=== PATIENT | male | born 1945 | race Caucasian/White ===

== ENCOUNTER 2017-05-28 13:16 | Inpatient (IN) ==
[2017-05-28] MEDS ORDERED: 0.9 % Sodium Chloride 1,000 ML IVC ONE (13:18)
[2017-05-28 14:40] LABS: Basophils # 0.1 K/mcL (0.0-0.2); Basophils % 0.3 %; Eosinophils # 0.2 K/mcL (0.0-0.6); Eosinophils % 1.1 %; Hematocrit 29.6 % (37.5-50.1); Hemoglobin 9.3 g/dL (12.9-16.9); Immature Granulocytes % 1.2 % (0-4); Lymphocytes # 1.1 K/mcL (0.6-4.6); Lymphocytes % 5.7 %; Mean Corpuscular HGB Conc 31.4 g/dL (31.6-35.5); Mean Corpuscular Hemoglobin 26.3 pg (28.0-33.3); Mean Corpuscular Volume 83.6 fL (83.0-100.0); Mean Platelet Volume 9.1 fL (9.4-12.4); Monocytes % 5.3 %; Neutrophils # 16.4 K/mcL (1.6-8.9); Platelet Count 441 K/mcL (140-400); Red Blood Count 3.54 M/mcL (4.19-5.50); Red Cell Distribution Width 14.6 % (11.5-14.5); Segmented Neutrophils % 86.4 %
[2017-05-28 14:45] LABS: INR 1.5; Prothrombin Time 16.1 Seconds (9.4-12.1)
[2017-05-28 14:48] LABS: Activated Partial Thrombo Time 30.6 Seconds (26.0-36.0)
[2017-05-28 15:03] LABS: Alanine Aminotransferase 46 Units/L (7-52); Albumin 2.8 g/dL (3.5-5.7); Albumin/Globulin Ratio 0.7 (1.1-2.2); Alkaline Phosphatase 95 Units/L (34-104); Aspartate Amino Transferase 46 Units/L (13-39); BUN/Creatinine Ratio 19 (6-26); Bilirubin,Direct 0.2 mg/dL (0.0-0.2); Bilirubin,Indirect 0.4 mg/dL (0.0-1.2); Bilirubin,Total 0.6 mg/dL (0.3-1.0); Blood Urea Nitrogen 34 mg/dL (8-23); Calcium 8.7 mg/dL (8.6-10.3); Carbon Dioxide 23 mEq/L (23-29); Chloride 95 mEq/L (98-107); Globulin 4.2 g/dL (2.4-3.5); Glucose 117 mg/dL (70-105); Magnesium 2.1 mg/dL (1.6-2.6); Osmolality,Calculated 271 (280-300); Phosphorous 3.1 mg/dL (2.7-4.5); Potassium 5.3 mEq/L (3.5-5.1); Sodium 126 mEq/L (136-145); eGFR For African Americans 46 (> 60); eGFR For Non-African Americans 38 (> 60)
--- NOTE | 2017-05-28 15:14 | Emergency Department Note ---
Disposition Clinical Impression: VALERIANO (acute kidney injury) Decubital ulcer Qualifiers: Pressure ulcer location: unspecified location Pressure ulcer stage: unspecified pressure ulcer stage Qualified Code(s): L89.90 - Pressure ulcer of unspecified site, unspecified stage Sepsis Qualifiers: Sepsis type: sepsis due to unspecified organism Qualified Code(s): A41.9 - Sepsis, unspecified organism Disposition: Admitted As Inpatient Condition: Good Referrals: Shayan Oliva MD [Primary Care Provider] - Forms: ED Satisfaction Letter, Work/School Release Time of Disposition: 18:33 General Adult HPI - General Chief complaint: ED General Medical Stated complaint: septic Time Seen by Provider: 05/28/17 13:17 Source: patient, family Mode of arrival: wheelchair Limitations: no limitations Nursing Notes Reviewed: Yes Vital Signs Reviewed: Yes - History of Present Illness HPI Narrative: 72-year-old male who has a history of hypertension and paraplegia status post abdominal aortic age and repair presents for evaluation of chronic wound in his buttock. Patient was evaluated at the wound center prior to ED arrival. Dr. Blankenship instructed the patient to go to the ER for CT imaging of the patient's abdomen and pelvis. Patient's history provided by the patient's Wells family at bedside. Patient has been dealing with a chronic wound on his buttock over the past 10 months. Over the past couple weeks the patient's family notes foul- smelling odor and discharge from the wound. Patient's been on Bactrim as well as another antibiotic during this timeframe. Patient completed that course. Patient has had approximately 20 pound weight loss over the past week. Patient' s been having chills. Patient denies any abdominal pain. No nausea or vomiting. Patient is incontinent of urine and has had diarrhea this morning. Patient also self caths Pain Scale: 0 - Related Data Home Medications Medication Instructions Recorded Confirmed Aspirin [Lo-Dose Aspirin EC] 81 mg PO DAILY 04/09/17 05/28/17 Lisinopril [Zestril] 5 mg PO DAILY 04/09/17 05/28/17 Multivitamin,Therapeutic 1 each PO DAILY 04/09/17 05/28/17 [Thera-Tabs] Pravastatin Sodium [Pravachol] 80 mg PO HS 04/09/17 05/28/17 Allergies Allergy/AdvReac Type Severity Reaction Status Date / Time No Known Allergies Allergy Verified 05/17/17 16:11 All systems ED: reviewed and negative except as stated. Constitutional: Reports: chills. Denies: fever Cardiovascular: Denies: chest pain, palpitations Respiratory: Denies: cough, dyspnea Gastrointestinal: Reports: diarrhea. Denies: abdominal pain, nausea, vomiting Past Medical History - Past Medical History Source: patient, obtained from family Medical history: Reports: coronary artery disease, hyperlipidemia, hypertension , other Psychiatric history: Reports: no psych history - Social History Smoking Status: Former smoker Smokeless Tobacco Status: No Alcohol use: Reports: none Drug use: Reports: none Physical Exam - General Limitations: no limitations General appearance: alert, in no apparent distress - Head Head exam: atraumatic, normocephalic, normal inspection - Eye Eye exam: Present: normal appearance - ENT ENT exam: normal exam - Neck Neck exam: Present: normal inspection - Chest Chest inspection: Present: normal inspection, symmetric chest wall rise - Respiratory Respiratory exam: Present: normal lung sounds bilaterally. Absent: respiratory distress - Cardiovascular Cardiovascular exam: Present: regular rate, normal rhythm. Absent: systolic murmur - Abdominal Exam Abdominal exam: Present: soft, Non-Tender. Absent: guarding, rebound - Rectal Exam Produce Team Lead present during exam: Yes Rectal exam: Present: other (unstageable 5-4cm decub ulcer with purlent drainage on left buttock lateral to rectum with foul odor.) - Extremities Exam Extremities exam: Present: normal inspection - Expanded Lower Extremity Exam Neurovascular/Tendon exam: Present: normal capillary refill, motor deficit ( baseline lower ext), sensory deficit (baseline lower ext) - Back Exam Back exam: Present: normal inspection - Neurological Exam Neurological exam: Present: alert, oriented X3, CN II-XII intact - Skin Skin exam: Present: warm, dry, intact, normal color Course Vital Signs Temperature 98.4 F 05/28/17 13:38 Pulse Rate 82 05/28/17 13:38 Respiratory Rate 16 05/28/17 13:38 Blood Pressure 94/54 05/28/17 13:38 O2 Sat by Pulse Oximetry 95 05/28/17 13:38 Temperature 98.4 F 05/28/17 13:38 Pulse Rate 94 05/28/17 17:09 Respiratory Rate 16 05/28/17 17:09 Blood Pressure 152/67 05/28/17 17:09 O2 Sat by Pulse Oximetry 100 05/28/17 17:09 Oxygen Delivery Oxygen Delivery Room Air Medical Decision Making - MDM Narrative Medical decision making narrative: 72-year-old male with a history of paraplegia and decubitus ulcer chronically managed in the wound care presents for evaluation of possible sepsis. Patient was sent over by Dr. Blankenship wanted CT imaging. Patient does meet SIRS criteria. Patient was started on antibiotics for the most likely pathological organism. She had CT imaging of the abdomen and pelvis which showed a large uterus ulcer with likely gas gangrene. This information is was verbalized to Dr. Blankenship. Patient's vitals are stable. The patient's infection is likely secondary to the large uterus ulcer. Patient will be admitted to hospital service with surgery consult. - Lab Data Lab results reviewed: Yes I reviewed the patient's lab results. Result diagrams: 05/28/17 14:31 05/28/17 14:31 Lab Results 05/28/17 05/28/17 05/28/17 Range/Units 14:31 14:31 14:31 WBC 18.9 H (4.3-11.1) K/mcL RBC 3.54 L (4.19-5.50) M/mcL Hgb 9.3 L (12.9-16.9) g/dL Hct 29.6 L (37.5-50.1) % MCV 83.6 (83.0-100.0) fL MCH 26.3 L (28.0-33.3) pg MCHC 31.4 L (31.6-35.5) g/dL RDW 14.6 H (11.5-14.5) % Plt Count 441 H (140-400) K/mcL MPV 9.1 L (9.4-12.4) fL Immature Gran % 1.2 (0-4) % Seg Neutrophils % 86.4 % Lymphocytes % 5.7 % Monocytes % 5.3 % Eosinophils % 1.1 % Basophils % 0.3 % Neutrophils # 16.4 H (1.6-8.9) K/mcL Lymphocytes # 1.1 (0.6-4.6) K/mcL Monocytes # 1.0 (0.0-1.3) K/mcL Eosinophils # 0.2 (0.0-0.6) K/mcL Basophils # 0.1 (0.0-0.2) K/mcL PT 16.1 H (9.4-12.1) Seconds INR 1.5 APTT 30.6 (26.0-36.0) Seconds Sample Site ABG pH (7.32-7.45) pH Units ABG pCO2 (35-45) mmHg ABG pO2 (85-104) mmHg ABG HCO3 (21-27) mEq/L ABG Total CO2 (20-26) mEq/L ABG O2 Saturation (95-98) % ABG Base Excess (-2 to 3) mEq/L Td Test O2 Delivery Device Inspired O2 (1-15=lpm [id number]=%) Sodium 126 L (136-145) mEq/L Potassium 5.3 H (3.5-5.1) mEq/L Chloride 95 L (98-107) mEq/L Carbon Dioxide 23 (23-29) mEq/L BUN 34 H (8-23) mg/dL Creatinine 1.77 H (0.70-1.30) mg/dL Est GFR ( Amer) 46 L (> 60) Est GFR (Non-Af Amer) 38 L (> 60) BUN/Creatinine Ratio 19 (6-26) Glucose 117 H (70-105) mg/dL Calculated Osmolality 271 L (280-300) Lactic Acid (0.5-2.2) mmol/L Calcium 8.7 (8.6-10.3) mg/dL Phosphorus 3.1 (2.7-4.5) mg/dL Magnesium 2.1 (1.6-2.6) mg/dL Total Bilirubin 0.6 (0.3-1.0) mg/dL Direct Bilirubin 0.2 (0.0-0.2) mg/dL Indirect Bilirubin 0.4 (0.0-1.2) mg/dL AST 46 H (13-39) Units/L ALT 46 (7-52) Units/L Alkaline Phosphatase 95 (34-104) Units/L Troponin I < 0.03 (< 0.04) ng/mL Serum Total Protein 7.0 (6.4-8.9) g/dL Albumin 2.8 L (3.5-5.7) g/dL Globulin 4.2 H (2.4-3.5) g/dL Albumin/Globulin Ratio 0.7 L (1.1-2.2) Urine Color (Yellow) Urine Clarity (Clear) Urine pH (5.0-8.0) pH Units Ur Specific [place] (1.010-1.025) Urine Protein (Neg-Trace) mg/dL Urine Glucose (UA) (Normal) mg/dL Urine Ketones (Negative) mg/dL Urine Blood (Negative) Urine Nitrite (Negative) Urine Bilirubin (Negative) Urine Urobilinogen (Normal) mg/dL Ur Leukocyte Esterase (Negative) Urine Microscopic RBC (0-3) per hpf Urine Microscopic WBC (0-3) per hpf Ur Squamous Epith Cells (None-Few) per lpf Amorphous Sediment (Few) Urine Bacteria (None-Few) per hpf Hyaline Casts (None-Few) per lpf Ur Culture Indicated? (NO) 05/28/17 05/28/17 05/28/17 Range/Units 14:31 15:25 15:42 WBC (4.3-11.1) K/mcL RBC (4.19-5.50) M/mcL Hgb (12.9-16.9) g/dL Hct (37.5-50.1) % MCV (83.0-100.0) fL MCH (28.0-33.3) pg MCHC (31.6-35.5) g/dL RDW (11.5-14.5) % Plt Count (140-400) K/mcL MPV (9.4-12.4) fL Immature Gran % (0-4) % Seg Neutrophils % % Lymphocytes % % Monocytes % % Eosinophils % % Basophils % % Neutrophils # (1.6-8.9) K/mcL Lymphocytes # (0.6-4.6) K/mcL Monocytes # (0.0-1.3) K/mcL Eosinophils # (0.0-0.6) K/mcL Basophils # (0.0-0.2) K/mcL PT (9.4-12.1) Seconds INR APTT (26.0-36.0) Seconds Sample Site L Radial ABG pH 7.45 (7.32-7.45) pH Units ABG pCO2 33 L (35-45) mmHg ABG pO2 77 L (85-104) mmHg ABG HCO3 23 (21-27) mEq/L ABG Total CO2 24 (20-26) mEq/L ABG O2 Saturation 96 (95-98) % ABG Base Excess -1 (-2 to 3) mEq/L Td Test Positive O2 Delivery Device Room Air Inspired O2 21.0 (1-15=lpm [id number]=%) Sodium (136-145) mEq/L Potassium (3.5-5.1) mEq/L Chloride (98-107) mEq/L Carbon Dioxide (23-29) mEq/L BUN (8-23) mg/dL Creatinine (0.70-1.30) mg/dL Est GFR ( Amer) (> 60) Est GFR (Non-Af Amer) (> 60) BUN/Creatinine Ratio (6-26) Glucose (70-105) mg/dL Calculated Osmolality (280-300) Lactic Acid 0.6 (0.5-2.2) mmol/L Calcium (8.6-10.3) mg/dL Phosphorus (2.7-4.5) mg/dL Magnesium (1.6-2.6) mg/dL Total Bilirubin (0.3-1.0) mg/dL Direct Bilirubin (0.0-0.2) mg/dL Indirect Bilirubin (0.0-1.2) mg/dL AST (13-39) Units/L ALT (7-52) Units/L Alkaline Phosphatase (34-104) Units/L Troponin I (< 0.04) ng/mL Serum Total Protein (6.4-8.9) g/dL Albumin (3.5-5.7) g/dL Globulin (2.4-3.5) g/dL Albumin/Globulin Ratio (1.1-2.2) Urine Color Dark Yellow (Yellow) Urine Clarity Cloudy A (Clear) Urine pH 5.5 (5.0-8.0) pH Units Ur Specific Dawson 1.020 (1.010-1.025) Urine Protein 30 H (Neg-Trace) mg/dL Urine Glucose (UA) Normal (Normal) mg/dL Urine Ketones Trace H (Negative) mg/dL Urine Blood Negative (Negative) Urine Nitrite Negative (Negative) Urine Bilirubin Small H (Negative) Urine Urobilinogen Normal (Normal) mg/dL Ur Leukocyte Esterase Small H (Negative) Urine Microscopic RBC 0-3 (0-3) per hpf Urine Microscopic WBC 15-30 H (0-3) per hpf Ur Squamous Epith Cells Many H (None-Few) per lpf Amorphous Sediment Moderate H (Few) Urine Bacteria Moderate H (None-Few) per hpf Hyaline Casts None Seen (None-Few) per lpf Ur Culture Indicated? NO. (NO) - Radiology Data Radiology results reviewed: Yes I reviewed the patient's radiology results. Chest X-Ray 05/28/17 15:13 IMPRESSION: No acute cardiopulmonary disease. D/ / Blake Nguyen MD / Blake Nguyen MD Interpreting Provider: Blake Nguyen MD Abdomen/Pelvis CT 05/28/17 15:30 IMPRESSION: 1. 4 mm nonobstructing left renal calculus and punctate right renal calculi. There also 2 bladder calculi measuring 7 mm and 3 mm. 2. Left proximal ureteric mild dilatation and urothelial thickening suggests urinary tract infection. 3. Left gluteal ulcer with large 14 cm underlying area of gas pockets, soft tissue induration and some suspected small fluid pockets. Large amount of gas pockets suggests component of gangrene. 4. Cortical irregularity and subtle fragmentation involving the left ischial tuberosity highly suggestive of acute osteomyelitis given overlying extensive soft tissue infection. D/ / Jaspal Powers MD / Jaspal Powers MD Interpreting Provider: Jaspal Powers MD - EKG Data EKG #1 EKG attestation: Yes I reviewed and interpreted this EKG. EKG shows normal: sinus rhythm Rate: normal Rhythm: NSR [place]/QRS: normal Interpretation: no acute changes S.B.A.R. - S.B.A.RSofiya Situation: Demographics Background: Presenting Complaint Assessment: Vital Signs, Course and respsone to treatment, Patient/Family Expectation Recommendation: Barrier(s) to disposition, Recommendation based on pending studies, treatments, or consults S.B.A.RSofiya Report Given to: Dr. Madonna Funes Repor Time: 18:21
[2017-05-28 15:23] LABS: Troponin I < 0.03 ng/mL (< 0.04)
[2017-05-28 15:28] LABS: ABG Base Excess -1 mEq/L (-2 to 3); ABG HCO3 23 mEq/L (21-27); ABG Oxygen Saturation 96 % (95-98); ABG PCO2 33 mmHg (35-45); ABG PH 7.45 pH Units (7.32-7.45); ABG PO2 77 mmHg (85-104); ABG TCO2 24 mEq/L (20-26)
[2017-05-28] MEDS ORDERED: Piperacillin/Tazobactam 3.375 GM in 0.9 % Sodium Chloride Mini Bag 100 ML IVPB ONE (15:37)
[2017-05-28 16:04] LABS: Bilirubin,Urine Small (Negative); Blood,Urine Negative (Negative); Clarity,Urine Cloudy (Clear); Color,Urine Dark Yellow (Yellow); Glucose,Urine (UA) Normal (Normal); Ketones,Urine Trace mg/dL (Negative); Leukocyte Esterase,Urine Small (Negative); Nitrite,Urine Negative (Negative); PH,Urine 5.5 pH Units (5.0-8.0); Protein,Urine 30 mg/dL (Neg-Trace); Urobilinogen,Urine Normal (Normal)
[2017-05-28 16:07] LABS: RBC,Urine 0-3 per hpf (0-3); Squamous Epithelial Cell,Urine Many per lpf (None-Few); WBC,Urine 15-30 per hpf (0-3)
[2017-05-28 16:18] LABS: Amorphous Sediment,Urine Moderate (Few); Hyaline Casts,Urine None Seen per lpf (None-Few)
[2017-05-28 16:19] LABS: Bacteria,Urine Moderate per hpf (None-Few)
--- NOTE | 2017-05-28 18:21 | Emergency Department Note ---
START Narrative - START START: I examined this patient and my medical decision-making was reviewed with the Resident Physician. I agree with the documented findings, disposition and treatment plan as described except to the extent set forth below. Findings consistent with sepsis from decubitus ulcer. Broad spectrum antibiotics initiated. Pancultures obtained. Discussed case with Dr. Stallworth in general surgery. Patient will be admitted for further evaluation. I spent greater than 35 minutes of critical care time resuscitating this acutely ill patient suffering from sepsis. This was excluding billable procedures.
[2017-05-29] MEDS ORDERED: Acetaminophen 325 MG TABLET PO PRN (00:01)
[2017-05-29] MEDS ORDERED: Naloxone 0.4 MG/ML INJ IVP PRN (00:01)
[2017-05-29] MEDS ORDERED: 0.9 % Sodium Chloride 1,000 ML IVC SCH (00:15)
--- NOTE | 2017-05-29 01:10 | Internal Med History&Physical ---
Date of Encounter: 05/28/17 Time of Encounter: 23:00 Assessment and Plan (1) DVT prophylaxis Current visit: Yes Status: Acute Place patient on anti-embolic stocks, patient possibly needed debridement surgery tomorrow, will hold anticoagulation at this point and may start after surgery (2) Hyperkalemia Current visit: Yes Status: Acute Mild hyperkalemia. Assume improved after IV fluid (3) Hyponatremia Current visit: Yes Status: Acute Sodium level 126. On IV fluid with 0.9% NS, closely monitor sodium level. Goal of correction is not more than 8 mEq within the first 24 hours. (4) VALERIANO (acute kidney injury) Current visit: Yes Status: Acute No baseline creatinine available. On IV fluid. Closely follow up renal function (5) Decubital ulcer Current visit: Yes Status: Acute Patient has signs of wound infection. Place patient on broad-spectrum antibiotic. Follow-up blood culture. - Surgical consult called by ER, may need debridement, keep patient nothing by mouth from midnight. Qualifiers: Pressure ulcer location: sacral region Pressure ulcer stage: stage 3 Qualified Code(s): L89.153 - Pressure ulcer of sacral region, stage 3 Internal Medicine - H&P: HPI Chief complaint: Weakness Admitted From: Home Plans for Post Hospital Care: Home History of present illness: Mr. Klein is a 72 year old male with history of paraplegia, chronic decubitus ulcer, present to ER for weakness for 10 days. Patient has a chronic decubitus ulcer and follow-up with Wound Care clinic. He feels generalized weak for about 10 days. No fever, no nausea, no vomiting. Patient had abdominal aortic aneurysm surgery 5 years ago, which ended up with paraplegia since then. Patient went to see Wound Care physician today and was advised to come to the ER. In ER, CT abdominal and pelvis shows most likely wound infection. Patient has leukocytosis. Patient was admitted for further management. Past Med Surg Social Fam HX - Past Medical History Medical history: coronary artery disease, hyperlipidemia, hypertension, other Psychiatric history: no psych history - Social History Smoking Status: Former smoker Smokeless Tobacco Status: No Alcohol use: none Drug use: none - Family History Mother Adopted: No Living Status: Hx Family Cardiac Disorders: Yes Hx Family Respiratory Disorders: No Hx Family Cancer: No Hx Family GI Disorders: No Hx Family Endocrine Disorder: Yes Father Adopted: No Living Status: Hx Family Cardiac Disorders: Yes Hx Family Respiratory Disorders: No Hx Family Cancer: No Hx Family GI Disorders: No Hx Family Endocrine Disorder: No Internal Medicine - H&P: Meds Aspirin [Lo-Dose Aspirin EC] 81 mg PO DAILY 04/09/17 [History] Lisinopril [Zestril] 5 mg PO DAILY 04/09/17 [History] Multivitamin,Therapeutic [Thera-Tabs] 1 each PO DAILY 04/09/17 [History] Pravastatin Sodium [Pravachol] 80 mg PO HS 04/09/17 [History] 3 Allergy/AdvReac Type Severity Reaction Status Date / Time No Known Allergies Allergy Verified 05/17/17 16:11 All Systems PM: A 10-system review of systems was performed and is negative for pertinent findings except as documented above in the HPI. - Constitutional Vitals: Temp Pulse Resp BP Pulse Ox 99.4 F 91 16 97/48 94 05/28/17 23:47 05/28/17 23:47 05/28/17 23:47 05/28/17 23:47 05/28/17 23:47 General appearance: Present: A&O X 3, no acute distress, answers questions appropriately - Head Head exam: Present: atraumatic, normocephalic - Eye Eye exam: Present: PERRL, conjuntiva pink, sclera anicteric Pupils: Present: PERRL - Neck Neck exam general surgery: Present: supple, trachea midline. Absent: lymphadenopathy - Respiratory Respiratory exam: Present: CTAB. Absent: accessory muscle use, rales, rhonchi, wheezes - Cardiovascular Cardiovascular exam: Present: RRR, +S1, +S2. Absent: diastolic murmur, gallop, rubs, systolic murmur - GI/Abdominal GI/Abdominal exam: Present: normal bowel sounds, soft, no peritoneal signs. Absent: distended, tenderness - Extremities Exam Extremities exam: Present: warm, radial pulses palpable and symmetrical. Absent : calf tenderness, cyanotic, pedal edema - Neurological Exam Neurological exam: Present: CN II-XII intact, motor sensory deficit (paraplegia) , oriented X3, no focal deficits. Absent: pronater drift, facial droop, speech deficit - Skin Skin exam: Present: dry, intact Additional comments: Decubitus wound Internal Med - H&P Results - Labs CBC & Chem 7: 05/28/17 14:31 05/28/17 14:31
[2017-05-29] MEDS ORDERED: Piperacillin/Tazobactam 3.375 GM in 0.9 % Sodium Chloride Mini Bag 100 ML IVPB SCH ×2 (06:00)
[2017-05-29 06:20] LABS: Basophils % 0.2 %; Eosinophils # 0.3 K/mcL (0.0-0.6); Eosinophils % 2.7 %; Hemoglobin 8.1 g/dL (12.9-16.9); Lymphocytes # 0.7 K/mcL (0.6-4.6); Lymphocytes % 5.8 %; Mean Corpuscular HGB Conc 31.2 g/dL (31.6-35.5); Mean Corpuscular Hemoglobin 26.2 pg (28.0-33.3); Mean Corpuscular Volume 84.1 fL (83.0-100.0); Mean Platelet Volume 9.2 fL (9.4-12.4); Monocytes # 0.7 K/mcL (0.0-1.3); Monocytes % 5.5 %; Neutrophils # 10.2 K/mcL (1.6-8.9); Platelet Count 389 K/mcL (140-400); Red Blood Count 3.09 M/mcL (4.19-5.50); Red Cell Distribution Width 14.6 % (11.5-14.5); Segmented Neutrophils % 84.8 %
[2017-05-29 06:35] LABS: BUN/Creatinine Ratio 24 (6-26); Blood Urea Nitrogen 27 mg/dL (8-23); Calcium 8.3 mg/dL (8.6-10.3); Carbon Dioxide 22 mEq/L (23-29); Chloride 102 mEq/L (98-107); Glucose 84 mg/dL (70-105); Magnesium 2.1 mg/dL (1.6-2.6); Osmolality,Calculated 276 (280-300); Potassium 4.9 mEq/L (3.5-5.1); Sodium 131 mEq/L (136-145); eGFR For African Americans > 60 (> 60); eGFR For Non-African Americans > 60 (> 60)
[2017-05-29] MEDS: Multivit/Ca/Min/Fe/FA 1 TAB TABLET PO SCH (08:26)
[2017-05-29] MEDS: Aspirin Enteric Coated 81 MG Tablet PO SCH (08:26)
--- NOTE | 2017-05-29 12:18 | Electrocardiograph Report ---
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
--- NOTE | 2017-05-29 12:38 | General Surgery Consult Note ---
Date of Encounter: 05/29/17 Time of Encounter: 12:34 Assessment and Plan (1) Decubital ulcer Current Visit: Yes Status: Acute 72M with infected sacral decubitus ulcer; diet today clearance by hospitalist for surgery cont IV abx dressing change today OR tomorrow for exisional debridement NPO at midnight; cares per primary team Qualifiers: Pressure ulcer location: sacral region Pressure ulcer stage: stage 4 Qualified Code(s): L89.154 - Pressure ulcer of sacral region, stage 4 History of Present Illness Consult date: 05/29/17 Reason for consult: other (infected sacral decubitus ulcer) History of present illness: 72M whom I see weekly in wound clinic. I am very familiar with him. It is worth noting that he is a paraplegic and subsequently developed a sacral decubitus ulcer. He originally presented to my clinic for a non healing sacral ulcer that was non stageable. Over time it began to declare it self, proving to be, at best stage III, most likely stage IV. Prior to admission, he was reported as not having an appetite, feeing weak, not eating and losing weight. He was subsequently admitted. A CT scan was obtained, which was reviewed and interpreted by me in combination with radiology reads, which demonstrated a fluid colleciton and concern for necrotic/gangrenous tissue. I doubt that he has a gas forming bacteria, but believe a lot of the air is from entry through his wound. he is currently on IV antibiotics. I went to see the patient and noted purulent drainage from the wound. Past Med Surg Social Fam HX - Past Medical History Medical history: coronary artery disease, hyperlipidemia, hypertension, other Psychiatric history: no psych history - Past Surgical History Surgical History: other (AAA repair) - Social History Smoking Status: Former smoker Smokeless Tobacco Status: No Alcohol use: none Drug use: none - Family History Mother Adopted: No Living Status: Hx Family Cardiac Disorders: Yes Hx Family Respiratory Disorders: No Hx Family Cancer: No Hx Family GI Disorders: No Hx Family Endocrine Disorder: Yes Father Adopted: No Living Status: Hx Family Cardiac Disorders: Yes Hx Family Respiratory Disorders: No Hx Family Cancer: No Hx Family GI Disorders: No Hx Family Endocrine Disorder: No Medications and Allergies Aspirin [Lo-Dose Aspirin EC] 81 mg PO DAILY 04/09/17 [History] Lisinopril [Zestril] 5 mg PO DAILY 04/09/17 [History] Multivitamin,Therapeutic [Thera-Tabs] 1 each PO DAILY 04/09/17 [History] Pravastatin Sodium [Pravachol] 80 mg PO HS 04/09/17 [History] 3 Allergy/AdvReac Type Severity Reaction Status Date / Time No Known Allergies Allergy Verified 05/17/17 16:11 Review of Systems All systems PM: The remainder of the systems were reviewed and are negative General Surgery Exam Initial Vital Signs Temp Pulse Resp BP Pulse Ox 98.4 F 82 16 94/54 95 05/28/17 13:38 05/28/17 13:38 05/28/17 13:38 05/28/17 13:38 05/28/17 13:38 - General physical appearance well developed, no distress - Eyes normal ocular movement - ENT normal mucosa, normocephalic - Neck trachea midline, no lymphadectomy - Respiratory normal expansion, normal respiratory effort - Cardiovascular Cardiovascular exam: Present: RRR - Abdomen Abdomen general surgery: Present: soft, non tender - Rectum Rectum: Present: other (decubitus ulcer; actively draining purulent material; malodorous) - Integumentary Integumentary general surgery: Present: warm and dry - Neurologic Present: other (paraplegic) - Psychiatric Psychiatric general surgery: Present: A&Ox3 Exam Initial Vital Signs Temp Pulse Resp BP Pulse Ox 98.4 F 82 16 94/54 95 05/28/17 13:38 05/28/17 13:38 05/28/17 13:38 05/28/17 13:38 05/28/17 13:38 Results - Labs 05/29/17 05:37 05/29/17 05:37 Abnormal lab results WBC 12.1 K/mcL (4.3-11.1) H 05/29/17 05:37 RBC 3.09 M/mcL (4.19-5.50) L 05/29/17 05:37 Hgb 8.1 g/dL (12.9-16.9) L 05/29/17 05:37 Hct 26.0 % (37.5-50.1) L 05/29/17 05:37 MCH 26.2 pg (28.0-33.3) L 05/29/17 05:37 MCHC 31.2 g/dL (31.6-35.5) L 05/29/17 05:37 RDW 14.6 % (11.5-14.5) H 05/29/17 05:37 MPV 9.2 fL (9.4-12.4) L 05/29/17 05:37 Neutrophils # 10.2 K/mcL (1.6-8.9) H 05/29/17 05:37 PT 16.1 Seconds (9.4-12.1) H 05/28/17 14:31 ABG pCO2 33 mmHg (35-45) L 05/28/17 15:25 ABG pO2 77 mmHg (85-104) L 05/28/17 15:25 Sodium 131 mEq/L (136-145) L 05/29/17 05:37 Carbon Dioxide 22 mEq/L (23-29) L 05/29/17 05:37 BUN 27 mg/dL (8-23) H 05/29/17 05:37 Calculated Osmolality 276 (280-300) L 05/29/17 05:37 Calcium 8.3 mg/dL (8.6-10.3) L 05/29/17 05:37 AST 46 Units/L (13-39) H 05/28/17 14:31 Albumin 2.8 g/dL (3.5-5.7) L 05/28/17 14:31 Globulin 4.2 g/dL (2.4-3.5) H 05/28/17 14:31 Albumin/Globulin Ratio 0.7 (1.1-2.2) L 05/28/17 14:31 Urine Clarity Cloudy (Clear) A 05/28/17 15:42 Urine Protein 30 mg/dL (Neg-Trace) H 05/28/17 15:42 Urine Ketones Trace mg/dL (Negative) H 05/28/17 15:42 Urine Bilirubin Small (Negative) H 05/28/17 15:42 Ur Leukocyte Esterase Small (Negative) H 05/28/17 15:42 Urine Microscopic WBC 15-30 per hpf (0-3) H 05/28/17 15:42 Ur Squamous Epith Cells Many per lpf (None-Few) H 05/28/17 15:42 Amorphous Sediment Moderate (Few) H 05/28/17 15:42 Urine Bacteria Moderate per hpf (None-Few) H 05/28/17 15:42 Diabetes panel 05/29/17 Range/Units 05:37 Sodium 131 L (136-145) mEq/L Potassium 4.9 (3.5-5.1) mEq/L Chloride 102 (98-107) mEq/L Carbon Dioxide 22 L (23-29) mEq/L BUN 27 H (8-23) mg/dL Creatinine 1.11 (0.70-1.30) mg/dL Glucose 84 (70-105) mg/dL Calcium 8.3 L (8.6-10.3) mg/dL Calcium panel 05/29/17 Range/Units 05:37 Calcium 8.3 L (8.6-10.3) mg/dL Pituitary panel 05/29/17 Range/Units 05:37 Sodium 131 L (136-145) mEq/L Potassium 4.9 (3.5-5.1) mEq/L Chloride 102 (98-107) mEq/L Carbon Dioxide 22 L (23-29) mEq/L BUN 27 H (8-23) mg/dL Creatinine 1.11 (0.70-1.30) mg/dL Glucose 84 (70-105) mg/dL Calcium 8.3 L (8.6-10.3) mg/dL Adrenal panel 05/29/17 Range/Units 05:37 Sodium 131 L (136-145) mEq/L Potassium 4.9 (3.5-5.1) mEq/L Chloride 102 (98-107) mEq/L Carbon Dioxide 22 L (23-29) mEq/L BUN 27 H (8-23) mg/dL Creatinine 1.11 (0.70-1.30) mg/dL Glucose 84 (70-105) mg/dL Calcium 8.3 L (8.6-10.3) mg/dL All other labs normal. Consult Discharge Plan - Plan Referrals: Shayan Oliva MD [Primary Care Provider] -
[2017-05-29 14:22] LABS: Acinetobacter baumannii by PCR Not Detected (Not Detect); Candida albicans by PCR Not Detected (Not Detect); Candida glabrata by PCR Not Detected (Not Detect); Candida krusei by PCR Not Detected (Not Detect); Candida parapsilosis by PCR Not Detected (Not Detect); Candida tropicalis by PCR Not Detected (Not Detect); Enterococcus by PCR Not Detected (Not Detect); Escherichia coli by PCR Not Detected (Not Detect); Klebsiella oxytoca by PCR Not Detected (Not Detect); Klebsiella pneumoniae by PCR Not Detected (Not Detect); Pseudomonas aeruginosa by PCR Not Detected (Not Detect); Serratia marcescens by PCR Not Detected (Not Detect); Staphylococcus aureus by PCR ***DETECTED*** (Not Detect); Streptococcus agalactiae(B)PCR Not Detected (Not Detect); Streptococcus by PCR Not Detected (Not Detect); Streptococcus pneumoniae PCR Not Detected (Not Detect); Streptococcus pyogenes (A) PCR Not Detected (Not Detect); blaKPC Carbapenem-Resist Gene Not Detected (Not Detect); mecA Methicillin-Resist Gene ***DETECTED*** (Not Detect); vanA/B Vancomycin-Resist Genes Not Detected (Not Detect)
--- NOTE | 2017-05-29 14:56 | Infectious Disease Consult ---
Date of Encounter: 05/29/17 Time of Encounter: 14:51 Assessment and Plan (1) Sepsis Status: Acute Assessment and plan: Severe sepsis: The patient had two SIRS criteria plus hypotension and VALERIANO on admission. Likely secondary to infected decubitus ulcer and osteomyelitis. Improved. WBC trending down. Blood cultures drawn 05/28/17 are pending x 2 sets. Qualifiers: Sepsis type: methicillin resistant Staphylococcus aureus Qualified Code(s) : A41.02 - Sepsis due to Methicillin resistant Staphylococcus aureus (2) Osteomyelitis Status: Acute Assessment and plan: Location: Left ischium. Causative organism unclear. Secondary to non-healing decubitus ulcer. CT of the abdomen and pelvis shows findings consistent with osteomyelitis of the left ischium. General surgery consulted and following. Planning to take the patient to the OR tomorrow for I & D. Will request intra-op cultures. Check ESR and CRP. Add to AM labs. Will ask nursing to get a wound culture with the next dressing change. Continue Vancomycin IV. Pharmacy to dose. Goal trough ~15. Continue Zosyn 3.375 grams IV Q8H. Duration of treatment depends on the clinical picture, but likely 6 weeks of IV antibiotics. Monitor renal function and for drug toxicity and dose-adjust antibiotics. enrollment services vice president consult to assist with discharge planning. Avoid insertion of central venous access until blood cultures are negative x 48 hours. Qualifiers: Osteomyelitis type: acute hematogenous Osteomyelitis location: other site Qualified Code(s): M86.08 - Acute hematogenous osteomyelitis, other sites (3) Gas gangrene Status: Acute Assessment and plan: Location: left gluteus. Causative organism: unclear. Likely secondary to non-healing decubitus ulcer. General surgery consulted and following. Continue antibiotics as above. (4) Decubital ulcer Status: Acute Assessment and plan: Stage IV noted to the left gluteus. Non-healing. Follows with Dr. Blankenship in the wound clinic. Wound care per the surgery team. Aggressive offloading. The patient may require plastic surgery evaluation for placement of a flap, but will await surgical outcomes. Qualifiers: Pressure ulcer location: sacral region Pressure ulcer stage: stage 4 Qualified Code(s): L89.154 - Pressure ulcer of sacral region, stage 4 (5) VALERIANO (acute kidney injury) Status: Acute Assessment and plan: Likely secondary to sepsis. Resolved. Continue to trend. Dose-adjust antibiotics. Avoid nephrotoxins as able. (6) Hyperkalemia Status: Resolved (7) Hyponatremia Status: Resolved (8) Paraplegia Status: Acute (9) Neurogenic bladder Status: Acute Assessment and plan: Requires SIC. Management per the primary team. Infectious Disease HPI - Data of Consult Patient: new to practice Consult date: 05/29/17 Requesting Physician: Zachariah Sarah MD Primary Care Provider: Shayan Oliva MD - Consult Narrative Reason for consult: Osteomyelitis History of present illness: Mr. Klein is a 72 year old male with history of paraplegia secondary to postop complications from a previous AAA repair, left buttock decubitus ulcer, CAD, hyperlipidemia, and hypertension. The patient was admitted to the hospital May 28 for acute kidney injury, decubitus ulcer, and sepsis. We are consulted May 29 for antibiotic recommendations for decubitus ulcer infection and osteomyelitis. Briefly, the patient's a 72-year-old male with past medical history as stated above. 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 He states about a year ago he developed a decubitus ulcer to the left buttock that was doing well until somewhere around March when it started to regress. He was referred to the wound clinic and has been seeing Dr. Blankenship. He tells me he has been on multiple rounds of antibiotics, but is unsure which ones. He states he saw Dr. Blankenship most recently the day of admission and was advised to come to the hospital due to concern that the wound was severely infected. Upon arrival to the ER, the patient was afebrile. He did have some hypotension and leukocytosis. He reported subjective chills at home, but no fevers. He was hyponatremic and hyperkalemic. LFTs a lactic acid were normal. He also had an acute kidney injury. He had a chest x-ray that was negative. A CT the abdomen and pelvis showed nonobstructing bladder and kidney stones, some ureteral thickening concerning for urinary tract infection, and a left gluteal ulcer with pockets of gas as well as soft tissue induration and possible small fluid pockets as well as left ischial osteomyelitis. Would cultures were obtained 2 sets and are pending. Urinalysis was obtained via straight catheter, but appears contaminated. He was started on IV vancomycin and IV Zosyn and admitted to the hospital for further evaluation. Since admission, the patient's white blood cell count has improved. He has developed some tachycardia and continues to have intermittent hypotension, which the patient states is abnormal for him. He has been evaluated by the general surgery team and he was told that they are planning on taking him to surgery tomorrow to debride the wound. He is currently on IV vancomycin and IV Zosyn. We have been asked to evaluate and make further recommendations. During my exam today, the patient endorses a history as stated above. He reports that at home he was generally feeling ill for the past 2-3 weeks with poor appetite, chills, and a 20 pound weight loss over the past week and a half due to very poor appetite. He states that he noticed a foul odor and increased discharge about 2 weeks ago after they started using Santyl on the wound. He denies any known fevers or rigors. He denies any congestion, earache, or sore throat. He denies any chest pain, shortness of breath, or cough. He denies any nausea or vomiting. He denies abdominal pain. He does have to self catheter 4-6 times per day due to neurogenic bladder from his spinal cord injury. He reports some diarrhea that started on Saturday. He denies any oral thrush or new skin lesions. The patient lives at home alone. He is able to transfer himself from bed to chair and vice versa. He gets around with a motorized wheelchair. He is retired from the local [employer]. He denies any alcohol, tobacco, or illicit drug use. He denies any travel outside the [facility]. He does have 1 dog at home. CC: Zachariah Sarah MD Past Med Surg Social Fam HX - Past Medical History Attestation: Yes The following information was validated with the patient. Source: patient, old records reviewed, other Medical history: coronary artery disease, hyperlipidemia, hypertension, other ( Paraplegia d/t surgical complication during AAA) Psychiatric history: no psych history - Past Surgical History Surgical History: other (AAA repair) - Social History Smoking Status: Former smoker Smokeless Tobacco Status: No Alcohol use: none Drug use: none Occupational status: retired Current living situation: Home - Independent Activity Level: Wheelchair bound Recent Out of Country Travel Within the Last 8 Weeks: No Exposure or Possible Exposure to Illness During Travel: No - Family History Mother Adopted: No Living Status: Hx Family Cardiac Disorders: Yes Hx Family Respiratory Disorders: No Hx Family Cancer: No Hx Family GI Disorders: No Hx Family Endocrine Disorder: Yes Father Adopted: No Living Status: Hx Family Cardiac Disorders: Yes Hx Family Respiratory Disorders: No Hx Family Cancer: No Hx Family GI Disorders: No Hx Family Endocrine Disorder: No Infectious Disease-CN:Meds Aspirin [Lo-Dose Aspirin EC] 81 mg PO DAILY 04/09/17 [History] Lisinopril [Zestril] 5 mg PO DAILY 04/09/17 [History] Multivitamin,Therapeutic [Thera-Tabs] 1 each PO DAILY 04/09/17 [History] Pravastatin Sodium [Pravachol] 80 mg PO HS 04/09/17 [History] 3 Allergy/AdvReac Type Severity Reaction Status Date / Time No Known Allergies Allergy Verified 05/17/17 16:11 All systems: reviewed and no additional remarkable complaints except as stated Exam - Constitutional Vitals: Temp Pulse Resp BP Pulse Ox 98.6 F 90 17 101/44 93 05/29/17 11:24 05/29/17 11:24 05/29/17 11:24 05/29/17 11:24 05/29/17 11:24 General appearance: average body habitus, cooperative, no acute distress - Head Head exam: Present: atraumatic, normal inspection, normocephalic - Eye Eye exam: Present: EOMI, normal appearance, PERRL Pupils: Present: normal accommodation - ENT ENT exam: Present: mucous membranes moist - Neck Neck exam: Present: normal inspection - Respiratory Respiratory exam: Present: CTAB. Absent: rales, respiratory distress, rhonchi, wheezes - Cardiovascular Cardiovascular exam: Present: +S1, +S2, tachycardia. Absent: irregular rhythm - GI/Abdominal GI/Abdominal exam: Present: normal bowel sounds, soft. Absent: distended, tenderness - Extremities Exam Extremities exam: Absent: joint swelling, normal inspection (Muscle atrophy noted to the BLE.), pedal edema, tenderness - Expanded Back Exam 1 - Stage IV decubitus ulcer with foul smelling purulent drainage noted. Wound bed is dark yellow. Surrounding tissue is pink and blanches. - Neurological Exam Neurological exam: Present: alert, oriented X3. Absent: no focal deficits ( Paralysis noted to the BLE) - Psychiatric Psychiatric exam: Present: normal affect, normal mood - Skin Skin exam: Present: dry, intact, normal color, warm Infectious Disease CN: Results - Labs CBC & Chem 7: 05/30/17 03:00 05/30/17 03:00 - VTE Documentation of Mechanical Device: Graduated compression elastic hosiery Consult Discharge Plan - Plan Referrals: Shayan Oliva MD [Primary Care Provider] - (Please have patient call once home due to so many no show. per office) - Attending Attestation I examined this patient and my medical decision-making was reviewed with the Resident Physician. I agree with the documented findings, disposition and treatment plan as described except to the extent set forth below. Patient is 72-year-old gentleman who came in because of worsening decubitus ulcer that has been draining and foul-smelling.~ Patient denies any fevers or chills patient denies any night sweats. Patient is a 72-year-old gentleman who apparently has been paraplegic for about 4 years due to an unfortunate complication from AAA repair that was done at [facility] in [place].~ Patient to lives alone about [place] east of [place].~ Patient has a wheelchair and a power wheelchair and also able to drive on his own.~ Patient has a daughter that comes and checks up on him and helps him when he needs are.~ Patient states that he had this NICU was also for about a year now that has been getting progressively worse.~ In March of this year patient establish care with wound care and was seeing Dr. Stallworth.~ Currently patient states that he has been having drainage and foul-smelling and was sent by Dr. Stallworth to the emergency department for admission. Since admission patient has been afebrile, he has been hypertensive, his WBC was elevated and had normal heart rate.~ Patient also had some acute kidney injury and that resolved.~ Patient had a CT abdomen and pelvis which revealed left ischial osteomyelitis.~ We were asked to evaluate the patient and further recommendations. At this point patient has stage IV decubitus ulcer with osteomyelitis.~ Patient is going to surgery tomorrow for aggressive debridement. Please obtain Intra-Op cultures for routine and anaerobic. Agree with starting intermittent vancomycin and Zosyn, patient has 2 SIRS criteria so I agree with starting antibiotics now. Goal vancomycin trough around 15 Monitor labs and for drug toxicity Patient will need a PICC line prior to discharge and he will likely need 6-8 weeks of IV antibiotics We will check inflammatory markers today prior to surgery tomorrow Postop we will make a further decision if the patient needs a flap or wound VAC versus other. We will need to follow up with us in clinic 2 weeks post discharge Will tailor antibiotics based on the Intra-Op cultures results.
--- NOTE | 2017-05-29 16:14 | Internal Med Progress Note ---
Date of Encounter: 05/29/17 Time of Encounter: 11:30 - Assessment and plan (1) Sepsis Current Visit: Yes Status: Acute Assessment and plan: He did meet sepsis criteria with source of inf as Left buttock wound, elevated WBC, mild hypotension and VALERIANO check ESR and CRP Blood cx growing MRSA cont empirical abx Vanc and Zosyn Cont IV hydration Qualifiers: Sepsis type: methicillin resistant Staphylococcus aureus Qualified Code(s) : A41.02 - Sepsis due to Methicillin resistant Staphylococcus aureus (2) Gas gangrene Current Visit: Yes Status: Acute Assessment and plan: Reviewed CT of pelvis concerning for gas gangrene and possible osteomyelitis pt scheduled for debridement in AM ID consulted cont empirical abx Zosyn + Vanc (3) Decubital ulcer Current Visit: Yes Status: Acute Qualifiers: Pressure ulcer location: sacral region Pressure ulcer stage: stage 4 Qualified Code(s): L89.154 - Pressure ulcer of sacral region, stage 4 (4) VALERIANO (acute kidney injury) Current Visit: Yes Status: Acute Assessment and plan: Improved due to sepsis + dehydration (5) Hyperkalemia Current Visit: Yes Status: Resolved Assessment and plan: improved (6) Hyponatremia Current Visit: Yes Status: Resolved Assessment and plan: Due to dehydration improved (7) Paraplegia Current Visit: Yes Status: Acute Assessment and plan: no needs now - Subjective Interval history: Mr. Klein is a 72 year old male with history of paraplegia secondary to postop complications from a previous AAA repair, left gluteus decubitus ulcer developed a year ago, CAD, hyperlipidemia, and hypertension pt who follows with Dr. Blankenship as an out pt for his left gluteus decubitus ulcer presented to ER since his Left buttock wound seems to be worsening with foul discharge and Dr. Blankenship referred him to ER to get admitted in the hospital. Pt is alert, awake and O x 3. Denied any CP / SOB. - Constitutional Vitals: Temp Pulse Resp BP Pulse Ox 97.4 F L 84 17 110/40 94 05/29/17 15:41 05/29/17 15:41 05/29/17 15:41 05/29/17 15:41 05/29/17 15:41 General appearance: Present: A&O X 3, no acute distress, answers questions appropriately - Head Head exam: Present: atraumatic, normal inspection - Neck Neck exam general surgery: Present: supple - Respiratory Respiratory exam: Present: decreased breath sounds. Absent: rales, respiratory distress, rhonchi, wheezes - Cardiovascular Cardiovascular exam: Present: RRR, +S1, +S2. Absent: tachycardia - GI/Abdominal GI/Abdominal exam: Present: normal bowel sounds, soft. Absent: rebound, rigid, tenderness - Extremities Exam Extremities exam: Absent: calf tenderness, pedal edema, tenderness - Back Exam Back exam: Absent: CVA tenderness (L), CVA tenderness (R) Additional comments: 6x 6 cm size open wound over Left gluteal region, with tunneling and erythema around the ulcer, foul discharge. - Neurological Exam Neurological exam: Present: alert, oriented X3 - Psychiatric Psychiatric exam: Present: normal affect, normal mood Internal Medicine: Result - Labs CBC & Chem 7: 05/29/17 05:37 05/29/17 05:37 Labs: Short CBC 05/29/17 Range/Units 05:37 WBC 12.1 H (4.3-11.1) K/mcL Hgb 8.1 L (12.9-16.9) g/dL Hct 26.0 L (37.5-50.1) % Plt Count 389 (140-400) K/mcL Neutrophils # 10.2 H (1.6-8.9) K/mcL BMP 05/29/17 05:37 Sodium 131 L Potassium 4.9 Chloride 102 Carbon Dioxide 22 L BUN 27 H Creatinine 1.11 Glucose 84 Calcium 8.3 L - ABG Interpretation ABG results: ABG ABG pH 7.45 pH Units (7.32-7.45) 05/28/17 15:25 ABG pCO2 33 mmHg (35-45) L 05/28/17 15:25 ABG pO2 77 mmHg (85-104) L 05/28/17 15:25 ABG O2 Saturation 96 % (95-98) 05/28/17 15:25 PT/INR, D-dimer PT 16.1 Seconds (9.4-12.1) H 05/28/17 14:31 - VTE Documentation of Mechanical Device: Graduated compression elastic hosiery Consult Discharge Plan - Plan Referrals: Pj,Shayan Lubin MD [Primary Care Provider] -
[2017-05-29] MEDS: 0.9 % Sodium Chloride 1,000 ML IVC SCH (17:29)
[2017-05-29] MEDS: Zinc Sulfate 220 MG CAPSULE PO SCH (17:31)
[2017-05-29] MEDS: Ascorbic Acid 500 MG TABLET PO SCH (17:31)
[2017-05-29] MEDS: Piperacillin/Tazobactam 3.375 GM in 0.9 % Sodium Chloride Mini Bag 100 ML IVPB SCH (17:31)
--- NOTE | 2017-05-29 20:45 | Anesthesia Evaluation PreOp ---
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 (paraplegia after AAA repair 5yrs ago) Other Medical History: Renal (VALERIANO), Other (sepsis) Anesthesia History: No Prior Anesthetic Complications, Past Anesthesia (AAA repair, carotid endarterectomy) Alcohol Use: none Drug use: none Medications and Allergies Aspirin [Lo-Dose Aspirin EC] 81 mg PO DAILY 04/09/17 [History] Lisinopril [Zestril] 5 mg PO DAILY 04/09/17 [History] Multivitamin,Therapeutic [Thera-Tabs] 1 each PO DAILY 04/09/17 [History] Pravastatin Sodium [Pravachol] 80 mg PO HS 04/09/17 [History] 3 Allergy/AdvReac Type Severity Reaction Status Date / Time No Known Allergies Allergy Verified 05/17/17 16:11 - Meds/Allergy Pre-op Review Medications Reviewed: Yes Allergies Reviewed: Yes Beta Blockers on Current Med List: No Anesthesia Results - Labs 05/29/17 05:37 05/29/17 05:37 - Imaging EKG: report reviewed (SINUS RHYTHM BASELINE ARTIFACT Electronically Signed On 12:16:56 EDT by Guille Ac MD) Anesthesia Exam Vital Signs/O2 Sat, Most Current Temp Pulse Resp BP Pulse Ox 97.4 F L 84 17 110/40 94 05/29/17 15:41 05/29/17 15:41 05/29/17 15:41 05/29/17 15:41 05/29/17 15:41 Height: 1.85m Weight: 76kg NPO (# of Hours): npo after midnight - HEENT Pupil (Motor): Pupils equal, EOMI Mallampati: II Denture Type: Upper: Complete, Lower: Complete Oral Opening: Greater than 3 - FORGE UTILITY WORKER LOC: Oriented FORGE UTILITY WORKER Motor: Normal RUE, Normal LUE, Normal Face, Deficit RLE (paraplegic), Deficit LLE (paraplegic) FORGE UTILITY WORKER Sensory: Normal: RUE, LUE, Face - Cardiac Rhythm: Regular - Pulmonary Breath Sounds: bilateral Clear Respiratory Effort: Symmetrical Anesthesia Assess/Plan ASA Score: 3 (r/b/a discussed, pt is at risk for autonomic hypereflexia during his operation) Modified Scroggins Scale for Level of Consciousness: Cooperative, oriented, and tranquil Anesthetic Plan: General Monitoring Plan: Standard Monitors Recovery Plan: PACU
[2017-05-29 23:12] LABS: C-Reactive Protein 188 mg/L (Less than 10)
[2017-05-30] MEDS: Piperacillin/Tazobactam 3.375 GM in 0.9 % Sodium Chloride Mini Bag 100 ML IVPB SCH ×2 (00:57→10:00)
[2017-05-30 03:34] LABS: Basophils % 0.2 %; Eosinophils # 0.2 K/mcL (0.0-0.6); Eosinophils % 1.6 %; Hematocrit 24.7 % (37.5-50.1); Hemoglobin 7.8 g/dL (12.9-16.9); Immature Granulocytes % 0.8 % (0-4); Lymphocytes # 0.8 K/mcL (0.6-4.6); Lymphocytes % 7.5 %; Mean Corpuscular HGB Conc 31.6 g/dL (31.6-35.5); Mean Corpuscular Hemoglobin 26.4 pg (28.0-33.3); Mean Corpuscular Volume 83.7 fL (83.0-100.0); Mean Platelet Volume 9.3 fL (9.4-12.4); Monocytes # 0.7 K/mcL (0.0-1.3); Monocytes % 6.6 %; Neutrophils # 8.8 K/mcL (1.6-8.9); Platelet Count 334 K/mcL (140-400); Red Blood Count 2.95 M/mcL (4.19-5.50); Red Cell Distribution Width 14.8 % (11.5-14.5); Segmented Neutrophils % 83.3 %
[2017-05-30 03:55] LABS: BUN/Creatinine Ratio 22 (6-26); Blood Urea Nitrogen 21 mg/dL (8-23); Calcium 8.2 mg/dL (8.6-10.3); Carbon Dioxide 23 mEq/L (23-29); Chloride 107 mEq/L (98-107); Glucose 105 mg/dL (70-105); Osmolality,Calculated 285 (280-300); Potassium 5.1 mEq/L (3.5-5.1); Sodium 136 mEq/L (136-145); eGFR For African Americans > 60 (> 60); eGFR For Non-African Americans > 60 (> 60)
[2017-05-30] MEDS: 0.9 % Sodium Chloride 1,000 ML IVC SCH ×2 (09:55)
[2017-05-30] MEDS: Aspirin Enteric Coated 81 MG Tablet PO SCH (09:56)
[2017-05-30] MEDS: Multivit/Ca/Min/Fe/FA 1 TAB TABLET PO SCH (09:56)
[2017-05-30] MEDS: Ascorbic Acid 500 MG TABLET PO SCH (09:56)
[2017-05-30] MEDS: Zinc Sulfate 220 MG CAPSULE PO SCH (09:56)
--- NOTE | 2017-05-30 11:21 | General Surgery Progress Note ---
Date of Encounter: 05/30/17 Time of Encounter: 11:20 - Assessment and Plan (1) Decubital ulcer Current Visit: Yes Status: Acute 72M with infected sacral decubitus ulcer; OR today for debridement Qualifiers: Pressure ulcer location: sacral region Pressure ulcer stage: stage 4 Qualified Code(s): L89.154 - Pressure ulcer of sacral region, stage 4 Subjective Patient reports: no new complaints Objective Vital Signs - Last 8 Hours Temp Pulse Resp BP Pulse Ox 05/30/17 11:09 98.3 F 87 18 109/51 95 05/30/17 10:20 95 05/30/17 07:09 98.3 F 82 17 102/48 95 05/30/17 04:28 98.1 F 80 16 108/57 93 Intake and Output 05/29/17 05/30/17 05/30/17 23:59 07:59 15:59 Intake Total 100 / 100 100 / 100 Output Total 1800 / 1800 400 / 400 Balance -1700 / -1700 100 / 100 -400 / -400 Intake: IV Fluids 100 / 100 100 / 100 0.9 % Sodium Chloride 1,000 ML 0 / 0 @ 125 mls/hr IVC .Q8H [facility]USTO Rx#: [id number] Zosyn 3.375 GM In 0.9 % Sodium 100 / 100 100 / 100 Chloride (Mini-Bag +) 100 ML @ 25 mls/hr IVPB Q8H FAUSTO Rx#: [id number] Oral 0 / 0 Output: Urine 900 / 900 Straight Cath 900 / 900 400 / 400 Other: Meal Dinner Percent of Meal Consumed 20% Weight 76.6 kg Patient Weight 05/30/17 23:59 Weight 76.6 kg - General physical appearance no distress - Respiratory normal expansion, normal respiratory effort - Cardiovascular Cardiovascular exam: Present: RRR - Incision Incision: Present: draining - Rectum other (wound actively draining) - Integumentary no rash - Labs 05/30/17 03:00 05/30/17 03:00 Diabetes panel 05/29/17 05/30/17 Range/Units 05:37 03:00 Sodium 131 L 136 (136-145) mEq/L Potassium 4.9 5.1 (3.5-5.1) mEq/L Chloride 102 107 (98-107) mEq/L Carbon Dioxide 22 L 23 (23-29) mEq/L BUN 27 H 21 (8-23) mg/dL Creatinine 1.11 0.94 (0.70-1.30) mg/dL Glucose 84 105 (70-105) mg/dL Calcium 8.3 L 8.2 L (8.6-10.3) mg/dL Calcium panel 05/29/17 05/30/17 Range/Units 05:37 03:00 Calcium 8.3 L 8.2 L (8.6-10.3) mg/dL Pituitary panel 05/29/17 05/30/17 Range/Units 05:37 03:00 Sodium 131 L 136 (136-145) mEq/L Potassium 4.9 5.1 (3.5-5.1) mEq/L Chloride 102 107 (98-107) mEq/L Carbon Dioxide 22 L 23 (23-29) mEq/L BUN 27 H 21 (8-23) mg/dL Creatinine 1.11 0.94 (0.70-1.30) mg/dL Glucose 84 105 (70-105) mg/dL Calcium 8.3 L 8.2 L (8.6-10.3) mg/dL Adrenal panel 05/29/17 05/30/17 Range/Units 05:37 03:00 Sodium 131 L 136 (136-145) mEq/L Potassium 4.9 5.1 (3.5-5.1) mEq/L Chloride 102 107 (98-107) mEq/L Carbon Dioxide 22 L 23 (23-29) mEq/L BUN 27 H 21 (8-23) mg/dL Creatinine 1.11 0.94 (0.70-1.30) mg/dL Glucose 84 105 (70-105) mg/dL Calcium 8.3 L 8.2 L (8.6-10.3) mg/dL - VTE Documentation of Mechanical Device: Graduated compression elastic hosiery Consult Discharge Plan - Plan Referrals: Shayan Oliva MD [Primary Care Provider] - (Please have patient call once home due to so many no show. per office)
--- NOTE | 2017-05-30 12:37 | Infectious Disease Progress No ---
Date of Encounter: 05/30/17 Time of Encounter: 10:00 - Assessment and Plan (1) Sepsis Current Visit: Yes Status: Acute Severe sepsis: The patient had two SIRS criteria plus hypotension and VALERIANO on admission. Likely secondary to infected decubitus ulcer and osteomyelitis. Improved. WBC normal. Tachycardia has resolved. Blood cultures drawn 05/28/17 are positive 1/2 sets for MRSA. Qualifiers: Sepsis type: methicillin resistant Staphylococcus aureus Qualified Code(s) : A41.02 - Sepsis due to Methicillin resistant Staphylococcus aureus (2) Bacteremia Current Visit: Yes Status: Acute Causative organism: MRSA. Source likely the infected decubitus ulcer. Complicated due to the presence of osteomyelitis. Blood cultures drawn 05/28/17 are positive 1/2 sets. No evidence of septic emboli. The patient has one major and one minor Modified Nielson's Criteria. Repeat blood cultures x 2 sets now. Get TTE. If negative, will need LANEC prior to discharge. Continue Vancomycin IV. Pharmacy to dose. Goal trough ~15. Duration of treatment depends on the clinical picture, but likely 6 weeks of IV antibiotics. Monitor renal function and for drug toxicity and dose-adjust antibiotics. Avoid the insertion of central venous access until blood cultures are negative x 48 hours. (3) Osteomyelitis Current Visit: Yes Status: Acute Location: Left ischium. Causative organism unclear. Wound culture obtained and pending. Secondary to non-healing decubitus ulcer. CT of the abdomen and pelvis shows findings consistent with osteomyelitis of the left ischium. General surgery consulted and following. Planning to take the patient to the OR later today for I & D. Will request intra-op cultures. Baseline ESR 80, CRP 188. Given the extent of the infection, will continue broad spectrum antibiotics until we get wound/intra-op cultures back. Continue Vancomycin IV. Pharmacy to dose. Goal trough ~15. Continue Zosyn 3.375 grams IV Q8H. Duration of treatment depends on the clinical picture, but likely 6 weeks of IV antibiotics. Monitor renal function and for drug toxicity and dose-adjust antibiotics. emergency medical services coordinator consult to assist with discharge planning. Avoid insertion of central venous access until blood cultures are negative x 48 hours. Qualifiers: Osteomyelitis type: acute hematogenous Osteomyelitis location: other site Qualified Code(s): M86.08 - Acute hematogenous osteomyelitis, other sites (4) Gas gangrene Current Visit: Yes Status: Acute Location: left gluteus. Causative organism: unclear. Likely secondary to non-healing decubitus ulcer. General surgery consulted and following. Continue antibiotics as above. (5) Decubital ulcer Current Visit: Yes Status: Acute Stage IV noted to the left gluteus. Non-healing. Follows with Dr. Blankenship in the wound clinic. Wound care per the surgery team. Aggressive offloading. The patient may require plastic surgery evaluation for placement of a flap, but will await surgical outcomes. Qualifiers: Pressure ulcer location: sacral region Pressure ulcer stage: stage 4 Qualified Code(s): L89.154 - Pressure ulcer of sacral region, stage 4 (6) VALERIANO (acute kidney injury) Current Visit: Yes Status: Acute Likely secondary to sepsis. Resolved. Continue to trend. Dose-adjust antibiotics. Avoid nephrotoxins as able. (7) Hyperkalemia Current Visit: Yes Status: Resolved (8) Hyponatremia Current Visit: Yes Status: Resolved (9) Paraplegia Current Visit: Yes Status: Acute (10) Neurogenic bladder Current Visit: Yes Status: Acute Requires SIC. Management per the primary team. - Subjective Interval history: Patient seen and examined. No acute events noted overnight. Patient states he is doing well today. Denies fevers, chills, or rigors. Denies headache, neck pain, or dizziness. Denies chest pain, shortness of breath, or cough. Denies nausea, vomiting, or diarrhea. Denies abdominal pain and states his appetite is a little better. Denies oral thrush or new skin lesions. Is scheduled for surgery later today. Infect Dis PN-Objective Data - Labs CBC & Chem 7: 05/30/17 03:00 05/30/17 03:00 Labs: Laboratory Results - last 24 hr 05/29/17 05/29/17 05/30/17 05:37 05:37 03:00 WBC RBC Hgb Hct MCV MCH MCHC RDW Plt Count MPV Immature Gran % Seg Neutrophils % Lymphocytes % Monocytes % Eosinophils % Basophils % Neutrophils # Lymphocytes # Monocytes # Eosinophils # Basophils # ESR 80 H Sodium 131 L Potassium 4.9 Chloride 102 Carbon Dioxide 22 L BUN 27 H Creatinine 1.11 Est GFR ( Amer) > 60 Est GFR (Non-Af Amer) > 60 BUN/Creatinine Ratio 24 Glucose 84 Calculated Osmolality 276 L Calcium 8.3 L Magnesium 2.1 C-Reactive Protein 188 H Vancomycin Trough 23.3 H* 05/30/17 05/30/17 03:00 03:00 WBC 10.6 RBC 2.95 L Hgb 7.8 L Hct 24.7 L MCV 83.7 MCH 26.4 L MCHC 31.6 RDW 14.8 H Plt Count 334 MPV 9.3 L Immature Gran % 0.8 Seg Neutrophils % 83.3 Lymphocytes % 7.5 Monocytes % 6.6 Eosinophils % 1.6 Basophils % 0.2 Neutrophils # 8.8 Lymphocytes # 0.8 Monocytes # 0.7 Eosinophils # 0.2 Basophils # 0.0 ESR Sodium 136 Potassium 5.1 Chloride 107 Carbon Dioxide 23 BUN 21 Creatinine 0.94 Est GFR ( Amer) > 60 Est GFR (Non-Af Amer) > 60 BUN/Creatinine Ratio 22 Glucose 105 Calculated Osmolality 285 Calcium 8.2 L Magnesium C-Reactive Protein Vancomycin Trough Exam - Constitutional Vitals: Temp Pulse Resp BP Pulse Ox 98.3 F 87 18 109/51 95 05/30/17 11:09 05/30/17 11:09 05/30/17 11:09 05/30/17 11:09 05/30/17 11:09 General appearance: average body habitus, cooperative, no acute distress - Head Head exam: Present: atraumatic, normal inspection, normocephalic - Eye Eye exam: Present: EOMI, normal appearance, PERRL Pupils: Present: normal accommodation Additional comments: No subconjunctival hemorrhage noted. - ENT ENT exam: Present: mucous membranes moist - Neck Neck exam: Present: normal inspection - Respiratory Respiratory exam: Present: CTAB. Absent: decreased breath sounds, rales, respiratory distress, rhonchi, wheezes - Cardiovascular Cardiovascular exam: Present: RRR, +S1, +S2 - GI/Abdominal GI/Abdominal exam: Present: normal bowel sounds, soft. Absent: distended, tenderness - Extremities Exam Extremities exam: Absent: joint swelling, pedal edema, tenderness Additional comments: Muscle atrophy and paralysis noted to the BLE. - Back Exam Additional comments: Left buttock dressing C/D/I. - Neurological Exam Neurological exam: Present: alert, oriented X3. Absent: no focal deficits ( Paralysis noted to the BLE.) - Psychiatric Psychiatric exam: Present: normal affect, normal mood - Skin Skin exam: Present: dry, intact, normal color, warm Additional comments: No endocarditis stigmata noted. - VTE Documentation of Mechanical Device: Graduated compression elastic hosiery Consult Discharge Plan - Plan Referrals: Shayan Oliva MD [Primary Care Provider] - (Please have patient call once home due to so many no show. per office) - Attending Attestation I examined this patient and my medical decision-making was reviewed with the Resident Physician. I agree with the documented findings, disposition and treatment plan as described except to the extent set forth below.
[2017-05-30] MEDS ORDERED: Ondansetron 4 MG/2 ML VIAL ONE ×2 (15:19→20:45)
[2017-05-30] MEDS ORDERED: *HR* Succinylcholine 200 MG/10 ML VIAL IVP ONE (15:19)
[2017-05-30] MEDS ORDERED: *HR* Propofol 200 MG/20 ML VIAL IVP ONE (15:20)
[2017-05-30] MEDS ORDERED: Lidocaine -MPF 2% 2 ML VIAL ONE (15:20)
[2017-05-30] MEDS ORDERED: *HR* FentaNYL (PF) 100 MCG/2 ML VIAL ONE (15:20)
[2017-05-30] MEDS ORDERED: *HR* Rocuronium Bromide 50 MG/5 ML VIAL ONE (15:25)
[2017-05-30] MEDS ORDERED: Neostigmine Methylsulfate 3 MG/3 ML SYRINGE ONE (15:26)
[2017-05-30] MEDS ORDERED: MORPHINE SUL Oral CONC 10 MG/0.5 ML ORAL.SYG SL PRN ×2 (15:30→20:03)
[2017-05-30] MEDS ORDERED: *HR* OxyCODONE Immed Rel 5 MG TABLET PO PRN ×2 (15:30→20:03)
[2017-05-30] MEDS ORDERED: *HR* Labetalol 20 MG/4 ML SYRINGE IVP PRN (15:30)
[2017-05-30] MEDS ORDERED: NiCARdipine 2.5 MG/10 ML Syringe IVPB ONE (16:36)
[2017-05-30] MEDS ORDERED: Nitroglycerin 25 MG/250 ML INFUS..BTL IVC ONE (16:37)
[2017-05-30] MEDS ORDERED: Vancomycin 1,000 MG VIAL ONE ×2 (16:50→20:40)
--- NOTE | 2017-05-30 17:30 | Internal Med Progress Note ---
Date of Encounter: 05/30/17 Time of Encounter: 10:50 - Assessment and plan (1) Sepsis Current Visit: Yes Status: Acute Assessment and plan: He did meet sepsis criteria with source of inf as Left buttock wound, elevated WBC, mild hypotension and VALERIANO ESR - 80 and CRP - 188 Blood cx growing MRSA cont empirical abx Vanc and Zosyn Cont IV hydration Qualifiers: Sepsis type: methicillin resistant Staphylococcus aureus Qualified Code(s) : A41.02 - Sepsis due to Methicillin resistant Staphylococcus aureus (2) Gas gangrene Current Visit: Yes Status: Acute Assessment and plan: Reviewed CT of pelvis concerning for gas gangrene and possible osteomyelitis pt scheduled for debridement today ID consulted cont empirical abx Zosyn + Vanc (3) Decubital ulcer Current Visit: Yes Status: Acute Qualifiers: Pressure ulcer location: sacral region Pressure ulcer stage: stage 4 Qualified Code(s): L89.154 - Pressure ulcer of sacral region, stage 4 (4) VALERIANO (acute kidney injury) Current Visit: Yes Status: Acute Assessment and plan: Improved due to sepsis + dehydration (5) Hyperkalemia Current Visit: Yes Status: Resolved Assessment and plan: resolved (6) Hyponatremia Current Visit: Yes Status: Resolved (7) Paraplegia Current Visit: Yes Status: Acute Assessment and plan: no needs now - Subjective Interval history: Mr. Klein is a 72 year old male with history of paraplegia secondary to postop complications from a previous AAA repair, left gluteus decubitus ulcer developed a year ago, CAD, hyperlipidemia, and hypertension pt who follows with Dr. Blankenship as an out pt for his left gluteus decubitus ulcer presented to ER since his Left buttock wound seems to be worsening with foul discharge and Dr. Blankenship referred him to ER to get admitted in the hospital. Pt is alert, awake and O x 3. Denied any CP / SOB. Scheduled for wound debridement today - Constitutional Vitals: Temp Pulse Resp BP Pulse Ox 98.3 F 87 18 109/51 95 05/30/17 11:09 05/30/17 11:09 05/30/17 11:09 05/30/17 11:09 05/30/17 11:09 General appearance: Present: A&O X 3, no acute distress, answers questions appropriately - Head Head exam: Present: atraumatic, normal inspection - Neck Neck exam general surgery: Present: supple - Respiratory Respiratory exam: Present: decreased breath sounds. Absent: rales, respiratory distress, rhonchi, wheezes - Cardiovascular Cardiovascular exam: Present: RRR, +S1, +S2. Absent: tachycardia - GI/Abdominal GI/Abdominal exam: Present: normal bowel sounds, soft. Absent: rebound, rigid, tenderness - Back Exam Additional comments: 6x 6 cm size open wound over Left gluteal region, with tunneling and erythema around the ulcer, foul discharge. - Neurological Exam Neurological exam: Present: alert, oriented X3 - Psychiatric Psychiatric exam: Present: normal affect, normal mood Internal Medicine: Result - Labs CBC & Chem 7: 05/30/17 03:00 05/30/17 03:00 Labs: Short CBC 05/30/17 Range/Units 03:00 WBC 10.6 (4.3-11.1) K/mcL Hgb 7.8 L (12.9-16.9) g/dL Hct 24.7 L (37.5-50.1) % Plt Count 334 (140-400) K/mcL Neutrophils # 8.8 (1.6-8.9) K/mcL BMP 05/29/17 05/30/17 05:37 03:00 Sodium 131 L 136 Potassium 4.9 5.1 Chloride 102 107 Carbon Dioxide 22 L 23 BUN 27 H 21 Creatinine 1.11 0.94 Glucose 84 105 Calcium 8.3 L 8.2 L - ABG Interpretation ABG results: ABG ABG pH 7.45 pH Units (7.32-7.45) 05/28/17 15:25 ABG pCO2 33 mmHg (35-45) L 05/28/17 15:25 ABG pO2 77 mmHg (85-104) L 05/28/17 15:25 ABG O2 Saturation 96 % (95-98) 05/28/17 15:25 PT/INR, D-dimer PT 16.1 Seconds (9.4-12.1) H 05/28/17 14:31 - VTE Documentation of Mechanical Device: Graduated compression elastic hosiery Consult Discharge Plan - Plan Referrals: Pj,Shayan Lubin MD [Primary Care Provider] - (Please have patient call once home due to so many no show. per office)
[2017-05-30] MEDS ORDERED: *HR* Meperidine 25 MG/ML SYRINGE IVP PRN (20:03)
[2017-05-30] MEDS ORDERED: 0.9 % Sodium Chloride 500 ML IVC SCH (20:15)
[2017-05-30] MEDS ORDERED: Dexamethasone 4 MG/ML VIAL ONE (20:45)
--- NOTE | 2017-05-30 21:42 | Operative Note ---
Date of procedure: 05/30/17 Pre-op diagnosis: infected stage IV decubitus ulcer Post-op diagnosis: same Procedure: excisional debridement of stage IV sacral decubitus wound Implants: dakin's soaked kerlix Complications: none Anesthesia: GETA Surgeon: Joseph Blankenship Was there an seed analysis laboratory assistant present: No Estimated blood loss (cc): 50 Specimen: necrotic tissue from wound; purulent drainage Condition: stable Disposition: PACU Procedure in Detail: Patient was brought into the operating room suite. Mechanical DVT prophylaxis was placed. He underwent smooth induction of anesthesia. Preoperative antibiotics were given. He was placed in the supine position. He was prepped and draped in the usual fashion. A time out was held identifying correct patient, pathology, procedure, and physician. I stated by sending a q-tip for culture of the wound drainage. I then suctioned out approximately 50cc of purulent drainage. using a 15 blade scalpel and electrocautery I extended the wound and excised all necrotic tissue down to muscle. The bone was already exposed. The wound measured approximately 11cm x 4cm x 3cm. I controlled for hemostasis with electocautery and the surgicel. I then used about 4 ling to reapproximate the tissue I open and packed the wound with dakin's soaked kerlix. I then concluded my procedure. The patient tolerated the procedure and was escorted to PACu in stable condition.
[2017-05-30] MEDS: *HR* Heparin 5,000 UNIT/ML VIAL SQ SCH (23:30)
[2017-05-31] MEDS ORDERED: Piperacillin/Tazobactam 3.375 GM in 0.9 % Sodium Chloride Mini Bag 100 ML IVPB SCH
--- NOTE | 2017-05-31 00:18 | Anesthesia Evaluation Post Op ---
Date of Encounter: 05/31/17 Time of Encounter: 22:18 - Vital Signs Vital Signs: Vital Signs/O2 Sat, Most Current Temp Pulse Resp BP Pulse Ox 98.8 F 88 16 151/70 99 05/30/17 22:38 05/30/17 22:38 05/30/17 22:38 05/30/17 22:38 05/30/17 22:38 - Lungs Lungs: Clear Ascult./Percussion - Airway Airway: Non-obstructed - Cardiovascular Regular Rate - Mental Status Mental Status: Alert & Oriented, Answers Appropriately - Pain Pain Scale: 0 Pain Scale used: Numeric (1 - 10) - Nausea Vomiting Nausea Vomiting: Not Present - Hydration Hydration: NPO - Discharge PostOp Status: Transfer Patient to floor
[2017-05-31] MEDS: 0.9 % Sodium Chloride 1,000 ML IVC SCH (02:18)
[2017-05-31 04:22] LABS: Basophils % 0.2 %; Eosinophils % 0.1 %; Hematocrit 27.1 % (37.5-50.1); Hemoglobin 8.5 g/dL (12.9-16.9); Lymphocytes # 0.5 K/mcL (0.6-4.6); Lymphocytes % 4.1 %; Mean Corpuscular HGB Conc 31.4 g/dL (31.6-35.5); Mean Corpuscular Hemoglobin 26.4 pg (28.0-33.3); Mean Corpuscular Volume 84.2 fL (83.0-100.0); Monocytes # 0.2 K/mcL (0.0-1.3); Monocytes % 1.6 %; Neutrophils # 12.1 K/mcL (1.6-8.9); Platelet Count 317 K/mcL (140-400); Red Blood Count 3.22 M/mcL (4.19-5.50); Red Cell Distribution Width 14.8 % (11.5-14.5)
[2017-05-31 05:48] LABS: BUN/Creatinine Ratio 20 (6-26); Blood Urea Nitrogen 16 mg/dL (8-23); Calcium 8.1 mg/dL (8.6-10.3); Carbon Dioxide 25 mEq/L (23-29); Chloride 110 mEq/L (98-107); Glucose 169 mg/dL (70-105); Osmolality,Calculated 291 (280-300); Potassium 5.2 mEq/L (3.5-5.1); Sodium 138 mEq/L (136-145); eGFR For African Americans > 60 (> 60); eGFR For Non-African Americans > 60 (> 60)
[2017-05-31] MEDS: *HR* Heparin 5,000 UNIT/ML VIAL SQ SCH ×2 (06:17→16:26)
[2017-05-31] MEDS ORDERED: Acetaminophen 325 MG TABLET PO PRN (07:09)
[2017-05-31] MEDS ORDERED: Naloxone 0.4 MG/ML INJ IVP PRN (07:09)
[2017-05-31] MEDS: Piperacillin/Tazobactam 3.375 GM in 0.9 % Sodium Chloride Mini Bag 100 ML IVPB SCH ×2 (09:57→16:26)
[2017-05-31] MEDS: Ascorbic Acid 500 MG TABLET PO SCH (09:58)
[2017-05-31] MEDS: Aspirin Enteric Coated 81 MG Tablet PO SCH (09:58)
[2017-05-31] MEDS: Zinc Sulfate 220 MG CAPSULE PO SCH (09:59)
[2017-05-31] MEDS: Multivit/Ca/Min/Fe/FA 1 TAB TABLET PO SCH (09:59)
--- NOTE | 2017-05-31 10:34 | Infectious Disease Progress No ---
Date of Encounter: 05/31/17 Time of Encounter: 10:32 - Assessment and Plan (1) Sepsis Current Visit: Yes Status: Acute Severe sepsis: The patient had two SIRS criteria plus hypotension and VALERIANO on admission. Likely secondary to infected decubitus ulcer and osteomyelitis. Improved. WBC up a little today, likely reactive from surgery yesterday. Tachycardia has resolved. Blood pressure and VALERIANO have normalized. Blood cultures drawn 05/28/17 are positive 1/2 sets for MRSA. Repeat blood cultures drawn 05/30/17 are pending x 2 sets. Qualifiers: Sepsis type: methicillin resistant Staphylococcus aureus Qualified Code(s) : A41.02 - Sepsis due to Methicillin resistant Staphylococcus aureus (2) Bacteremia Current Visit: Yes Status: Acute Causative organism: MRSA. Source likely the infected decubitus ulcer. Complicated due to the presence of osteomyelitis. Blood cultures drawn 05/28/17 are positive 1/2 sets. No evidence of septic emboli. The patient has one major and one minor Modified Nielson's Criteria. Repeat blood cultures x 2 sets drawn 05/30/17 are pending. Get TTE. If negative, will need LANCE prior to discharge. Continue Vancomycin IV. Pharmacy to dose. Goal trough ~15. Duration of treatment depends on the clinical picture, but likely 6 weeks of IV antibiotics. Monitor renal function and for drug toxicity and dose-adjust antibiotics. Avoid the insertion of central venous access until blood cultures are negative x 48 hours. (3) Osteomyelitis Current Visit: Yes Status: Acute Location: Left ischium. Causative organism unclear. Wound culture shows GNR, but anticipate polymicrobial. Secondary to non-healing decubitus ulcer. CT of the abdomen and pelvis shows findings consistent with osteomyelitis of the left ischium. General surgery consulted and following. Status post I & D. Operative note reviewed. Gross purulence with exposure of the bone noted. Intra-op cultures obtained and pending. Baseline ESR 80, CRP 188. Given the extent of the infection, will continue broad spectrum antibiotics until we get wound/intra-op cultures back. Continue Vancomycin IV. Pharmacy to dose. Goal trough ~15. Continue Zosyn 3.375 grams IV Q8H. Duration of treatment depends on the clinical picture, but likely 6 weeks of IV antibiotics. Monitor renal function and for drug toxicity and dose-adjust antibiotics. customer services manager consult to assist with discharge planning. Avoid insertion of central venous access until blood cultures are negative x 48 hours. Qualifiers: Osteomyelitis type: acute hematogenous Osteomyelitis location: other site Qualified Code(s): M86.08 - Acute hematogenous osteomyelitis, other sites (4) Gas gangrene Current Visit: Yes Status: Acute Location: left gluteus. Causative organism: unclear. Likely secondary to non-healing decubitus ulcer. General surgery consulted and following. Continue antibiotics as above. (5) Decubital ulcer Current Visit: Yes Status: Acute Stage IV noted to the left gluteus. Non-healing. Follows with Dr. Blankenship in the wound clinic. Status post I & D with Dr. Blankenship 05/30/17. Wound care per the surgery team. Aggressive offloading. The patient may require plastic surgery evaluation for placement of a flap, but will await surgical outcomes. Qualifiers: Pressure ulcer location: sacral region Pressure ulcer stage: stage 4 Qualified Code(s): L89.154 - Pressure ulcer of sacral region, stage 4 (6) VALERIANO (acute kidney injury) Current Visit: Yes Status: Resolved Likely secondary to sepsis. Resolved. Continue to trend. Dose-adjust antibiotics. Avoid nephrotoxins as able. (7) Hyperkalemia Current Visit: Yes Status: Resolved (8) Hyponatremia Current Visit: Yes Status: Resolved (9) Paraplegia Current Visit: Yes Status: Acute (10) Neurogenic bladder Current Visit: Yes Status: Acute Requires SIC. Management per the primary team. (11) Neurogenic bowel Current Visit: Yes Status: Acute Requires bowel stimulation. Management per the primary team. - Subjective Interval history: Patient seen and examined. No acute events noted overnight. Patient states he is doing well today. Denies fevers, chills, or rigors. Denies headache, neck pain, or dizziness. Denies chest pain, shortness of breath, or cough. Denies nausea, vomiting, or diarrhea. States he has not had a BM since admission and typically has to do bowel stimulation at home to have a BM. Denies abdominal pain and states his appetite is much better. Denies oral thrush or new skin lesions. Status post I & D of the decubitus ulcer. Infect Dis PN-Objective Data - Labs CBC & Chem 7: 05/31/17 04:09 05/31/17 04:09 Labs: Laboratory Results - last 24 hr 05/31/17 05/31/17 04:09 04:09 WBC 13.0 H RBC 3.22 L Hgb 8.5 L Hct 27.1 L MCV 84.2 MCH 26.4 L MCHC 31.4 L RDW 14.8 H Plt Count 317 MPV 9.0 L Immature Gran % 1.0 Seg Neutrophils % 93.0 Lymphocytes % 4.1 Monocytes % 1.6 Eosinophils % 0.1 Basophils % 0.2 Neutrophils # 12.1 H Lymphocytes # 0.5 L Monocytes # 0.2 Eosinophils # 0.0 Basophils # 0.0 Sodium 138 Potassium 5.2 H Chloride 110 H Carbon Dioxide 25 BUN 16 Creatinine 0.81 Est GFR ( Amer) > 60 Est GFR (Non-Af Amer) > 60 BUN/Creatinine Ratio 20 Glucose 169 H Calculated Osmolality 291 Calcium 8.1 L Cultures: Cultures 05/29/17 15:06 Wound Culture - Preliminary Buttock Gram Negative Rj Exam - Constitutional Vitals: Temp Pulse Resp BP Pulse Ox 97.5 F L 84 17 114/55 95 05/31/17 07:48 05/31/17 07:48 05/31/17 07:48 05/31/17 07:48 05/31/17 07:48 General appearance: average body habitus, cooperative, no acute distress - Head Head exam: Present: atraumatic, normal inspection, normocephalic - Eye Eye exam: Present: EOMI, normal appearance, PERRL Pupils: Present: normal accommodation Additional comments: No endocarditis stigmata noted. - ENT ENT exam: Present: mucous membranes moist - Neck Neck exam: Present: normal inspection - Respiratory Respiratory exam: Present: CTAB. Absent: rales, respiratory distress, rhonchi, wheezes - Cardiovascular Cardiovascular exam: Present: RRR, +S1, +S2 - GI/Abdominal GI/Abdominal exam: Present: normal bowel sounds, soft. Absent: distended, tenderness - Extremities Exam Extremities exam: Absent: joint swelling, pedal edema, tenderness Additional comments: Muscle atrophy noted to the BLE. - Neurological Exam Neurological exam: Present: alert, oriented X3. Absent: no focal deficits ( Paralysis noted to the BLE.) - Psychiatric Psychiatric exam: Present: normal affect, normal mood - Skin Skin exam: Present: dry, intact, normal color, warm - VTE Documentation of Mechanical Device: Intermittent pneumatic compression device Consult Discharge Plan - Plan Referrals: Shayan Oliva MD [Primary Care Provider] - (Please have patient call once home due to so many no show. per office) Joseph Blankenship MD [Non-Partnered Physician] - 06/18/17 9:45 am (In Wound Care) - Attending Attestation I examined this patient and my medical decision-making was reviewed with the Resident Physician. I agree with the documented findings, disposition and treatment plan as described except to the extent set forth below.
--- NOTE | 2017-05-31 13:46 | Internal Med Progress Note ---
Date of Encounter: 05/31/17 Time of Encounter: 10:45 - Assessment and plan (1) Sepsis Current Visit: Yes Status: Acute Assessment and plan: He did meet sepsis criteria with source of inf as Left buttock wound, elevated WBC, mild hypotension and VALERIANO ESR - 80 and CRP - 188 Blood cx growing MRSA - 2/4 bottles wound cx from 05/29/17 - growing G-ve rods Wound cx from 05/30/17 - P cont empirical abx Vanc and Zosyn Repeat blood cx from 05/30/17 - P Qualifiers: Sepsis type: methicillin resistant Staphylococcus aureus Qualified Code(s) : A41.02 - Sepsis due to Methicillin resistant Staphylococcus aureus (2) Bacteremia Current Visit: Yes Status: Acute Assessment and plan: Blood cx from 05/28/17 growing MRSA Repeat blood cx from 05/30/17 - P Cont Vancomycin Ordered 2 D Echo today (3) Osteomyelitis Current Visit: Yes Status: Acute Assessment and plan: Possible osteo of left ischium Wound cx growing G-ve bessy from 05/29/17 Blood cx growing MRSA COnt Zosyn and Vanco Qualifiers: Osteomyelitis type: acute hematogenous Osteomyelitis location: other site Qualified Code(s): M86.08 - Acute hematogenous osteomyelitis, other sites (4) Gas gangrene Current Visit: Yes Status: Acute Assessment and plan: s/p Wound debridement Cont wound care as per Surgery recommendations Cont empirical abx Zosyn and Vanc (5) Decubital ulcer Current Visit: Yes Status: Acute Qualifiers: Pressure ulcer location: sacral region Pressure ulcer stage: stage 4 Qualified Code(s): L89.154 - Pressure ulcer of sacral region, stage 4 (6) VALERIANO (acute kidney injury) Current Visit: Yes Status: Resolved Assessment and plan: Improved due to sepsis + dehydration (7) Hyperkalemia Current Visit: Yes Status: Resolved Assessment and plan: slightly elevated today..mostly due to debridement (8) Hyponatremia Current Visit: Yes Status: Resolved (9) Paraplegia Current Visit: Yes Status: Acute - Subjective Interval history: Mr. Klein is a 72 year old male with history of paraplegia secondary to postop complications from a previous AAA repair, left gluteus decubitus ulcer developed a year ago, CAD, hyperlipidemia, and hypertension pt who follows with Dr. Blankenship as an out pt for his left gluteus decubitus ulcer presented to ER since his Left buttock wound seems to be worsening with foul discharge and Dr. Blankenship referred him to ER to get admitted in the hospital. Had wound debridement on 05/30/[address] Blankenship Pt is alert, awake and O x 3. Denied any CP / SOB. No events over night - Constitutional Vitals: Temp Pulse Resp BP Pulse Ox 97.6 F 83 22 120/54 95 05/31/17 10:44 05/31/17 10:44 05/31/17 10:44 05/31/17 10:44 05/31/17 10:44 General appearance: Present: A&O X 3, no acute distress, answers questions appropriately - Head Head exam: Present: atraumatic, normal inspection - Neck Neck exam general surgery: Present: supple - Respiratory Respiratory exam: Present: decreased breath sounds. Absent: accessory muscle use, rales, rhonchi, wheezes - Cardiovascular Cardiovascular exam: Present: RRR, +S1, +S2. Absent: tachycardia - GI/Abdominal GI/Abdominal exam: Present: normal bowel sounds, soft. Absent: rebound, rigid, tenderness - Extremities Exam Extremities exam: Absent: calf tenderness, pedal edema, tenderness - Back Exam Additional comments: dressing placed over Left gluteal region - Neurological Exam Neurological exam: Present: alert, oriented X3 - Psychiatric Psychiatric exam: Present: normal affect, normal mood Internal Medicine: Result - Labs CBC & Chem 7: 05/31/17 04:09 05/31/17 04:09 Labs: Short CBC 05/31/17 Range/Units 04:09 WBC 13.0 H (4.3-11.1) K/mcL Hgb 8.5 L (12.9-16.9) g/dL Hct 27.1 L (37.5-50.1) % Plt Count 317 (140-400) K/mcL Neutrophils # 12.1 H (1.6-8.9) K/mcL BMP 05/31/17 04:09 Sodium 138 Potassium 5.2 H Chloride 110 H Carbon Dioxide 25 BUN 16 Creatinine 0.81 Glucose 169 H Calcium 8.1 L - ABG Interpretation ABG results: ABG ABG pH 7.45 pH Units (7.32-7.45) 05/28/17 15:25 ABG pCO2 33 mmHg (35-45) L 05/28/17 15:25 ABG pO2 77 mmHg (85-104) L 05/28/17 15:25 ABG O2 Saturation 96 % (95-98) 05/28/17 15:25 PT/INR, D-dimer PT 16.1 Seconds (9.4-12.1) H 05/28/17 14:31 - VTE Documentation of Mechanical Device: Intermittent pneumatic compression device Consult Discharge Plan - Plan Referrals: Oliva,Shayan Lubin MD [Primary Care Provider] - (Please have patient call once home due to so many no show. per office)
--- NOTE | 2017-05-31 15:16 | General Surgery Progress Note ---
<Zoe Panchal - Last Filed: 05/31/17 16:00> Date of Encounter: 05/31/17 Time of Encounter: 15:15 - Assessment and Plan (1) Osteomyelitis Current Visit: Yes Status: Acute S/P surgical debridement in the OR on 05/31/2017. Antibiotics per ID. He will need home health or ECF stay with someone who can continue dressing changes. Surgery does not recommend that patient return home without above in place. Daily packing of the surgical site with 0.25% Dakinss soaked kerlix. Cover with a dry dressing. Tape to secure. Qualifiers: Osteomyelitis type: acute hematogenous Osteomyelitis location: other site Qualified Code(s): M86.08 - Acute hematogenous osteomyelitis, other sites Objective Vital Signs - Last 8 Hours Temp Pulse Resp BP Pulse Ox 05/31/17 10:44 97.6 F 83 22 120/54 95 05/31/17 07:48 97.5 F L 84 17 114/55 95 Intake and Output 05/30/17 05/31/17 05/31/17 23:59 07:59 15:59 Intake Total 1740 / 1740 240 / 240 Output Total 350 / 350 500 / 500 Balance 1390 / 1390 -260 / -260 Intake: IV Fluids 1000 / 1000 0.9 % Sodium Chloride 1,000 ML 1000 / 1000 @ 125 mls/hr IVC .Q8H [facility] Rx#: [id number] Oral 740 / 740 240 / 240 Output: Estimated Blood Loss 50 / 50 Straight Cath 300 / 300 500 / 500 Other: Meal turkey sandwich, goldfish Breakfast Percent of Meal Consumed 100% Weight 79.5 kg Patient Weight 05/31/17 23:59 Weight 79.5 kg - Labs 05/31/17 04:09 05/31/17 04:09 Diabetes panel 05/31/17 Range/Units 04:09 Sodium 138 (136-145) mEq/L Potassium 5.2 H (3.5-5.1) mEq/L Chloride 110 H (98-107) mEq/L Carbon Dioxide 25 (23-29) mEq/L BUN 16 (8-23) mg/dL Creatinine 0.81 (0.70-1.30) mg/dL Glucose 169 H (70-105) mg/dL Calcium 8.1 L (8.6-10.3) mg/dL Calcium panel 05/31/17 Range/Units 04:09 Calcium 8.1 L (8.6-10.3) mg/dL Pituitary panel 05/31/17 Range/Units 04:09 Sodium 138 (136-145) mEq/L Potassium 5.2 H (3.5-5.1) mEq/L Chloride 110 H (98-107) mEq/L Carbon Dioxide 25 (23-29) mEq/L BUN 16 (8-23) mg/dL Creatinine 0.81 (0.70-1.30) mg/dL Glucose 169 H (70-105) mg/dL Calcium 8.1 L (8.6-10.3) mg/dL Adrenal panel 05/31/17 Range/Units 04:09 Sodium 138 (136-145) mEq/L Potassium 5.2 H (3.5-5.1) mEq/L Chloride 110 H (98-107) mEq/L Carbon Dioxide 25 (23-29) mEq/L BUN 16 (8-23) mg/dL Creatinine 0.81 (0.70-1.30) mg/dL Glucose 169 H (70-105) mg/dL Calcium 8.1 L (8.6-10.3) mg/dL - VTE Documentation of Mechanical Device: Intermittent pneumatic compression device Consult Discharge Plan - Plan Referrals: Shayan Oliva MD [Primary Care Provider] - (Please have patient call once home due to so many no show. per office) Joseph Blankenship MD [Non-Partnered Physician] - 06/18/17 9:45 am (In Wound Care) <Joseph Blankenship - Last Filed: 05/31/17 20:34> Date of Encounter: 05/31/17 - Assessment and Plan (1) Decubital ulcer Current Visit: Yes Status: Acute Qualifiers: Pressure ulcer location: sacral region Pressure ulcer stage: stage 4 Qualified Code(s): L89.154 - Pressure ulcer of sacral region, stage 4 Objective Vital Signs - Last 8 Hours Temp Pulse Resp BP Pulse Ox 05/31/17 19:33 97.6 F 78 16 111/48 95 05/31/17 17:09 97.4 F L 83 20 124/56 96 05/31/17 15:39 97.3 F L 105 19 122/72 98 Intake and Output 05/31/17 05/31/1718 07:59 15:59 23:59 Intake Total 340 / 340 240 / 240 Output Total 500 / 500 Balance -160 / -160 240 / 240 Intake: IV Fluids 100 / 100 Zosyn 3.375 GM In 0.9 % Sodium 100 / 100 Chloride (Mini-Bag +) 100 ML @ 25 mls/hr IVPB Q8HR [facility] Rx#: [id number] Oral 240 / 240 240 / 240 Output: Urine 0 / 0 Straight Cath 500 / 500 Other: Meal Breakfast Percent of Meal Consumed 100% # Bowel Movement Diapers 1 Weight 79.5 kg Blood Glucose* 142 Patient Weight 05/31/17 23:59 Weight 79.5 kg - Labs 05/31/17 04:09 05/31/17 04:09 Diabetes panel 05/31/17 Range/Units 04:09 Sodium 138 (136-145) mEq/L Potassium 5.2 H (3.5-5.1) mEq/L Chloride 110 H (98-107) mEq/L Carbon Dioxide 25 (23-29) mEq/L BUN 16 (8-23) mg/dL Creatinine 0.81 (0.70-1.30) mg/dL Glucose 169 H (70-105) mg/dL Calcium 8.1 L (8.6-10.3) mg/dL Calcium panel 05/31/17 Range/Units 04:09 Calcium 8.1 L (8.6-10.3) mg/dL Pituitary panel 05/31/17 Range/Units 04:09 Sodium 138 (136-145) mEq/L Potassium 5.2 H (3.5-5.1) mEq/L Chloride 110 H (98-107) mEq/L Carbon Dioxide 25 (23-29) mEq/L BUN 16 (8-23) mg/dL Creatinine 0.81 (0.70-1.30) mg/dL Glucose 169 H (70-105) mg/dL Calcium 8.1 L (8.6-10.3) mg/dL Adrenal panel 05/31/17 Range/Units 04:09 Sodium 138 (136-145) mEq/L Potassium 5.2 H (3.5-5.1) mEq/L Chloride 110 H (98-107) mEq/L Carbon Dioxide 25 (23-29) mEq/L BUN 16 (8-23) mg/dL Creatinine 0.81 (0.70-1.30) mg/dL Glucose 169 H (70-105) mg/dL Calcium 8.1 L (8.6-10.3) mg/dL - Attending Attestation I have personally seen and examined the patient. I have reviewed pertinent labs , imaging, progress notes, including this one. I agree with the above assessment and plan and wish to include the following... POD#1 s/p excisonal debridement and drainage of purulent material with packing with dakin's solution; bone was exposed, necrotic tissue sent for culture; changed dressing at bedside and packed again; good viable tissue; patient would benefit from long term care phlebotomist IV abx; await ID recommendations. In addition, will need home dressing changes with dakin's until evaluated in wound clinic. She will need either a capable insert molding operator at home or home health. do not recommend patient leaving until these things are established. After discharged, patient can keep his appointment in wound clinic with Kim until I return. Until he is discharged, patient will need daily dressing changes. General Surgey will sign off. please call with new questions or concerns.
[2017-05-31] MEDS: Famotidine 20 MG TABLET PO SCH (21:40)
[2017-05-31] MEDS ORDERED: Perflutren Lipid Microsphere 1.3 ML in 0.9 % Sodium Chloride 8.7 ML IVP ONE (22:30)
[2017-05-31] MEDS ORDERED: Perflutren Lipid Microsphere 2 ML VIAL ONE (22:33)
[2017-06-01] MEDS: Piperacillin/Tazobactam 3.375 GM in 0.9 % Sodium Chloride Mini Bag 100 ML IVPB SCH ×3 (01:26→15:43)
[2017-06-01 03:54] LABS: Basophils % 0.3 %; Eosinophils # 0.2 K/mcL (0.0-0.6); Eosinophils % 2.6 %; Hematocrit 25.2 % (37.5-50.1); Hemoglobin 7.8 g/dL (12.9-16.9); Immature Granulocytes % 1.9 % (0-4); Lymphocytes # 1.1 K/mcL (0.6-4.6); Lymphocytes % 15.3 %; Mean Corpuscular Hemoglobin 26.4 pg (28.0-33.3); Mean Corpuscular Volume 85.1 fL (83.0-100.0); Monocytes # 0.4 K/mcL (0.0-1.3); Monocytes % 6.1 %; Neutrophils # 5.3 K/mcL (1.6-8.9); Platelet Count 317 K/mcL (140-400); Red Blood Count 2.96 M/mcL (4.19-5.50); Red Cell Distribution Width 14.7 % (11.5-14.5); Segmented Neutrophils % 73.8 %
[2017-06-01 04:04] LABS: BUN/Creatinine Ratio 18 (6-26); Blood Urea Nitrogen 14 mg/dL (8-23); Calcium 7.9 mg/dL (8.6-10.3); Carbon Dioxide 23 mEq/L (23-29); Chloride 110 mEq/L (98-107); Glucose 124 mg/dL (70-105); Osmolality,Calculated 288 (280-300); Potassium 4.2 mEq/L (3.5-5.1); Sodium 138 mEq/L (136-145); eGFR For African Americans > 60 (> 60); eGFR For Non-African Americans > 60 (> 60)
[2017-06-01] MEDS: *HR* Heparin 5,000 UNIT/ML VIAL SQ SCH ×2 (06:13→17:48)
[2017-06-01] MEDS: Zinc Sulfate 220 MG CAPSULE PO SCH (08:52)
[2017-06-01] MEDS: Multivit/Ca/Min/Fe/FA 1 TAB TABLET PO SCH (08:52)
[2017-06-01] MEDS: Aspirin Enteric Coated 81 MG Tablet PO SCH (08:52)
[2017-06-01] MEDS: Famotidine 20 MG TABLET PO SCH ×2 (08:53→20:36)
[2017-06-01] MEDS: Ascorbic Acid 500 MG TABLET PO SCH (08:53)
--- NOTE | 2017-06-01 15:26 | Internal Med Progress Note ---
Date of Encounter: 06/01/17 Time of Encounter: 12:30 - Assessment and plan (1) Sepsis Current Visit: Yes Status: Acute Assessment and plan: He did meet sepsis criteria with source of inf as Left buttock wound, elevated WBC, mild hypotension and VALERIANO ESR - 80 and CRP - 188 Blood cx growing MRSA - 2/4 bottles Repeat blood cx from 05/30/17 - No growth so far wound cx from 05/29/17 - growing E. Coli and MRSA Wound cx from 05/30/17 - Growing E. Coli and MRSA cont empirical abx Vanc and Zosyn Qualifiers: Sepsis type: methicillin resistant Staphylococcus aureus Qualified Code(s) : A41.02 - Sepsis due to Methicillin resistant Staphylococcus aureus (2) Bacteremia Current Visit: Yes Status: Acute Assessment and plan: Blood cx from 05/28/17 growing MRSA - 2/4 bottles Repeat blood cx from 05/30/17 - No growth so far Cont Vancomycin and Zosyn 2 D Echo showed preserved LVEF, no vegetations Since only 1/2 sets Blood cx positive and repeat blood cx no growth.. will check ID regarding LANCE (3) Osteomyelitis Current Visit: Yes Status: Acute Assessment and plan: Possible osteo of left ischium Wound cx growing G-ve bessy from 05/29/17 Blood cx growing MRSA COnt Zosyn and Vanco Qualifiers: Osteomyelitis type: acute hematogenous Osteomyelitis location: other site Qualified Code(s): M86.08 - Acute hematogenous osteomyelitis, other sites (4) Gas gangrene Current Visit: Yes Status: Acute Assessment and plan: s/p Wound debridement Cont wound care as per Surgery recommendations Cont empirical abx Zosyn and Vanc (5) Decubital ulcer Current Visit: Yes Status: Acute Qualifiers: Pressure ulcer location: sacral region Pressure ulcer stage: stage 4 Qualified Code(s): L89.154 - Pressure ulcer of sacral region, stage 4 (6) VALERIANO (acute kidney injury) Current Visit: Yes Status: Resolved Assessment and plan: Improved due to sepsis + dehydration (7) Hyperkalemia Current Visit: Yes Status: Resolved Assessment and plan: improved (8) Hyponatremia Current Visit: Yes Status: Resolved Assessment and plan: Due to dehydration improved (9) Paraplegia Current Visit: Yes Status: Acute Assessment and plan: no needs now (10) Protein-calorie malnutrition, severe Current Visit: Yes Status: Acute Assessment and plan: Pigment Making Supervisor consulted - Subjective Interval history: Mr. Klein is a 72 year old male with history of paraplegia secondary to postop complications from a previous AAA repair, left gluteus decubitus ulcer developed a year ago, CAD, hyperlipidemia, and hypertension pt who follows with Dr. Blankenship as an out pt for his left gluteus decubitus ulcer presented to ER since his Left buttock wound seems to be worsening with foul discharge and Dr. Blankenship referred him to ER to get admitted in the hospital. Had wound debridement on 05/30/[address] Blankenship Pt is alert, awake and O x 3. Denied any CP / SOB. No events over night - Constitutional Vitals: Temp Pulse Resp BP Pulse Ox 98.0 F 85 14 105/55 96 06/01/17 10:58 06/01/17 10:58 06/01/17 10:58 06/01/17 10:58 06/01/17 10:58 General appearance: Present: A&O X 3, no acute distress, answers questions appropriately - Head Head exam: Present: atraumatic, normal inspection - Neck Neck exam general surgery: Present: supple - Respiratory Respiratory exam: Present: decreased breath sounds. Absent: rales, respiratory distress, rhonchi, wheezes - Cardiovascular Cardiovascular exam: Present: RRR, +S1, +S2. Absent: tachycardia - GI/Abdominal GI/Abdominal exam: Present: normal bowel sounds, soft. Absent: rebound, rigid, tenderness - Extremities Exam Extremities exam: Present: pedal edema (mild). Absent: calf tenderness, tenderness - Back Exam Additional comments: s/p debridement of Left buttock wound.. Wound packing ++ - Neurological Exam Neurological exam: Present: alert, oriented X3 - Psychiatric Psychiatric exam: Present: normal affect, normal mood - Skin Skin exam: Absent: rash Internal Medicine: Result - Labs CBC & Chem 7: 06/01/17 03:34 06/01/17 03:34 Labs: Short CBC 06/01/17 Range/Units 03:34 WBC 7.2 (4.3-11.1) K/mcL Hgb 7.8 L (12.9-16.9) g/dL Hct 25.2 L (37.5-50.1) % Plt Count 317 (140-400) K/mcL Neutrophils # 5.3 (1.6-8.9) K/mcL BMP 06/01/17 03:34 Sodium 138 Potassium 4.2 Chloride 110 H Carbon Dioxide 23 BUN 14 Creatinine 0.76 Glucose 124 H Calcium 7.9 L - ABG Interpretation ABG results: ABG ABG pH 7.45 pH Units (7.32-7.45) 05/28/17 15:25 ABG pCO2 33 mmHg (35-45) L 05/28/17 15:25 ABG pO2 77 mmHg (85-104) L 05/28/17 15:25 ABG O2 Saturation 96 % (95-98) 05/28/17 15:25 PT/INR, D-dimer PT 16.1 Seconds (9.4-12.1) H 05/28/17 14:31 - Impressions Impressions Echocardiogram 05/31/17 09:57 Impressions: LVEF 65%. Mild left ventricular diastolic dysfunction. The aortic root is mildly dilated. Trace aortic regurgitation. Mild pulmonary hypertension. Left Ventricular Wall Motion: Rest Echo Findings All wall segments showed normal motion. Findings: Study Quality * Technically adequate exam. ECG Findings * Normal sinus rhythm. Left Ventricle * LVEF 65%. * Mild left ventricular diastolic dysfunction. Right Ventricle * Normal right ventricular structure and function. Left Atrium * Normal left atrial size. Right Atrium * Normal right atrial size. Interatrial Septum * No evidence of PFO by color Doppler. Aortic Valve * Trace aortic regurgitation. Mitral Valve * Normal mitral valve structure and function. Tricuspid Valve * Estimated RVSP is 33 mmHg. * Estimated RA pressure is 5 mmHg. * Mild pulmonary hypertension. Pulmonic Valve * Pulmonic valve not well visualized. Aorta * The aortic root is mildly dilated. Pericardium * The pericardium appears normal. IVC * Normal IVC dimensions and inspiratory collapse. - VTE Documentation of Mechanical Device: Intermittent pneumatic compression device Consult Discharge Plan - Plan Referrals: Oliva,Shayan Lubin MD [Primary Care Provider] - (Please have patient call once home due to so many no show. per office) Joseph Blankenship MD [Non-Partnered Physician] - 06/18/17 9:45 am (In Wound Care)
[2017-06-02] MEDS: Piperacillin/Tazobactam 3.375 GM in 0.9 % Sodium Chloride Mini Bag 100 ML IVPB SCH ×3 (00:02→08:42)
[2017-06-02 03:33] LABS: Basophils % 0.5 %; Eosinophils # 0.2 K/mcL (0.0-0.6); Eosinophils % 3.5 %; Hematocrit 25.9 % (37.5-50.1); Hemoglobin 7.9 g/dL (12.9-16.9); Immature Granulocytes % 2.6 % (0-4); Lymphocytes # 1.1 K/mcL (0.6-4.6); Mean Corpuscular HGB Conc 30.5 g/dL (31.6-35.5); Mean Corpuscular Hemoglobin 25.8 pg (28.0-33.3); Mean Corpuscular Volume 84.6 fL (83.0-100.0); Mean Platelet Volume 9.4 fL (9.4-12.4); Monocytes # 0.4 K/mcL (0.0-1.3); Monocytes % 5.7 %; Neutrophils # 4.6 K/mcL (1.6-8.9); Platelet Count 331 K/mcL (140-400); Red Blood Count 3.06 M/mcL (4.19-5.50); Segmented Neutrophils % 70.7 %
[2017-06-02 03:56] LABS: % Iron Saturation 28 % (20-55); BUN/Creatinine Ratio 16 (6-26); Blood Urea Nitrogen 14 mg/dL (8-23); Calcium 8.1 mg/dL (8.6-10.3); Carbon Dioxide 24 mEq/L (23-29); Chloride 111 mEq/L (98-107); Glucose 122 mg/dL (70-105); Iron 42 mcg/dL (65-175); Osmolality,Calculated 294 (280-300); Potassium 4.2 mEq/L (3.5-5.1); Sodium 141 mEq/L (136-145); Transferrin 106 mg/dL (203-362); eGFR For African Americans > 60 (> 60); eGFR For Non-African Americans > 60 (> 60)
[2017-06-02] MEDS: *HR* Heparin 5,000 UNIT/ML VIAL SQ SCH ×2 (05:27→17:28)
[2017-06-02] MEDS: 0.9 % Sodium Chloride 1,000 ML IVC SCH (05:54)
[2017-06-02] MEDS: Ascorbic Acid 500 MG TABLET PO SCH (08:43)
[2017-06-02] MEDS: Famotidine 20 MG TABLET PO SCH ×2 (08:43→21:57)
[2017-06-02] MEDS: Zinc Sulfate 220 MG CAPSULE PO SCH (08:43)
[2017-06-02] MEDS: Aspirin Enteric Coated 81 MG Tablet PO SCH (08:43)
[2017-06-02] MEDS: Multivit/Ca/Min/Fe/FA 1 TAB TABLET PO SCH (08:43)
--- NOTE | 2017-06-02 12:16 | Internal Med Progress Note ---
Date of Encounter: 06/02/17 Time of Encounter: 12:13 - Assessment and plan (1) Sepsis Current Visit: Yes Status: Acute Assessment and plan: He did meet sepsis criteria with source of inf as Left buttock wound, elevated WBC, mild hypotension and VALERIANO ESR - 80 and CRP - 188 Blood cx growing MRSA - 2/4 bottles Repeat blood cx from 05/30/17 - No growth so far wound cx from 05/29/17 - growing E. Coli and MRSA Wound cx from 05/30/17 - Growing E. Coli and MRSA cont empirical abx Vanc Switched from Zosyn to Rocephin Qualifiers: Sepsis type: methicillin resistant Staphylococcus aureus Qualified Code(s) : A41.02 - Sepsis due to Methicillin resistant Staphylococcus aureus (2) Bacteremia Current Visit: Yes Status: Acute Assessment and plan: Blood cx from 05/28/17 growing MRSA - 2/4 bottles Repeat blood cx from 05/30/17 - No growth so far Cont Vancomycin 2 D Echo showed preserved LVEF, no vegetations Since only 1/2 sets Blood cx positive and repeat blood cx no growth.. will check ID regarding LANCE (3) Osteomyelitis Current Visit: Yes Status: Acute Assessment and plan: Possible osteo of left ischium Wound cx growing G-ve bessy from 05/29/17 Blood cx growing MRSA Cont Vanco + switched to Rocephin from Zosyn Qualifiers: Osteomyelitis type: acute hematogenous Osteomyelitis location: other site Qualified Code(s): M86.08 - Acute hematogenous osteomyelitis, other sites (4) Gas gangrene Current Visit: Yes Status: Acute Assessment and plan: s/p Wound debridement Cont wound care as per Surgery recommendations Cont empirical abx Vanc + Rocephin (5) Decubital ulcer Current Visit: Yes Status: Acute Qualifiers: Pressure ulcer location: sacral region Pressure ulcer stage: stage 4 Qualified Code(s): L89.154 - Pressure ulcer of sacral region, stage 4 (6) VALERIANO (acute kidney injury) Current Visit: Yes Status: Resolved Assessment and plan: Improved due to sepsis + dehydration (7) Hyperkalemia Current Visit: Yes Status: Resolved Assessment and plan: improved (8) Hyponatremia Current Visit: Yes Status: Resolved Assessment and plan: Due to dehydration improved (9) Paraplegia Current Visit: Yes Status: Acute Assessment and plan: no needs now (10) Protein-calorie malnutrition, severe Current Visit: Yes Status: Acute Assessment and plan: Dragline Operator consulted - Subjective Interval history: Mr. Klein is a 72 year old male with history of paraplegia secondary to postop complications from a previous AAA repair, left gluteus decubitus ulcer developed a year ago, CAD, hyperlipidemia, and hypertension pt who follows with Dr. Blankenship as an out pt for his left gluteus decubitus ulcer presented to ER since his Left buttock wound seems to be worsening with foul discharge and Dr. Blankenship referred him to ER to get admitted in the hospital. Had wound debridement on 05/30/[address] Blankenship Pt is alert, awake and O x 3. Denied any CP / SOB. No events over night - Constitutional Vitals: Temp Pulse Resp BP Pulse Ox 98.0 F 87 16 122/56 98 06/02/17 11:07 06/02/17 11:07 06/02/17 11:07 06/02/17 11:07 06/02/17 11:07 General appearance: Present: A&O X 3, no acute distress, answers questions appropriately - Head Head exam: Present: atraumatic, normal inspection - Respiratory Respiratory exam: Present: decreased breath sounds. Absent: rales, respiratory distress, rhonchi, wheezes - Cardiovascular Cardiovascular exam: Present: RRR, +S1, +S2. Absent: tachycardia - GI/Abdominal GI/Abdominal exam: Present: normal bowel sounds, soft. Absent: rebound, rigid, tenderness - Extremities Exam Extremities exam: Present: pedal edema (trace). Absent: calf tenderness, tenderness - Back Exam Back exam: Absent: CVA tenderness (L), CVA tenderness (R) Additional comments: s/p debridement of Left buttock wound.. Wound packing ++ - Neurological Exam Neurological exam: Present: alert, oriented X3 - Psychiatric Psychiatric exam: Present: normal affect, normal mood Internal Medicine: Result - Labs CBC & Chem 7: 06/02/17 02:37 06/02/17 02:37 Labs: Short CBC 06/02/17 Range/Units 02:37 WBC 6.5 (4.3-11.1) K/mcL Hgb 7.9 L (12.9-16.9) g/dL Hct 25.9 L (37.5-50.1) % Plt Count 331 (140-400) K/mcL Neutrophils # 4.6 (1.6-8.9) K/mcL BMP 06/02/17 02:37 Sodium 141 Potassium 4.2 Chloride 111 H Carbon Dioxide 24 BUN 14 Creatinine 0.85 Glucose 122 H Calcium 8.1 L - ABG Interpretation ABG results: ABG ABG pH 7.45 pH Units (7.32-7.45) 05/28/17 15:25 ABG pCO2 33 mmHg (35-45) L 05/28/17 15:25 ABG pO2 77 mmHg (85-104) L 05/28/17 15:25 ABG O2 Saturation 96 % (95-98) 05/28/17 15:25 PT/INR, D-dimer PT 16.1 Seconds (9.4-12.1) H 05/28/17 14:31 - VTE Documentation of Mechanical Device: Intermittent pneumatic compression device Consult Discharge Plan - Plan Referrals: Shayan Oliva MD [Primary Care Provider] - (Please have patient call once home due to so many no show. per office) Joseph Blankenship MD [Non-Partnered Physician] - 06/18/17 9:45 am (In Wound Care)
[2017-06-02] MEDS ORDERED: cefTRIAXone 1,000 MG in Water for inj. (sterile) 20 ML 10 ML IVP SCH (13:00)
[2017-06-03] MEDS: *HR* Heparin 5,000 UNIT/ML VIAL SQ SCH ×2 (05:09→17:34)
[2017-06-03] MEDS: Zinc Sulfate 220 MG CAPSULE PO SCH (08:29)
[2017-06-03] MEDS: Ascorbic Acid 500 MG TABLET PO SCH (08:29)
[2017-06-03] MEDS: Aspirin Enteric Coated 81 MG Tablet PO SCH (08:29)
[2017-06-03] MEDS: Multivit/Ca/Min/Fe/FA 1 TAB TABLET PO SCH (08:29)
[2017-06-03] MEDS: Famotidine 20 MG TABLET PO SCH ×2 (08:29→20:57)
[2017-06-03] MEDS ORDERED: Lidocaine -MPF 1% 5 ML AMPUL INFILT ONE (09:02)
--- NOTE | 2017-06-03 09:05 | Infectious Disease Progress No ---
Date of Encounter: 06/03/17 Time of Encounter: 09:03 - Assessment and Plan (1) Sepsis Current Visit: Yes Status: Acute Severe sepsis: The patient had two SIRS criteria plus hypotension and VALERIANO on admission. Likely secondary to infected decubitus ulcer and osteomyelitis and bacteremia. Improved. WBC normal. Tachycardia has resolved. Blood pressure and VALERIANO have normalized. Blood cultures drawn 05/28/17 are positive 1/2 sets for MRSA. Repeat blood cultures drawn 05/30/17 are NGTD x 2 sets. Qualifiers: Sepsis type: methicillin resistant Staphylococcus aureus Qualified Code(s) : A41.02 - Sepsis due to Methicillin resistant Staphylococcus aureus (2) Bacteremia Current Visit: Yes Status: Acute Causative organism: MRSA. Source likely the infected decubitus ulcer. Complicated due to the presence of osteomyelitis. Blood cultures drawn 05/28/17 are positive 1/2 sets. No evidence of septic emboli. The patient has one major and one minor Modified Nielson's Criteria. Repeat blood cultures x 2 sets drawn 05/30/17 are NGTD. LANCE negative. Will need LANCE prior to discharge. Discussed with the primary team. Continue Vancomycin IV. Pharmacy to dose. Goal trough ~15. Duration of treatment depends on the clinical picture, but likely 6 weeks of IV antibiotics. Monitor renal function and for drug toxicity and dose-adjust antibiotics. Consult VAT for PICC placement. (3) Osteomyelitis Current Visit: Yes Status: Acute Location: Left ischium. Causative organism MRSA and E. coli. Secondary to non-healing decubitus ulcer. CT of the abdomen and pelvis shows findings consistent with osteomyelitis of the left ischium. General surgery consulted and following. Status post I & D. Operative note reviewed. Gross purulence with exposure of the bone noted. Intra-op cultures as above. Continue Vancomycin IV. Pharmacy to dose. Goal trough ~15. Continue Rocephin, but increase to 2 grams IV daily. Duration of treatment depends on the clinical picture, but likely 6 weeks of IV antibiotics. Monitor renal function and for drug toxicity and dose-adjust antibiotics. agricultural services director consult to assist with discharge planning. Consult VAT for PICC line placement. Will need weekly CBC, BUN/Cr, ESR, CRP, and Vanc trough. Will need weekly PICC care per protocol. Follow up with ID 06/18/17 at 0920. Qualifiers: Osteomyelitis type: acute hematogenous Osteomyelitis location: other site Qualified Code(s): M86.08 - Acute hematogenous osteomyelitis, other sites (4) Gas gangrene Current Visit: Yes Status: Acute Location: left gluteus. Causative organism MRSA and E. coli. Likely secondary to non-healing decubitus ulcer. General surgery consulted and following. Continue antibiotics as above. (5) Decubital ulcer Current Visit: Yes Status: Acute Stage IV noted to the left gluteus. Non-healing. Follows with Dr. Blankenship in the wound clinic. Status post I & D with Dr. Blankenship 05/30/17. Wound care per the surgery team. Aggressive offloading. The patient may require plastic surgery evaluation for placement of a flap, but will await surgical outcomes. Qualifiers: Pressure ulcer location: sacral region Pressure ulcer stage: stage 4 Qualified Code(s): L89.154 - Pressure ulcer of sacral region, stage 4 (6) VALERIANO (acute kidney injury) Current Visit: Yes Status: Resolved Likely secondary to sepsis. Resolved. Continue to trend. Dose-adjust antibiotics. Avoid nephrotoxins as able. (7) Hyperkalemia Current Visit: Yes Status: Resolved (8) Hyponatremia Current Visit: Yes Status: Resolved (9) Paraplegia Current Visit: Yes Status: Acute (10) Neurogenic bladder Current Visit: Yes Status: Acute Requires SIC. Management per the primary team. (11) Neurogenic bowel Current Visit: Yes Status: Acute Requires bowel stimulation. Management per the primary team. - Subjective Interval history: Patient seen and examined. Weekend notes reviewed. No acute events noted overnight. Patient states he is doing well today. Denies fevers, chills, or rigors. Denies headache, neck pain, or dizziness. Denies chest pain, shortness of breath, or cough. Denies nausea, vomiting, or diarrhea. Had BM over the weekend. Denies abdominal pain and states his appetite is much better. Denies oral thrush or new skin lesions. Infect Dis PN-Objective Data - Labs CBC & Chem 7: 06/02/17 02:37 06/02/17 02:37 Cultures: Cultures 05/31/17 18:51 Urine Culture - Final Urine,Clean Catch No growth. 05/30/17 21:04 Wound Culture - Final Left Hip Escherichia coli Methicillin Resistant S.aureus 05/29/17 15:06 Wound Culture - Final Buttock Escherichia coli Methicillin Resistant S.aureus 05/30/17 13:06 Blood Culture - Preliminary Peripheral Venipuncture No growth. 05/30/17 13:06 Blood Culture - Preliminary Peripheral Venipuncture No growth. Exam - Constitutional Vitals: Temp Pulse Resp BP Pulse Ox 97.7 F 81 17 135/65 94 06/03/17 06:39 06/03/17 06:39 06/03/17 06:39 06/03/17 06:39 06/03/17 06:39 General appearance: average body habitus, cooperative, no acute distress - Head Head exam: Present: atraumatic, normal inspection, normocephalic - Eye Eye exam: Present: EOMI, normal appearance, PERRL Pupils: Present: normal accommodation Additional comments: No subconjunctival hemorrhage noted. - ENT ENT exam: Present: mucous membranes moist - Neck Neck exam: Present: normal inspection - Respiratory Respiratory exam: Present: CTAB. Absent: rales, respiratory distress, rhonchi, wheezes - Cardiovascular Cardiovascular exam: Present: RRR, +S1, +S2 - GI/Abdominal GI/Abdominal exam: Present: normal bowel sounds, soft. Absent: distended, tenderness - Extremities Exam Extremities exam: Present: pedal edema (1+ BLE). Absent: joint swelling, tenderness - Neurological Exam Neurological exam: Present: alert, oriented X3, no focal deficits - Psychiatric Psychiatric exam: Present: normal affect, normal mood - Skin Skin exam: Present: dry, intact, normal color, warm Additional comments: No endocarditis stigmata noted. - VTE Documentation of Mechanical Device: Intermittent pneumatic compression device Consult Discharge Plan - Plan Referrals: Shayan Oliva MD [Primary Care Provider] - (Please have patient call once home due to so many no show. per office) Joseph Blankenship MD [Non-Partnered Physician] - 06/18/17 9:45 am (In Wound Care) Shadia Eaton CNP [Advanced Practice Nurse] - 06/18/17 9:20 am - Attending Attestation I examined this patient and my medical decision-making was reviewed with the Resident Physician. I agree with the documented findings, disposition and treatment plan as described except to the extent set forth below.
[2017-06-03] MEDS ORDERED: cefTRIAXone 2,000 MG in Water for inj. (sterile) 20 ML 20 ML IVP SCH (09:12)
[2017-06-03] MEDS: cefTRIAXone 2,000 MG in Water for inj. (sterile) 20 ML 20 ML IVP SCH (13:11)
--- NOTE | 2017-06-03 16:15 | Internal Med Progress Note ---
Date of Encounter: 06/03/17 Time of Encounter: 10:50 - Assessment and plan (1) Sepsis Current Visit: Yes Status: Acute Assessment and plan: He did meet sepsis criteria with source of inf as Left buttock wound, elevated WBC, mild hypotension and VALERIANO ESR - 80 and CRP - 188 Blood cx growing MRSA - 2/4 bottles Repeat blood cx from 05/30/17 - No growth so far wound cx from 05/29/17 - growing E. Coli and MRSA Wound cx from 05/30/17 - Growing E. Coli and MRSA cont empirical abx Vanc Switched from Zosyn to Rocephin on 06/02/17 Qualifiers: Sepsis type: methicillin resistant Staphylococcus aureus Qualified Code(s) : A41.02 - Sepsis due to Methicillin resistant Staphylococcus aureus (2) Bacteremia Current Visit: Yes Status: Acute Assessment and plan: Blood cx from 05/28/17 growing MRSA - 2/4 bottles Repeat blood cx from 05/30/17 - No growth so far Cont Vancomycin 2 D Echo showed preserved LVEF, no vegetations Talked to ID recommend LANCE for further eval for valvular vegetations will order LANCE in AM (3) Osteomyelitis Current Visit: Yes Status: Acute Assessment and plan: Possible osteo of left ischium Wound cx growing G-ve bessy from 05/29/17 Blood cx growing MRSA Cont Vanco + switched to Rocephin from Zosyn Leave it to ID about duration of abx Qualifiers: Osteomyelitis type: acute hematogenous Osteomyelitis location: other site Qualified Code(s): M86.08 - Acute hematogenous osteomyelitis, other sites (4) Gas gangrene Current Visit: Yes Status: Acute Assessment and plan: s/p Wound debridement Cont wound care as per Surgery recommendations Cont empirical abx Vanc + Rocephin (5) Decubital ulcer Current Visit: Yes Status: Acute Qualifiers: Pressure ulcer location: sacral region Pressure ulcer stage: stage 4 Qualified Code(s): L89.154 - Pressure ulcer of sacral region, stage 4 (6) VALERIANO (acute kidney injury) Current Visit: Yes Status: Resolved Assessment and plan: Improved due to sepsis + dehydration (7) Hyperkalemia Current Visit: Yes Status: Resolved Assessment and plan: improved (8) Hyponatremia Current Visit: Yes Status: Resolved Assessment and plan: Due to dehydration improved (9) Paraplegia Current Visit: Yes Status: Acute Assessment and plan: no needs now (10) Protein-calorie malnutrition, severe Current Visit: Yes Status: Acute Assessment and plan: Wall Attendant consulted - Subjective Interval history: Mr. Klein is a 72 year old male with history of paraplegia secondary to postop complications from a previous AAA repair, left gluteus decubitus ulcer developed a year ago, CAD, hyperlipidemia, and hypertension pt who follows with Dr. Blankenship as an out pt for his left gluteus decubitus ulcer presented to ER since his Left buttock wound seems to be worsening with foul discharge and Dr. Blankenship referred him to ER to get admitted in the hospital. Had wound debridement on 05/30/[address] Blankenship Pt is alert, awake and O x 3. Denied any CP / SOB. No events over night - Constitutional Vitals: Temp Pulse Resp BP Pulse Ox 97.6 F 81 16 127/66 95 06/03/17 10:43 06/03/17 10:43 06/03/17 10:43 06/03/17 10:43 06/03/17 10:43 General appearance: Present: A&O X 3, no acute distress, answers questions appropriately - Head Head exam: Present: atraumatic, normal inspection - Neck Neck exam general surgery: Present: supple - Respiratory Respiratory exam: Present: decreased breath sounds. Absent: rales, respiratory distress, rhonchi, wheezes - Cardiovascular Cardiovascular exam: Present: RRR, +S1, +S2. Absent: tachycardia - GI/Abdominal GI/Abdominal exam: Present: normal bowel sounds, soft. Absent: rebound, rigid, tenderness - Extremities Exam Extremities exam: Absent: calf tenderness, pedal edema, tenderness - Psychiatric Psychiatric exam: Present: normal affect, normal mood Internal Medicine: Result - Labs CBC & Chem 7: 06/02/17 02:37 06/02/17 02:37 - ABG Interpretation ABG results: ABG ABG pH 7.45 pH Units (7.32-7.45) 05/28/17 15:25 ABG pCO2 33 mmHg (35-45) L 05/28/17 15:25 ABG pO2 77 mmHg (85-104) L 05/28/17 15:25 ABG O2 Saturation 96 % (95-98) 05/28/17 15:25 PT/INR, D-dimer PT 16.1 Seconds (9.4-12.1) H 05/28/17 14:31 - VTE Documentation of Mechanical Device: Intermittent pneumatic compression device Consult Discharge Plan - Plan Referrals: Shayan Oliva MD [Primary Care Provider] - (Please have patient call once home due to so many no show. per office) Joseph Blankenship MD [Non-Partnered Physician] - 06/18/17 9:45 am (In Wound Care) Shadia Eaton CNP [Advanced Practice Nurse] - 06/18/17 9:20 am
[2017-06-04] MEDS: Nystatin POWDER 30 GM BOTTLE TP SCH ×3 (02:14→23:19)
[2017-06-04] MEDS: *HR* Heparin 5,000 UNIT/ML VIAL SQ SCH (05:15)
[2017-06-04 06:12] LABS: BUN/Creatinine Ratio 17 (6-26); Blood Urea Nitrogen 11 mg/dL (8-23); Calcium 8.4 mg/dL (8.6-10.3); Carbon Dioxide 26 mEq/L (23-29); Chloride 108 mEq/L (98-107); Glucose 92 mg/dL (70-105); Osmolality,Calculated 291 (280-300); Potassium 4.1 mEq/L (3.5-5.1); Sodium 141 mEq/L (136-145); eGFR For African Americans > 60 (> 60); eGFR For Non-African Americans > 60 (> 60)
[2017-06-04 06:32] LABS: Hematocrit 24.9 % (37.5-50.1); Hemoglobin 7.5 g/dL (12.9-16.9); Mean Corpuscular HGB Conc 30.1 g/dL (31.6-35.5); Mean Corpuscular Volume 86.2 fL (83.0-100.0); Mean Platelet Volume 9.6 fL (9.4-12.4); Platelet Count 321 K/mcL (140-400); Red Blood Count 2.89 M/mcL (4.19-5.50); Red Cell Distribution Width 15.1 % (11.5-14.5)
[2017-06-04] MEDS: Aspirin Enteric Coated 81 MG Tablet PO SCH (08:40)
[2017-06-04] MEDS: Ascorbic Acid 500 MG TABLET PO SCH (08:40)
[2017-06-04] MEDS: Multivit/Ca/Min/Fe/FA 1 TAB TABLET PO SCH (08:40)
[2017-06-04] MEDS: Famotidine 20 MG TABLET PO SCH ×2 (08:40→21:26)
[2017-06-04] MEDS: Zinc Sulfate 220 MG CAPSULE PO SCH (08:40)
[2017-06-04] MEDS: cefTRIAXone 2,000 MG in Water for inj. (sterile) 20 ML 20 ML IVP SCH (08:41)
--- NOTE | 2017-06-04 09:01 | Internal Med Progress Note ---
Date of Encounter: 06/04/17 Time of Encounter: 08:59 - Assessment and plan (1) Sepsis Current Visit: Yes Status: Acute Assessment and plan: Still somewhat hypotensive with a systolic in the 90s this morning. Tachycardia 101. Leukocytosis resolved. Continue current vancomycin and Rocephin to treat underlying cause as below. Continue to monitor. Qualifiers: Sepsis type: methicillin resistant Staphylococcus aureus Qualified Code(s) : A41.02 - Sepsis due to Methicillin resistant Staphylococcus aureus (2) Decubital ulcer Current Visit: Yes Status: Acute Assessment and plan: Cultures positive for Escherichia coli and MRSA. Status post debridement on . Plan for 6 weeks antibiotics. Qualifiers: Pressure ulcer location: sacral region Pressure ulcer stage: stage 4 Qualified Code(s): L89.154 - Pressure ulcer of sacral region, stage 4 (3) Osteomyelitis Current Visit: Yes Status: Acute Assessment and plan: CT abdomen and pelvis without IV contrast report showed Cortical irregularity and subtle fragmentation involving the left ischial tuberosity highly suggestive of acute osteomyelitis. We will treat for 6 weeks Qualifiers: Osteomyelitis type: acute hematogenous Osteomyelitis location: other site Qualified Code(s): M86.08 - Acute hematogenous osteomyelitis, other sites (4) Bacteremia Current Visit: Yes Status: Acute Assessment and plan: Repeat blood cultures have been negative since 05/30. Plan for 6 weeks antibiotics with vancomycin and Rocephin per factious disease. TTE with no vegetation. LANCE pending today. (5) Acute blood loss as cause of postoperative anemia Current Visit: Yes Status: Acute Assessment and plan: Hemoglobin is at 7.5. Admission hemoglobin of 9.3. Dressing around 1 debridement is soaked with blood. We will have surgery come and take a look. Monitor H&H. Hold off on transfusion for now. (6) Paraplegia Current Visit: Yes Status: Acute Assessment and plan: Chronic. (7) VALERIANO (acute kidney injury) Current Visit: Yes Status: Resolved Assessment and plan: Resolved (8) Hyperkalemia Current Visit: Yes Status: Resolved Assessment and plan: Resolved (9) Hyponatremia Current Visit: Yes Status: Resolved Assessment and plan: Resolved (10) Protein-calorie malnutrition, severe Current Visit: Yes Status: Acute Assessment and plan: Dietary following (11) DVT prophylaxis Current Visit: Yes Status: Acute Assessment and plan: Stop heparin subcutaneous. Place patient on SCDs. - Subjective Interval history: Patient was seen and examined. His left-sided buttock wound with dressing soaked in blood. He has been afebrile. The patient was admitted with a left buttock ulcer/abscess that was drained in or by surgery. Initially had a Hypotension. Found to Have MRSA and Escherichia Coli Growing Out Of the Wound. Also Positive MRSA in the Blood. The Patient Is Being Followed by Infectious Disease and Is Being Treated for the Also/Abscess, Bacteremia As Well As Osteomyelitis of the Left Ischium. - Constitutional Vitals: Temp Pulse Resp BP Pulse Ox 98.1 F 101 18 99/58 94 06/04/17 07:46 06/04/17 07:46 06/04/17 07:46 06/04/17 07:46 06/04/17 07:46 General appearance: Present: A&O X 3, no acute distress, answers questions appropriately Exam: GEN: NAD CVS: RRR. S1, S2, No m/r/g RESP: CTAB ABD: Soft, NT, ND, +BS EXT: No edema. 2+ DP. No rashes. Left buttock with a dressing noted soaked in blood. No obvious drainage noted. NEURO: Nonfocal Internal Medicine: Result - Labs CBC & Chem 7: 06/04/17 05:45 06/04/17 02:10 Labs: Short CBC 06/04/17 Range/Units 05:45 WBC 9.4 (4.3-11.1) K/mcL Hgb 7.5 L (12.9-16.9) g/dL Hct 24.9 L (37.5-50.1) % Plt Count 321 (140-400) K/mcL BMP 06/04/17 02:10 Sodium 141 Potassium 4.1 Chloride 108 H Carbon Dioxide 26 BUN 11 Creatinine 0.66 L Glucose 92 Calcium 8.4 L - ABG Interpretation ABG results: ABG ABG pH 7.45 pH Units (7.32-7.45) 05/28/17 15:25 ABG pCO2 33 mmHg (35-45) L 05/28/17 15:25 ABG pO2 77 mmHg (85-104) L 05/28/17 15:25 ABG O2 Saturation 96 % (95-98) 05/28/17 15:25 PT/INR, D-dimer PT 16.1 Seconds (9.4-12.1) H 05/28/17 14:31 - VTE Documentation of Mechanical Device: Intermittent pneumatic compression device Consult Discharge Plan - Plan Referrals: Shayan Oliva MD [Primary Care Provider] - (Please have patient call once home due to so many no show. per office) Joseph Blankenship MD [Non-Partnered Physician] - 06/18/17 9:45 am (In Wound Care) Shadia Eaton CNP [Advanced Practice Nurse] - 06/18/17 9:20 am
--- NOTE | 2017-06-04 09:53 | Event Note ---
Date of Encounter: 06/04/17 Time of Encounter: 09:50 Surgery asked to re-evaluate post-surgical site d/t bleeding. Left posterior hip /sacral decubitus I&D site is with granulation tissue. Packing is in place as per orders. One area of packing was removed which revealed a moderate size blood clot adhering to the tissue. There is A small amount of slow oozing with pressure noted. The area was repacked with a small amount of pressure added to that using area and covered with a dry dressing. Patient's vital signs are stable, there was minimal drop in hemoglobin, no clear indication at this time that bleeding is uncontrolled. Surgery recommends to continue the current therapy, may reinforce or change outer dressing as indicated. Would recommend recheck of hemoglobin this afternoon per primary team if indicated. Continue wound care as per their wound care consult and follow-up as previously directed
[2017-06-04] MEDS ORDERED: Ondansetron 4 MG/2 ML VIAL IVP PRN (10:16)
--- NOTE | 2017-06-04 11:29 | Infectious Disease Progress No ---
Date of Encounter: 06/04/17 Time of Encounter: 11:27 - Assessment and Plan (1) Sepsis Current Visit: Yes Status: Acute Severe sepsis: The patient had two SIRS criteria plus hypotension and VALERIANO on admission. Likely secondary to infected decubitus ulcer and osteomyelitis and bacteremia. Improved. WBC normal. He has had some tachycardia this morning and is a little hypotensive. VALERIANO has normalized. Blood cultures drawn 05/28/17 are positive 1/2 sets for MRSA. Repeat blood cultures drawn 05/30/17 are NGTD x 2 sets. Qualifiers: Sepsis type: methicillin resistant Staphylococcus aureus Qualified Code(s) : A41.02 - Sepsis due to Methicillin resistant Staphylococcus aureus (2) Bacteremia Current Visit: Yes Status: Acute Causative organism: MRSA. Source likely the infected decubitus ulcer. Complicated due to the presence of osteomyelitis. Blood cultures drawn 05/28/17 are positive 1/2 sets. No evidence of septic emboli. The patient has one major and one minor Modified Nielson's Criteria. Repeat blood cultures x 2 sets drawn 05/30/17 are NGTD. LANCE negative. LANCE scheduled later today. Continue Vancomycin IV. Pharmacy to dose. Goal trough ~15. Last Vanc trough 15.5. Duration of treatment depends on the clinical picture, but likely 6 weeks of IV antibiotics from the date of surgery. Monitor renal function and for drug toxicity and dose-adjust antibiotics. (3) Osteomyelitis Current Visit: Yes Status: Acute Location: Left ischium. Causative organism MRSA and E. coli. Secondary to non-healing decubitus ulcer. CT of the abdomen and pelvis shows findings consistent with osteomyelitis of the left ischium. General surgery consulted and following. Status post I & D. Operative note reviewed. Gross purulence with exposure of the bone noted. Intra-op cultures as above. The wound continues to have bleeding. The surgery team saw the patient this morning. Continue Vancomycin IV. Pharmacy to dose. Goal trough ~15. Continue Rocephin 2 grams IV daily. Duration of treatment depends on the clinical picture, but likely 6 weeks of IV antibiotics. Monitor renal function and for drug toxicity and dose-adjust antibiotics. software engineer web services consult to assist with discharge planning. Will need weekly CBC, BUN/Cr, ESR, CRP, and Vanc trough. Will need weekly PICC care per protocol. Follow up with ID 06/18/17 at 0920. Qualifiers: Osteomyelitis type: acute hematogenous Osteomyelitis location: other site Qualified Code(s): M86.08 - Acute hematogenous osteomyelitis, other sites (4) Gas gangrene Current Visit: Yes Status: Acute Location: left gluteus. Causative organism MRSA and E. coli. Likely secondary to non-healing decubitus ulcer. General surgery consulted and following. Continue antibiotics as above. (5) Decubital ulcer Current Visit: Yes Status: Acute Stage IV noted to the left gluteus. Non-healing. Follows with Dr. Blankenship in the wound clinic. Status post I & D with Dr. Blankenship 05/30/17. Wound care per the surgery team. Aggressive offloading. The patient may require plastic surgery evaluation for placement of a flap, but will await surgical outcomes. Qualifiers: Pressure ulcer location: sacral region Pressure ulcer stage: stage 4 Qualified Code(s): L89.154 - Pressure ulcer of sacral region, stage 4 (6) VALERIANO (acute kidney injury) Current Visit: Yes Status: Resolved Likely secondary to sepsis. Resolved. Continue to trend. Dose-adjust antibiotics. Avoid nephrotoxins as able. (7) Hyperkalemia Current Visit: Yes Status: Resolved (8) Hyponatremia Current Visit: Yes Status: Resolved (9) Paraplegia Current Visit: Yes Status: Acute (10) Neurogenic bladder Current Visit: Yes Status: Acute Requires SIC. Management per the primary team. (11) Neurogenic bowel Current Visit: Yes Status: Acute Requires bowel stimulation. Management per the primary team. (12) Acute blood loss as cause of postoperative anemia Current Visit: Yes Status: Acute Hgb 9 on admission, down to 7.5 this morning. Continues to have bleeding from the surgical wound. Surgery team consulted and following. Given the patient's hypotensive and tachycardic this morning, may benefit from transfusion of PRBC, but will defer to the primary team. - Subjective Interval history: Patient seen and examined. No acute events noted overnight. Patient states he is feels nauseated this morning and thinks it is because he took his pills on an empty stomach. He is currently NPO for LANCE later today. Initially refused anti-emetic, but started dry-heaving during my exam and became agreeable. Denies fevers, chills, or rigors, but states he is hot. Denies headache, neck pain, or dizziness. Denies chest pain, shortness of breath, or cough. Denies nausea, vomiting, or diarrhea. Had BM over the weekend, but none since. Denies abdominal pain. Denies oral thrush or new skin lesions. Infect Dis PN-Objective Data - Labs CBC & Chem 7: 06/05/17 04:00 06/05/17 04:00 Labs: Laboratory Results - last 24 hr 06/03/17 06/04/17 06/04/17 20:44 02:10 05:45 WBC 9.4 RBC 2.89 L Hgb 7.5 L Hct 24.9 L MCV 86.2 MCH 26.0 L MCHC 30.1 L RDW 15.1 H Plt Count 321 MPV 9.6 Sodium 141 Potassium 4.1 Chloride 108 H Carbon Dioxide 26 BUN 11 Creatinine 0.66 L Est GFR ( Amer) > 60 Est GFR (Non-Af Amer) > 60 BUN/Creatinine Ratio 17 Glucose 92 POC Glucose 117 H Calculated Osmolality 291 Calcium 8.4 L Blood Type Antibody Screen 06/04/17 05:45 WBC RBC Hgb Hct MCV MCH MCHC RDW Plt Count MPV Sodium Potassium Chloride Carbon Dioxide BUN Creatinine Est GFR ( Amer) Est GFR (Non-Af Amer) BUN/Creatinine Ratio Glucose POC Glucose Calculated Osmolality Calcium Blood Type O POSITIVE Antibody Screen NEGATIVE Cultures: Cultures 05/31/17 18:51 Urine Culture - Final Urine,Clean Catch No growth. 05/30/17 21:04 Wound Culture - Final Left Hip Escherichia coli Methicillin Resistant S.aureus 05/29/17 15:06 Wound Culture - Final Buttock Escherichia coli Methicillin Resistant S.aureus 05/30/17 13:06 Blood Culture - Preliminary Peripheral Venipuncture No growth. 05/30/17 13:06 Blood Culture - Preliminary Peripheral Venipuncture No growth. Exam - Constitutional Vitals: Temp Pulse Resp BP Pulse Ox 97.6 F 101 16 102/61 92 06/04/17 10:34 06/04/17 10:34 06/04/17 10:34 06/04/17 10:34 06/04/17 10:34 General appearance: average body habitus, cooperative, no acute distress - Head Head exam: Present: atraumatic, normal inspection, normocephalic - Eye Eye exam: Present: EOMI, normal appearance, PERRL Pupils: Present: normal accommodation Additional comments: No subconjunctival hemorrhage noted. - ENT ENT exam: Present: mucous membranes moist - Neck Neck exam: Present: normal inspection - Respiratory Respiratory exam: Present: CTAB. Absent: rales, respiratory distress, rhonchi, wheezes - Cardiovascular Cardiovascular exam: Present: +S1, +S2, tachycardia. Absent: irregular rhythm - GI/Abdominal GI/Abdominal exam: Present: normal bowel sounds, soft. Absent: distended, tenderness - Extremities Exam Extremities exam: Absent: joint swelling, pedal edema, tenderness Additional comments: Muscle atrophy noted to the BLE. - Back Exam Additional comments: Left gluteal decubitus ulcer dressing saturated with blood with small amount of oozing noted. Left hip dressing C/D/I. No surrounding warmth, erythema, or fluctuance noted. - Neurological Exam Neurological exam: Present: alert, oriented X3. Absent: no focal deficits ( Paralysis noted to the BLE.) - Psychiatric Psychiatric exam: Present: normal affect, normal mood - Skin Skin exam: Present: dry, intact, normal color, warm - VTE Documentation of Mechanical Device: Intermittent pneumatic compression device Consult Discharge Plan - Plan Referrals: Shayan Oliva MD [Primary Care Provider] - (Please have patient call once home due to so many no show. per office) Joseph Blankenship MD [Non-Partnered Physician] - 06/18/17 9:45 am (In Wound Care) Shadia Eaton CNP [Advanced Practice Nurse] - 06/18/17 9:20 am Prescriptions: CefTRIAXone (wt based) [Rocephin] 2,000 mg IV DAILY #42 vial Vancomycin [Vancocin (wt based)] 1,250 mg IV DAILY #42 vial - Attending Attestation I examined this patient and my medical decision-making was reviewed with the Resident Physician. I agree with the documented findings, disposition and treatment plan as described except to the extent set forth below.
[2017-06-04] MEDS ORDERED: 0.9 % Sodium Chloride 500 ML IVC ONE (13:05)
[2017-06-04] MEDS ORDERED: Tetracaine/Benzocaine/Butamben 200MG/SPRAY (100SPY/BOT) MM ONE (13:05)
[2017-06-04] MEDS ORDERED: Lidocaine Viscous Oral Soln 15 ML SOLUTION MM PRN (13:05)
[2017-06-04] MEDS: *HR* FentaNYL (PF) 100 MCG/2 ML VIAL IVP PRN ×2 (13:50→13:55)
[2017-06-04] MEDS: *HR* Midazolam HCl 5 MG/5 ML VIAL IVP PRN ×2 (13:50→13:55)
[2017-06-05 08:12] LABS: BUN/Creatinine Ratio 19 (6-26); Blood Urea Nitrogen 14 mg/dL (8-23); Carbon Dioxide 28 mEq/L (23-29); Chloride 110 mEq/L (98-107); Glucose 100 mg/dL (70-105); Magnesium 1.8 mg/dL (1.6-2.6); Osmolality,Calculated 293 (280-300); Potassium 4.2 mEq/L (3.5-5.1); Sodium 141 mEq/L (136-145); eGFR For African Americans > 60 (> 60); eGFR For Non-African Americans > 60 (> 60)
[2017-06-05 08:28] LABS: Basophils % 0.3 %; Eosinophils # 0.4 K/mcL (0.0-0.6); Eosinophils % 4.8 %; Hematocrit 20.3 % (37.5-50.1); Immature Granulocytes % 3.3 % (0-4); Lymphocytes # 1.3 K/mcL (0.6-4.6); Lymphocytes % 18.1 %; Mean Corpuscular HGB Conc 29.6 g/dL (31.6-35.5); Mean Corpuscular Hemoglobin 25.9 pg (28.0-33.3); Mean Corpuscular Volume 87.5 fL (83.0-100.0); Mean Platelet Volume 9.8 fL (9.4-12.4); Monocytes # 0.4 K/mcL (0.0-1.3); Platelet Count 280 K/mcL (140-400); Red Blood Count 2.32 M/mcL (4.19-5.50); Red Cell Distribution Width 15.9 % (11.5-14.5); Segmented Neutrophils % 67.5 %
--- NOTE | 2017-06-05 08:44 | Internal Med Progress Note ---
Date of Encounter: 06/05/17 Time of Encounter: 08:42 - Assessment and plan (1) Sepsis Current Visit: Yes Status: Acute Assessment and plan: Blood pressures better with a systolic anywhere between 100-114 since yesterday midnight. Heart rate is in the 90s. Leukocytosis resolved. Continue current vancomycin and Rocephin to treat underlying cause as below. Continue to monitor. Qualifiers: Qualified Code(s): A41.02 - Sepsis due to Methicillin resistant Staphylococcus aureus (2) Decubital ulcer Current Visit: Yes Status: Acute Assessment and plan: Cultures positive for Escherichia coli and MRSA. Status post debridement on . Plan for 6 weeks antibiotics. Repeat blood cultures on 05/30 are negative to date. Qualifiers: Qualified Code(s): L89.154 - Pressure ulcer of sacral region, stage 4 (3) Osteomyelitis Current Visit: Yes Status: Acute Assessment and plan: CT abdomen and pelvis without IV contrast report showed Cortical irregularity and subtle fragmentation involving the left ischial tuberosity highly suggestive of acute osteomyelitis. We will treat for 6 weeks Qualifiers: Qualified Code(s): M86.08 - Acute hematogenous osteomyelitis, other sites (4) Bacteremia Current Visit: Yes Status: Acute Assessment and plan: Repeat blood cultures have been negative since 05/30. Plan for 6 weeks antibiotics with vancomycin and Rocephin per infectious disease. TTE with no vegetation. LANCE done 06/04 also with no vegetations (5) Acute blood loss as cause of postoperative anemia Current Visit: Yes Status: Acute Assessment and plan: Hemoglobin is at 6.0 this morning. Admission hemoglobin of 9.3. Transfuse 1 unit now. Dressing around debridement is soaked with blood. We will have surgery come and take a look. They saw the patient yesterday and recommended pressure. Monitor H&H. (6) Paraplegia Current Visit: Yes Status: Acute Assessment and plan: Chronic. (7) VALERIANO (acute kidney injury) Current Visit: Yes Status: Resolved Assessment and plan: Resolved (8) Hyperkalemia Current Visit: Yes Status: Resolved Assessment and plan: Resolved (9) Hyponatremia Current Visit: Yes Status: Resolved Assessment and plan: Resolved (10) Protein-calorie malnutrition, severe Current Visit: Yes Status: Acute Assessment and plan: Dietary following (11) DVT prophylaxis Current Visit: Yes Status: Acute Assessment and plan: SCDs. - Subjective Interval history: Patient was seen and examined. Hgb down to 6 this morning. has a big clot at the wound area but no active bleeding that I see. He has been afebrile. Had LANCE done yesterday with no vegetations noted. The patient was admitted with a left buttock ulcer/abscess that was drained in OR by surgery. Initially had a Hypotension. Found to Have MRSA and Escherichia Coli Growing Out Of the Wound. Also Positive MRSA in the Blood. The Patient Is Being Followed by Infectious Disease and is being Treated for the Abscess, Bacteremia As Well As Osteomyelitis of the Left Ischium. - Constitutional Vitals: Temp Pulse Resp BP Pulse Ox 98.2 F 97 16 101/49 95 06/05/17 07:19 06/05/17 07:19 06/05/17 07:19 06/05/17 07:19 06/05/17 07:19 General appearance: Present: A&O X 3, no acute distress, answers questions appropriately Exam: GEN: NAD CVS: RRR. S1, S2, No m/r/g RESP: CTAB ABD: Soft, NT, ND, +BS EXT: No edema. 2+ DP. No rashes. Left buttock with a dressing noted. I removed the dressing and there is a big dark clot noted. No actual oozing seen. No obvious drainage noted. NEURO: Nonfocal Internal Medicine: Result - Labs CBC & Chem 7: 06/05/17 04:00 06/05/17 04:00 Labs: Short CBC 06/05/17 Range/Units 04:00 WBC 7.4 (4.3-11.1) K/mcL Hgb 6.0 L* D (12.9-16.9) g/dL Hct 20.3 L (37.5-50.1) % Plt Count 280 (140-400) K/mcL Neutrophils # 5.0 (1.6-8.9) K/mcL BMP 06/05/17 04:00 Sodium 141 Potassium 4.2 Chloride 110 H Carbon Dioxide 28 BUN 14 Creatinine 0.74 Glucose 100 Calcium 8.0 L - ABG Interpretation ABG results: ABG ABG pH 7.45 pH Units (7.32-7.45) 05/28/17 15:25 ABG pCO2 33 mmHg (35-45) L 03/13/18 15:25 ABG pO2 77 mmHg (85-104) L 05/28/17 15:25 ABG O2 Saturation 96 % (95-98) 05/28/17 15:25 PT/INR, D-dimer PT 16.1 Seconds (9.4-12.1) H 05/28/17 14:31 - VTE Documentation of Mechanical Device: Intermittent pneumatic compression device Consult Discharge Plan - Plan Referrals: Oliva,Shayan Lubin MD [Primary Care Provider] - (Please have patient call once home due to so many no show. per office) Joseph Blankenship MD [Non-Partnered Physician] - 06/18/17 9:45 am (In Wound Care) Shadia Eaton CNP [Advanced Practice Nurse] - 06/18/17 9:20 am
--- NOTE | 2017-06-05 08:52 | Infectious Disease Progress No ---
Date of Encounter: 06/05/17 Time of Encounter: 08:50 - Assessment and Plan (1) Sepsis Current Visit: Yes Status: Acute Severe sepsis: The patient had two SIRS criteria plus hypotension and VALERIANO on admission. Likely secondary to infected decubitus ulcer and osteomyelitis and bacteremia. Improved. WBC normal. He continues to have a little tachycardia this morning, but hypotension has resolved. VALERIANO has normalized. Blood cultures drawn 05/28/17 are positive 1/2 sets for MRSA. Repeat blood cultures drawn 05/30/17 are negative x 2 sets. Qualifiers: Sepsis type: methicillin resistant Staphylococcus aureus Qualified Code(s) : A41.02 - Sepsis due to Methicillin resistant Staphylococcus aureus (2) Bacteremia Current Visit: Yes Status: Acute Causative organism: MRSA. Source likely the infected decubitus ulcer. Complicated due to the presence of osteomyelitis. Blood cultures drawn 05/28/17 are positive 1/2 sets. No evidence of septic emboli. The patient has one major and one minor Modified Nielson's Criteria. Repeat blood cultures x 2 sets drawn 05/30/17 are negative. LANCE negative. LANCE showed no valvular vegetations. Continue Vancomycin IV. Pharmacy to dose. Goal trough ~15. Last Vanc trough 15.5. Duration of treatment depends on the clinical picture, but likely 6 weeks of IV antibiotics from the date of surgery. Monitor renal function and for drug toxicity and dose-adjust antibiotics. (3) Osteomyelitis Current Visit: Yes Status: Acute Location: Left ischium. Causative organism MRSA and E. coli. Secondary to non-healing decubitus ulcer. CT of the abdomen and pelvis shows findings consistent with osteomyelitis of the left ischium. General surgery consulted and following. Status post I & D. Operative note reviewed. Gross purulence with exposure of the bone noted. Intra-op cultures as above. Bleeding seems to be controlled. Continue Vancomycin IV. Pharmacy to dose. Goal trough ~15. Continue Rocephin 2 grams IV daily. Duration of treatment depends on the clinical picture, but likely 6 weeks of IV antibiotics. Monitor renal function and for drug toxicity and dose-adjust antibiotics. equipment services associate consult to assist with discharge planning. Will need weekly CBC, BUN/Cr, ESR, CRP, and Vanc trough. Will need weekly PICC care per protocol. Follow up with ID 06/18/17 at 0920. Qualifiers: Osteomyelitis type: acute hematogenous Osteomyelitis location: other site Qualified Code(s): M86.08 - Acute hematogenous osteomyelitis, other sites (4) Gas gangrene Current Visit: Yes Status: Acute Location: left gluteus. Causative organism MRSA and E. coli. Likely secondary to non-healing decubitus ulcer. General surgery consulted and following. Continue antibiotics as above. (5) Decubital ulcer Current Visit: Yes Status: Acute Stage IV noted to the left gluteus. Non-healing. Follows with Dr. Blankenship in the wound clinic. Status post I & D with Dr. Blankenship 05/30/17. Wound care per the surgery team. Aggressive offloading. The patient may require plastic surgery evaluation for placement of a flap, but will await surgical outcomes. Qualifiers: Pressure ulcer location: sacral region Pressure ulcer stage: stage 4 Qualified Code(s): L89.154 - Pressure ulcer of sacral region, stage 4 (6) VALERIANO (acute kidney injury) Current Visit: Yes Status: Resolved Likely secondary to sepsis. Resolved. Continue to trend. Dose-adjust antibiotics. Avoid nephrotoxins as able. (7) Hyperkalemia Current Visit: Yes Status: Resolved (8) Hyponatremia Current Visit: Yes Status: Resolved (9) Paraplegia Current Visit: Yes Status: Acute (10) Neurogenic bladder Current Visit: Yes Status: Acute Requires SIC. Management per the primary team. (11) Neurogenic bowel Current Visit: Yes Status: Acute Requires bowel stimulation. Management per the primary team. (12) Acute blood loss as cause of postoperative anemia Current Visit: Yes Status: Acute Hgb 9 on admission, down to 6 this morning, but it appears. No active bleeding noted on exam, but patient states nursing told him there is a large clot in the wound bed. Surgery team consulted and following. Discussed with the primary team. Plan to transfuse this morning. - Subjective Interval history: Patient seen and examined. No acute events noted overnight. Patient states he feels better today. Denies fevers, chills, or rigors. Denies headache, neck pain , or dizziness. Denies chest pain, shortness of breath, or cough. Denies nausea , vomiting, or diarrhea. Had BM over the weekend, but none since. Denies abdominal pain. Denies oral thrush or new skin lesions. Infect Dis PN-Objective Data - Labs CBC & Chem 7: 06/05/17 04:00 06/05/17 04:00 Labs: Laboratory Results - last 24 hr 06/04/17 06/05/17 06/05/17 05:45 04:00 04:00 WBC 7.4 RBC 2.32 L Hgb 6.0 L* D Hct 20.3 L MCV 87.5 MCH 25.9 L MCHC 29.6 L RDW 15.9 H Plt Count 280 MPV 9.8 Immature Gran % 3.3 Seg Neutrophils % 67.5 Lymphocytes % 18.1 Monocytes % 6.0 Eosinophils % 4.8 Basophils % 0.3 Neutrophils # 5.0 Lymphocytes # 1.3 Monocytes # 0.4 Eosinophils # 0.4 Basophils # 0.0 Sodium 141 Potassium 4.2 Chloride 110 H Carbon Dioxide 28 BUN 14 Creatinine 0.74 Est GFR ( Amer) > 60 Est GFR (Non-Af Amer) > 60 BUN/Creatinine Ratio 19 Glucose 100 Calculated Osmolality 293 Calcium 8.0 L Magnesium 1.8 Crossmatch See Detail Cultures: Cultures 05/30/17 13:06 Blood Culture - Final Peripheral Venipuncture No growth. 05/30/17 13:06 Blood Culture - Final Peripheral Venipuncture No growth. 05/30/17 21:04 Wound Culture - Final Left Hip Escherichia coli Methicillin Resistant S.aureus 05/30/17 21:04 Anaerobic Culture - Preliminary Left Hip Anaerobic Gram Positive Cocci Anaerobic Gram Negative Rj 05/31/17 18:51 Urine Culture - Final Urine,Clean Catch No growth. 05/29/17 15:06 Wound Culture - Final Buttock Escherichia coli Methicillin Resistant S.aureus Exam - Constitutional Vitals: Temp Pulse Resp BP Pulse Ox 98.2 F 97 16 101/49 95 06/05/17 07:19 06/05/17 07:19 06/05/17 07:19 06/05/17 07:19 06/05/17 07:19 General appearance: average body habitus, cooperative, no acute distress - Head Head exam: Present: atraumatic, normal inspection, normocephalic - Eye Eye exam: Present: EOMI, normal appearance, PERRL Pupils: Present: normal accommodation Additional comments: No subconjunctival hemorrhage noted. - ENT ENT exam: Present: mucous membranes moist - Neck Neck exam: Present: normal inspection - Respiratory Respiratory exam: Present: CTAB. Absent: rales, respiratory distress, rhonchi, wheezes - Cardiovascular Cardiovascular exam: Present: RRR, +S1, +S2 - GI/Abdominal GI/Abdominal exam: Present: normal bowel sounds, soft. Absent: distended, tenderness - Extremities Exam Extremities exam: Present: pedal edema (1+ BLE). Absent: joint swelling, tenderness - Back Exam Additional comments: Gluteal and left hip dressings C/D/I. - Neurological Exam Neurological exam: Present: alert, oriented X3. Absent: no focal deficits ( Paralysis noted to the BLE.) - Psychiatric Psychiatric exam: Present: normal affect, normal mood - Skin Skin exam: Present: dry, intact, normal color, warm - VTE Documentation of Mechanical Device: Intermittent pneumatic compression device Consult Discharge Plan - Plan Referrals: Shayan Oliva MD [Primary Care Provider] - (Please have patient call once home due to so many no show. per office) Joseph Blankenship MD [Non-Partnered Physician] - 06/18/17 9:45 am (In Wound Care) Shadia Eaton CNP [Advanced Practice Nurse] - 06/18/17 9:20 am Prescriptions: CefTRIAXone (wt based) [Rocephin] 2,000 mg IV DAILY #42 vial Vancomycin [Vancocin (wt based)] 1,250 mg IV DAILY #42 vial - Attending Attestation I examined this patient and my medical decision-making was reviewed with the Resident Physician. I agree with the documented findings, disposition and treatment plan as described except to the extent set forth below.
[2017-06-05] MEDS: Zinc Sulfate 220 MG CAPSULE PO SCH (09:36)
[2017-06-05] MEDS: Multivit/Ca/Min/Fe/FA 1 TAB TABLET PO SCH (09:36)
[2017-06-05] MEDS: Ascorbic Acid 500 MG TABLET PO SCH (09:36)
[2017-06-05] MEDS: cefTRIAXone 2,000 MG in Water for inj. (sterile) 20 ML 20 ML IVP SCH (09:36)
[2017-06-05] MEDS: Aspirin Enteric Coated 81 MG Tablet PO SCH (09:36)
[2017-06-05] MEDS: Famotidine 20 MG TABLET PO SCH ×2 (09:36→19:40)
[2017-06-05] MEDS: Nystatin POWDER 30 GM BOTTLE TP SCH ×2 (09:38→19:40)
--- NOTE | 2017-06-05 10:44 | General Surgery Progress Note ---
<Kary Mead Cheri - Last Filed: 06/05/17 10:57> Date of Encounter: 06/05/17 Time of Encounter: 10:00 - Assessment and Plan (1) Decubitus ulcer of buttock, stage 4 Current Visit: Yes Status: Chronic POD # 7 excisional debridement of stage IV sacral decubitus wound with Dr. Blankenship Hematoma unroofed today per myself and Dr. Oconnell- slow ooze of venous bleeding noted in the left upper corner of the wound- direct pressure held for 10 minutes and bleeding stopped. Patient tolerated well. Continue with Dressing changes- cleanse with soap and water, pack with kerlex roll moistened with 1/4 strength Dakin's solution, cover with ABD pad and tape to secure with medipore. Complete daily and prn if soiled. Will consider transition to wound vac in the next 24-48 hours IV antibiotic managment per ID Recommend ECF placement at discharge for wound care and IV antibiotics Surgery will continue to follow and assess progress Qualifiers: Laterality: left Qualified Code(s): L89.324 - Pressure ulcer of left buttock, stage 4 (2) Osteomyelitis Current Visit: Yes Status: Acute IV antibiotic management per ID Qualifiers: Osteomyelitis type: acute hematogenous Osteomyelitis location: other site Qualified Code(s): M86.08 - Acute hematogenous osteomyelitis, other sites (3) Paraplegia Current Visit: Yes Status: Chronic (4) Acute blood loss as cause of postoperative anemia Current Visit: Yes Status: Acute Hgb- 75.>6.0 Transfusion ordered per hospitalist Repeat Hgb/Hct in the am Surgery will continue to follow and assess progress Subjective Patient reports: no new complaints, tolerating a regular diet, bowel movement, afebrile, other (Called by hospitalist to evaluate the patient wound due to continued drop in Hgb.) Objective Vital Signs - Last 8 Hours Temp Pulse Resp BP Pulse Ox 06/05/17 07:19 98.2 F 97 16 101/49 95 06/05/17 04:44 98.2 F 91 16 103/56 94 Intake and Output 06/04/17 06/05/17 06/05/17 23:59 07:59 15:59 Intake Total 260 / 260 Output Total 250 / 250 Balance -250 / -250 260 / 260 Intake: IV Fluids Rocephin 2,000 MG In Water for inj. (sterile) 20 ML @ 600 mls/ hr IVP DAILY [facility] Rx#:[id number] Oral 240 / 240 Output: Straight Cath 250 / 250 Other: Meal Breakfast Percent of Meal Consumed 100% Weight 80.2 kg Patient Weight 06/05/17 23:59 Weight 80.2 kg - General physical appearance well developed, well nourished, no distress, chronically ill - Eyes normal ocular movement - ENT normal mucosa, atraumatic, normocephalic - Neck Neck exam: trachea midline - Respiratory normal respiratory effort, clear to auscultation - Cardiovascular Cardiovascular exam: Present: RRR - Abdomen Abdomen: Present: bowel sounds present, soft, non tender - Integumentary other (Left gluteal wound with large hematoma noted which encompasses the entire wound cavity, no surrounding erythema or induration noted (see A&P)) - Musculoskeletal other (patient is paraplegic) - Psychiatric oriented to time, oriented to person, oriented to place, speech is normal, memory intact - Labs 06/05/17 04:00 06/05/17 04:00 Diabetes panel 06/05/17 Range/Units 04:00 Sodium 141 (136-145) mEq/L Potassium 4.2 (3.5-5.1) mEq/L Chloride 110 H (98-107) mEq/L Carbon Dioxide 28 (23-29) mEq/L BUN 14 (8-23) mg/dL Creatinine 0.74 (0.70-1.30) mg/dL Glucose 100 (70-105) mg/dL Calcium 8.0 L (8.6-10.3) mg/dL Calcium panel 06/05/17 Range/Units 04:00 Calcium 8.0 L (8.6-10.3) mg/dL Pituitary panel 06/05/17 Range/Units 04:00 Sodium 141 (136-145) mEq/L Potassium 4.2 (3.5-5.1) mEq/L Chloride 110 H (98-107) mEq/L Carbon Dioxide 28 (23-29) mEq/L BUN 14 (8-23) mg/dL Creatinine 0.74 (0.70-1.30) mg/dL Glucose 100 (70-105) mg/dL Calcium 8.0 L (8.6-10.3) mg/dL Adrenal panel 06/05/17 Range/Units 04:00 Sodium 141 (136-145) mEq/L Potassium 4.2 (3.5-5.1) mEq/L Chloride 110 H (98-107) mEq/L Carbon Dioxide 28 (23-29) mEq/L BUN 14 (8-23) mg/dL Creatinine 0.74 (0.70-1.30) mg/dL Glucose 100 (70-105) mg/dL Calcium 8.0 L (8.6-10.3) mg/dL - VTE Documentation of Mechanical Device: Intermittent pneumatic compression device Consult Discharge Plan - Plan Referrals: Shayan Oliva MD [Primary Care Provider] - (Please have patient call once home due to so many no show. per office) Joseph Blankenship MD [Non-Partnered Physician] - 06/18/17 9:45 am (In Wound Care) Shadia Eaton CNP [Advanced Practice Nurse] - 06/18/17 9:20 am Prescriptions: CefTRIAXone (wt based) [Rocephin] 2,000 mg IV DAILY #42 vial Vancomycin [Vancocin (wt based)] 1,250 mg IV DAILY #42 vial - Attending Attestation For this encounter, I have reviewed the PERSONAL FITNESS TRAINER or PA documentation, treatment plan, and medical decision making; and I have had face to face time with this patient. <Shayan Oconnell - Last Filed: 06/05/17 14:37> Date of Encounter: 06/05/17 Objective Vital Signs - Last 8 Hours Temp Pulse Resp BP Pulse Ox 06/05/17 11:33 97.8 F 89 131/62 06/05/17 11:25 98.2 F 94 18 123/56 98 06/05/17 07:19 98.2 F 97 16 101/49 95 Intake and Output 06/04/17 06/05/17 06/05/17 23:59 07:59 15:59 Intake Total 320 / 320 Output Total 250 / 250 300 / 300 Balance -250 / -250 Intake: IV Fluids / 20 Rocephin 2,000 MG In Water for inj. (sterile) 20 ML @ 600 mls/ hr IVP DAILY [facility] Rx#:[id number] Oral 300 / 300 Blood Product 0 / 0 Rbcs Leuko Poor As-1 Unit 0 / 0 [id number] Output: Straight Cath 250 / 250 300 / 300 Other: Meal Breakfast Percent of Meal Consumed 100% Stool Size Small Stool Consistency soft Stool Characteristics Normal for Patient Stool Color Brown Weight 80.2 kg Patient Weight 06/05/17 23:59 Weight 80.2 kg - Labs 06/05/17 04:00 06/05/17 04:00 Diabetes panel 06/05/17 Range/Units 04:00 Sodium 141 (136-145) mEq/L Potassium 4.2 (3.5-5.1) mEq/L Chloride 110 H (98-107) mEq/L Carbon Dioxide 28 (23-29) mEq/L BUN 14 (8-23) mg/dL Creatinine 0.74 (0.70-1.30) mg/dL Glucose 100 (70-105) mg/dL Calcium 8.0 L (8.6-10.3) mg/dL Calcium panel 06/05/17 Range/Units 04:00 Calcium 8.0 L (8.6-10.3) mg/dL Pituitary panel 06/05/17 Range/Units 04:00 Sodium 141 (136-145) mEq/L Potassium 4.2 (3.5-5.1) mEq/L Chloride 110 H (98-107) mEq/L Carbon Dioxide 28 (23-29) mEq/L BUN 14 (8-23) mg/dL Creatinine 0.74 (0.70-1.30) mg/dL Glucose 100 (70-105) mg/dL Calcium 8.0 L (8.6-10.3) mg/dL Adrenal panel 06/05/17 Range/Units 04:00 Sodium 141 (136-145) mEq/L Potassium 4.2 (3.5-5.1) mEq/L Chloride 110 H (98-107) mEq/L Carbon Dioxide 28 (23-29) mEq/L BUN 14 (8-23) mg/dL Creatinine 0.74 (0.70-1.30) mg/dL Glucose 100 (70-105) mg/dL Calcium 8.0 L (8.6-10.3) mg/dL - Attending Attestation The patient was seen and evaluated with the clinical nurse practitioner. The patient has active bleeding in the area of undermining on the left lateral aspect of the wound. I removed the skin ling to expose this area. I removed the hematoma from the wound. Direct pressure resolved the bleeding. We will continue with dressing changes as previously scheduled. No debridement is performed
[2017-06-05] MEDS ORDERED: 0.9 % Sodium Chloride 250 ML ONE (11:13)
[2017-06-06 04:08] LABS: Basophils % 0.1 %; Eosinophils # 0.4 K/mcL (0.0-0.6); Eosinophils % 4.9 %; Hematocrit 23.6 % (37.5-50.1); Hemoglobin 7.2 g/dL (12.9-16.9); Immature Granulocytes % 2.1 % (0-4); Lymphocytes # 1.4 K/mcL (0.6-4.6); Lymphocytes % 15.8 %; Mean Corpuscular HGB Conc 30.5 g/dL (31.6-35.5); Mean Corpuscular Hemoglobin 27.2 pg (28.0-33.3); Mean Corpuscular Volume 89.1 fL (83.0-100.0); Mean Platelet Volume 9.6 fL (9.4-12.4); Monocytes # 0.5 K/mcL (0.0-1.3); Monocytes % 5.8 %; Neutrophils # 6.3 K/mcL (1.6-8.9); Platelet Count 266 K/mcL (140-400); Red Blood Count 2.65 M/mcL (4.19-5.50); Red Cell Distribution Width 16.4 % (11.5-14.5); Segmented Neutrophils % 71.3 %
[2017-06-06 04:30] LABS: BUN/Creatinine Ratio 23 (6-26); Blood Urea Nitrogen 15 mg/dL (8-23); Calcium 8.4 mg/dL (8.6-10.3); Carbon Dioxide 28 mEq/L (23-29); Chloride 107 mEq/L (98-107); Glucose 107 mg/dL (70-105); Magnesium 1.9 mg/dL (1.6-2.6); Osmolality,Calculated 291 (280-300); Potassium 4.4 mEq/L (3.5-5.1); Sodium 140 mEq/L (136-145); eGFR For African Americans > 60 (> 60); eGFR For Non-African Americans > 60 (> 60)
[2017-06-06] MEDS: Nystatin POWDER 30 GM BOTTLE TP SCH ×2 (08:53→21:55)
[2017-06-06] MEDS: Famotidine 20 MG TABLET PO SCH ×2 (08:54→21:56)
[2017-06-06] MEDS: Multivit/Ca/Min/Fe/FA 1 TAB TABLET PO SCH (08:54)
[2017-06-06] MEDS: Aspirin Enteric Coated 81 MG Tablet PO SCH (08:54)
[2017-06-06] MEDS: cefTRIAXone 2,000 MG in Water for inj. (sterile) 20 ML 20 ML IVP SCH (08:54)
[2017-06-06] MEDS: Ascorbic Acid 500 MG TABLET PO SCH (08:54)
[2017-06-06] MEDS: Zinc Sulfate 220 MG CAPSULE PO SCH (08:55)
--- NOTE | 2017-06-06 10:11 | Infectious Disease Progress No ---
Date of Encounter: 06/06/17 Time of Encounter: 10:08 - Assessment and Plan (1) Sepsis Current Visit: Yes Status: Acute Severe sepsis: The patient had two SIRS criteria plus hypotension and VALERIANO on admission. Likely secondary to infected decubitus ulcer and osteomyelitis and bacteremia. Improved. WBC normal. Tachycardia has improved. Hypotension has resolved. VALERIANO has normalized. Blood cultures drawn 05/28/17 are positive 1/2 sets for MRSA. Repeat blood cultures drawn 05/30/17 are negative x 2 sets. Qualifiers: Sepsis type: methicillin resistant Staphylococcus aureus Qualified Code(s) : A41.02 - Sepsis due to Methicillin resistant Staphylococcus aureus (2) Bacteremia Current Visit: Yes Status: Acute Causative organism: MRSA. Source likely the infected decubitus ulcer. Complicated due to the presence of osteomyelitis. Blood cultures drawn 05/28/17 are positive 1/2 sets. No evidence of septic emboli. The patient has one major and one minor Modified Nielson's Criteria. Repeat blood cultures x 2 sets drawn 05/30/17 are negative. LANCE negative. LANCE showed no valvular vegetations. Continue Vancomycin IV. Pharmacy to dose. Goal trough ~15. Last Vanc trough 15.5. Duration of treatment depends on the clinical picture, but likely 6 weeks of IV antibiotics from the date of surgery. Monitor renal function and for drug toxicity and dose-adjust antibiotics. (3) Osteomyelitis Current Visit: Yes Status: Acute Location: Left ischium. Causative organism MRSA and E. coli. Secondary to non-healing decubitus ulcer. CT of the abdomen and pelvis shows findings consistent with osteomyelitis of the left ischium. General surgery consulted and following. Status post I & D. Operative note reviewed. Gross purulence with exposure of the bone noted. Intra-op cultures as above. Bleeding seems to be controlled. Continue Vancomycin IV. Pharmacy to dose. Goal trough ~15. Continue Rocephin 2 grams IV daily. Duration of treatment depends on the clinical picture, but likely 6 weeks of IV antibiotics. Monitor renal function and for drug toxicity and dose-adjust antibiotics. guest services agent consult to assist with discharge planning. Will need weekly CBC, BUN/Cr, ESR, CRP, and Vanc trough. Will need weekly PICC care per protocol. Follow up with ID 06/18/17 at 0920. Qualifiers: Osteomyelitis type: acute hematogenous Osteomyelitis location: other site Qualified Code(s): M86.08 - Acute hematogenous osteomyelitis, other sites (4) Gas gangrene Current Visit: Yes Status: Acute Location: left gluteus. Causative organism MRSA and E. coli. Likely secondary to non-healing decubitus ulcer. General surgery consulted and following. Continue antibiotics as above. (5) Decubital ulcer Current Visit: Yes Status: Acute Stage IV noted to the left gluteus. Non-healing. Follows with Dr. Blankenship in the wound clinic. Status post I & D with Dr. Blankenship 05/30/17. Wound care per the surgery team. Aggressive offloading. The patient may require plastic surgery evaluation for placement of a flap, but will await surgical outcomes. Qualifiers: Pressure ulcer location: sacral region Pressure ulcer stage: stage 4 Qualified Code(s): L89.154 - Pressure ulcer of sacral region, stage 4 (6) VALERIANO (acute kidney injury) Current Visit: Yes Status: Resolved Likely secondary to sepsis. Resolved. Continue to trend. Dose-adjust antibiotics. Avoid nephrotoxins as able. (7) Hyperkalemia Current Visit: Yes Status: Resolved (8) Hyponatremia Current Visit: Yes Status: Resolved (9) Paraplegia Current Visit: Yes Status: Chronic (10) Neurogenic bladder Current Visit: Yes Status: Acute Requires SIC. Management per the primary team. (11) Neurogenic bowel Current Visit: Yes Status: Acute Requires bowel stimulation. Management per the primary team. (12) Acute blood loss as cause of postoperative anemia Current Visit: Yes Status: Acute Hgb improved to 7.5 this morning after PRBC transfusion yesterday. Surgery team consulted and following. Discussed with the primary team. - Subjective Interval history: Patient seen and examined. No acute events noted overnight. Patient states he feels better today. Denies fevers, chills, or rigors. Denies headache, neck pain , or dizziness. Denies chest pain, shortness of breath, or cough. Denies nausea , vomiting, or diarrhea. Had BM yesterday. Denies abdominal pain. Denies oral thrush or new skin lesions. Reports urine output is good. Infect Dis PN-Objective Data - Labs CBC & Chem 7: 06/06/17 04:00 06/06/17 10:06 Labs: Laboratory Results - last 24 hr 06/04/17 06/04/17 06/04/17 05:45 07:53 10:39 WBC RBC Hgb Hct MCV MCH MCHC RDW Plt Count MPV Immature Gran % Seg Neutrophils % Lymphocytes % Monocytes % Eosinophils % Basophils % Neutrophils # Lymphocytes # Monocytes # Eosinophils # Basophils # Sodium Potassium Chloride Carbon Dioxide BUN Creatinine Est GFR ( Amer) Est GFR (Non-Af Amer) BUN/Creatinine Ratio Glucose POC Glucose 107 H 132 H Calculated Osmolality Calcium Magnesium Blood Type O POSITIVE Antibody Screen NEGATIVE Crossmatch See Detail 06/06/17 06/06/17 04:00 04:00 WBC 8.8 RBC 2.65 L Hgb 7.2 L Hct 23.6 L MCV 89.1 MCH 27.2 L MCHC 30.5 L RDW 16.4 H Plt Count 266 MPV 9.6 Immature Gran % 2.1 Seg Neutrophils % 71.3 Lymphocytes % 15.8 Monocytes % 5.8 Eosinophils % 4.9 Basophils % 0.1 Neutrophils # 6.3 Lymphocytes # 1.4 Monocytes # 0.5 Eosinophils # 0.4 Basophils # 0.0 Sodium 140 Potassium 4.4 Chloride 107 Carbon Dioxide 28 BUN 15 Creatinine 0.66 L Est GFR ( Amer) > 60 Est GFR (Non-Af Amer) > 60 BUN/Creatinine Ratio 23 Glucose 107 H POC Glucose Calculated Osmolality 291 Calcium 8.4 L Magnesium 1.9 Blood Type Antibody Screen Crossmatch Cultures: Cultures 05/30/17 21:04 Anaerobic Culture - Preliminary Left Hip Anaerobic Gram Positive Cocci Bacteroides fragilis 05/30/17 13:06 Blood Culture - Final Peripheral Venipuncture No growth. 05/30/17 13:06 Blood Culture - Final Peripheral Venipuncture No growth. 05/30/17 21:04 Wound Culture - Final Left Hip Escherichia coli Methicillin Resistant S.aureus 05/31/17 18:51 Urine Culture - Final Urine,Clean Catch No growth. 05/29/17 15:06 Wound Culture - Final Buttock Escherichia coli Methicillin Resistant S.aureus Exam - Constitutional Vitals: Temp Pulse Resp BP Pulse Ox 98.3 F 90 16 121/62 93 06/06/17 08:33 06/06/17 08:33 06/06/17 08:33 06/06/17 08:33 06/06/17 08:33 General appearance: average body habitus, cooperative, no acute distress - Head Head exam: Present: atraumatic, normal inspection, normocephalic - Eye Eye exam: Present: EOMI, normal appearance, PERRL Pupils: Present: normal accommodation - ENT ENT exam: Present: mucous membranes moist - Neck Neck exam: Present: normal inspection - Respiratory Respiratory exam: Present: CTAB. Absent: rales, respiratory distress, rhonchi, wheezes - Cardiovascular Cardiovascular exam: Present: RRR, +S1, +S2 - GI/Abdominal GI/Abdominal exam: Present: normal bowel sounds, soft. Absent: distended, tenderness - Extremities Exam Extremities exam: Present: pedal edema (1+ BLE). Absent: joint swelling, tenderness - Neurological Exam Neurological exam: Present: alert, oriented X3. Absent: no focal deficits ( Paralysis noted to the BLE.) - Psychiatric Psychiatric exam: Present: normal affect, normal mood - Skin Skin exam: Present: dry, intact, normal color, warm - VTE Documentation of Mechanical Device: Intermittent pneumatic compression device Consult Discharge Plan - Plan Referrals: Shayan Oliva MD [Primary Care Provider] - (Please have patient call once home due to so many no show. per office) Joseph Blankenship MD [Non-Partnered Physician] - 06/18/17 9:45 am (In Wound Care) Shadia Eaton CNP [Advanced Practice Nurse] - 06/18/17 9:20 am Prescriptions: CefTRIAXone (wt based) [Rocephin] 2,000 mg IV DAILY #42 vial Vancomycin [Vancocin (wt based)] 1,250 mg IV DAILY #42 vial - Attending Attestation I examined this patient and my medical decision-making was reviewed with the Resident Physician. I agree with the documented findings, disposition and treatment plan as described except to the extent set forth below.
--- NOTE | 2017-06-06 10:14 | Internal Med Progress Note ---
Date of Encounter: 06/06/17 Time of Encounter: 10:12 - Assessment and plan (1) Sepsis Current Visit: Yes Status: Acute Assessment and plan: Blood pressures better and heart rate improved. Leukocytosis resolved. Continue current vancomycin and Rocephin to treat underlying cause as below. Continue to monitor. Qualifiers: Qualified Code(s): A41.02 - Sepsis due to Methicillin resistant Staphylococcus aureus (2) Decubital ulcer Current Visit: Yes Status: Acute Assessment and plan: Cultures positive for Escherichia coli and MRSA. Status post debridement on . Plan for 6 weeks antibiotics. Repeat blood cultures on 05/30 are negative to date. Dressing around debridement is soaked with blood. We will have surgery come and take a look. They saw the patient the last 2 days and clots were removed. From what I understand the plans are for wound VAC to be placed on here. Qualifiers: Qualified Code(s): L89.154 - Pressure ulcer of sacral region, stage 4 (3) Osteomyelitis Current Visit: Yes Status: Acute Assessment and plan: CT abdomen and pelvis without IV contrast report showed Cortical irregularity and subtle fragmentation involving the left ischial tuberosity highly suggestive of acute osteomyelitis. We will treat for 6 weeks Qualifiers: Qualified Code(s): M86.08 - Acute hematogenous osteomyelitis, other sites (4) Bacteremia Current Visit: Yes Status: Acute Assessment and plan: Repeat blood cultures have been negative since 05/30. Plan for 6 weeks antibiotics with vancomycin and Rocephin per infectious disease. TTE with no vegetation. ALNCE done 06/04 also with no vegetations (5) Acute blood loss as cause of postoperative anemia Current Visit: Yes Status: Acute Assessment and plan: Hemoglobin is at 7.2 this morning. Admission hemoglobin of 9.3. Transfused 1 unit yesterday. We will transfuse another unit. Monitor H&H (6) Paraplegia Current Visit: Yes Status: Chronic (7) VALERIANO (acute kidney injury) Current Visit: Yes Status: Resolved Assessment and plan: Resolved (8) Hyperkalemia Current Visit: Yes Status: Resolved Assessment and plan: Resolved (9) Hyponatremia Current Visit: Yes Status: Resolved Assessment and plan: Resolved (10) Protein-calorie malnutrition, severe Current Visit: Yes Status: Acute Assessment and plan: Dietary following (11) DVT prophylaxis Current Visit: Yes Status: Acute Assessment and plan: SCDs. - Subjective Interval history: Patient was seen and examined. Transfused 1 unit PRBCs yesterday. Hemoglobin is 7.2 this morning. Surgery came and saw the patient and removed some clots and a dressing was reapplied with pressure. Feels well otherwise. He has been afebrile. Had LANCE done yesterday with no vegetations noted. The patient was admitted with a left buttock ulcer/abscess that was drained in OR by surgery. Initially had a Hypotension. Found to Have MRSA and Escherichia Coli Growing Out Of the Wound. Also Positive MRSA in the Blood. The Patient Is Being Followed by Infectious Disease and is being Treated for the Abscess, Bacteremia As Well As Osteomyelitis of the Left Ischium. - Constitutional Vitals: Temp Pulse Resp BP Pulse Ox 98.3 F 90 16 121/62 93 06/06/17 08:33 06/06/17 08:33 06/06/17 08:33 06/06/17 08:33 06/06/17 08:33 General appearance: Present: A&O X 3, no acute distress, answers questions appropriately Exam: GEN: NAD CVS: RRR. S1, S2, No m/r/g RESP: CTAB ABD: Soft, NT, ND, +BS EXT: No edema. 2+ DP. No rashes. Left buttock with a dressing noted. The dressing soaked with blood.. NEURO: Nonfocal Internal Medicine: Result - Labs CBC & Chem 7: 06/06/17 04:00 06/06/17 04:00 Labs: Short CBC 06/06/17 Range/Units 04:00 WBC 8.8 (4.3-11.1) K/mcL Hgb 7.2 L (12.9-16.9) g/dL Hct 23.6 L (37.5-50.1) % Plt Count 266 (140-400) K/mcL Neutrophils # 6.3 (1.6-8.9) K/mcL BMP 06/06/17 04:00 Sodium 140 Potassium 4.4 Chloride 107 Carbon Dioxide 28 BUN 15 Creatinine 0.66 L Glucose 107 H Calcium 8.4 L - ABG Interpretation ABG results: ABG ABG pH 7.45 pH Units (7.32-7.45) 05/28/17 15:25 ABG pCO2 33 mmHg (35-45) L 03/13/18 15:25 ABG pO2 77 mmHg (85-104) L 05/28/17 15:25 ABG O2 Saturation 96 % (95-98) 05/28/17 15:25 PT/INR, D-dimer PT 16.1 Seconds (9.4-12.1) H 05/28/17 14:31 - VTE Documentation of Mechanical Device: Intermittent pneumatic compression device Consult Discharge Plan - Plan Referrals: Oliva,Shayan Lubin MD [Primary Care Provider] - (Please have patient call once home due to so many no show. per office) Joseph Blankenship MD [Non-Partnered Physician] - 06/18/17 9:45 am (In Wound Care) Shadia Eaton CNP [Advanced Practice Nurse] - 06/18/17 9:20 am Prescriptions: CefTRIAXone (wt based) [Rocephin] 2,000 mg IV DAILY #42 vial Vancomycin [Vancocin (wt based)] 1,250 mg IV DAILY #42 vial
[2017-06-06] MEDS ORDERED: 0.9 % Sodium Chloride 250 ML ONE (10:59)
[2017-06-06 12:05] LABS: BUN/Creatinine Ratio 17 (6-26); Blood Urea Nitrogen 14 mg/dL (8-23); Calcium 8.3 mg/dL (8.6-10.3); Carbon Dioxide 28 mEq/L (23-29); Chloride 107 mEq/L (98-107); Glucose 108 mg/dL (70-105); Osmolality,Calculated 291 (280-300); Potassium 4.3 mEq/L (3.5-5.1); Sodium 140 mEq/L (136-145); eGFR For African Americans > 60 (> 60); eGFR For Non-African Americans > 60 (> 60)
--- NOTE | 2017-06-06 17:47 | General Surgery Progress Note ---
Date of Encounter: 06/06/17 Time of Encounter: 15:00 - Assessment and Plan (1) Osteomyelitis Current Visit: Yes Status: Acute Wound vac placed. D/c dakins soak to the surgical area. Continue other wound care as previously recommended. Wound vac paper work completed. Wound vac will need changed on Saturday Qualifiers: Osteomyelitis type: acute hematogenous Osteomyelitis location: other site Qualified Code(s): M86.08 - Acute hematogenous osteomyelitis, other sites Objective Vital Signs - Last 8 Hours Temp Pulse Resp BP Pulse Ox 06/06/17 15:24 98.6 F 82 17 113/67 96 06/06/17 14:03 98.2 F 82 16 134/61 94 06/06/17 11:13 98.0 F 86 16 95 06/06/17 11:08 98.0 F 94 16 121/61 94 06/06/17 10:52 99.5 F 89 16 119/53 94 Intake and Output 06/06/17 06/06/17 06/06/17 07:59 15:59 23:59 Intake Total 570 / 570 Output Total 900 / 900 450 / 450 Balance -330 / -330 -450 / -450 Intake: IV Fluids 20 / 20 Rocephin 2,000 MG In Water for 20 / 20 inj. (sterile) 20 ML @ 600 mls/ hr IVP DAILY [facility] Rx#:[id number] Oral 300 / 300 Blood Product 250 / 250 Rbcs Leuko Poor As-3 Ph Unit 250 / 250 [id number] Output: Straight Cath 900 / 900 450 / 450 Other: Meal apple juice Breakfast Percent of Meal Consumed 100% Weight 80.4 kg Patient Weight 06/06/17 23:59 Weight 80.4 kg - General physical appearance no distress - Eyes normal ocular movement - ENT atraumatic, normocephalic - Incision Incision: Present: draining (bright red blood), open - Neurologic other (paraplegic) - Musculoskeletal normal posture - Labs 06/07/17 03:35 06/06/17 10:06 Diabetes panel 06/06/17 06/06/17 Range/Units 04:00 10:06 Sodium 140 140 (136-145) mEq/L Potassium 4.4 4.3 (3.5-5.1) mEq/L Chloride 107 107 (98-107) mEq/L Carbon Dioxide 28 28 (23-29) mEq/L BUN 15 14 (8-23) mg/dL Creatinine 0.66 L 0.82 (0.70-1.30) mg/dL Glucose 107 H 108 H (70-105) mg/dL Calcium 8.4 L 8.3 L (8.6-10.3) mg/dL Calcium panel 06/06/17 06/06/17 Range/Units 04:00 10:06 Calcium 8.4 L 8.3 L (8.6-10.3) mg/dL Pituitary panel 06/06/17 06/06/17 Range/Units 04:00 10:06 Sodium 140 140 (136-145) mEq/L Potassium 4.4 4.3 (3.5-5.1) mEq/L Chloride 107 107 (98-107) mEq/L Carbon Dioxide 28 28 (23-29) mEq/L BUN 15 14 (8-23) mg/dL Creatinine 0.66 L 0.82 (0.70-1.30) mg/dL Glucose 107 H 108 H (70-105) mg/dL Calcium 8.4 L 8.3 L (8.6-10.3) mg/dL Adrenal panel 06/06/17 06/06/17 Range/Units 04:00 10:06 Sodium 140 140 (136-145) mEq/L Potassium 4.4 4.3 (3.5-5.1) mEq/L Chloride 107 107 (98-107) mEq/L Carbon Dioxide 28 28 (23-29) mEq/L BUN 15 14 (8-23) mg/dL Creatinine 0.66 L 0.82 (0.70-1.30) mg/dL Glucose 107 H 108 H (70-105) mg/dL Calcium 8.4 L 8.3 L (8.6-10.3) mg/dL - VTE Documentation of Mechanical Device: Intermittent pneumatic compression device Consult Discharge Plan - Plan Referrals: Shayan Oliva MD [Primary Care Provider] - (Please have patient call once home due to so many no show. per office) Joseph Blankenship MD [Non-Partnered Physician] - 06/18/17 9:45 am (In Wound Care) Shadia Eaton CNP [Advanced Practice Nurse] - 06/18/17 9:20 am Prescriptions: CefTRIAXone (wt based) [Rocephin] 2,000 mg IV DAILY #42 vial Vancomycin [Vancocin (wt based)] 1,250 mg IV DAILY #42 vial
[2017-06-07 04:29] LABS: Basophils % 0.3 %; Eosinophils # 0.4 K/mcL (0.0-0.6); Eosinophils % 5.7 %; Hematocrit 26.7 % (37.5-50.1); Hemoglobin 8.3 g/dL (12.9-16.9); Immature Granulocytes % 2.7 % (0-4); Lymphocytes # 1.5 K/mcL (0.6-4.6); Mean Corpuscular HGB Conc 31.1 g/dL (31.6-35.5); Mean Platelet Volume 9.7 fL (9.4-12.4); Monocytes # 0.5 K/mcL (0.0-1.3); Monocytes % 6.8 %; Neutrophils # 4.8 K/mcL (1.6-8.9); Platelet Count 253 K/mcL (140-400); Red Blood Count 3.07 M/mcL (4.19-5.50); Red Cell Distribution Width 17.3 % (11.5-14.5); Segmented Neutrophils % 64.5 %
--- NOTE | 2017-06-07 08:37 | Infectious Disease Progress No ---
Date of Encounter: 06/07/17 Time of Encounter: 08:35 - Assessment and Plan (1) Sepsis Current Visit: Yes Status: Acute Severe sepsis: The patient had two SIRS criteria plus hypotension and VALERIANO on admission. Likely secondary to infected decubitus ulcer and osteomyelitis and bacteremia. Improved. WBC normal. Tachycardia has improved. Hypotension has resolved. VALERIANO has normalized. Blood cultures drawn 05/28/17 are positive 1/2 sets for MRSA. Repeat blood cultures drawn 05/30/17 are negative x 2 sets. Qualifiers: Sepsis type: methicillin resistant Staphylococcus aureus Qualified Code(s) : A41.02 - Sepsis due to Methicillin resistant Staphylococcus aureus (2) Bacteremia Current Visit: Yes Status: Acute Causative organism: MRSA. Source likely the infected decubitus ulcer. Complicated due to the presence of osteomyelitis. Blood cultures drawn 05/28/17 are positive 1/2 sets. No evidence of septic emboli. The patient has one major and one minor Modified Nielson's Criteria. Repeat blood cultures x 2 sets drawn 05/30/17 are negative. LANCE negative. LANCE showed no valvular vegetations. Continue Vancomycin IV. Pharmacy to dose. Goal trough ~15. Last Vanc trough 14.6 this morning. Duration of treatment depends on the clinical picture, but likely 6 weeks of IV antibiotics from the date of surgery. Monitor renal function and for drug toxicity and dose-adjust antibiotics. (3) Osteomyelitis Current Visit: Yes Status: Acute Location: Left ischium. Causative organism MRSA and E. coli and anaerobes. Secondary to non-healing decubitus ulcer. CT of the abdomen and pelvis shows findings consistent with osteomyelitis of the left ischium. General surgery consulted and following. Status post I & D. Operative note reviewed. Gross purulence with exposure of the bone noted. Intra-op cultures as above. Bleeding seems to be controlled. Continue Vancomycin IV. Pharmacy to dose. Goal trough ~15. Continue Rocephin 2 grams IV daily. Start Flagyl 500mg PO TID with meals. Duration of treatment depends on the clinical picture, but likely 6 weeks. Monitor renal function and for drug toxicity and dose-adjust antibiotics. technology services manager consult to assist with discharge planning. Will need weekly CBC, BUN/Cr, ESR, CRP, and Vanc trough. Will need weekly PICC care per protocol. Follow up with ID 06/18/17 at 0920. Qualifiers: Osteomyelitis type: acute hematogenous Osteomyelitis location: other site Qualified Code(s): M86.08 - Acute hematogenous osteomyelitis, other sites (4) Gas gangrene Current Visit: Yes Status: Acute Location: left gluteus. Causative organism MRSA and E. coli and anaerobes. Likely secondary to non-healing decubitus ulcer. General surgery consulted and following. Continue antibiotics as above. (5) Decubital ulcer Current Visit: Yes Status: Acute Stage IV noted to the left gluteus. Non-healing. Follows with Dr. Blankenship in the wound clinic. Status post I & D with Dr. Blankenship 05/30/17. Wound care per the surgery team. Wound VAC applied 06/06/17. Aggressive offloading. Qualifiers: Pressure ulcer location: sacral region Pressure ulcer stage: stage 4 Qualified Code(s): L89.154 - Pressure ulcer of sacral region, stage 4 (6) VALERIANO (acute kidney injury) Current Visit: Yes Status: Resolved Likely secondary to sepsis. Resolved. Continue to trend. Dose-adjust antibiotics. Avoid nephrotoxins as able. (7) Hyperkalemia Current Visit: Yes Status: Resolved (8) Hyponatremia Current Visit: Yes Status: Resolved (9) Paraplegia Current Visit: Yes Status: Chronic (10) Neurogenic bladder Current Visit: Yes Status: Acute Requires SIC. Management per the primary team. (11) Neurogenic bowel Current Visit: Yes Status: Acute Requires bowel stimulation. Management per the primary team. (12) Acute blood loss as cause of postoperative anemia Current Visit: Yes Status: Acute Hgb improved to 8.3 this morning after PRBC transfusion. Surgery team consulted and following. It appears bleeding from the wound has stopped. - Subjective Interval history: Patient seen and examined. No acute events noted overnight. Patient states he feels better today. Denies fevers, chills, or rigors. Denies headache, neck pain , or dizziness. Denies chest pain, shortness of breath, or cough. Denies nausea , vomiting, or diarrhea. Had BM two days ago. Denies abdominal pain. Denies oral thrush or new skin lesions. Reports urine output is good. Infect Dis PN-Objective Data - Labs CBC & Chem 7: 06/07/17 03:35 06/06/17 10:06 Labs: Laboratory Results - last 24 hr 06/04/17 06/06/17 06/07/17 05:45 10:06 03:35 WBC RBC Hgb Hct MCV MCH MCHC RDW Plt Count MPV Immature Gran % Seg Neutrophils % Lymphocytes % Monocytes % Eosinophils % Basophils % Neutrophils # Lymphocytes # Monocytes # Eosinophils # Basophils # Sodium 140 Potassium 4.3 Chloride 107 Carbon Dioxide 28 BUN 14 Creatinine 0.82 Est GFR ( Amer) > 60 Est GFR (Non-Af Amer) > 60 BUN/Creatinine Ratio 17 Glucose 108 H Calculated Osmolality 291 Calcium 8.3 L Magnesium Vancomycin Trough 14.6 Blood Type O POSITIVE Antibody Screen NEGATIVE Crossmatch See Detail 06/07/17 06/07/17 03:35 03:35 WBC 7.5 RBC 3.07 L Hgb 8.3 L Hct 26.7 L MCV 87.0 MCH 27.0 L MCHC 31.1 L RDW 17.3 H Plt Count 253 MPV 9.7 Immature Gran % 2.7 Seg Neutrophils % 64.5 Lymphocytes % 20.0 Monocytes % 6.8 Eosinophils % 5.7 Basophils % 0.3 Neutrophils # 4.8 Lymphocytes # 1.5 Monocytes # 0.5 Eosinophils # 0.4 Basophils # 0.0 Sodium Potassium Chloride Carbon Dioxide BUN Creatinine Est GFR ( Amer) Est GFR (Non-Af Amer) BUN/Creatinine Ratio Glucose Calculated Osmolality Calcium Magnesium 1.9 Vancomycin Trough Blood Type Antibody Screen Crossmatch Cultures: Cultures 05/30/17 21:04 Anaerobic Culture - Preliminary Left Hip Anaerobic Gram Positive Cocci Bacteroides fragilis 05/30/17 13:06 Blood Culture - Final Peripheral Venipuncture No growth. 05/30/17 13:06 Blood Culture - Final Peripheral Venipuncture No growth. 05/30/17 21:04 Wound Culture - Final Left Hip Escherichia coli Methicillin Resistant S.aureus 05/31/17 18:51 Urine Culture - Final Urine,Clean Catch No growth. 05/29/17 15:06 Wound Culture - Final Buttock Escherichia coli Methicillin Resistant S.aureus Exam - Constitutional Vitals: Temp Pulse Resp BP Pulse Ox 98.1 F 76 20 114/60 94 06/07/17 08:34 06/07/17 07:30 06/07/17 08:34 06/07/17 07:30 06/07/17 08:34 General appearance: average body habitus, cooperative, no acute distress - Head Head exam: Present: atraumatic, normal inspection, normocephalic - Eye Eye exam: Present: EOMI, normal appearance, PERRL Pupils: Present: normal accommodation - ENT ENT exam: Present: mucous membranes moist - Neck Neck exam: Present: normal inspection - Respiratory Respiratory exam: Present: CTAB. Absent: rales, respiratory distress, rhonchi, wheezes - Cardiovascular Cardiovascular exam: Present: RRR, +S1, +S2 - GI/Abdominal GI/Abdominal exam: Present: normal bowel sounds, soft. Absent: distended, tenderness - Extremities Exam Extremities exam: Present: pedal edema (1+ BLE). Absent: joint swelling, tenderness - Back Exam Additional comments: Wound VAC dressing C/D/I. Small amount of dark sanguinous drainage noted in the canister. - Neurological Exam Neurological exam: Present: alert, oriented X3. Absent: no focal deficits ( Paralysis noted to the BLE) - Psychiatric Psychiatric exam: Present: normal affect, normal mood - Skin Skin exam: Present: dry, intact, normal color, warm - VTE Documentation of Mechanical Device: Intermittent pneumatic compression device Consult Discharge Plan - Plan Additional Instructions: Wound Vac: White foam to the 11-1 o'clock position; black foam to the entire wound bed. Use barrier wipes to prep skin. May create bridging (no black foam on intact skin) in order to reduce risk of new pressure ulcers. May adjust schedule to //. Referrals: Shayan Oliva MD [Primary Care Provider] - (Please have patient call once home due to so many no show. per office) Joseph Blankenship MD [Non-Partnered Physician] - 06/18/17 9:45 am (In Wound Care) Shadia Eaton CNP [Advanced Practice Nurse] - 06/18/17 9:20 am Prescriptions: Ascorbic Acid [Vitamin C] 500 mg PO DAILY #30 tablet CefTRIAXone (wt based) [Rocephin] 2,000 mg IV DAILY #42 vial Vancomycin [Vancocin (wt based)] 1,250 mg IV DAILY #42 vial Zinc Sulfate 220 mg PO DAILY #30 capsule - Attending Attestation I examined this patient and my medical decision-making was reviewed with the Resident Physician. I agree with the documented findings, disposition and treatment plan as described except to the extent set forth below.
--- NOTE | 2017-06-07 08:59 | Discharge Summary ---
Orders not resulted at time of discharge: Pending orders 05/30/17 21:04 Culture,Anaerobic [RM] Routine Date of Encounter: 06/07/17 Time of Encounter: 08:57 - Discharge Diagnosis (1) Sepsis Priority: Primary Status: Acute Qualifiers: Sepsis type: methicillin resistant Staphylococcus aureus Qualified Code(s) : A41.02 - Sepsis due to Methicillin resistant Staphylococcus aureus (2) Decubital ulcer Priority: Primary Status: Acute Qualifiers: Pressure ulcer location: sacral region Pressure ulcer stage: stage 4 Qualified Code(s): L89.154 - Pressure ulcer of sacral region, stage 4 (3) Osteomyelitis Priority: Primary Status: Acute Qualifiers: Osteomyelitis type: acute hematogenous Osteomyelitis location: other site Qualified Code(s): M86.08 - Acute hematogenous osteomyelitis, other sites (4) Bacteremia Priority: Primary Status: Acute (5) Acute blood loss as cause of postoperative anemia Priority: Primary Status: Acute (6) Paraplegia Priority: Secondary Status: Chronic (7) VALERIANO (acute kidney injury) Priority: Primary Status: Resolved (8) Hyperkalemia Priority: Primary Status: Resolved (9) Hyponatremia Priority: Primary Status: Resolved (10) Protein-calorie malnutrition, severe Priority: Secondary Status: Acute Hospital course: Mr. Klein is a 72 year old male with history of paraplegia, chronic decubitus ulcer, presented to the ER for weakness for 10 days. Patient has a chronic decubitus ulcer and follows-up with Wound Care clinic. Patient went to see his Wound Care physician today and was advised to come to the ER. In ER, CT abdominal and pelvis showed a left gluteal ulcer with large 14 cm underlying area of gas pockets. There was soft tissue induration and some suspected fluid pockets. There was also suspicion of cortical irregularity and subtotal fragmentation involving the left ischial tuberosity highly suggestive of acute osteomyelitis. The patient had leukocytosis with a white count of 18.9. He was an VALERIANO. He had hyponatremia with sodium of 126 initially. He was admitted to the hospitalist service and put on broad-spectrum antibiotics and put on IV fluids which resolved his VALERIANO and hyponatremia. Blood cultures grew MRSA. He had cultures from the wound, and back positive for Escherichia coli and MRSA. TTE and LANCE ruled out endocarditis. Infectious disease was following the patient as well. Antibiotics were adjusted accordingly and the patient was on vancomycin and Rocephin at discharge. While hospitalized patient was seen by general surgery and on 05/30 he underwent excisional department of stage IV sacral decubitus wound. Post-debridement the patient required multiple transfusions for acute blood loss anemia. Hemoglobin dropped to 6.0 at some point. On discharge his hemoglobin was up to 8.3. Surgery were re-consulted regarding continuing oozing from the sacral wound and further clot removal was done bedside and a wound VAC was placed. The patient wanted to be discharged home although it was preferred that he be discharged to a nursing facility. He was set up with home antibiotics and wound VAC. He will follow up with surgery as well as ID as an outpatient. He was stable for discharge on 06/07. He no longer has leukocytosis and his blood cultures remained negative since 05/30. - Time Spent with Patient Total time spent providing and/or coordinating discharge services: Greater than 30 minutes - Discharge Medications Prescriptions: Ascorbic Acid [Vitamin C] 500 mg PO DAILY #30 tablet CefTRIAXone (wt based) [Rocephin] 2,000 mg IV DAILY #42 vial Vancomycin [Vancocin (wt based)] 1,250 mg IV DAILY #42 vial Zinc Sulfate 220 mg PO DAILY #30 capsule Home Medications: Aspirin [Lo-Dose Aspirin EC] 81 mg PO DAILY 04/09/17 [History] Lisinopril [Zestril] 5 mg PO DAILY 04/09/17 [History] Multivitamin,Therapeutic [Thera-Tabs] 1 each PO DAILY 04/09/17 [History] Pravastatin Sodium [Pravachol] 80 mg PO HS 04/09/17 [History] CefTRIAXone (wt based) [Rocephin] 2,000 mg IV DAILY #42 vial 06/05/17 [Rx] Vancomycin [Vancocin (wt based)] 1,250 mg IV DAILY #42 vial 06/05/17 [Rx] Ascorbic Acid [Vitamin C] 500 mg PO DAILY #30 tablet 06/07/17 [Rx] Zinc Sulfate 220 mg PO DAILY #30 capsule 06/07/17 [Rx] Allergies/Adverse Reactions: 3 Allergy/AdvReac Type Severity Reaction Status Date / Time No Known Allergies Allergy Verified 05/17/17 16:11 Date of admission: 05/28/17 19:03 Primary care physician: Shayan Oliva MD Consults: 05/28/17 22:45 Consult to Nutrition [CONS] Routine Comment: Consulting Provider: NUTRITION Reason for Dietary Consult: MST Score 05/29/17 00:10 Consult to Wound Care [CONS] Routine Reason for Consult: Decubitus ulcer Call Completed: No 05/29/17 10:46 Consult to Infectious Diseases [CONS] Routine Consulting Provider: [facility] [place] Reason for Consult: Sacral ulcer- gangrene Time Notified: 10:46 Call Completed: Yes 06/03/17 09:02 Consult to Invasive Line Access Team [CONS] Routine Reason for Consult: Picc Line Insertion Line Type: PICC 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 S1, S2, No m/r/g RESP: CTAB ABD: Soft, NT, ND, +BS EXT: No edema. 2+ DP. No rashes. Left buttock with a wound vac in place. No drainage noted NEURO: Nonfocal - Patient Status Disposition: Home Health Service Condition: Fair Overall status at discharge: patient is progressing back to baseline - Discharge Instructions Follow Up With: Shayan Oliva MD [Primary Care Provider] - (Please have patient call once home due to so many no show. per office) Joseph Blankenship MD [Non-Partnered Physician] - 06/18/17 9:45 am (In Wound Care) Shadia Eaton CNP [Advanced Practice Nurse] - 06/18/17 9:20 am - Diet and Activity Activity: increase activity as tolerated Diet: regular diet - VTE Documentation of Mechanical Device: Intermittent pneumatic compression device
[2017-06-07] MEDS: cefTRIAXone 2,000 MG in Water for inj. (sterile) 20 ML 20 ML IVP SCH (10:52)
[2017-06-07] MEDS: Multivit/Ca/Min/Fe/FA 1 TAB TABLET PO SCH (10:52)
[2017-06-07] MEDS: Ascorbic Acid 500 MG TABLET PO SCH (10:52)
[2017-06-07] MEDS: Famotidine 20 MG TABLET PO SCH (10:52)
[2017-06-07] MEDS: Aspirin Enteric Coated 81 MG Tablet PO SCH (10:52)
[2017-06-07] MEDS: Zinc Sulfate 220 MG CAPSULE PO SCH (10:52)
[2017-06-07] MEDS: Nystatin POWDER 30 GM BOTTLE TP SCH (11:14)
--- NOTE | 2017-06-07 12:46 | Event Note ---
Date of Encounter: 06/07/17 Time of Encounter: 12:45 - Patient Status Disposition: Still a Patient Condition: Fair - Discharge Instructions Follow Up With: Shayan Oliva MD [Primary Care Provider] - (Please have patient call once home due to so many no show. per office) Joseph Blankenship MD [Non-Partnered Physician] - 06/18/17 9:45 am (In Wound Care) Shadia Eaton CNP [Advanced Practice Nurse] - 06/18/17 9:20 am Additional Instructions: Wound Vac: White foam to the 11-1 o'clock position; black foam to the entire wound bed. Use barrier wipes to prep skin. May create bridging (no black foam on intact skin) in order to reduce risk of new pressure ulcers. May adjust schedule to M//F.
[2017-06-07 15:22] VITALS: BP 124/66
[2017-06-07] MEDS ORDERED: Aminoglycoside Consult 1 EACH MC ONE (17:39)
== END 2017-06-07 17:40 | disposition still patient (30) | DRG 853 ==
LOC: EMEROO 13:16 → 2ANU 19:03
PROVIDERS: ADMIT Student in an Organized Health Care Education/Training Program; ATTEND Family Medicine

== ENCOUNTER 2017-09-07 14:02 | Observation (INO) ==
--- NOTE | 2017-09-07 14:42 | Emergency Department Note ---
Disposition Clinical Impression: Clostridium difficile infection Disposition: Admitted As Inpatient Condition: Good Referrals: Shayan Oliva MD [Primary Care Provider] - Forms: ED Satisfaction Letter Time of Disposition: 16:46 General Adult HPI - General Chief complaint: ED Nausea/Vomiting/Diarrhea Stated complaint: diarrhea Time Seen by Provider: 09/07/17 14:13 Nursing Notes Reviewed: Yes Vital Signs Reviewed: Yes - History of Present Illness HPI Narrative: 1 day history of watery stools. Yellow in color. Last time he was on antibiotics IV antibiotics he states was August 13. He has no complaints currently. He is generally incontinent. States he has a home health nurse who came to the house and noticed the amount of stool and stated that he does come to the emergency department. Pain Scale: 0 - Related Data Home Medications Medication Instructions Recorded Confirmed Aspirin [Lo-Dose Aspirin EC] 81 mg PO DAILY 04/09/17 05/28/17 Lisinopril [Zestril] 5 mg PO DAILY 04/09/17 05/28/17 Multivitamin,Therapeutic 1 each PO DAILY 04/09/17 05/28/17 [Thera-Tabs] Pravastatin Sodium [Pravachol] 80 mg PO HS 04/09/17 05/28/17 Lactobacillus Acidophilus 1 PO TID 06/25/17 [Acidophilus] Previous Rx's Medication Instructions Recorded CefTRIAXone (wt based) [Rocephin] 2,000 mg IV DAILY #42 vial 06/05/17 Vancomycin [Vancocin (wt based)] 1,250 mg IV DAILY #42 vial 06/05/17 Ascorbic Acid [Vitamin C] 500 mg PO DAILY #30 tablet 06/07/17 Zinc Sulfate 220 mg PO DAILY #30 capsule 06/07/17 Allergies Allergy/AdvReac Type Severity Reaction Status Date / Time No Known Allergies Allergy Verified 09/07/17 14:06 All systems ED: reviewed and negative except as stated. Constitutional: Denies: fever, chills ENT ED: Denies: congestion Cardiovascular: Denies: chest pain, palpitations, syncope Respiratory: Denies: cough, dyspnea Gastrointestinal: Reports: diarrhea (Yellow foul odor watery since this morning. ). Denies: abdominal pain, nausea, vomiting Genitourinary: Reports: other (Patient self caths.). Denies: urgency, dysuria, frequency Integumentary: Reports: other (Large wound to the left hip.). Denies: rash Neurological: Denies: headache Past Medical History - Past Medical History Attestation: Yes The following information was validated with the patient. Source: patient Medical history: Reports: coronary artery disease, DVT, hyperlipidemia, hypertension, other Surgical history: Reports: other Psychiatric history: Reports: no psych history - Social History Smoking Status: Former smoker Smokeless Tobacco Status: No Alcohol use: Reports: none Drug use: Reports: none Physical Exam - General Limitations: other (Patient is a paraplegic.) General appearance: alert, in no apparent distress - Head Head exam: atraumatic, normocephalic, normal inspection - Eye Eye exam: Present: normal appearance, PERRL, EOMI. Absent: scleral icterus - ENT ENT exam: normal exam, normal oropharynx, mucous membranes moist - Neck Neck exam: Present: normal inspection, full ROM, trachea midline - Chest Chest inspection: Present: normal inspection, symmetric chest wall rise - Respiratory Respiratory exam: Present: normal lung sounds bilaterally. Absent: respiratory distress, accessory muscle use - Cardiovascular Cardiovascular exam: Present: regular rate, normal rhythm, normal heart sounds - Abdominal Exam Abdominal exam: Present: soft, Non-Tender. Absent: distention, guarding, rigidity, organomegaly, Joshua's sign, Rovsing's sign, tenderness at McBurney's Point - Rectal Exam Compressor Assembler present during exam: Yes Rectal exam: Present: other (Large amount of yellow stool. Foul-smelling.) - Expanded Upper Extremity Exam Shoulder exam: Present: normal inspection, full ROM Arm exam: Present: normal inspection, full ROM Elbow exam: Present: normal inspection, full ROM Forearm/Wrist exam: Present: normal inspection, full ROM Hand exam: Present: normal inspection, full ROM Vascular exam: Normal: capillary refill, radial pulse - Expanded Lower Extremity Exam Hip/Pelvis exam: Present: other (Paraplegic to lower extremities. Large wound that has been debrided with granulated tissue to the left hip. [place] in nature. Serosanguineous discharge.) - Back Exam Back exam: Present: normal inspection, full ROM. Absent: tenderness - Neurological Exam Neurological exam: Present: alert, oriented X3 - Psychiatric Psychiatric exam: Present: normal affect, normal mood - Skin Skin exam: Present: warm, dry, normal color Course Course Narrative: Male patient presenting to the emergency department complaining of Diarrhea that began this morning. Patient has a history of paraplegia. This began after he had an abdominal aortic aneurysm surgery and was paralyzed. He subsequently had a ulcer to his left hip that has eroded down to his bone. Recently diagnosed with infection that tracks to his bone per the daughter. They are supposed to go to [facility] on Saturday for further evaluation of this. The daughter and the patient both state that he generally does not mount temperature to infection. They are concerned that when he got the diarrhea he may be getting sick. The patient has no other complaints right now. He states he is feeling well. Denies any nausea or vomiting. Denies any abdominal pain. They described the stool as loose and yellow in color. He was on IV antibiotics up until August 13. - Reevaluation(s) Reevaluation #1: Patient does have a large amount of watery yellow colored foul-smelling stool. This is getting in his left hip wound. Tingling several times why he is in the emergency department. His stool is positive for C. difficile. His white count is 8.5. He appears well and still has no complaints. We will give patient a fluid bolus and start him on oral vancomycin as well as maintenance fluid for his losses. We will admit him to the hospital. - Consultations Consultation #1: Dr Ramon accepted Pt in stable condition. Time: 16:40 Vital Signs Temperature 98.8 F 09/07/17 14:04 Pulse Rate 118 09/07/17 14:04 Respiratory Rate 18 09/07/17 14:04 Blood Pressure 133/75 09/07/17 14:04 O2 Sat by Pulse Oximetry 97 09/07/17 14:04 Temperature 98.8 F 09/07/17 14:54 Pulse Rate 107 09/07/17 16:26 Respiratory Rate 19 09/07/17 16:26 Blood Pressure 129/67 09/07/17 16:26 O2 Sat by Pulse Oximetry 96 09/07/17 16:26 Oxygen Delivery Oxygen Delivery Room Air Medical Decision Making - Medical Records Medical records reviewed: Yes I reviewed the patient's medical records. - Lab Data Lab results reviewed: Yes I reviewed the patient's lab results. Result diagrams: 09/07/17 15:24 09/07/17 15:24 Lab Results 09/07/17 09/07/17 09/07/17 Range/Units 15:24 15:24 15:24 WBC 8.5 (4.3-11.1) K/mcL RBC 4.86 (4.19-5.50) M/mcL Hgb 11.0 L (12.9-16.9) g/dL Hct 37.1 L (37.5-50.1) % MCV 76.3 L (83.0-100.0) fL MCH 22.6 L (28.0-33.3) pg MCHC 29.6 L (31.6-35.5) g/dL RDW 17.1 H (11.5-14.5) % Plt Count 440 H (140-400) K/mcL MPV 9.1 L (9.4-12.4) fL Immature Gran % 0.4 (0-4) % Seg Neutrophils % 85.1 % Lymphocytes % 9.0 % Monocytes % 4.7 % Eosinophils % 0.6 % Basophils % 0.2 % Neutrophils # 7.3 (1.6-8.9) K/mcL Lymphocytes # 0.8 (0.6-4.6) K/mcL Monocytes # 0.4 (0.0-1.3) K/mcL Eosinophils # 0.1 (0.0-0.6) K/mcL Basophils # 0.0 (0.0-0.2) K/mcL PT 13.4 H (9.4-12.1) Seconds INR 1.2 APTT 32.1 (26.0-36.0) Seconds Sodium 136 (136-145) mEq/L Potassium 4.3 (3.5-5.1) mEq/L Chloride 103 (98-107) mEq/L Carbon Dioxide 26 (23-29) mEq/L BUN 15 (8-23) mg/dL Creatinine 0.84 (0.70-1.30) mg/dL Est GFR ( Amer) > 60 (> 60) Est GFR (Non-Af Amer) > 60 (> 60) BUN/Creatinine Ratio 18 (6-26) Glucose 147 H (70-105) mg/dL Calculated Osmolality 286 (280-300) Lactic Acid (0.5-2.2) mmol/L Calcium 9.1 (8.6-10.3) mg/dL Total Bilirubin 0.5 (0.3-1.0) mg/dL Direct Bilirubin 0.3 H (0.0-0.2) mg/dL Indirect Bilirubin 0.2 (0.0-1.2) mg/dL AST 13 (13-39) Units/L ALT 10 (7-52) Units/L Alkaline Phosphatase 76 (34-104) Units/L Serum Total Protein 6.9 (6.4-8.9) g/dL Albumin 3.3 L (3.5-5.7) g/dL Globulin 3.6 H (2.4-3.5) g/dL Albumin/Globulin Ratio 0.9 L (1.1-2.2) 09/07/17 Range/Units 15:24 WBC (4.3-11.1) K/mcL RBC (4.19-5.50) M/mcL Hgb (12.9-16.9) g/dL Hct (37.5-50.1) % MCV (83.0-100.0) fL MCH (28.0-33.3) pg MCHC (31.6-35.5) g/dL RDW (11.5-14.5) % Plt Count (140-400) K/mcL MPV (9.4-12.4) fL Immature Gran % (0-4) % Seg Neutrophils % % Lymphocytes % % Monocytes % % Eosinophils % % Basophils % % Neutrophils # (1.6-8.9) K/mcL Lymphocytes # (0.6-4.6) K/mcL Monocytes # (0.0-1.3) K/mcL Eosinophils # (0.0-0.6) K/mcL Basophils # (0.0-0.2) K/mcL PT (9.4-12.1) Seconds INR APTT (26.0-36.0) Seconds Sodium (136-145) mEq/L Potassium (3.5-5.1) mEq/L Chloride (98-107) mEq/L Carbon Dioxide (23-29) mEq/L BUN (8-23) mg/dL Creatinine (0.70-1.30) mg/dL Est GFR ( Amer) (> 60) Est GFR (Non-Af Amer) (> 60) BUN/Creatinine Ratio (6-26) Glucose (70-105) mg/dL Calculated Osmolality (280-300) Lactic Acid 1.6 (0.5-2.2) mmol/L Calcium (8.6-10.3) mg/dL Total Bilirubin (0.3-1.0) mg/dL Direct Bilirubin (0.0-0.2) mg/dL Indirect Bilirubin (0.0-1.2) mg/dL AST (13-39) Units/L ALT (7-52) Units/L Alkaline Phosphatase (34-104) Units/L Serum Total Protein (6.4-8.9) g/dL Albumin (3.5-5.7) g/dL Globulin (2.4-3.5) g/dL Albumin/Globulin Ratio (1.1-2.2)
[2017-09-07 15:43] LABS: Hematocrit 37.1 % (37.5-50.1); Immature Granulocytes % 0.4 % (0-4); Mean Corpuscular HGB Conc 29.6 g/dL (31.6-35.5); Mean Corpuscular Hemoglobin 22.6 pg (28.0-33.3); Mean Corpuscular Volume 76.3 fL (83.0-100.0); Mean Platelet Volume 9.1 fL (9.4-12.4); Platelet Count 440 K/mcL (140-400); Red Blood Count 4.86 M/mcL (4.19-5.50); Red Cell Distribution Width 17.1 % (11.5-14.5); Segmented Neutrophils % 85.1 %
[2017-09-07 15:44] LABS: Basophils % 0.2 %; Eosinophils # 0.1 K/mcL (0.0-0.6); Eosinophils % 0.6 %; Lymphocytes # 0.8 K/mcL (0.6-4.6); Monocytes # 0.4 K/mcL (0.0-1.3); Monocytes % 4.7 %; Neutrophils # 7.3 K/mcL (1.6-8.9)
[2017-09-07 15:50] LABS: INR 1.2; Prothrombin Time 13.4 Seconds (9.4-12.1)
[2017-09-07 15:53] LABS: Activated Partial Thrombo Time 32.1 Seconds (26.0-36.0)
[2017-09-07 16:03] LABS: Alanine Aminotransferase 10 Units/L (7-52); Albumin 3.3 g/dL (3.5-5.7); Albumin/Globulin Ratio 0.9 (1.1-2.2); Alkaline Phosphatase 76 Units/L (34-104); Aspartate Amino Transferase 13 Units/L (13-39); BUN/Creatinine Ratio 18 (6-26); Bilirubin,Direct 0.3 mg/dL (0.0-0.2); Bilirubin,Indirect 0.2 mg/dL (0.0-1.2); Bilirubin,Total 0.5 mg/dL (0.3-1.0); Blood Urea Nitrogen 15 mg/dL (8-23); Calcium 9.1 mg/dL (8.6-10.3); Carbon Dioxide 26 mEq/L (23-29); Chloride 103 mEq/L (98-107); Globulin 3.6 g/dL (2.4-3.5); Glucose 147 mg/dL (70-105); Osmolality,Calculated 286 (280-300); Potassium 4.3 mEq/L (3.5-5.1); Sodium 136 mEq/L (136-145); Total Protein 6.9 g/dL (6.4-8.9); eGFR For African Americans > 60 (> 60); eGFR For Non-African Americans > 60 (> 60)
[2017-09-07] MEDS ORDERED: Vancomycin Oral Soln 125 MG/2.5 ML UDC PO STA (16:27)
[2017-09-07] MEDS ORDERED: 0.9 % Sodium Chloride 1,000 ML IVC ONE (16:32)
--- NOTE | 2017-09-07 16:34 | Emergency Department Note ---
START Narrative - START START: I examined this patient and my medical decision-making was reviewed with the Resident Physician. I agree with the documented findings, disposition and treatment plan as described except to the extent set forth below. 72-year-old male presented to the emergency room for diarrhea. 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 This has spread down to the bone. He has a PICC line in and had been receiving IV antibiotics. This is left him with a C. difficile colitis. He is unable to feel any pain from the umbilicus down. He denies vomiting. States a home health nurse comes out each morning but is only there in the mornings. He has been stooling quite frequently and is unable to care for himself at home and a lot of the stool has been getting in the left hip infection. Patient will be admitted to the hospital. We will start him on oral vancomycin and IV fluids.
[2017-09-07] MEDS: 0.9 % Sodium Chloride 1,000 ML IVC SCH (16:48)
[2017-09-07 19:09] LABS: Adenovirus F 40/41 PCR Not detected (Not detect); Astrovirus PCR Not detected (Not detect); C.difficile Toxin A/B by PCR See reflex test (Not detect); Campylobacter by PCR Not detected (Not detect); Cryptosporidium by PCR Not detected (Not detect); Cyclospora cayetanensis PCR Not detected (Not detect); E. coli O157 by PCR Not detected (Not detect); Entamoeba histolytica PCR Not detected (Not detect); Enteroaggregative E.coli(EAEC) Not detected (Not detect); Enteropathogenic E.coli(EPEC) Not detected (Not detect); Enterotoxigenic E.coli (ETEC) Not detected (Not detect); Giardia lamblia PCR Not detected (Not detect); Norovirus GI/GII PCR Not detected (Not detect); Plesiomonas shigelloides PCR Not detected (Not detect); Rotavirus A PCR Not detected (Not detect); Salmonella PCR Not detected (Not detect); Sapovirus PCR Not detected (Not detect); Shig/EnteroinvasiveE coli EIEC Not detected (Not detect); Shigalike tox-prod E coli STEC Not detected (Not detect); Vibrio PCR Not detected (Not detect); Vibrio cholerae PCR Not detected (Not detect); Yersinia enterocolitica PCR Not detected (Not detect)
--- NOTE | 2017-09-07 19:19 | Internal Med History&Physical ---
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 Patient reported of having a one-day episode of fecal incontinence and was brought to the ER for evaluation. In the ER patient still tested positive for C. difficile and he will be admitted to medical surgical floor for treatment. Past Med Surg Social Fam HX - Past Medical History Medical history: coronary artery disease, hyperlipidemia, hypertension, other Additional medical history: Paraplegic Psychiatric history: no psych history - Past Surgical History Surgical History: other Additional surgical history: AAA repair - Social History Smoking Status: Former smoker Smokeless Tobacco Status: No Alcohol use: none Drug use: none - Family History Mother Adopted: No Living Status: Hx Family Cardiac Disorders: Yes Hx Family Respiratory Disorders: No Hx Family Cancer: No Hx Family GI Disorders: No Hx Family Endocrine Disorder: Yes Father Adopted: No Living Status: Hx Family Cardiac Disorders: Yes Hx Family Respiratory Disorders: No Hx Family Cancer: No Hx Family GI Disorders: No Hx Family Endocrine Disorder: No Internal Medicine - H&P: Meds Aspirin [Lo-Dose Aspirin EC] 81 mg PO DAILY 04/09/17 [History] Pravastatin Sodium [Pravachol] 80 mg PO HS 04/09/17 [History] Multivit-Min/FA/Lycopen/Lutein [Centrum Silver Tablet] 1 tab PO DAILY 09/07/17 [ History] 3 Allergy/AdvReac Type Severity Reaction Status Date / Time No Known Allergies Allergy Verified 09/07/17 14:06 All Systems PM: A 10-system review of systems was performed and is negative for pertinent findings except as documented above in the HPI. - Constitutional Vitals: Temp Pulse Resp BP Pulse Ox 99.6 F 98 16 125/53 96 09/07/17 18:38 09/07/17 18:38 09/07/17 18:38 09/07/17 18:38 09/07/17 18:38 General appearance: Present: A&O X 3, no acute distress - Eye Eye exam: Present: normal appearance - ENT ENT exam: Present: mucous membranes moist - Respiratory Respiratory exam: Present: CTAB. Absent: accessory muscle use, rales, rhonchi, wheezes - Cardiovascular Cardiovascular exam: Present: RRR, +S1, +S2. Absent: diastolic murmur, gallop, rubs, systolic murmur - GI/Abdominal GI/Abdominal exam: Present: normal bowel sounds, soft, no peritoneal signs. Absent: distended, tenderness - Extremities Exam Extremities exam: Absent: pedal edema - Neurological Exam Neurological exam: Present: oriented X3 - Psychiatric Psychiatric exam: Present: normal mood - Skin Skin exam: Present: normal color Internal Med - H&P Results - Labs CBC & Chem 7: 09/07/17 15:24 09/07/17 15:24 - Assessment and plan (1) Clostridium difficile infection Current Visit: Yes Status: Acute Assessment and plan: In the ER patient still tested positive for C. difficile and he will be admitted to medical surgical floor for treatment. 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
[2017-09-07] MEDS ORDERED: Naloxone 0.4 MG/ML INJ IVP PRN (19:25)
[2017-09-07] MEDS: *HR* Heparin 5,000 UNIT/ML VIAL SQ SCH (20:18)
[2017-09-07] MEDS ORDERED: Vancomycin Oral Soln 125 MG/2.5 ML UDC PO SCH (21:00)
[2017-09-08] MEDS: 0.9 % Sodium Chloride 1,000 ML IVC SCH ×3 (00:37→17:26)
[2017-09-08 01:49] LABS: Basophils % 0.3 %; Eosinophils # 0.1 K/mcL (0.0-0.6); Hematocrit 29.7 % (37.5-50.1); Immature Granulocytes % 0.3 % (0-4); Lymphocytes % 16.8 %; Mean Corpuscular HGB Conc 30.3 g/dL (31.6-35.5); Mean Corpuscular Hemoglobin 22.9 pg (28.0-33.3); Mean Corpuscular Volume 75.6 fL (83.0-100.0); Monocytes # 0.5 K/mcL (0.0-1.3); Monocytes % 7.9 %; Neutrophils # 4.6 K/mcL (1.6-8.9); Platelet Count 348 K/mcL (140-400); Red Blood Count 3.93 M/mcL (4.19-5.50); Red Cell Distribution Width 16.8 % (11.5-14.5); Segmented Neutrophils % 73.7 %
[2017-09-08 02:12] LABS: BUN/Creatinine Ratio 19 (6-26); Blood Urea Nitrogen 14 mg/dL (8-23); Calcium 8.4 mg/dL (8.6-10.3); Carbon Dioxide 24 mEq/L (23-29); Chloride 106 mEq/L (98-107); Glucose 129 mg/dL (70-105); Osmolality,Calculated 284 (280-300); Potassium 3.8 mEq/L (3.5-5.1); Sodium 136 mEq/L (136-145); eGFR For African Americans > 60 (> 60); eGFR For Non-African Americans > 60 (> 60)
[2017-09-08] MEDS: *HR* Heparin 5,000 UNIT/ML VIAL SQ SCH ×3 (05:56→21:10)
--- NOTE | 2017-09-08 08:26 | Discharge Summary ---
Date of Encounter: 09/08/17 Time of Encounter: 08:24 - Discharge Diagnosis (1) Clostridium difficile infection Priority: Primary Status: Resolved Assessment and Plan: patient is afebrile, normal WBC, diarrhea improved, will discharge on oral vancomycin 250 mg QID (2) Paraplegia Priority: Secondary Status: Chronic (3) Neurogenic bladder Priority: Secondary Status: Chronic Assessment and Plan: self cath (4) Decubitus ulcer of buttock, stage 4 Priority: Secondary Status: Chronic Assessment and Plan: patient has appointment at [facility] for flap tomorrow Qualifiers: Laterality: left Qualified Code(s): L89.324 - Pressure ulcer of left buttock, stage 4 Hospital course: Patient is a 72-year-old male with past medical history significant for paraplegia with 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 Patient reported of having a one-day episode of fecal incontinence and was brought to the ER for evaluation. In the ER patient still tested positive for C. difficile and he will be admitted to medical surgical floor for treatment. Patient is doing well, diarrhea improved, afebrile, denies abdominal, pain, normal WBC. he is discharged on oral vancomycin Discharge discussed with: patient Time spent discussing smoking cessation with patient: 3 to 10 minutes - Time Spent with Patient Total time spent providing and/or coordinating discharge services: Less than 30 minutes - Discharge Medications Prescriptions: Vancomycin Oral Soln [Firvanq] 250 mg PO QID #280 ml Home Medications: Aspirin [Lo-Dose Aspirin EC] 81 mg PO DAILY 04/09/17 [History] Pravastatin Sodium [Pravachol] 80 mg PO HS 04/09/17 [History] Multivit-Min/FA/Lycopen/Lutein [Centrum Silver Tablet] 1 tab PO DAILY 09/07/17 [ History] Vancomycin Oral Soln [Firvanq] 250 mg PO QID #280 ml 09/08/17 [Rx] Allergies/Adverse Reactions: 3 Allergy/AdvReac Type Severity Reaction Status Date / Time No Known Allergies Allergy Verified 09/07/17 14:06 Date of admission: 09/07/17 17:22 Primary care physician: Shayan Oliva MD Consults: 09/07/17 18:48 Consult to Nutrition [CONS] Routine Comment: Consulting Provider: NUTRITION Reason for Dietary Consult: Other Other:: weight loss Consult to Contact Agent [CONS] Routine Reason for SW Consult: Has [facility] - Constitutional Vitals: Temp Pulse Resp BP Pulse Ox 98.3 F 83 14 108/53 96 09/08/17 05:50 09/08/17 05:50 09/08/17 05:50 09/08/17 05:50 09/08/17 05:50 General appearance: Present: A&O X 3, no acute distress Exam: CONSTITUTIONAL: patient appears as an age appropriate male in no acute distress. EYES Clear sclerae, bilateral pupils are equal, reactive to light. EMOI. RESPIRATORY: No accessory muscle use, bilateral clear to auscultation, no wheezing, no crackles/rales. CARDIOVASCULAR: Regular heart rate, normal S1 and S2, no murmurs GASTROINTESTINAL: bowel sounds present, soft, no tenderness. MUSCULOSKELETAL: Joints in normal range of motion, no clubbing, no edema, no cyanosis. Bilateral peripheral pulses 2+. NEUROLOGIC: CN II to XII are grossly intact, paraplegia - Patient Status Disposition: Home, Self-Care Condition: Good Functional capacity at discharge: wheelchair bound Overall status at discharge: patient is back to baseline - Discharge Instructions Follow Up With: Shayan Oliva MD [Primary Care Provider] - - Diet and Activity Diet: advance to your usual diet
--- NOTE | 2017-09-08 08:37 | Physician Discharge Referral ---
Home Health/Hosp Referral Info Transfer to: Home Health Provider in Charge Post Discharge: PCP - Diagnosis (1) Clostridium difficile infection Priority: Primary Status: Resolved (2) Paraplegia Priority: Secondary Status: Chronic (3) Neurogenic bladder Priority: Secondary Status: Chronic (4) Decubitus ulcer of buttock, stage 4 Priority: Secondary Status: Chronic - Respiratory Orders None Smoking Cessation: Smoking cessation has been advised. For more information, call the [place] Tobacco Quit Line at 6-019-QGBM-NOW. - Diet/Nutrition Diet/Nutrition Orders: Regular - Services Needed Following services are medically necessary services: Nursing, Home Health Aide, Physical Therapy - Transfer Medications Prescriptions: Vancomycin Oral Soln [Firvanq] 250 mg PO QID #280 ml Home Medications: Aspirin [Lo-Dose Aspirin EC] 81 mg PO DAILY 04/09/17 [History] Pravastatin Sodium [Pravachol] 80 mg PO HS 04/09/17 [History] Multivit-Min/FA/Lycopen/Lutein [Centrum Silver Tablet] 1 tab PO DAILY 09/07/17 [ History] Vancomycin Oral Soln [Firvanq] 250 mg PO QID #280 ml 09/08/17 [Rx] Allergies/Adverse Reactions: 3 Allergy/AdvReac Type Severity Reaction Status Date / Time No Known Allergies Allergy Verified 09/07/17 14:06 Certification: Further, I certify that my clinical findings support that this patient is homebound (i.e. absences from home require considerable and taxing effort and are for medical reasons or anglican services or infrequently or short duration when for other reasons) because: Homebound Reason: Patient requires assistance of a person or device to safely leave home Attestation: My signature below is to certify that this patient is under my care and that I, or nurse practitioner, or a physician's investment sales assistant working with me, has a face-to -face encounter with this patient.
[2017-09-08] MEDS: Lactobacillus 1 EACH CAP.SPRINK PO SCH ×2 (10:07→21:11)
[2017-09-08] MEDS: Cholestyramine 4 GM POWD.PACK PO SCH ×3 (10:07→17:26)
[2017-09-08] MEDS: Aspirin Enteric Coated 81 MG Tablet PO SCH (10:07)
[2017-09-08] MEDS: Multivit/Ca/Min/Fe/FA 1 TAB TABLET PO SCH (10:07)
[2017-09-08] MEDS: Vancomycin Oral Soln 125 MG/2.5 ML UDC PO SCH ×4 (10:08→21:11)
--- NOTE | 2017-09-08 17:03 | Event Note ---
Date of Encounter: 09/08/17 Time of Encounter: 17:04 patient had semi-formed stool, he decided to leave tomorrow morning, then directly go to [facility] for appointment. discussed with nurse, if no acute changes ON, patient can leave.
[2017-09-09 03:38] VITALS: BP 113/60
[2017-09-09] MEDS: *HR* Heparin 5,000 UNIT/ML VIAL SQ SCH (06:14)
[2017-09-09] MEDS: Multivit/Ca/Min/Fe/FA 1 TAB TABLET PO SCH (08:29)
[2017-09-09] MEDS: Lactobacillus 1 EACH CAP.SPRINK PO SCH (08:29)
[2017-09-09] MEDS: Aspirin Enteric Coated 81 MG Tablet PO SCH (08:30)
[2017-09-09] MEDS: Cholestyramine 4 GM POWD.PACK PO SCH (08:30)
[2017-09-09] MEDS: Vancomycin Oral Soln 125 MG/2.5 ML UDC PO SCH (08:31)
== END 2017-09-09 10:08 | disposition home or self-care (01) ==
LOC: EMEROO 14:02 → 3ANU 14:02 → SUATTDRO 17:22 → 3ANU 18:25
PROVIDERS: ADMIT Hospitalist; ATTEND Internal Medicine

== ENCOUNTER 2017-09-09 16:15 | Inpatient (IN) ==
[2017-09-09 19:50] LABS: Basophils % 0.3 %; Eosinophils # 0.1 K/mcL (0.0-0.6); Eosinophils % 1.2 %; Hematocrit 37.4 % (37.5-50.1); Immature Granulocytes % 0.3 % (0-4); Lymphocytes # 0.8 K/mcL (0.6-4.6); Lymphocytes % 11.8 %; Mean Corpuscular HGB Conc 30.2 g/dL (31.6-35.5); Mean Corpuscular Hemoglobin 23.4 pg (28.0-33.3); Mean Corpuscular Volume 77.6 fL (83.0-100.0); Mean Platelet Volume 9.1 fL (9.4-12.4); Monocytes # 0.4 K/mcL (0.0-1.3); Monocytes % 5.6 %; Neutrophils # 5.2 K/mcL (1.6-8.9); Platelet Count 432 K/mcL (140-400); Red Blood Count 4.82 M/mcL (4.19-5.50); Red Cell Distribution Width 16.9 % (11.5-14.5); Segmented Neutrophils % 80.8 %
[2017-09-09 19:53] LABS: Hemoglobin 11.3 g/dL (12.9-16.9)
[2017-09-09 20:03] LABS: BUN/Creatinine Ratio 14 (6-26); Blood Urea Nitrogen 13 mg/dL (8-23); Calcium 8.7 mg/dL (8.6-10.3); Carbon Dioxide 24 mEq/L (23-29); Chloride 110 mEq/L (98-107); Glucose 125 mg/dL (70-105); Osmolality,Calculated 292 (280-300); Phosphorous 3.3 mg/dL (2.7-4.5); Potassium 4.7 mEq/L (3.5-5.1); Sodium 140 mEq/L (136-145); eGFR For African Americans > 60 (> 60); eGFR For Non-African Americans > 60 (> 60)
--- NOTE | 2017-09-09 21:01 | Emergency Department Note ---
Disposition Clinical Impression: Swelling of both upper extremities Adverse drug reaction Qualifiers: Encounter type: initial encounter Qualified Code(s): T50.905A - Adverse effect of unspecified drugs, medicaments and biological substances, initial encounter Disposition: Admitted As Inpatient Condition: Fair Referrals: Shayan Oliva MD [Primary Care Provider] - Forms: ED Satisfaction Letter Time of Disposition: 21:54 General Adult HPI - General Chief complaint: ED Extremity Problem,Nontraumatic Stated complaint: Bi-Lateral hand swelling,C-Diff positive Time Seen by Provider: 09/09/17 17:38 Source: patient Limitations: no limitations Nursing Notes Reviewed: Yes Vital Signs Reviewed: Yes - History of Present Illness HPI Narrative: 72-year-old male presents ED because of bilateral hand pain. He was recently admitted to the hospital for C. difficile colitis and received IV vancomycin. He was discharged from the hospital this morning at 10 AM and had pain in his hands at that time. The pain has since worsened. He denies fevers. Does complain of intermittent chills. No abdominal pain. He is paraplegic Onset (ago): hour(s) Location: left, right, upper extremity Radiation: non-radiation Pain Severity: moderate Pain Scale: 0 Quality: burning, aching Consistency: constant Improves with: nothing Worsens with: nothing Associated symptoms: Denies: confusion, chest pain, cough - Related Data Home Medications Medication Instructions Recorded Confirmed Aspirin [Lo-Dose Aspirin EC] 81 mg PO DAILY 04/09/17 09/07/17 Pravastatin Sodium [Pravachol] 80 mg PO HS 04/09/17 09/07/17 Multivit-Min/FA/Lycopen/Lutein 1 tab PO DAILY 09/07/17 09/07/17 [Centrum Silver Tablet] Previous Rx's Medication Instructions Recorded Vancomycin Oral Soln [Firvanq] 250 mg PO QID #280 ml 09/08/17 Allergies Allergy/AdvReac Type Severity Reaction Status Date / Time No Known Allergies Allergy Verified 09/07/17 14:06 All systems ED: reviewed and negative except as stated. Constitutional: Reports: chills. Denies: fever Cardiovascular: Denies: chest pain Respiratory: Denies: cough, dyspnea Gastrointestinal: Denies: abdominal pain, nausea Past Medical History - Past Medical History Attestation: Yes The following information was validated with the patient. Medical history: Reports: coronary artery disease, hyperlipidemia, hypertension , other Surgical history: Reports: other Psychiatric history: Reports: no psych history - Social History Smoking Status: Former smoker Smokeless Tobacco Status: No Alcohol use: Reports: none Drug use: Reports: none Physical Exam - General Limitations: no limitations General appearance: alert - Head Head exam: atraumatic, normocephalic - Eye Eye exam: Present: normal appearance, PERRL - ENT ENT exam: normal exam - Neck Neck exam: Present: normal inspection - Chest Chest inspection: Present: normal inspection, symmetric chest wall rise - Respiratory Respiratory exam: Present: normal lung sounds bilaterally. Absent: respiratory distress - Cardiovascular Cardiovascular exam: Present: regular rate - Abdominal Exam Abdominal exam: Present: soft, Non-Tender - Expanded Upper Extremity Exam Hand exam: Present: swelling (Minor swelling and erythema on the dorsum of both hands. No lymphangitis. No fluctuance. No focal bony tenderness.) Vascular exam: Normal: capillary refill - Expanded Lower Extremity Exam Neurovascular/Tendon exam: Present: normal capillary refill - Neurological Exam Neurological exam: Present: alert, oriented X3 - Psychiatric Psychiatric exam: Present: normal affect - Skin Skin exam: Present: warm, dry Course - Reevaluation(s) Reevaluation #1: Family was concerned for sepsis. Lactate is normal, pro-calcitonin is pending. No leukocytosis. I am uncertain as to this cause of his hand pain. This could be medication- induced vasculitis or phlebitis. We will give me his duplex to rule out DVT of the right upper extremity secondary to his PICC line. This is negative for DVT will discharge on short course of steroids. Recommend close follow-up with PCP. Time: 21:35 Reevaluation #2: Venous duplex of the upper extremity is negative for DVT. Discussed with the patient and family about starting him on a course of steroids pending follow- up. He will be converted to oral vancomycin which less likely to cause systemic issues. However, he is concerned that he cannot transfer due to the pain associated with putting weight on his hands from the swelling. They are also concerned because he has previously presented with sepsis that was unrecognized based on systemic presentation. They prefer he be back in the hospital. Time: 21:53 Vital Signs Temperature 98.7 F 09/09/17 16:21 Pulse Rate 99 09/09/17 16:21 Respiratory Rate 18 09/09/17 16:21 Blood Pressure 145/79 09/09/17 16:21 O2 Sat by Pulse Oximetry 96 09/09/17 16:21 Temperature 98.7 F 09/09/17 18:48 Pulse Rate 99 09/09/17 18:48 Respiratory Rate 18 09/09/17 18:48 Blood Pressure 145/79 09/09/17 18:48 O2 Sat by Pulse Oximetry 96 09/09/17 18:48 Oxygen Delivery Oxygen Delivery Room Air Medical Decision Making - Lab Data Result diagrams: 09/09/17 19:27 09/09/17 19:27 Lab Results 09/09/17 09/09/17 09/09/17 Range/Units 19:27 19:27 19:27 WBC 6.4 (4.3-11.1) K/mcL RBC 4.82 (4.19-5.50) M/mcL Hgb 11.3 L D (12.9-16.9) g/dL Hct 37.4 L (37.5-50.1) % MCV 77.6 L (83.0-100.0) fL MCH 23.4 L (28.0-33.3) pg MCHC 30.2 L (31.6-35.5) g/dL RDW 16.9 H (11.5-14.5) % Plt Count 432 H (140-400) K/mcL MPV 9.1 L (9.4-12.4) fL Immature Gran % 0.3 (0-4) % Seg Neutrophils % 80.8 % Lymphocytes % 11.8 % Monocytes % 5.6 % Eosinophils % 1.2 % Basophils % 0.3 % Neutrophils # 5.2 (1.6-8.9) K/mcL Lymphocytes # 0.8 (0.6-4.6) K/mcL Monocytes # 0.4 (0.0-1.3) K/mcL Eosinophils # 0.1 (0.0-0.6) K/mcL Basophils # 0.0 (0.0-0.2) K/mcL Sodium 140 (136-145) mEq/L Potassium 4.7 (3.5-5.1) mEq/L Chloride 110 H (98-107) mEq/L Carbon Dioxide 24 (23-29) mEq/L BUN 13 (8-23) mg/dL Creatinine 0.90 (0.70-1.30) mg/dL Est GFR ( Amer) > 60 (> 60) Est GFR (Non-Af Amer) > 60 (> 60) BUN/Creatinine Ratio 14 (6-26) Glucose 125 H (70-105) mg/dL Calculated Osmolality 292 (280-300) Lactic Acid 1.7 (0.5-2.2) mmol/L Calcium 8.7 (8.6-10.3) mg/dL Phosphorus 3.3 (2.7-4.5) mg/dL Magnesium 2.0 (1.6-2.6) mg/dL
[2017-09-09] MEDS ORDERED: MethylPREDNISolone 40 MG/ML VIAL IVP ONE (22:17)
[2017-09-09] MEDS ORDERED: Naloxone 0.4 MG/ML INJ IVP PRN (23:23)
[2017-09-09] MEDS ORDERED: Acetaminophen 325 MG TABLET PO PRN (23:23)
--- NOTE | 2017-09-09 23:40 | Internal Med History&Physical ---
Date of Encounter: 09/09/17 Time of Encounter: 22:35 Internal Medicine - H&P: HPI Chief complaint: Bilateral hand pain Admitted From: Home Plans for Post Hospital Care: Home History of present illness: Mr. Klein is a 72 year old male presented to ER for bilateral hand pain. Past medical history is significant for paraplegia after AAA surgery, carotid stenosis S/P surgery on right side, osteomyelitis has finished 6 weeks Vanco IV , decubitus ulcer, C. difficile colitis. Patient had rash is on bilateral elbow and bilateral hand and elbow joint pain since Saturday. Patient was diagnosed as C. difficile colitis and was started by mouth Vanco on Saturday. The hand pain is getting worse and the patient has bilateral hand swelling, right > lt. patient concern for infection and come to ER. Patient had recent PICC line placed on right arm, DVT was suspected. Doppler VENOUS on right arm has been done, negative for DVT. Patient was also noticed bilateral leg rashes. He denies abdominal pain. Patient does not have thrombocytopenia. 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 Patient was given Solu -Medrol 80 mg IV once and admitted for further management. Past Med Surg Social Fam HX - Past Medical History Medical history: coronary artery disease, hyperlipidemia, hypertension, other Additional medical history: Paraplegic Psychiatric history: no psych history - Past Surgical History Surgical History: other Additional surgical history: AAA repair - Social History Smoking Status: Former smoker Smokeless Tobacco Status: No Alcohol use: none Drug use: none - Family History Mother Adopted: No Living Status: Hx Family Cardiac Disorders: Yes Hx Family Respiratory Disorders: No Hx Family Cancer: No Hx Family GI Disorders: No Hx Family Endocrine Disorder: Yes Father Adopted: No Living Status: Hx Family Cardiac Disorders: Yes Hx Family Respiratory Disorders: No Hx Family Cancer: No Hx Family GI Disorders: No Hx Family Endocrine Disorder: No Internal Medicine - H&P: Meds Aspirin [Lo-Dose Aspirin EC] 81 mg PO DAILY 04/09/17 [History] Pravastatin Sodium [Pravachol] 80 mg PO HS 04/09/17 [History] Multivit-Min/FA/Lycopen/Lutein [Centrum Silver Tablet] 1 tab PO DAILY 09/07/17 [ History] Vancomycin Oral Soln [Firvanq] 250 mg PO QID #280 ml 09/08/17 [Rx] 3 Allergy/AdvReac Type Severity Reaction Status Date / Time No Known Allergies Allergy Verified 09/07/17 14:06 All Systems PM: A 10-system review of systems was performed and is negative for pertinent findings except as documented above in the HPI. - Constitutional Vitals: Temp Pulse Resp BP Pulse Ox 98.7 F 98 18 109/54 97 09/09/17 18:48 09/09/17 20:24 09/09/17 23:09 09/09/17 23:09 09/09/17 20:24 General appearance: Present: A&O X 3, no acute distress, answers questions appropriately - Head Head exam: Present: atraumatic, normocephalic - Eye Eye exam: Present: PERRL, conjuntiva pink, sclera anicteric Pupils: Present: PERRL - Neck Neck exam general surgery: Present: supple, trachea midline. Absent: lymphadenopathy - Respiratory Respiratory exam: Present: CTAB. Absent: accessory muscle use, rales, rhonchi, wheezes - Cardiovascular Cardiovascular exam: Present: RRR, +S1, +S2. Absent: diastolic murmur, gallop, rubs, systolic murmur - GI/Abdominal GI/Abdominal exam: Present: normal bowel sounds, soft, no peritoneal signs. Absent: distended, tenderness - Extremities Exam Extremities exam: Present: warm, radial pulses palpable and symmetrical. Absent : calf tenderness, cyanotic, pedal edema Additional comments: Bilateral mild hand swelling - Neurological Exam Neurological exam: Present: CN II-XII intact, oriented X3, no focal deficits. Absent: pronater drift, facial droop, speech deficit - Skin Skin exam: Present: dry, intact, petechiae (On bilateral elbow, scattered on bilateral palms, defused on bilateral lower leg.) Internal Med - H&P Results - Labs CBC & Chem 7: 09/09/17 19:27 09/09/17 19:27 - Assessment and plan (1) Rash Current Visit: Yes Status: Acute Assessment and plan: Patient has rashes, mainly on bilateral lower leg, also seen on bilateral elbows and palms. Without thrombocytopenia. Patient also complaining of bilateral elbow pain and hand pain. Need to rule out Henoch Schonlein Purpura. - Patient has no abdominal pain. Kidney function is generally within normal limits - Continue steroid - Check UA and IgA level - Avoid dehydration or nephrotoxic medications. - Consult rheumatology in a.m., nonurgent, day shift to call - Patient has new medication: by mouth vancomycin, however, rashes is started before patient having taken vancomycin, medication related rash is less likely. (2) Decubitus ulcer, stage 3 Current Visit: No Status: Acute Assessment and plan: Consult wound care Qualifiers: Pressure ulcer location: buttock Laterality: left Qualified Code(s): L89.323 - Pressure ulcer of left buttock, stage 3 (3) DVT prophylaxis Current Visit: No Status: Acute Assessment and plan: Heparin subcutaneously (4) Clostridium difficile infection Current Visit: No Status: Resolved Assessment and plan: Continue by mouth Vanco to finish the scheduled course (5) Swelling of both upper extremities Current Visit: Yes Status: Acute Assessment and plan: Management as above. No skin redness/warmth, less likely cellulitis. - Time Spent With Patient Total time spent is greater than 50% in coordination of care (as documented) at patient's floor/unit and/or counseling patient:
[2017-09-10] MEDS: Vancomycin Oral Soln 125 MG/2.5 ML UDC PO SCH ×6 (01:19→20:36)
[2017-09-10] MEDS: MethylPREDNISolone 40 MG/ML VIAL IVP SCH ×2 (06:27→17:34)
[2017-09-10] MEDS: *HR* Heparin 5,000 UNIT/ML VIAL SQ SCH ×2 (06:29→17:34)
[2017-09-10 07:43] LABS: BUN/Creatinine Ratio 16 (6-26); Blood Urea Nitrogen 15 mg/dL (8-23); Calcium 8.4 mg/dL (8.6-10.3); Carbon Dioxide 23 mEq/L (23-29); Chloride 110 mEq/L (98-107); Glucose 163 mg/dL (70-105); Magnesium 2.1 mg/dL (1.6-2.6); Osmolality,Calculated 292 (280-300); Phosphorous 4.1 mg/dL (2.7-4.5); Potassium 5.1 mEq/L (3.5-5.1); Sodium 139 mEq/L (136-145); eGFR For African Americans > 60 (> 60); eGFR For Non-African Americans > 60 (> 60)
[2017-09-10 09:29] LABS: Hematocrit 33.7 % (37.5-50.1); Hemoglobin 10.2 g/dL (12.9-16.9); Mean Corpuscular HGB Conc 30.3 g/dL (31.6-35.5); Mean Corpuscular Hemoglobin 23.2 pg (28.0-33.3); Mean Corpuscular Volume 76.8 fL (83.0-100.0); Mean Platelet Volume 9.2 fL (9.4-12.4); Platelet Count 334 K/mcL (140-400); Red Blood Count 4.39 M/mcL (4.19-5.50); Red Cell Distribution Width 16.9 % (11.5-14.5)
[2017-09-10] MEDS: Multivit/Ca/Min/Fe/FA 1 TAB TABLET PO SCH (09:45)
[2017-09-10] MEDS: Aspirin Enteric Coated 81 MG Tablet PO SCH (09:45)
[2017-09-10 09:54] LABS: Anisocytosis 1+ (Not Present); Eosinophils # 0.2 K/mcL (0.0-0.6); Lymphocytes # 0.3 K/mcL (0.6-4.6); Neutrophils # 3.6 K/mcL (1.6-8.9); Ovalocytes 1+ (Not Present)
[2017-09-10 09:55] LABS: Platelet Estimate Normal (Normal)
--- NOTE | 2017-09-10 17:53 | Internal Med Progress Note ---
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 Nephrology was consulted. Patient was started on IV steroids. Symptoms has improved. Plan to switch to oral steroids tomorrow and discharge. (2) Decubitus ulcer, stage 3 Current Visit: No Status: Acute Assessment and plan: Consult wound care Qualifiers: Pressure ulcer location: buttock Laterality: left Qualified Code(s): L89.323 - Pressure ulcer of left buttock, stage 3 (3) DVT prophylaxis Current Visit: No Status: Acute Assessment and plan: Heparin subcutaneously (4) Clostridium difficile infection Current Visit: No Status: Resolved Assessment and plan: Continue by mouth Vanco to finish the scheduled course - Time Spent With Patient Total time spent is greater than 50% in coordination of care (as documented) at patient's floor/unit and/or counseling patient: - Subjective Interval history: Patient has no complaints at this time. - Constitutional Vitals: Temp Pulse Resp BP Pulse Ox 98.3 F 83 16 124/65 97 09/10/17 16:03 09/10/17 16:03 09/10/17 16:03 09/10/17 16:03 09/10/17 16:03 General appearance: Present: A&O X 3, no acute distress, answers questions appropriately Exam: PHYSICAL EXAMINATION: GENERAL APPEARANCE: The patient is alert, oriented and in no acute distress. HEENT: Head is normocephalic. The sinuses are nontender. Pupils are equal and reactive. The nares are patent. Oropharynx clear without lesions. NECK: Supple without lymphadenopathy. HEART: Regular rate and rhythm. LUNGS: No crackles or wheezes are heard. ABDOMEN: Soft, nontender, nondistended with good bowel sounds heard. Inguinal area is normal. EXTREMITIES: Without cyanosis, clubbing or edema. NEUROLOGICAL: Gross nonfocal. SKIN: Diffuse purpura on both upper and lower extremities. Internal Medicine: Result - Labs CBC & Chem 7: 09/10/17 09:01 09/10/17 05:41 Labs: Short CBC 09/10/17 Range/Units 09:01 WBC 4.1 L (4.3-11.1) K/mcL Hgb 10.2 L (12.9-16.9) g/dL Hct 33.7 L (37.5-50.1) % Plt Count 334 (140-400) K/mcL Neutrophils # 3.6 (1.6-8.9) K/mcL BMP 09/10/17 05:41 Sodium 139 Potassium 5.1 Chloride 110 H Carbon Dioxide 23 BUN 15 Creatinine 0.95 Glucose 163 H Calcium 8.4 L Consult Discharge Plan - Plan Referrals: Pj,Shayan Lubin MD [Primary Care Provider] -
[2017-09-11 03:58] LABS: Hematocrit 30.2 % (37.5-50.1); Hemoglobin 9.3 g/dL (12.9-16.9); Immature Granulocytes % 0.6 % (0-4); Lymphocytes % 10.5 %; Mean Corpuscular HGB Conc 30.8 g/dL (31.6-35.5); Mean Corpuscular Hemoglobin 23.7 pg (28.0-33.3); Mean Platelet Volume 9.3 fL (9.4-12.4); Monocytes # 0.4 K/mcL (0.0-1.3); Monocytes % 3.7 %; Platelet Count 365 K/mcL (140-400); Red Blood Count 3.92 M/mcL (4.19-5.50); Red Cell Distribution Width 16.8 % (11.5-14.5); Segmented Neutrophils % 85.2 %
[2017-09-11 04:15] LABS: BUN/Creatinine Ratio 28 (6-26); Blood Urea Nitrogen 23 mg/dL (8-23); Calcium 8.3 mg/dL (8.6-10.3); Carbon Dioxide 23 mEq/L (23-29); Chloride 111 mEq/L (98-107); Glucose 152 mg/dL (70-105); Osmolality,Calculated 293 (280-300); Potassium 5.1 mEq/L (3.5-5.1); Sodium 138 mEq/L (136-145); eGFR For African Americans > 60 (> 60); eGFR For Non-African Americans > 60 (> 60)
[2017-09-11] MEDS: *HR* Heparin 5,000 UNIT/ML VIAL SQ SCH ×2 (05:27→17:21)
[2017-09-11] MEDS: MethylPREDNISolone 40 MG/ML VIAL IVP SCH ×2 (05:28→17:21)
[2017-09-11] MEDS: Vancomycin Oral Soln 125 MG/2.5 ML UDC PO SCH ×3 (08:12→21:22)
[2017-09-11] MEDS: Multivit/Ca/Min/Fe/FA 1 TAB TABLET PO SCH (08:12)
[2017-09-11] MEDS: Aspirin Enteric Coated 81 MG Tablet PO SCH (08:12)
--- NOTE | 2017-09-11 10:26 | Event Note ---
Date of Encounter: 09/11/17 Time of Encounter: 10:25 Patient admitted 2/2 skin rash of the upper and lower extremity; patient can follow up with me until their appointment with [facility] in my wound clinic.
--- NOTE | 2017-09-11 15:15 | Internal Med Progress Note ---
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 Patient was started on IV steroids. Symptoms bilateral hands have improved with decrease in swelling of hands however, rash has now spread up arms, and from feet to to bilateral lower extremity. Palpable cheery red in color, patch like. Plan to switch to oral steroids tomorrow if improvement . At present will continue to give IV steroids as ordered. Will check UA chest x-ray, CMP, CBC with diff, CRP, and ESR. Family member worried rash may be from [place] spotted fever, states is outside "alot", states had mild fever, with rash that started on dorsum of hands, denied rash on wrist or ankles at onset, no known tick bites, current rash is purpuric not petechial in nature, afebrile at present , Sodium normal values, normal WBC @ 6.4, and PLT 432 no serum findings of thromobcytopenia, therefore I do not suspect [place] Fever, and will continue with plan as above. (2) Clostridium difficile infection Current Visit: No Status: Resolved Assessment and plan: Report adverse affects with Flagyl of loss of appetite, and increase in diarrhea , will d/c and continue on po Vanco (3) Decubitus ulcer, stage 3 Current Visit: No Status: Acute Assessment and plan: Consult wound care, will reposition and turn on a q2h schedule d/t paraplegia, and existing decub ulcerations Qualifiers: Pressure ulcer location: buttock Laterality: left Qualified Code(s): L89.323 - Pressure ulcer of left buttock, stage 3 (4) Hyperglycemia Current Visit: Yes Status: Acute Assessment and plan: No know history of Type 1 or 2 Diabetes, trending upward hyperglycemia probable d/t IV steroids, will add low dose SSI, monitor blood sugars AC/HS and treat per SSL. (5) DVT prophylaxis Current Visit: No Status: Acute Assessment and plan: Heparin subcutaneously - Time Spent With Patient Total time spent is greater than 50% in coordination of care (as documented) at patient's floor/unit and/or counseling patient: - Subjective Interval history: New patient to provider, states he is feeling better, with decrease in swelliing of his hands, d/t IV steroids, Family at bedside. - Constitutional Vitals: Temp Pulse Resp BP Pulse Ox 97.8 F 88 14 163/58 96 09/11/17 11:52 09/11/17 11:52 09/11/17 11:52 09/11/17 11:52 09/11/17 11:52 General appearance: Present: A&O X 3, no acute distress, answers questions appropriately - Head Head exam: Present: atraumatic, normocephalic - Eye Eye exam: Present: PERRL, conjuntiva pink, sclera anicteric Pupils: Present: PERRL - Neck Neck exam general surgery: Present: supple, trachea midline. Absent: lymphadenopathy - Respiratory Respiratory exam: Present: CTAB. Absent: accessory muscle use, rales, rhonchi, wheezes - Cardiovascular Cardiovascular exam: Present: RRR, +S1, +S2. Absent: diastolic murmur, gallop, rubs, systolic murmur - GI/Abdominal GI/Abdominal exam: Present: normal bowel sounds, soft, no peritoneal signs. Absent: distended, tenderness - Extremities Exam Extremities exam: Present: warm, radial pulses palpable and symmetrical. Absent : calf tenderness, cyanotic, pedal edema - Expanded Lower Extremities Exam Lower Leg exam: Present: swelling Neuro vascular tendon exam: Present: foot drop, motor deficit, pallor Gait: Present: unable to bear weight (paraplegia) - Neurological Exam Neurological exam: Present: CN II-XII intact, oriented X3, no focal deficits. Absent: pronater drift, facial droop, speech deficit - Skin Skin exam: Present: dry, rash (dark palpable purpura noted in patchwork type fasion with macular presentation, purple red color, bilateral forearms, feet and lower extremities ) - Expanded Skin Exam Type of lesion: Present: rash Distribution of rash: Present: LUE, RUE, RLE, LLE Description of rash: Present: purpura Internal Medicine: Result - Labs CBC & Chem 7: 09/11/17 03:40 09/11/17 03:40 Labs: Short CBC 09/11/17 Range/Units 03:40 WBC 9.4 D (4.3-11.1) K/mcL Hgb 9.3 L (12.9-16.9) g/dL Hct 30.2 L (37.5-50.1) % Plt Count 365 (140-400) K/mcL Neutrophils # 8.0 (1.6-8.9) K/mcL BMP 09/11/17 03:40 Sodium 138 Potassium 5.1 Chloride 111 H Carbon Dioxide 23 BUN 23 Creatinine 0.81 Glucose 152 H Calcium 8.3 L Consult Discharge Plan - Plan Referrals: Shayan Oliva MD [Primary Care Provider] -
[2017-09-11] MEDS ORDERED: D5% in Water 1,000 ML IVC PRN (15:55)
[2017-09-11] MEDS ORDERED: *HR* Dextrose 50 % in Water (Syg) 50 ML SYRINGE IVP PRN (15:55)
[2017-09-11] MEDS ORDERED: Dextrose Gel 15 GM/37.5 ML TUBE PO PRN ×2 (15:55)
[2017-09-11] MEDS ORDERED: MetroNIDAZOLE 500 MG/100 ML 500 MG/100 ML BAG IVPB SCH (16:00)
[2017-09-11] MEDS: Insulin LISPRO 300 UNITS/3 ML VIAL SQ SCH ×2 (16:44→21:22)
[2017-09-11 20:43] LABS: Bilirubin,Urine Negative (Negative); Blood,Urine Large (Negative); Clarity,Urine Clear (Clear); Color,Urine Yellow (Yellow); Glucose,Urine (UA) Normal (Normal); Ketones,Urine Negative (Negative); Leukocyte Esterase,Urine Moderate (Negative); Nitrite,Urine Negative (Negative); Protein,Urine Trace mg/dL (Neg-Trace); Specific Gravity,Urine 1.023 (1.010-1.025); Urobilinogen,Urine Normal (Normal)
[2017-09-11 20:44] LABS: Squamous Epithelial Cell,Urine Moderate per lpf (None-Few); WBC,Urine 30-50 per hpf (0-3)
[2017-09-11 21:28] LABS: Bacteria,Urine Few per hpf (None-Few); Hyaline Casts,Urine Few per lpf (None-Few); RBC,Urine 15-30 per hpf (0-3); Yeast,Urine Many per hpf (None Seen)
[2017-09-11 21:29] LABS: C-Reactive Protein 65 mg/L (Less than 10)
[2017-09-12] MEDS: MethylPREDNISolone 40 MG/ML VIAL IVP SCH ×2 (05:22→17:16)
[2017-09-12] MEDS: *HR* Heparin 5,000 UNIT/ML VIAL SQ SCH (05:22)
[2017-09-12 05:41] LABS: Hematocrit 29.5 % (37.5-50.1); Hemoglobin 8.8 g/dL (12.9-16.9); Mean Corpuscular HGB Conc 29.8 g/dL (31.6-35.5); Mean Corpuscular Hemoglobin 23.2 pg (28.0-33.3); Mean Corpuscular Volume 77.6 fL (83.0-100.0); Mean Platelet Volume 9.4 fL (9.4-12.4); Platelet Count 346 K/mcL (140-400); Red Cell Distribution Width 16.9 % (11.5-14.5)
[2017-09-12 06:04] LABS: BUN/Creatinine Ratio 40 (6-26); Blood Urea Nitrogen 29 mg/dL (8-23); Calcium 8.2 mg/dL (8.6-10.3); Carbon Dioxide 23 mEq/L (23-29); Chloride 112 mEq/L (98-107); Glucose 120 mg/dL (70-105); Osmolality,Calculated 297 (280-300); Potassium 4.9 mEq/L (3.5-5.1); Sodium 140 mEq/L (136-145); eGFR For African Americans > 60 (> 60); eGFR For Non-African Americans > 60 (> 60)
[2017-09-12 08:02] LABS: Immunoglobulin A 285 mg/dL (68-408); Immunoglobulin G 1270 mg/dL (768-1632); Immunoglobulin M 21 mg/dL (35-263)
[2017-09-12] MEDS: Insulin LISPRO 300 UNITS/3 ML VIAL SQ SCH ×4 (08:45→20:32)
[2017-09-12] MEDS: Vancomycin Oral Soln 125 MG/2.5 ML UDC PO SCH ×4 (08:45→20:31)
[2017-09-12] MEDS: Aspirin Enteric Coated 81 MG Tablet PO SCH (08:45)
[2017-09-12] MEDS: Multivit/Ca/Min/Fe/FA 1 TAB TABLET PO SCH (08:45)
[2017-09-12] MEDS: Isovue-370 500 ML INFUS..BTL IV ONE ×2 (10:22→11:09)
--- NOTE | 2017-09-12 11:11 | Infectious Disease Consult ---
Date of Encounter: 09/12/17 Time of Encounter: 10:57 Assessment and Plan (1) Clostridium difficile infection Status: Acute Assessment and plan: Etiology unclear. The patient has been off IV antibiotics since August 13. Appears improved. The patient has not had any diarrhea for two days. Continue Vancomycin 125mg PO QID. Duration of treatment depends on the clinical picture, but likely 10-14 days. Continue C. diff precautions per protocol. (2) Rash Status: Acute Assessment and plan: Etiology unclear, but clinical picture consistent with vasculitis. Inflammatory markers are elevated, but improved from previous values. Clinically improved on steroids. IgA and IgG levels normal. IgM low. Consider rheumatology to evaluate. May need to biopsy if persists. Clinically does not appear infectious. Further workup and management per the primary team. (3) Abnormal chest xray Status: Acute Assessment and plan: CXR shows possible new loculated pleural effusion. CTA of the chest completed this morning is pending. Patient is asymptomatic. (4) Osteomyelitis Status: Resolved Assessment and plan: Location: Sacrum, left ischium, and coccyx. Causative organisms: MRSA, E. coli, and anaerobes. Completed 10 weeks of IV antibiotics. Clinically improved, but had persistently elevated inflammatory markers and delayed healing. Antibiotics stopped 08/13/17 as the patient had no systemic signs of infection and the wound was improving. Referral to [facility] plastic surgery pending. Saw them 09/09/17, but will need new appointment once C. diff resolved. Wound care and Dr. Blankenship consulted. Qualifiers: Osteomyelitis type: acute hematogenous Osteomyelitis location: other site Qualified Code(s): M86.08 - Acute hematogenous osteomyelitis, other sites (5) Hyperglycemia Status: Chronic Assessment and plan: Likely secondary to steroids. Management per the primary team. (6) Anemia Status: Chronic Assessment and plan: Hgb down to 8.8 this morning. No acute bleeding noted on exam. Further workup and management per the primary team. Qualifiers: Anemia type: unspecified type Qualified Code(s): D64.9 - Anemia, unspecified (7) Decubitus ulcer, stage 3 Status: Chronic Assessment and plan: No clinical signs of infection. Wound care per Dr. Blankenship's recommendations. Qualifiers: Pressure ulcer location: buttock Laterality: left Qualified Code(s): L89.323 - Pressure ulcer of left buttock, stage 3 (8) Paraplegia Status: Chronic Assessment and plan: Secondary to remote AAA repair. Frequent turning and offloading to prevent further breakdown. (9) Neurogenic bladder Status: Chronic Assessment and plan: SIC at home. Reed catheter in place. (10) Neurogenic bowel Status: Acute Assessment and plan: Bowel regimen per the primary team's recommendations. Infectious Disease HPI - Data of Consult Patient: known to practice within the last 3 years Consult date: 09/12/17 Requesting Physician: Ale Guzmán Primary Care Provider: Shayan Oliva MD - Consult Narrative Reason for consult: C. diff History of present illness: Mr. Klein is a 72 year old male with a past medical history of CAD, DVT, hyperlipidemia, hypertension, paraplegia secondary to previous AAA surgery, and osteomyelitis of the pelvis status post IV antibiotic therapy. The patient was admitted to the hospital September 09 for arthralgia and C. difficile. We are consulted September 12 for further recommendations for C. difficile. Briefly, the patient is a 72-year-old male with past medical history as stated above. The patient is well-known to the infectious disease services will reconsult on his case back when he was diagnosed with bacteremia and osteomyelitis of the pelvis in May. At that time, the patient had developed a stage IV ulcer to the left buttock that resulted in MRSA bacteremia and osteomyelitis of the left ischium. Cultures of the wound were positive for MRSA , E. coli, and anaerobes. He was treated with a prolonged course of IV Vancomycin and Rocephin. Flagyl was initially started, but the patient developed severe nausea and diarrhea and could not tolerate the medication. Clinically, the patient did well, but continued to have delayed wound healing and markedly elevated inflammatory markers despite adequate IV antibiotics and aggressive wound care. Repeat MRI of the pelvis showed progression of the OM, but clinically the patient was doing well. He stopped his IV antibiotics on August 13 and we referred him to [facility] surgery. Last Saturday, the patient woke up and was noted to have bowel incontinence with copious amounts of watery , mucousy diarrhea. He presented to the ER and was diagnosed with C. diff colitis. He was admitted to the hospital and placed on PO Vancomycin. He was discharged on 09/09 in order to get to his [facility] plastic surgery appt. Because of his recent diagnosis of C. diff, he was advised that they would not do anything for him until the infection had cleared and he should re-schedule his appt for a few months later. Prior to leaving the hospital that morning, he began to experience bilateral hand pain and swelling the progressed through the day to the point where he could not transfer from his wheelchair to bed. He came back to the ER and was noted to have a rash to the bilateral hands, elbows, and legs. His daughter reported later that she noticed the rash when he originally came to the hospital on 09/07. Upon presentation to the ER, the patient was mildly tachycardic, but afebrile with normal WBC. He had a RUE doppler study that was negative for DVT. Blood cultures were obtained and are NGTD x 2 sets. He was started on PO Vanc and IV Flagyl for the C. diff and IV steroids for the rash and arthralgias. He was admitted to the hospital for further evaluation. Since admission, the patient has remained afebrile. Tachycardia has resolved. WBC has remained normal. His arthralgias and rash have improved. Diarrhea has resolved. He was evaluated by the wound care team who recommended consultation with Dr. Blankenship, who the patient was seeing in the wound clinic. He recommended the patient follow up in the wound clinic after discharge. The patient had a CXR yesterday that showed a possible new left sided loculated pleural effusion. Reed catheter was placed on admission and the patient was noted to have very dark blood-tinged urine. Urinalysis was positive for 30-20 WBC, few bacteria, and many yeast and epithelial cells (likely contaminated), and urine culture is pending. Inflammatory markers were checked. ESR markedly improved. CRP is stable. IgG and IgA levels were normal. IgM low. He had a CTA of the chest this morning that is pending. Currently, the patient is on PO Vancomycin. We've been asked to evaluate and make further recommendations. During my exam today, the patient states that overall he feels better. He denies fevers, chills, or rigors. Denies chest pain, shortness of breath, or cough. Denies nausea or vomiting and states he has not had diarrhea for two days. He has no sensation below the nipple line from his paraplegia. He denies abdominal pain. States his urine output/color/odor has been normal at home. He denies any pain in his back or lower extremities. He states the pain and rash in his hands has resolved and he does still have some rash to the elbows and bilateral lower extremities. He denies oral thrush. The patient lives at home alone. He has family that checks in on him frequently. He denies tobacco, alcohol, or illicit drug use. CC: Ale Guzmán Past Med Surg Social Fam HX - Past Medical History Attestation: Yes The following information was validated with the patient. Source: patient, old records reviewed, nursing notes reviewed Medical history: coronary artery disease, hyperlipidemia, hypertension, other ( Osteomyelitis of the pelvis) Additional medical history: Paraplegic Psychiatric history: no psych history - Past Surgical History Surgical History: other (I & D of the pelvis for OM, Right CEA, AAA repair) Additional surgical history: AAA repair - Social History Smoking Status: Former smoker Smokeless Tobacco Status: No Alcohol use: none Drug use: none Occupational status: retired Current living situation: Home - Independent Activity Level: Wheelchair bound Recent Out of Country Travel Within the Last 8 Weeks: No Exposure or Possible Exposure to Illness During Travel: No - Family History Mother Adopted: No Living Status: Hx Family Cardiac Disorders: Yes Hx Family Respiratory Disorders: No Hx Family Cancer: No Hx Family GI Disorders: No Hx Family Endocrine Disorder: Yes Father History Unknown: Yes Adopted: No Living Status: Hx Family Cardiac Disorders: Yes Hx Family Respiratory Disorders: No Hx Family Cancer: No Hx Family GI Disorders: No Hx Family Endocrine Disorder: No Infectious Disease-CN:Meds Aspirin [Lo-Dose Aspirin EC] 81 mg PO DAILY 04/09/17 [History] Pravastatin Sodium [Pravachol] 80 mg PO HS 04/09/17 [History] Multivit-Min/FA/Lycopen/Lutein [Centrum Silver Tablet] 1 tab PO DAILY 09/07/17 [ History] Vancomycin Oral Soln [Firvanq] 250 mg PO QID #280 ml 09/08/17 [Rx] predniSONE [PredniSONE] 20 mg PO DAILY #40 tablet 09/13/17 [Rx] 3 Allergy/AdvReac Type Severity Reaction Status Date / Time No Known Allergies Allergy Verified 09/07/17 14:06 All systems: reviewed and no additional remarkable complaints except as stated Exam - Constitutional Vitals: Temp Pulse Resp BP Pulse Ox 97.9 F 69 18 136/62 97 09/12/17 07:27 09/12/17 07:27 09/12/17 07:27 09/12/17 07:27 09/12/17 07:27 General appearance: average body habitus, cooperative, no acute distress - Head Head exam: Present: atraumatic, normal inspection, normocephalic - Eye Eye exam: Present: EOMI, normal appearance, PERRL Pupils: Present: normal accommodation - ENT ENT exam: Present: mucous membranes moist - Neck Neck exam: Present: normal inspection - Respiratory Respiratory exam: Present: CTAB. Absent: rales, respiratory distress, rhonchi, wheezes - Cardiovascular Cardiovascular exam: Present: RRR, +S1, +S2 - GI/Abdominal GI/Abdominal exam: Present: normal bowel sounds, soft. Absent: distended, tenderness Additional comments: Reed catheter noted to be draining dark brown/blood-tinged urine. - Extremities Exam Extremities exam: Absent: joint swelling, pedal edema, tenderness Additional comments: Flat, non-blancheable purpuric rash noted to the bilateral elbows and lower legs /feet. - Back Exam Additional comments: Dressing noted to the left buttock C/D/I. - Neurological Exam Neurological exam: Present: alert, oriented X3. Absent: no focal deficits ( Paralysis noted to the BLE.) - Psychiatric Psychiatric exam: Present: normal affect, normal mood - Skin Skin exam: Present: dry, intact, normal color, rash (Bilateral elbows, bilateral lower legs and feet.), warm Infectious Disease CN: Results - Labs CBC & Chem 7: 09/13/17 04:40 09/13/17 04:40 Consult Discharge Plan - Plan Instructions: Prednisone (By mouth), Urticaria (GEN), Anaphylaxis (DC) Referrals: Shayan Oliva MD [Primary Care Provider] - Nicho Mckeon DO [Partnered Physician] - 09/26/17 1:45 pm Prescriptions: predniSONE [PredniSONE] 20 mg PO DAILY #40 tablet - Attending Attestation I examined this patient and my medical decision-making was reviewed with the Resident Physician. I agree with the documented findings, disposition and treatment plan as described except to the extent set forth below. This is a addendum to original report dictated by Shadia Eaton CNP. Please refer to Deven burgess for full detail. Patient is a 72-year-old gentleman with extensive past medical history mentioned below well-known to our service was recently treated for osteomyelitis of the sacrum and left ischium and coccyx with MRSA, Escherichia coli and anaerobes. Patient was treated with 10 weeks of IV antibiotics including vancomycin, Rocephin and Flagyl. Patient finished the treatment and did okay after that. Patient was seen on August 13 at [facility] plastic surgery for possible flap placement. Patient was doing well until the Saturday prior to admission when he was having severe diarrhea. Patient was admitted was noted to have C. difficile colitis and was discharged on oral vancomycin. Patient apparently started having bilateral hand and feet pain and swelling and just feeling weak and fatigued and tired and unable to ambulate. Patient came to the emergency department for evaluation. At that time patient was also having a rash. Patient was admitted for further workup and evaluation. Assessment and plan: C. difficile colitis Rash likely consistent with vasculitis improved on steroids Abnormal chest x-ray in patient asymptomatic Recent osteomyelitis with MRSA, Escherichia coli and anaerobes treated with IV antibiotics for 10 weeks Hyperglycemia Anemia Recommendations: Continue oral vancomycin Patient restarted on steroids for the vasculitis rash Wound care per Surgery Monitor labs and for drug toxicity Aggressive hydration
--- NOTE | 2017-09-12 11:18 | Internal Med Progress Note ---
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 Continue IV steroids for now. Discussed with Dr. Lazar (rheumatology) and will discharge home on steroid taper with outpatient rheumatology follow-up ( steroid taper per rheumatology recommendation as 20 mg PO daily for 4 days then 15 mg PO daily for 4 days then 10 mg PO daily for 4 days then 5 mg PO daily for 4 days). (2) Clostridium difficile infection Current Visit: No Status: Acute Assessment and plan: presented with loose stool. Recently completed 8 weeks of IV vancomycin for bacteremia. C. difficile PCR positive. Evaluated by infectious disease who recommended oral Vancomycin for 10-14 days. Loose stool improving. (3) Decubitus ulcer, stage 3 Current Visit: No Status: Chronic Assessment and plan: per hx. 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 Follows with [facility] plastic surgery for possible skin graft. Continue local wound care. Follow-up outpatient with [facility] as previously planned Qualifiers: Pressure ulcer location: buttock Laterality: left Qualified Code(s): L89.323 - Pressure ulcer of left buttock, stage 3 (4) Anemia Current Visit: Yes Status: Acute Assessment and plan: per hx. Hgb 11.3 on admission and dropped to 8.8. With hematuria noted on 09/12 exam which is new. Exchange Reed, monitor repeat H&H. Occult stool pending. Qualifiers: Anemia type: unspecified type Qualified Code(s): D64.9 - Anemia, unspecified (5) AAA (abdominal aortic aneurysm) without rupture Current Visit: Yes Status: Acute Assessment and plan: S/p AAA repair in 2012. ABD/pelvis CTA with no evidence of recurrent aneurysm, periaortic hematoma or evidence of aortic rupture. (6) Paraplegia Current Visit: No Status: Chronic Assessment and plan: Secondary to complication of AAA repair. Supportive care. (7) Hyperglycemia Current Visit: Yes Status: Acute Assessment and plan: blood sugars elevated; likely secondary to steroids. Continue SSI. Monitor blood sugar and titrate PRN (8) DVT prophylaxis Current Visit: No Status: Acute Assessment and plan: SCD - Time Spent With Patient Total time spent is greater than 50% in coordination of care (as documented) at patient's floor/unit and/or counseling patient: - Subjective Interval history: Seen and examined at bedside. Patient says he had uneventful night. Has not had a bowel movement in the last 2 days. Rash to lower extremities unchanged. - Constitutional Vitals: Temp Pulse Resp BP Pulse Ox 97.9 F 69 18 136/62 97 09/12/17 07:27 09/12/17 07:27 09/12/17 07:27 09/12/17 07:27 09/12/17 07:27 General appearance: Present: A&O X 3, no acute distress, answers questions appropriately - Head Head exam: Present: atraumatic, normocephalic - Eye Eye exam: Present: PERRL, conjuntiva pink, sclera anicteric Pupils: Present: PERRL - Neck Neck exam general surgery: Present: supple, trachea midline. Absent: lymphadenopathy - Respiratory Respiratory exam: Present: CTAB. Absent: accessory muscle use, rales, rhonchi, wheezes - Cardiovascular Cardiovascular exam: Present: RRR, +S1, +S2. Absent: diastolic murmur, gallop, rubs, systolic murmur - GI/Abdominal GI/Abdominal exam: Present: normal bowel sounds, soft, no peritoneal signs. Absent: distended, tenderness - Extremities Exam Extremities exam: Present: pedal edema, warm, radial pulses palpable and symmetrical. Absent: calf tenderness, cyanotic - Neurological Exam Neurological exam: Present: CN II-XII intact, oriented X3, no focal deficits. Absent: strengths equal and symetr throughout (Paralysis bilateral lower extremities), pronater drift, facial droop, speech deficit - Skin Skin exam: Present: dry, rash - Expanded Skin Exam Distribution of rash: Present: LUE, RUE, RLE, LLE Description of rash: Present: petechial, purpura Internal Medicine: Result - Labs CBC & Chem 7: 09/12/17 05:25 09/12/17 05:25 - Impressions Impressions Chest CTA 09/12/17 09:42 IMPRESSION: Postsurgical changes status post repairs of a distal thoracic aortic aneurysm and a proximal abdominal aortic aneurysm. No evidence of recurrent aneurysm. No evidence of periaortic hematoma. No evidence of aortic rupture. No active extravasation of contrast. Findings suggesting chronic right renal artery stenosis with atrophy of the right kidney. Small bilateral pleural effusions with partially loculated left pleural effusion, likely secondary to chronic scarring. Mild centrilobular emphysema. Likely recent debridement of a large left decubitus ulceration with partial resection of the ischial tuberosity. Resolution of the previous seen soft tissue gas, however, there Dinorah changes and sclerosis of the remaining left inferior pubic ramus and ischial tuberosity suggesting osteomyelitis and surrounding cellulitis. Likely remote changes of the left iliopsoas tendon sheath with large calcified subperiosteal area of the proximal left femoral diaphysis and multiple areas of heterotopic ossification. This is consistent with the 06/22/2012 CT abdomen pelvis examination which showed a large left iliopsoas hematoma. Extensive diverticulosis without evidence of acute diverticulitis. Cholelithiasis without evidence of acute cholecystitis. D/ / Nj Banuelos MD / Nj Banuelos MD Interpreting Provider: Nj Banuelos MD Consult Discharge Plan - Plan Referrals: Shayan Oliva MD [Primary Care Provider] - Nicho Mckeon DO [Partnered Physician] - 09/26/17 1:45 pm
[2017-09-13] MEDS: MethylPREDNISolone 40 MG/ML VIAL IVP SCH (04:37)
[2017-09-13 05:08] LABS: Hematocrit 29.7 % (37.5-50.1); Mean Corpuscular HGB Conc 30.3 g/dL (31.6-35.5); Mean Corpuscular Hemoglobin 23.4 pg (28.0-33.3); Mean Corpuscular Volume 77.1 fL (83.0-100.0); Mean Platelet Volume 9.3 fL (9.4-12.4); Platelet Count 366 K/mcL (140-400); Red Blood Count 3.85 M/mcL (4.19-5.50); Red Cell Distribution Width 17.1 % (11.5-14.5)
[2017-09-13 05:25] LABS: BUN/Creatinine Ratio 42 (6-26); Blood Urea Nitrogen 35 mg/dL (8-23); Calcium 8.3 mg/dL (8.6-10.3); Carbon Dioxide 24 mEq/L (23-29); Chloride 111 mEq/L (98-107); Glucose 123 mg/dL (70-105); Osmolality,Calculated 299 (280-300); Potassium 5.2 mEq/L (3.5-5.1); Sodium 140 mEq/L (136-145); eGFR For African Americans > 60 (> 60); eGFR For Non-African Americans > 60 (> 60)
[2017-09-13 07:56] VITALS: BP 150/66
[2017-09-13] MEDS: Insulin LISPRO 300 UNITS/3 ML VIAL SQ SCH ×2 (08:00→12:16)
[2017-09-13] MEDS: Vancomycin Oral Soln 125 MG/2.5 ML UDC PO SCH ×2 (08:05→12:21)
[2017-09-13] MEDS: Multivit/Ca/Min/Fe/FA 1 TAB TABLET PO SCH (08:05)
[2017-09-13] MEDS: Aspirin Enteric Coated 81 MG Tablet PO SCH (08:05)
--- NOTE | 2017-09-13 09:05 | Physician Discharge Referral ---
Home Health/Hosp Referral Info Transfer to: Home Health - Diagnosis (1) Rash Priority: Primary Status: Acute (2) Decubitus ulcer, stage 3 Priority: Secondary Status: Chronic (3) DVT prophylaxis Priority: Primary Status: Acute (4) Clostridium difficile infection Priority: Secondary Status: Acute - Respiratory Orders Smoking Cessation: Smoking cessation has been advised. For more information, call the [place] Tobacco Quit Line at 5-257-RHZR-NOW. - Diet/Nutrition Diet/Nutrition Orders: Regular - Activity Activity Orders: Up ad jason - Services Needed Following services are medically necessary services: Nursing, Home Health Aide - Transfer Medications Home Medications: Aspirin [Lo-Dose Aspirin EC] 81 mg PO DAILY 04/09/17 [History] Pravastatin Sodium [Pravachol] 80 mg PO HS 04/09/17 [History] Multivit-Min/FA/Lycopen/Lutein [Centrum Silver Tablet] 1 tab PO DAILY 09/07/17 [ History] Vancomycin Oral Soln [Firvanq] 250 mg PO QID #280 ml 09/08/17 [Rx] Allergies/Adverse Reactions: 3 Allergy/AdvReac Type Severity Reaction Status Date / Time No Known Allergies Allergy Verified 09/07/17 14:06 Certification: Further, I certify that my clinical findings support that this patient is homebound (i.e. absences from home require considerable and taxing effort and are for medical reasons or [employer] services or infrequently or short duration when for other reasons) because: Homebound Reason: Patient requires assistance of a person or device to safely leave home, Leaving home requires considerable and taxing effort due to condition Attestation: My signature below is to certify that this patient is under my care and that I, or nurse practitioner, or a physician's medical research assistant working with me, has a face-to -face encounter with this patient.
--- NOTE | 2017-09-13 09:06 | Discharge Summary ---
- NOTES TO OUTPATIENT PROVIDER Notes to Outpatient Provider: Follow-up with rheumatology within 1-2 weeks. Follow-up with plastics surgery at [facility] as scheduled. Follow-up with PCP within a week. Date of Encounter: 09/13/17 Time of Encounter: 09:06 - Discharge Diagnosis (1) Decubitus ulcer, stage 3 Priority: Secondary Status: Chronic Assessment and Plan: per hx. 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 Follows with [facility] plastic surgery for possible skin graft. Continue local wound care. Follow-up outpatient with [facility] as previously planned Qualifiers: Pressure ulcer location: buttock Laterality: left Qualified Code(s): L89.323 - Pressure ulcer of left buttock, stage 3 (2) DVT prophylaxis Priority: Primary Status: Acute (3) Paraplegia Priority: Secondary Status: Chronic (4) Clostridium difficile infection Priority: Secondary Status: Acute Assessment and Plan: presented with loose stool. Recently completed 8 weeks of IV vancomycin for bacteremia. C. difficile PCR positive. Evaluated by infectious disease who recommended oral Vancomycin for 10-14 days. Loose stool improving. 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 Continue IV steroids for now. Discussed with Dr. Lazar (rheumatology) and will discharge home on steroid taper with outpatient rheumatology follow-up ( steroid taper per rheumatology recommendation as 20 mg PO daily for 4 days then 15 mg PO daily for 4 days then 10 mg PO daily for 4 days then 5 mg PO daily for 4 days). (6) Hyperglycemia Priority: Secondary Status: Chronic (7) Anemia Priority: Secondary Status: Chronic Qualifiers: Anemia type: unspecified type Qualified Code(s): D64.9 - Anemia, unspecified (8) AAA (abdominal aortic aneurysm) without rupture Priority: Secondary Status: Chronic Hospital course: Mr. Klein is a 72 year old male who was recently hospitalized for left hip wound and a C. difficile colitis presented with bilateral upper and lower extremity non-blanchable rashes with associated bilateral hands swelling and pain, patient 's symptoms are consistent with IgA vasculitis. Patient was started on IV steroids with relief of symptoms, rheumatology was consulted, recommended continue short-term by mouth steroids and a follow-up with rheumatology as outpatient. Patient's symptoms have significantly improved, we will discharge the patient today. He was recommended to follow up with plastic surgery at [facility] for left hip wound treatment. He was also recommended to continue oral vancomycin for a total course of 14 days for C. difficile colitis, patient will follow-up with PCP, and infectious disease. Discharge discussed with: patient - Time Spent with Patient Total time spent providing and/or coordinating discharge services: Greater than 30 minutes - Discharge Medications Prescriptions: predniSONE [PredniSONE] 20 mg PO DAILY #40 tablet Home Medications: Aspirin [Lo-Dose Aspirin EC] 81 mg PO DAILY 04/09/17 [History] Pravastatin Sodium [Pravachol] 80 mg PO HS 04/09/17 [History] Multivit-Min/FA/Lycopen/Lutein [Centrum Silver Tablet] 1 tab PO DAILY 09/07/17 [ History] Vancomycin Oral Soln [Firvanq] 250 mg PO QID #280 ml 09/08/17 [Rx] predniSONE [PredniSONE] 20 mg PO DAILY #40 tablet 09/13/17 [Rx] Allergies/Adverse Reactions: 3 Allergy/AdvReac Type Severity Reaction Status Date / Time No Known Allergies Allergy Verified 09/07/17 14:06 Date of admission: 09/12/17 08:29 Primary care physician: Shayan Oliva MD Anticipated date of discharge: 09/13/17 - Constitutional Vitals: Temp Pulse Resp BP Pulse Ox 98.7 F 64 14 150/66 96 09/13/17 07:54 09/13/17 07:54 09/13/17 07:54 09/13/17 07:54 09/13/17 07:54 General appearance: Present: A&O X 3, no acute distress, answers questions appropriately Exam: PHYSICAL EXAMINATION: GENERAL APPEARANCE: The patient is alert, oriented and in no acute distress. HEENT: Head is normocephalic. The sinuses are nontender. Pupils are equal and reactive. The nares are patent. Oropharynx clear without lesions. NECK: Supple without lymphadenopathy. HEART: Regular rate and rhythm. LUNGS: No crackles or wheezes are heard. ABDOMEN: Soft, nontender, nondistended with good bowel sounds heard. Inguinal area is normal. EXTREMITIES: Diffuse purpura noted on both upper and lower extremity. NEUROLOGICAL: Gross nonfocal. SKIN: Warm and dry without any rash. - Patient Status Disposition: Home Health Service Condition: Fair Functional capacity at discharge: bed bound Overall status at discharge: patient is back to baseline - Discharge Instructions Follow Up With: Shayan Oliva MD [Primary Care Provider] - Nicho Mckeon DO [Partnered Physician] - 09/26/17 1:45 pm - Diet and Activity Activity: increase activity as tolerated Diet: diabetic diet
--- NOTE | 2017-09-13 15:40 | Infectious Disease Progress No ---
Date of Encounter: 09/13/17 Time of Encounter: 11:00 - Assessment and Plan (1) Osteomyelitis Status: Acute Location: Sacrum, left ischium, and coccyx. Causative organisms: MRSA, E. coli, and anaerobes. Completed 10 weeks of IV antibiotics. Clinically improved, but had persistently elevated inflammatory markers and delayed healing. Antibiotics stopped 08/13/17 as the patient had no systemic signs of infection and the wound was improving. Referral to [facility] plastic surgery pending. Saw them 09/09/17, but will need new appointment once C. diff resolved. Wound care and Dr. Blankenship consulted. Qualifiers: Osteomyelitis type: unspecified type Osteomyelitis location: unspecified site Qualified Code(s): M86.9 - Osteomyelitis, unspecified (2) Decubitus ulcer of ankle, stage 3 Status: Acute Qualifiers: Laterality: unspecified laterality Qualified Code(s): L89.503 - Pressure ulcer of unspecified ankle, stage 3 (3) Paraplegia Status: Chronic Secondary to remote AAA repair. Frequent turning and offloading to prevent further breakdown. (4) Neurogenic bladder Status: Chronic SIC at home. Reed catheter in place. (5) Clostridium difficile infection Status: Acute Etiology unclear. The patient has been off IV antibiotics since August 13. Appears improved. The patient has not had any diarrhea for two days. Continue Vancomycin 125mg PO QID. Duration of treatment depends on the clinical picture, but likely 10-14 days. Continue C. diff precautions per protocol. (6) Rash Status: Acute Etiology unclear, but clinical picture consistent with vasculitis. Inflammatory markers are elevated, but improved from previous values. Clinically improved on steroids. IgA and IgG levels normal. IgM low. Consider rheumatology to evaluate. May need to biopsy if persists. Clinically does not appear infectious. Further workup and management per the primary team. (7) Abnormal chest xray Status: Acute - Subjective Interval history: patient is seen and examined. Clinically doing great. Son is at bedside. Ready for discharge. Paperwork is done. Denies any abdominal pain. No diarrhea. Good appetite. Rash improved. Still no pruritus. No chest pain. Infect Dis PN-Objective Data - Labs CBC & Chem 7: 09/13/17 04:40 09/13/17 04:40 Labs: Laboratory Results - last 24 hr 09/12/17 09/12/17 09/12/17 11:28 16:45 17:34 WBC RBC Hgb Hct MCV MCH MCHC RDW Plt Count MPV Sodium Potassium Chloride Carbon Dioxide BUN Creatinine Est GFR ( Amer) Est GFR (Non-Af Amer) BUN/Creatinine Ratio Glucose POC Glucose 136 H 143 H Calculated Osmolality Calcium Stool Occult Blood Negative 09/12/17 09/12/17 09/13/17 18:53 20:28 04:40 WBC 8.7 RBC 3.85 L Hgb 9.0 L Hct 29.7 L MCV 77.1 L MCH 23.4 L MCHC 30.3 L RDW 17.1 H Plt Count 366 MPV 9.3 L Sodium Potassium Chloride Carbon Dioxide BUN Creatinine Est GFR ( Amer) Est GFR (Non-Af Amer) BUN/Creatinine Ratio Glucose POC Glucose 181 H 156 H Calculated Osmolality Calcium Stool Occult Blood 09/13/17 04:40 WBC RBC Hgb Hct MCV MCH MCHC RDW Plt Count MPV Sodium 140 Potassium 5.2 H Chloride 111 H Carbon Dioxide 24 BUN 35 H Creatinine 0.83 Est GFR ( Amer) > 60 Est GFR (Non-Af Amer) > 60 BUN/Creatinine Ratio 42 H Glucose 123 H POC Glucose Calculated Osmolality 299 Calcium 8.3 L Stool Occult Blood Cultures: Serology 09/12/17 Range/Units 16:45 Stool Occult Blood Negative (Negative) Exam - Constitutional Vitals: Temp Pulse Resp BP Pulse Ox 98.7 F 64 14 150/66 96 09/13/17 07:54 09/13/17 07:54 09/13/17 07:54 09/13/17 07:54 09/13/17 07:54 General appearance: cooperative, no febrile - Respiratory Respiratory exam: Present: CTAB. Absent: wheezes - Cardiovascular Cardiovascular exam: Present: RRR, +S1, +S2 - GI/Abdominal GI/Abdominal exam: Present: normal bowel sounds, soft. Absent: tenderness Consult Discharge Plan - Plan Instructions: Prednisone (By mouth), Urticaria (GEN), Anaphylaxis (DC) Referrals: Shayan Oliva MD [Primary Care Provider] - Nicho Mckeon DO [Partnered Physician] - 09/26/17 1:45 pm Prescriptions: predniSONE [PredniSONE] 20 mg PO DAILY #40 tablet
[2017-09-14] MEDS ORDERED: predniSONE 20 MG TABLET PO SCH (09:00)
== END 2017-09-13 13:23 | disposition home health service (06) | DRG 592 ==
LOC: 3BNU 16:15 → EMEROO 16:15 → 3BNU 23:15
PROVIDERS: ADMIT Internal Medicine Nephrology; ATTEND Internal Medicine Nephrology

== ENCOUNTER 2017-10-21 17:03 | Observation (INO) ==
--- NOTE | 2017-10-21 19:50 | Internal Med History&Physical ---
<Donnell Madrid - Last Filed: 10/21/17 22:32> Date of Encounter: 10/21/17 Time of Encounter: 19:50 Internal Medicine - H&P: HPI Chief complaint: VALERIANO, sent from freelance translator Admitted From: Direct Admit Plans for Post Hospital Care: Home History of present illness: Mr. Klein is a 72 year old male with past medical history of paraplegia secondary to thoracic aortic aneurysm repair surgery, hyperlipidemia, renal artery stenosis, hypertension presents from freelance translator office due to concerns for rising creatinine and anemia. He was recently admitted to this facility at the end of August with a diagnosis of C. difficile colitis as well as suspected IgA vasculitis. He states his C. difficile symptoms has resolved and he has had solid bowel movements for the past 3 weeks. He has not taken any vancomycin for the last couple weeks. He states his oral intake has been adequate and he has been drinking plenty of fluids but his appetite has not been great. He states he is following with Dr. Cordon for a vasculitic rash on bilateral lower extremities but this has since resolved with prednisone given at last admission. He denies any symptoms of fevers, chills, chest pain, shortness of breath, nausea, vomiting, diarrhea, hematuria, hematochezia, melena. He does straight catheter himself but denies any seeing any gross blood in the urine. Past medical history as above Past surgical history includes thoracic aneurysm repair as above resulting in paraplegia Patient denies smoking, alcohol use, drug use Family history significant for daughter who also developed a rash after emilee C. difficile Past Med Surg Social Fam HX - Past Medical History Medical history: cancer, coronary artery disease, hyperlipidemia, hypertension, other Additional medical history: Paraplegic Psychiatric history: no psych history - Past Surgical History Surgical History: other Additional surgical history: AAA repair - Social History Smoking Status: Former smoker Smokeless Tobacco Status: No Alcohol use: none Drug use: none - Family History Mother Adopted: No Living Status: Hx Family Cardiac Disorders: Yes Hx Family Respiratory Disorders: No Hx Family Cancer: No Hx Family GI Disorders: No Hx Family Endocrine Disorder: Yes Father Adopted: No Living Status: Hx Family Cardiac Disorders: Yes Hx Family Respiratory Disorders: No Hx Family Cancer: No Hx Family GI Disorders: No Hx Family Endocrine Disorder: No Internal Medicine - H&P: Meds Aspirin [Lo-Dose Aspirin EC] 81 mg PO DAILY 04/09/17 [History] Pravastatin Sodium [Pravachol] 80 mg PO HS 04/09/17 [History] Multivit-Min/FA/Lycopen/Lutein [Centrum Silver Tablet] 1 tab PO DAILY 09/07/17 [ History] Vancomycin Oral Soln [Firvanq] 250 mg PO QID #280 ml 09/08/17 [Rx] predniSONE [PredniSONE] 20 mg PO DAILY #40 tablet 09/13/17 [Rx] 3 Allergy/AdvReac Type Severity Reaction Status Date / Time No Known Allergies Allergy Verified 09/07/17 14:06 All Systems PM: A 10-system review of systems was performed and is negative for pertinent findings except as documented above in the HPI. - Constitutional Constitutional: no chills, no fatigue, no fever(s), no lethargy, no malaise, no night sweats, no weakness, no weight loss - Cardiovascular Cardiovascular ROS IM: edema, no chest pain, no dyspnea, no dyspnea on exertion , no orthopnea, no palpitations - Respiratory Respiratory: no cough, no dyspnea, no dyspnea on exertion - Gastrointestinal Gastrointestinal: no abdominal pain, no constipation, no diarrhea, no hematemesis, no hematochezia, no loose stools, no melena, no nausea, no vomiting - Genitourinary Genitourinary ROS male: no difficulty urinating, no dysuria, no urinary frequency, no urinary hesitancy - Integumentary Integumentary IM: no rash - Constitutional Vitals: Temp Pulse Resp BP Pulse Ox 98.4 F 84 16 161/69 95 10/21/17 18:46 10/21/17 18:46 10/21/17 18:46 10/21/17 18:46 10/21/17 18:46 Exam: Gen.: Vitals noted. No acute distress. AAOx3, resting comfortably in bed HEENT: PERRL/EOMI, oropharynx clear, Normocephalic, atraumatic, moist mucous membranes Cardiac: RRR, no murmur, +S1/S2 Pulmonary: CTA bilaterally, no wheezes, rales or rhonchi, equal chest expansion Abdomen: soft, nontender, BS noted, no guarding MSK: Known paraplegic of lower extremities Extremities: no BLE edema, nontender calf, no cyanosis or clubbing, no rash Neuro: A&Ox3, moves upper extremities, no focal deficits outside of baseline Psych: Appropriate mood and behavior - VTE Documentation of Mechanical Device: Graduated compression elastic hosiery - Assessment and plan (1) VALERIANO (acute kidney injury) Current Visit: Yes Status: Acute Assessment and plan: - AKA with BUNs/creatinine of 35/1.55, baseline creatinine of 0.8 but was noted to be elevated at 1.3 upon discharge in August - Nephrology was contacted from rheumatology office, appreciate recommendations - Etiology unclear, possibly related to vasculitis versus prerenal - Potassium mildly elevated at 5.2, patient is having no symptoms - Mild non-nephrotic proteinuria as well as hematuria on urinalysis in rheumatology office Plan - We will give gentle fluids at 100 per hour and await nephrology recommendations - Per rheumatology note, would not recommend prednisone at this time - We will trend labs this evening as well as with morning labs (2) Hyperkalemia Current Visit: Yes Status: Acute Assessment and plan: Hyperkalemia 5.2 He does have a history of hyperkalemia in the past and typically runs high fours to low fives We will continue to monitor We will attempt to correct kidney function as above (3) Anemia Current Visit: Yes Status: Suspected Assessment and plan: - Acute on chronic anemia secondary to suspected chronic blood loss - H/H of 7.7/26.0, baseline hemoglobin around 9 - Patient denies any symptoms of melena, hematochezia, hematemesis however urinalysis shows microscopic hematuria - Denies history of CAD, will monitor with labs but not transfuse at this time. - Coags stable Plan - Continue to monitor and await recommendations from nephrology for hematuria. - type and screen Qualifiers: Anemia type: iron deficiency Iron deficiency anemia type: chronic blood loss Qualified Code(s): D50.0 - Iron deficiency anemia secondary to blood loss (chronic) (4) DVT prophylaxis Current Visit: Yes Status: Acute Assessment and plan: scds due to anemia, high risk for bleed. (5) Decubitus ulcer Current Visit: Yes Status: Acute Assessment and plan: Chronic, consult wound care Secondary to paraplegia Present on admission Qualifiers: Pressure injury location: lower back Pressure injury stage: unspecified pressure injury stage Laterality: right Qualified Code(s): L89.139 - Pressure ulcer of right lower back, unspecified stage - Time Spent With Patient Total time spent is greater than 50% in coordination of care (as documented) at patient's floor/unit and/or counseling patient: <Bill Cantrell - Last Filed: 10/22/17 03:37> Date of Encounter: 10/22/17 Internal Medicine - H&P: HPI History of present illness: Mr. Klein is a 72 year old male All Systems PM: A 10-system review of systems was performed and is negative for pertinent findings except as documented above in the HPI. - Constitutional Vitals: Temp Pulse Resp BP Pulse Ox 98.7 F 86 17 128/65 96 10/21/17 23:17 10/21/17 23:17 10/21/17 23:17 10/21/17 23:17 10/21/17 23:17 Internal Med - H&P Results - Labs CBC & Chem 7: 10/22/17 00:36 Labs: BMP 10/22/17 00:36 Sodium 136 Potassium 3.8 Chloride 105 Carbon Dioxide 26 BUN 25 H Creatinine 1.18 Glucose 143 H Calcium 8.4 L - Attending Attestation Seen and assessed. Agree with plan. Continue management for VALERIANO - Assessment and plan (1) VALERIANO (acute kidney injury) Current Visit: Yes Status: Acute (2) DVT prophylaxis Current Visit: Yes Status: Acute (3) Hyperkalemia Current Visit: Yes Status: Acute (4) Anemia Current Visit: Yes Status: Suspected Qualifiers: Anemia type: iron deficiency Iron deficiency anemia type: chronic blood loss Qualified Code(s): D50.0 - Iron deficiency anemia secondary to blood loss (chronic) (5) Decubitus ulcer Current Visit: Yes Status: Acute Qualifiers: Pressure injury location: lower back Pressure injury stage: unspecified pressure injury stage Laterality: right Qualified Code(s): L89.139 - Pressure ulcer of right lower back, unspecified stage - Time Spent With Patient Total time spent is greater than 50% in coordination of care (as documented) at patient's floor/unit and/or counseling patient:
[2017-10-21] MEDS ORDERED: *HR* HYDROcodone/Acet 5/325 mg TABLET PO PRN (21:08)
[2017-10-21] MEDS ORDERED: Acetaminophen 325 MG TABLET PO PRN (21:08)
[2017-10-21] MEDS ORDERED: Naloxone 0.4 MG/ML INJ IVP PRN (21:08)
[2017-10-21] MEDS: 0.9 % Sodium Chloride 1,000 ML IVC SCH (23:01)
[2017-10-22 01:17] LABS: BUN/Creatinine Ratio 21 (6-26); Blood Urea Nitrogen 25 mg/dL (8-23); Calcium 8.4 mg/dL (8.6-10.3); Carbon Dioxide 26 mEq/L (23-29); Chloride 105 mEq/L (98-107); Glucose 143 mg/dL (70-105); Osmolality,Calculated 289 (280-300); Potassium 3.8 mEq/L (3.5-5.1); Sodium 136 mEq/L (136-145); eGFR For Non-African Americans > 60 (> 60)
[2017-10-22 05:16] LABS: Basophils % 0.4 %; Eosinophils # 0.2 K/mcL (0.0-0.6); Hematocrit 24.8 % (37.5-50.1); Hemoglobin 7.5 g/dL (12.9-16.9); Immature Granulocytes % 1.1 % (0-4); Lymphocytes # 1.2 K/mcL (0.6-4.6); Lymphocytes % 16.7 %; Mean Corpuscular HGB Conc 30.2 g/dL (31.6-35.5); Mean Corpuscular Hemoglobin 22.7 pg (28.0-33.3); Mean Corpuscular Volume 75.2 fL (83.0-100.0); Mean Platelet Volume 9.3 fL (9.4-12.4); Monocytes # 0.6 K/mcL (0.0-1.3); Monocytes % 8.8 %; Neutrophils # 5.1 K/mcL (1.6-8.9); Platelet Count 313 K/mcL (140-400); Red Cell Distribution Width 20.7 % (11.5-14.5)
[2017-10-22 05:31] LABS: BUN/Creatinine Ratio 23 (6-26); Blood Urea Nitrogen 25 mg/dL (8-23); Calcium 8.4 mg/dL (8.6-10.3); Carbon Dioxide 27 mEq/L (23-29); Chloride 107 mEq/L (98-107); Glucose 105 mg/dL (70-105); Osmolality,Calculated 293 (280-300); Potassium 4.3 mEq/L (3.5-5.1); Sodium 139 mEq/L (136-145); eGFR For Non-African Americans > 60 (> 60)
[2017-10-22] MEDS: 0.9 % Sodium Chloride 1,000 ML IVC SCH (08:37)
--- NOTE | 2017-10-22 13:23 | Internal Med Progress Note ---
Hospitalist Progress Note - Encounter Date of Encounter: 10/22/17 Time of Encounter: 13:13 - Subjective Interval History: Patient seen and examined at bedside. Patient overnight events. Patient was started on IV fluids upon admission which are continued currently. She has no complaints: Denies chest pain, shortness of breath, abdominal pain, nausea, vomiting. Patient continues to have no return of previous rash that was on his lower extremities. He states his only medication is pravastatin. Patient has been afebrile. Denies any blood in his urine or stool, dark stools, or nausea. - Exam Vitals: Temp Pulse Resp BP Pulse Ox 98.1 F 77 19 119/52 98 10/22/17 11:03 10/22/17 11:03 10/22/17 11:03 10/22/17 11:03 10/22/17 11:03 Exam: Constitutional: No acute distress, Alert Psych: AAO x 3 HEENT: NCAT, EOMI Neck: supple, no JVD Cardio: regular rate and rhythm, +s1s2, no murmurs Resp: clear to ascultation bilaterally, Abd: soft, non tender/non distended, positive bowel sounds, no gaurding/reboud/ ridgitity Extremities: no clubbing/cyanosis/edema appreciated Neuro: Patient with no sensation or motor strength in his lower extremities Lymph: no cervical/supraclavicular adenopahty apprecitated Derm: no obvious rash or dermatological condition - Assessment and Plan (1) VALERIANO (acute kidney injury) Current Visit: Yes Status: Acute Assessment and Plan: - VALERIANO with BUNs/creatinine of 35/1.55, baseline creatinine of 0.8 but was noted to be elevated at 1.3 upon discharge in August - Cr 1.09 this am - Nephrology was contacted from rheumatology office, appreciate recommendations - Etiology unclear, possibly related to vasculitis versus prerenal - Potassium mildly elevated at 5.2, patient is having no symptoms; resolved this am - Mild non-nephrotic proteinuria as well as hematuria on urinalysis in rheumatology office - continue IVF for now pending nephro eval; appears euvolemic - Per rheumatology note, would not recommend prednisone at this time - We will trend labs (2) Hyperkalemia Current Visit: Yes Status: Acute Assessment and Plan: Hyperkalemia 5.2 on admission; now 4.3 He does have a history of hyperkalemia in the past and typically runs high fours to low fives We will continue to monitor (3) Anemia Current Visit: Yes Status: Suspected Assessment and Plan: - Acute on chronic anemia secondary to suspected chronic blood loss - H/H of 7.7/26.0 on admission baseline hemoglobin around 9 - hbg 7.5 this am - Patient denies any symptoms of melena, hematochezia, hematemesis however urinalysis shows microscopic hematuria - Denies history of CAD, will monitor with labs but not transfuse at this time. - Coags stable - transfuse < 7 - check iron studies, retic - follow cbc in am - Continue to monitor and await recommendations from nephrology for hematuria. - type and screen completed (4) Decubitus ulcer Current Visit: Yes Status: Acute Assessment and Plan: Chronic, consult wound care Secondary to paraplegia Present on admission (5) DVT prophylaxis Current Visit: Yes Status: Acute Assessment and Plan: scds due to anemia, high risk for bleed. DVT Prophylaxis: scds 2/2 anemia - Time Spent with Patient Total time spent is greater than 50% in coordination of care (as documented) at patient's floor/unit and/or counseling patient: 25 - 35 minutes Plan of Care Discussed with: patient Internal Medicine: Result - Labs CBC & Chem 7: 10/22/17 04:57 10/22/17 04:57 Labs: Short CBC 10/22/17 Range/Units 04:57 WBC 7.2 (4.3-11.1) K/mcL Hgb 7.5 L (12.9-16.9) g/dL Hct 24.8 L (37.5-50.1) % Plt Count 313 (140-400) K/mcL Neutrophils # 5.1 (1.6-8.9) K/mcL BMP 10/22/17 10/22/17 00:36 04:57 Sodium 136 139 Potassium 3.8 4.3 Chloride 105 107 Carbon Dioxide 26 27 BUN 25 H 25 H Creatinine 1.18 1.09 Glucose 143 H 105 Calcium 8.4 L 8.4 L - VTE Documentation of Mechanical Device: Graduated compression elastic hosiery Consult Discharge Plan - Plan Referrals: Shayan Oliva MD [Primary Care Provider] - (3) Anemia Qualifiers: Anemia type: iron deficiency Iron deficiency anemia type: chronic blood loss Qualified Code(s): D50.0 - Iron deficiency anemia secondary to blood loss ( chronic) (4) Decubitus ulcer Qualifiers: Pressure injury location: lower back Pressure injury stage: unspecified pressure injury stage Laterality: right Qualified Code(s): L89.139 - Pressure ulcer of right lower back, unspecified stage
--- NOTE | 2017-10-22 14:51 | Neurology - Consult Note ---
Date of Encounter: 10/22/17 Time of Encounter: 13:00 History of Present Illness Chief complaint: worsening creatine and anemia HPI: Mr. Klein is a 72 year old male PMHx paraplegia 2/2 thoracic aortic aneurysm with repair, renal artery stenosis, hypertension. He presented to [facility] real [facility] manager yesterday and was found to have worsening creatinine and anemia. [employer] sent him to [facility] for further evaluation. Patient had work-up for RF, TUNDE, CCP, Hep B/C, ANCA, C3/C4 outpatient, all of which were unremarkable. CT demonstrated chronic right renal artery stenosis without intrarenal stones or hydronephrosis. He has had C. Dif recently and was treated with steroids. His last use of antibiotics was in May, and was treated with vancomycin, rocephin. He does report weight loss of 20 lbs over the last year with decrease in appetite and worsening fatigue. Denies fever, chills, nausea, vomiting, diarrhea, chest pain, SOB, cough, abdominal pain. He straight caths himself at home without difficulty. Past Med Surg Social Fam HX - Past Medical History Medical history: cancer, coronary artery disease, hyperlipidemia, hypertension, other Additional medical history: Paraplegic Psychiatric history: no psych history - Past Surgical History Surgical History: other Additional surgical history: AAA repair - Social History Smoking Status: Former smoker Smokeless Tobacco Status: No Alcohol use: none Drug use: none - Family History Mother Adopted: No Living Status: Hx Family Cardiac Disorders: Yes Hx Family Respiratory Disorders: No Hx Family Cancer: No Hx Family GI Disorders: No Hx Family Endocrine Disorder: Yes Father Adopted: No Living Status: Hx Family Cardiac Disorders: Yes Hx Family Respiratory Disorders: No Hx Family Cancer: No Hx Family GI Disorders: No Hx Family Endocrine Disorder: No Medications and Allergies Aspirin [Lo-Dose Aspirin EC] 81 mg PO DAILY 10/22/17 [History] Multivit-Min/FA/Lycopen/Lutein [A Thru Z Select Men 50+ Tablet] 1 tab PO DAILY 10/22/17 [History] Pravastatin Sodium [Pravachol] 80 mg PO QPM 10/22/17 [History] 3 Allergy/AdvReac Type Severity Reaction Status Date / Time No Known Allergies Allergy Verified 09/07/17 14:06 All Systems: The remainder of the systems were reviewed and are negative - Constitutional Constitutional ROS IM: as per HPI - Nose, Mouth, Throat Nose, mouth and throat: as per HPI - Cardiovascular Cardiovascular ROS IM: as per HPI - Respiratory Respiratory IM: as per HPI - Gastrointestinal Gastrointestinal: as per HPI - Genitourinary Genitourinary ROS: as per HPI - Musculoskeletal Musculoskeletal ROS IM: as per HPI - Integumentary Integumentary IM: as per HPI - Neurological Neurological ROS: as per HPI - Endocrine Endocrine IM: as per HPI - Hematologic/Lymphatic Hematologic/Lymphatic pediatric: as per HPI Physical Examination - Vital Signs Vital Signs: Initial Vital Signs Temp Pulse Resp BP Pulse Ox 97.8 F 83 16 150/72 98 10/21/17 17:37 10/21/17 17:37 10/21/17 17:37 10/21/17 17:37 10/21/17 17:37 - Constitutional General appearance: comfortable - Neurologic Sensorimotor examination: other (paralysis from waist down. No signs of LE vasculitis. ) Detailed motor examination: full strength in all major muscle groups Motor examination - right side: 1/5: hip flexors, tibialis Anterior, quadriceps , toe extension (EHL), plantarflexion, 5/5: deltoids, biceps, triceps, wrist flexion, wrist extension, principal librarian Motor examination - left side: 1/5: hip flexors, principal librarian, quadriceps, tibialis Anterior, toe extension (EHL), plantarflexion, 5/5: deltoids, biceps, triceps, wrist flexion, wrist extension Detailed sensory examination: intact, light touch Mental Status Examination: awake, alert, oriented to person, oriented to place, oriented to time, follows commands appropriately, answers questions appropriately, no agnosia, no aphasia, no aproxia Cranial nerve examination: visual parsons intact, sensory to face intact, no facial asymmetry is present, no dysarthria, hearing is intact symmetrically, soft palate elevates bilaterally upon phonation, flexes SCM and trapezius muscles symmetrically with full power, tongue protrudes midline, no atrophy or facial fasiculations present Cerebellar examination: no dysmetria, performs finger to nose and heel to carmichael symmetrically without ataxia, no gait ataxia, no difficulty with rapid alternating movements Results - Laboratory Findings CBC and BMP: 10/22/17 04:57 10/22/17 04:57 Abnormal lab findings: Abnormal lab results RBC 3.30 M/mcL (4.19-5.50) L 10/22/17 04:57 Hgb 7.5 g/dL (12.9-16.9) L 10/22/17 04:57 Hct 24.8 % (37.5-50.1) L 10/22/17 04:57 MCV 75.2 fL (83.0-100.0) L 10/22/17 04:57 MCH 22.7 pg (28.0-33.3) L 10/22/17 04:57 MCHC 30.2 g/dL (31.6-35.5) L 10/22/17 04:57 RDW 20.7 % (11.5-14.5) H 10/22/17 04:57 MPV 9.3 fL (9.4-12.4) L 10/22/17 04:57 BUN 25 mg/dL (8-23) H 10/22/17 04:57 Calcium 8.4 mg/dL (8.6-10.3) L 10/22/17 04:57 Consult Discharge Plan - Plan Referrals: Shayan Oliva MD [Primary Care Provider] -
--- NOTE | 2017-10-22 15:29 | Nephrology Consult Note ---
<Doc Rodriguez - Last Filed: 10/22/17 16:09> Date of Encounter: 10/22/17 Time of Encounter: 13:30 Assessment and Plan (1) VALERIANO (acute kidney injury) Current Visit: Yes Status: Acute Patient has worsening creatinine and renal function with unknown etiology. ecw reviewed and he is negative for RF, TUNDE, ANCA, CCP, hep b/c. Complements 3/ [address] abdomen demonstrated chronic right renal artery stenosis without intrarenal stones or hydronephrosiis. VALERIANO etiology remains unknown. Patient's last antibiotics use was in May 2017, including ceftriaxone and vancomycin. He also reports weight loss and worsening fatigue. Although his hypocalcemia makes MM less likely, I recommend SPEP, UPEP to rule out multiple myeloma. Renal biopsy when patient's hemoglobin >9.0; transfuse if necessary. (2) Anemia Current Visit: Yes Status: Suspected Unknown source of anemia. Iron profile, folate, transferrin to determine. Correct as appropriate once etiology is known. Give Iron as appropriate. Goal hemogloin > 9.0 prior to renal biopsy. Transfuse if necessary. 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 At marketing operations manager, he was found to have worsening creatinine and anemia. UA demonstrated hematuria, protenuria. Outpatient rheumatology work-up reviewed and patient was unremarkable for RF, TUNDE, ANCA, CCP, Hep B/C, C3/C4. CT demonstrated chronic right renal artery stenosis without intrarenal stones nor hydronephrosis. Patient admits to decreasing appetite and 20 lb weight loss over the past year. He denies recent illness, headaches, blurry vision, fever, chills, nausea, vomiting, diarrhea, chest pain, SOB< cough. He performs straight catheter himself at home for voiding. He was recently diagnosed with C. dif, which resolve with prednisone. Last antibiotic use was in May 2017 including ceftriaxone and vancomycin. Denies dysuria or hematuria via the catheter. Had recent bilateral lower extremity vasculitis during episode of C. dif that has since resolved with the prednisone. Past Med Surg Social Fam HX - Past Medical History Medical history: cancer, coronary artery disease, hyperlipidemia, hypertension, other Additional medical history: Paraplegic Psychiatric history: no psych history - Past Surgical History Surgical History: other Additional surgical history: AAA repair - Social History Smoking Status: Former smoker Smokeless Tobacco Status: No Alcohol use: none Drug use: none - Family History Mother Adopted: No Living Status: Hx Family Cardiac Disorders: Yes Hx Family Respiratory Disorders: No Hx Family Cancer: No Hx Family GI Disorders: No Hx Family Endocrine Disorder: Yes Father Adopted: No Living Status: Hx Family Cardiac Disorders: Yes Hx Family Respiratory Disorders: No Hx Family Cancer: No Hx Family GI Disorders: No Hx Family Endocrine Disorder: No Medications and Allergies Aspirin [Lo-Dose Aspirin EC] 81 mg PO DAILY 10/22/17 [History] Multivit-Min/FA/Lycopen/Lutein [A Thru Z Select Men 50+ Tablet] 1 tab PO DAILY 10/22/17 [History] Pravastatin Sodium [Pravachol] 80 mg PO QPM 10/22/17 [History] 3 Allergy/AdvReac Type Severity Reaction Status Date / Time No Known Allergies Allergy Verified 09/07/17 14:06 Review of Systems All Systems: reviewed and no additional remarkable complaints except as stated Constitutional: as per HPI Nose, mouth and throat: as per HPI Cardiovascular: as per HPI Respiratory: as per HPI Gastrointestinal: as per HPI Genitourinary Male: as per HPI Musculoskeletal: as per HPI Integumentary: as per HPI Neurological: as per HPI Exam - Vital Signs Vital signs: Initial Vital Signs Temp Pulse Resp BP Pulse Ox 97.8 F 83 16 150/72 98 10/21/17 17:37 10/21/17 17:37 10/21/17 17:37 10/21/17 17:37 10/21/17 17:37 Vital Signs - Last 8 Hours Temp Pulse Resp BP Pulse Ox 10/22/17 11:03 98.1 F 77 19 119/52 98 10/22/17 07:30 96 Intake and Output 10/21/17 10/22/17 10/22/17 23:59 07:59 15:59 Intake Total 1720 / 1720 Output Total 300 / 300 275 / 275 250 / 250 Balance -300 / -300 -275 / -275 1470 / 1470 Intake: IV Fluids 1000 / 1000 0.9 % Sodium Chloride 1,000 ML 1000 / 1000 @ 100 mls/hr IVC .Q10H [facility] Rx#: [id number] Oral 720 / 720 Output: Urine 300 / 300 Straight Cath 275 / 275 250 / 250 Other: Meal Lunch Percent of Meal Consumed 90% Weight 69.8 kg 70.2 kg Patient Weight 10/22/17 23:59 Weight 70.2 kg - General Appearance General appearance: well-developed, appears started age, cachectic Neck: no JVD Respiratory: no kyphosis, no scoliosis Cardiology: no murmurs, no rub, no gallops, no edema, regular rate, regular rhythm, normal S1, normal S2 Gastrointestinal: normoactive bowel sounds, no tenderness, no guarding, no organomegaly, no masses Integumentary: no rash, warm and dry Neurologic: alert and oriented x3 Additional Comments: paraplegic from waist down. Musculoskeletal: no deformities, no erythema, no cyanosis, no clubbing Psychiatric: mood/affect appropriate, cooperative Results - Lab Results 10/22/17 04:57 10/22/17 04:57 Most recent lab results Calcium 8.4 mg/dL (8.6-10.3) L 10/22/17 04:57 Consult Discharge Plan - Plan Referrals: Shayan Oliva MD [Primary Care Provider] - <Kulwinder Tejada - Last Filed: 10/22/17 18:00> Date of Encounter: 10/22/17 Assessment and Plan (1) Microscopic hematuria Current Visit: Yes Status: Acute (2) Proteinuria Current Visit: Yes Status: Acute Qualifiers: Proteinuria type: persistent Qualified Code(s): R80.1 - Persistent proteinuria, unspecified (3) Paraplegia Current Visit: No Status: Chronic Exam - Vital Signs Vital signs: Initial Vital Signs Temp Pulse Resp BP Pulse Ox 97.8 F 83 16 150/72 98 10/21/17 17:37 10/21/17 17:37 10/21/17 17:37 10/21/17 17:37 10/21/17 17:37 Vital Signs - Last 8 Hours Temp Pulse Resp BP Pulse Ox 10/22/17 15:28 98.6 F 78 18 129/66 97 10/22/17 11:03 98.1 F 77 19 119/52 98 Intake and Output 10/22/17 10/22/17 10/22/17 07:59 15:59 23:59 Intake Total 1720 / 1720 Output Total 275 / 275 250 / 250 Balance -275 / -275 1470 / 1470 Intake: IV Fluids 1000 / 1000 0.9 % Sodium Chloride 1,000 ML 1000 / 1000 @ 100 mls/hr IVC .Q10H [facility] Rx#: [id number] Oral 720 / 720 Output: Straight Cath 275 / 275 250 / 250 Other: Meal Lunch Percent of Meal Consumed 90% Weight 70.2 kg Patient Weight 10/22/17 23:59 Weight 70.2 kg Results - Lab Results 10/22/17 04:57 10/22/17 04:57 Most recent lab results Calcium 8.4 mg/dL (8.6-10.3) L 10/22/17 04:57
[2017-10-23 05:30] LABS: Basophils % 0.6 %; Eosinophils # 0.3 K/mcL (0.0-0.6); Eosinophils % 3.6 %; Hematocrit 24.4 % (37.5-50.1); Hemoglobin 7.3 g/dL (12.9-16.9); Immature Granulocytes % 1.4 % (0-4); Immature Reticulocyte % 23.9 % (11.0-38.0); Lymphocytes # 1.1 K/mcL (0.6-4.6); Lymphocytes % 15.9 %; Mean Corpuscular HGB Conc 29.9 g/dL (31.6-35.5); Mean Corpuscular Hemoglobin 22.8 pg (28.0-33.3); Mean Corpuscular Volume 76.3 fL (83.0-100.0); Mean Platelet Volume 9.6 fL (9.4-12.4); Monocytes # 0.5 K/mcL (0.0-1.3); Monocytes % 6.8 %; Neutrophils # 5.2 K/mcL (1.6-8.9); Platelet Count 322 K/mcL (140-400); Red Cell Distribution Width 20.9 % (11.5-14.5); Retculocyte # 0.04 M/mcL (0.05-0.10); Reticulocyte % 1.4 % (1.6-2.8); Segmented Neutrophils % 71.7 %
[2017-10-23 06:09] LABS: % Iron Saturation 8 % (20-55); BUN/Creatinine Ratio 19 (6-26); Blood Urea Nitrogen 20 mg/dL (8-23); Calcium 8.2 mg/dL (8.6-10.3); Carbon Dioxide 25 mEq/L (23-29); Chloride 111 mEq/L (98-107); Glucose 89 mg/dL (70-105); Iron 11 mcg/dL (65-175); Osmolality,Calculated 292 (280-300); Potassium 4.2 mEq/L (3.5-5.1); Sodium 140 mEq/L (136-145); Transferrin 102 mg/dL (203-362); eGFR For Non-African Americans > 60 (> 60)
[2017-10-23] MEDS ORDERED: 0.9 % Sodium Chloride 250 ML ONE (08:24)
--- NOTE | 2017-10-23 08:36 | Internal Med Progress Note ---
Hospitalist Progress Note - Encounter Date of Encounter: 10/23/17 Time of Encounter: 08:29 - Subjective Interval History: Patient seen and examined at bedside. Patient overnight events. Patient states he feels well this morning. Denies any chest pain, short of breath, nausea, vomiting, diarrhea. Patient has been afebrile. - Exam Vitals: Temp Pulse Resp BP Pulse Ox 98.5 F 84 16 124/63 95 10/23/17 07:04 10/23/17 07:04 10/23/17 07:04 10/23/17 07:04 10/23/17 07:04 Exam: Constitutional: No acute distress, Alert Psych: AAO x 3 HEENT: NCAT, EOMI Neck: supple, no JVD Cardio: regular rate and rhythm, +s1s2, no murmurs/rubs/gallops, no JVD Resp: clear to ascultation bilaterally, no wheezes/rales/ronchi Abd: soft, non tender/non distended, positive bowel sounds, no gaurding/reboud/ ridgitity Extremities: no clubbing/cyanosis/edema appreciated Neuro: no focal deficits appreciated, patient with chronic loss of sensation and motor strength in his lower extremities secondary to aortic repair - Assessment and Plan (1) VALERIANO (acute kidney injury) Current Visit: Yes Status: Acute Assessment and Plan: - VALERIANO with BUNs/creatinine of 35/1.55, baseline creatinine of 0.8 but was noted to be elevated at 1.3 upon discharge in August - Cr 1.07 this am - Nephrology following appreciate recommendations - need to rule out GN per nephro - needs inpt renal bx; however needs hemoglobin over 9.0; will transfuse1 unit prbc and recheck hemoglobin; likely needs 2 units - Labs show iron deficiency anemia; will start iron supplementation; will check fobt - Potassium mildly elevated at 5.2, patient is having no symptoms; resolved this am - Mild non-nephrotic proteinuria as well as hematuria on urinalysis in rheumatology office - no need for further ivf - Per rheumatology note, would not recommend prednisone at this time - We will trend labs (2) Hyperkalemia Current Visit: Yes Status: Acute Assessment and Plan: Hyperkalemia 5.2 on admission; now 4.2 He does have a history of hyperkalemia in the past We will continue to monitor (3) Anemia Current Visit: Yes Status: Suspected Assessment and Plan: - Acute on chronic anemia secondary to suspected chronic blood loss - H/H of 7.7/26.0 on admission baseline hemoglobin around 9 - hbg down to 7.3 this am - labs show iron def anemia; will start supplement - will check fob for gi source of blood loss - Patient denies any symptoms of melena, hematochezia, hematemesis however urinalysis shows microscopic hematuria - Denies history of CAD - Coags stable - transfuse to hbg of 9 for renal biopsy - retic elevated - follow cbc in am - type and screen completed (4) Decubitus ulcer Current Visit: Yes Status: Acute (5) DVT prophylaxis Current Visit: Yes Status: Acute Assessment and Plan: scds due to anemia, high risk for bleed. - Time Spent with Patient Total time spent is greater than 50% in coordination of care (as documented) at patient's floor/unit and/or counseling patient: 25 - 35 minutes Plan of Care Discussed with: patient Internal Medicine: Result - Labs CBC & Chem 7: 10/23/17 04:16 10/23/17 04:16 Labs: Short CBC 10/23/17 Range/Units 04:16 WBC 7.2 (4.3-11.1) K/mcL Hgb 7.3 L (12.9-16.9) g/dL Hct 24.4 L (37.5-50.1) % Plt Count 322 (140-400) K/mcL Neutrophils # 5.2 (1.6-8.9) K/mcL BMP 10/23/17 04:16 Sodium 140 Potassium 4.2 Chloride 111 H Carbon Dioxide 25 BUN 20 Creatinine 1.07 Glucose 89 Calcium 8.2 L - VTE Documentation of Mechanical Device: Graduated compression elastic hosiery Consult Discharge Plan - Plan Referrals: Pj,Shayan Lubin MD [Primary Care Provider] - (3) Anemia Qualifiers: Anemia type: iron deficiency Iron deficiency anemia type: chronic blood loss Qualified Code(s): D50.0 - Iron deficiency anemia secondary to blood loss ( chronic) (4) Decubitus ulcer Qualifiers: Pressure injury location: lower back Pressure injury stage: unspecified pressure injury stage Laterality: right Qualified Code(s): L89.139 - Pressure ulcer of right lower back, unspecified stage
--- NOTE | 2017-10-23 08:47 | Nephrology Progress Note ---
Date of Encounter: 10/23/17 Time of Encounter: 08:30 - Assessment and Plan (1) VALERIANO (acute kidney injury) Current Visit: Yes Status: Acute Improved. Patient's kidney function continues to be marginally elevated from baseline creatinine of 0.8. Currently creatinine is 1.07. Outpatient workup was negative (see note from yesterday). We will continue plan for renal biopsy once his hemoglobin is greater than 9.0. Spoke with Dr. Delaney, who will infuse 2 units RBCs today. We will recheck his hemoglobin tomorrow morning and will continue with renal biopsy if Hb>9. IR is consulted for CT guided renal biopsy tomorrow morning. Nothing by mouth after midnight. Patient is agreeable to plan. (2) Anemia Current Visit: Yes Status: Suspected anemia work up demonstrates severe iron deficiency anemia. No signs of active bleed noted. Spoke with Dr. Delaney, who will transfuse 2 units RBC today and start ferrous sulfate. Pending FOBT. Patient self-caths at home and denies hematuria, dysuria, but UA was positive for RBCs and protein at coat agent. Repeat UA as appropriate. Qualifiers: Anemia type: iron deficiency Iron deficiency anemia type: chronic blood loss Qualified Code(s): D50.0 - Iron deficiency anemia secondary to blood loss (chronic) (3) Hypocalcemia Current Visit: Yes Status: Acute calcium = 82/ 8.4 We will obtain PTH, vit D 25-OH, phosp, albumin for corrected calcium. Supplement with calcium as appropriate. Subjective Principal diagnosis: Acute kidney injury Interval history: Pleasant 72-year-old male past medical history of paraplegia presented from the coat agent's office due to worsening creatinine and anemia. Today, he continues to state that he is doing well. He denies any headaches, blurry vision, nausea, vomiting, diarrhea, chest pain, shortness of breath. He is able to tolerate by mouth intake. His hemoglobin continues to be decreased and patient denies any active bleeding. He self catheters himself and denies hematuria, dysuria. She denies any recent vomiting, nausea, fevers, chills. Last colonoscopy was 5 years ago and he was unremarkable. Patient is once again informed about recommendations of renal biopsy once his hemoglobin is greater than 9 and he is agreeable. Objective - Vital Signs Vital signs: Vital Signs Temp Pulse Resp BP Pulse Ox 10/23/17 07:04 98.5 F 84 16 124/63 95 10/23/17 03:30 98.2 F 86 17 136/66 95 10/22/17 23:54 98.6 F 83 17 132/60 94 10/22/17 19:21 98.4 F 82 17 131/61 94 10/22/17 15:28 98.6 F 78 18 129/66 97 10/22/17 11:03 98.1 F 77 19 119/52 98 Intake and Output 10/22/17 10/23/17 10/23/17 23:59 07:59 15:59 Intake Total 480 / 480 Output Total 650 / 650 600 / 600 Balance -170 / -170 -600 / -600 Intake: Oral 480 / 480 Output: Straight Cath 650 / 650 600 / 600 Other: Meal Dinner Percent of Meal Consumed 50% Weight 70.5 kg - General Appearance General appearance: Present: well-developed, well-nourished, appears started age Neck: Present: no JVD, no thyromegaly, no carotid bruit, supple Respiratory: Present: clear Cardiology: Present: no murmurs, no rub, no gallops, no edema, regular rate, regular rhythm, normal S1, normal S2 Gastrointestinal: Present: normoactive bowel sounds, no tenderness, no guarding Integumentary: Present: no rash, warm and dry Neurologic: Present: no asterixis, alert and oriented x3 Additional Comments: Patient is paraplegic from the waist down, no new focal deficits. Musculoskeletal: Present: no deformities, no erythema, no cyanosis, no clubbing Psychiatric: Present: mood/affect appropriate, cooperative - Lab 10/23/17 04:16 10/23/17 04:16 Most recent lab results Calcium 8.2 mg/dL (8.6-10.3) L 10/23/17 04:16 - VTE Documentation of Mechanical Device: Graduated compression elastic hosiery Consult Discharge Plan - Plan Referrals: Shayan Oliva MD [Primary Care Provider] -
[2017-10-23 15:48] LABS: Hematocrit 30.7 % (37.5-50.1); Hemoglobin 9.2 g/dL (12.9-16.9); Mean Corpuscular Volume 79.9 fL (83.0-100.0); Mean Platelet Volume 9.6 fL (9.4-12.4); Platelet Count 340 K/mcL (140-400); Red Blood Count 3.84 M/mcL (4.19-5.50); Red Cell Distribution Width 21.2 % (11.5-14.5)
[2017-10-24 05:52] LABS: Basophils # 0.1 K/mcL (0.0-0.2); Basophils % 0.7 %; Eosinophils # 0.3 K/mcL (0.0-0.6); Eosinophils % 3.4 %; Hematocrit 26.3 % (37.5-50.1); Immature Granulocytes % 1.2 % (0-4); Lymphocytes # 1.1 K/mcL (0.6-4.6); Lymphocytes % 14.5 %; Mean Corpuscular HGB Conc 30.4 g/dL (31.6-35.5); Mean Corpuscular Hemoglobin 23.3 pg (28.0-33.3); Mean Corpuscular Volume 76.7 fL (83.0-100.0); Mean Platelet Volume 8.9 fL (9.4-12.4); Monocytes # 0.5 K/mcL (0.0-1.3); Monocytes % 7.3 %; Neutrophils # 5.4 K/mcL (1.6-8.9); Platelet Count 304 K/mcL (140-400); Red Blood Count 3.43 M/mcL (4.19-5.50); Red Cell Distribution Width 21.4 % (11.5-14.5); Segmented Neutrophils % 72.9 %
[2017-10-24 06:11] LABS: Albumin 2.5 g/dL (3.5-5.7); BUN/Creatinine Ratio 21 (6-26); Blood Urea Nitrogen 21 mg/dL (8-23); Calcium 8.4 mg/dL (8.6-10.3); Carbon Dioxide 24 mEq/L (23-29); Chloride 110 mEq/L (98-107); Glucose 97 mg/dL (70-105); Osmolality,Calculated 293 (280-300); Potassium 4.2 mEq/L (3.5-5.1); Sodium 140 mEq/L (136-145); eGFR For Non-African Americans > 60 (> 60)
[2017-10-24] MEDS ORDERED: 0.9 % Sodium Chloride 250 ML ONE (08:36)
[2017-10-24 08:43] LABS: INR 1.2; Prothrombin Time 13.8 Seconds (9.4-12.1)
--- NOTE | 2017-10-24 08:46 | Nephrology Progress Note ---
Date of Encounter: 10/24/17 Time of Encounter: 08:45 - Assessment and Plan (1) VALERIANO (acute kidney injury) Current Visit: Yes Status: Acute Current Visit: Yes Status: Acute Improved. Patient's kidney function continues to be marginally elevated from baseline creatinine of 0.8. Currently creatinine is 1.02. Outpatient workup was negative (see note from yesterday). We will continue plan for renal biopsy once his hemoglobin is greater than 9.0. Spoke with Dr. Delaney. 1 unit RBC given yesterday and Hb improved to 9.2. However , Hb dropped to 8.0 this morning. Another unit of blood is to be given and Renal biopsy to be performed if repeat Hb >9.0 Keep patient nothing by mouth until after transfusion. Patient is agreeable to plan. (2) Anemia Current Visit: Yes Status: Suspected anemia work up demonstrates severe iron deficiency anemia. No signs of active bleed noted. FOBT negative. unknown source of active bleeding. Hb dropped back to 8.0, after improving to 9.2 post 1 unit RBC yesterday. I suspect the repeat 9.2 after 1 unit of RBC might be a laboratory error. Patient is to receive another unit of RBC this AM and repeat H/H. Recommend consult to hematology due to abnormal hemoglobin levels without source of active bleeding. Will continue plan for renal biopsy if Hb> 9.0 after unit of RBC. Qualifiers: Anemia type: iron deficiency Iron deficiency anemia type: chronic blood loss Qualified Code(s): D50.0 - Iron deficiency anemia secondary to blood loss (chronic) (3) Hypocalcemia Current Visit: Yes Status: Acute Corrected calcium 9.6 PTH and phosphorus WNL. 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 He is doing well today. He denies any headaches, blurry vision, nausea, vomiting, diarrhea , chest pain, shortness of breath. He is able to tolerate by mouth intake. His hemoglobin continues to be decreased and patient denies any active bleeding. He self catheters himself and denies hematuria, dysuria. He denies any recent vomiting, nausea, fevers, chills. Last colonoscopy was 5 years ago and he was unremarkable. He is informed about drop in Hb and will require another unit of blood and is agreeable. No further acute complaints Objective - Vital Signs Vital signs: Vital Signs Temp Pulse Resp BP Pulse Ox 10/24/17 07:19 98.1 F 82 18 124/68 94 10/24/17 04:28 99.1 F 88 14 115/51 95 10/23/17 22:05 99.5 F 88 18 131/64 95 10/23/17 18:26 99.3 F 93 16 133/60 96 10/23/17 16:35 99.1 F 81 16 146/70 96 10/23/17 12:41 98.1 F 88 20 157/74 97 10/23/17 10:49 98.4 F 86 16 123/62 96 10/23/17 09:40 98.5 F 82 19 122/55 94 10/23/17 09:25 98.1 F 88 20 135/65 95 Intake and Output 10/23/17 10/24/17 10/24/17 23:59 07:59 15:59 Intake Total 120 / 120 Output Total 560 / 560 400 / 400 300 / 300 Balance -440 / -440 -400 / -400 -300 / -300 Intake: Oral 120 / 120 Output: Straight Cath 560 / 560 400 / 400 300 / 300 Other: Meal Dinner Percent of Meal Consumed 85% Weight 71.2 kg - General Appearance General appearance: Present: well-developed, well-nourished, appears started age Neck: Present: no JVD, no thyromegaly, no carotid bruit, supple Respiratory: Present: no kyphosis, no scoliosis Cardiology: Present: no murmurs, no rub, no gallops, no edema, regular rate, regular rhythm, normal S1, normal S2 Gastrointestinal: Present: normoactive bowel sounds, no tenderness Integumentary: Present: no rash, warm and dry Neurologic: Present: alert and oriented x3 Additional Comments: paraplegic from waist down. No new focal deficits. Musculoskeletal: Present: no deformities, no erythema, no cyanosis, no clubbing Psychiatric: Present: mood/affect appropriate, cooperative - Lab 10/24/17 05:34 10/24/17 05:34 Most recent lab results Calcium 8.4 mg/dL (8.6-10.3) L 10/24/17 05:34 Phosphorus 3.0 mg/dL (2.7-4.5) 10/24/17 05:34 - VTE Documentation of Mechanical Device: Graduated compression elastic hosiery Consult Discharge Plan - Plan Referrals: Shayan Oliva MD [Primary Care Provider] -
--- NOTE | 2017-10-24 09:25 | Physician Discharge Referral ---
Home Health/Hosp Referral Info Transfer to: Home Health Provider in Charge Post Discharge: PCP (needs nursing) - Diagnosis (1) VALERIANO (acute kidney injury) Status: Acute (2) Hyperkalemia Status: Acute (3) Anemia Status: Suspected (4) Decubitus ulcer Status: Acute (5) DVT prophylaxis Status: Acute - Respiratory Orders Smoking Cessation: Smoking cessation has been advised. For more information, call the [employer] Tobacco Quit Line at 6-868-IQOA-NOW. - Transfer Medications Home Medications: Aspirin [Lo-Dose Aspirin EC] 81 mg PO DAILY 10/22/17 [History] Multivit-Min/FA/Lycopen/Lutein [A Thru Z Select Men 50+ Tablet] 1 tab PO DAILY 10/22/17 [History] Pravastatin Sodium [Pravachol] 80 mg PO QPM 10/22/17 [History] Allergies/Adverse Reactions: 3 Allergy/AdvReac Type Severity Reaction Status Date / Time No Known Allergies Allergy Verified 09/07/17 14:06 Certification: Further, I certify that my clinical findings support that this patient is homebound (i.e. absences from home require considerable and taxing effort and are for medical reasons or rastafarian services or infrequently or short duration when for other reasons) because: Homebound Reason: Patient requires assistance of a person or device to safely leave home Attestation: My signature below is to certify that this patient is under my care and that I, or nurse practitioner, or a physician's butcher's assistant working with me, has a face-to -face encounter with this patient.
--- NOTE | 2017-10-24 09:27 | Internal Med Progress Note ---
Hospitalist Progress Note - Encounter Date of Encounter: 10/24/17 Time of Encounter: 09:25 - Subjective Interval History: Patient seen and examined at bedside. Patient overnight events. Patient with no complaints of snoring. Patient was transfused 1 unit of packed red blood cells yesterday during decreased hemoglobin to over 9.0; CBC after transfusion was 9.2 however this morning is 8.0. Patient will be transfused this morning. Patient for a kidney biopsy today. Patient denies any chest pain, shortness of breath, nausea, vomiting, diarrhea. Patient has been afebrile. - Exam Vitals: Temp Pulse Resp BP Pulse Ox 98.5 F 82 18 128/56 95 10/24/17 09:04 10/24/17 09:04 10/24/17 09:04 10/24/17 09:04 10/24/17 09:04 Exam: Constitutional: No acute distress, Alert, no palor Psych: AAO x 3 HEENT: NCAT, EOMI Neck: supple, no JVD Cardio: regular rate and rhythm, +s1s2 Resp: clear to ascultation bilaterally Abd: soft, non tender/non distended, positive bowel sounds Extremities: no clubbing/cyanosis/edema appreciated Neuro: no focal deficits appreciated, patient with chronic loss of sensation and motor strength which is chronic due to he papaplegia - Assessment and Plan (1) VALERIANO (acute kidney injury) Current Visit: Yes Status: Acute Assessment and Plan: - VALERIANO with BUNs/creatinine of 35/1.55, baseline creatinine of 0.8 but was noted to be elevated at 1.3 upon discharge in August - Cr 1.02 this am - Nephrology following appreciate recommendations - needs inpt renal bx; however needs hemoglobin over 9.0; received 1 unit yesterday with hemoglobin 9.2 posttransfusion however hemoglobin 8.0 this morning we will transfuse additional unit for biopsy - CT guided biopsy renal bx to rule out GN - Labs show iron deficiency anemia; will start iron supplementation; FOB negative - Potassium mildly elevated at 5.2 on admission, patient is having no symptoms; resolved - Mild non-nephrotic proteinuria as well as hematuria on urinalysis in rheumatology office - no need for further ivf - Per rheumatology note, would not recommend prednisone at this time - We will trend labs (2) Hyperkalemia Current Visit: Yes Status: Acute Assessment and Plan: Hyperkalemia 5.2 on admission; now 4.2 He does have a history of hyperkalemia in the past We will continue to monitor (3) Anemia Current Visit: Yes Status: Suspected Assessment and Plan: - Acute on chronic anemia secondary to suspected chronic blood loss - H/H of 7.7/26.0 on admission baseline hemoglobin around 9 - hbg down to 7.3 yesterday and transfused one unit prbcs to hbg of 9.2; however 8.0 this am; will transfuse additional unit for biopsy - labs show iron def anemia; will start supplement orally, may need IV - stool negative for occult blood - will consult hematology for evaluation of anemia and recommendations - Patient denies any symptoms of melena, hematochezia, hematemesis however urinalysis shows microscopic hematuria - Denies history of CAD - Coags stable - transfuse to hbg of 9 for renal biopsy - retic decreased - follow cbc in am - type and screen completed (4) Decubitus ulcer Current Visit: Yes Status: Acute Assessment and Plan: Chronic, consult wound care Secondary to paraplegia Present on admission (5) DVT prophylaxis Current Visit: Yes Status: Acute Assessment and Plan: scds due to anemia, high risk for bleed. - Time Spent with Patient Total time spent is greater than 50% in coordination of care (as documented) at patient's floor/unit and/or counseling patient: 25 - 35 minutes Internal Medicine: Result - Labs CBC & Chem 7: 10/24/17 05:34 10/24/17 05:34 Labs: Short CBC 10/23/17 10/24/17 Range/Units 13:38 05:34 WBC 8.4 7.4 (4.3-11.1) K/mcL Hgb 9.2 L D 8.0 L (12.9-16.9) g/dL Hct 30.7 L 26.3 L (37.5-50.1) % Plt Count 340 304 (140-400) K/mcL Neutrophils # 5.4 (1.6-8.9) K/mcL BMP 10/24/17 05:34 Sodium 140 Potassium 4.2 Chloride 110 H Carbon Dioxide 24 BUN 21 Creatinine 1.02 Glucose 97 Calcium 8.4 L Liver Function 10/24/17 Range/Units 05:34 Albumin 2.5 L (3.5-5.7) g/dL - ABG Interpretation ABG results: PT/INR, D-dimer PT 13.8 Seconds (9.4-12.1) H 10/24/17 08:28 - VTE Documentation of Mechanical Device: Graduated compression elastic hosiery Consult Discharge Plan - Plan Referrals: Shayan Oliva MD [Primary Care Provider] - (3) Anemia Qualifiers: Anemia type: iron deficiency Iron deficiency anemia type: chronic blood loss Qualified Code(s): D50.0 - Iron deficiency anemia secondary to blood loss ( chronic) (4) Decubitus ulcer Qualifiers: Pressure injury location: lower back Pressure injury stage: unspecified pressure injury stage Laterality: right Qualified Code(s): L89.139 - Pressure ulcer of right lower back, unspecified stage
[2017-10-24 12:42] LABS: Hematocrit 30.3 % (37.5-50.1); Hemoglobin 9.3 g/dL (12.9-16.9); Mean Corpuscular HGB Conc 30.7 g/dL (31.6-35.5); Mean Corpuscular Hemoglobin 23.8 pg (28.0-33.3); Mean Corpuscular Volume 77.5 fL (83.0-100.0); Mean Platelet Volume 9.6 fL (9.4-12.4); Platelet Count 303 K/mcL (140-400); Red Blood Count 3.91 M/mcL (4.19-5.50)
--- NOTE | 2017-10-24 13:22 | Oncology Inp Consult Note ---
<Jung Akbar - Last Filed: 10/24/17 15:55> Date of Encounter: 10/24/17 Time of Encounter: 13:18 Assessment and Plan (1) Anemia Status: Acute Assessment and plan: From patients history he has chronic anemia Patient's baseline hemoglobin is around 8-9. His black mill operator found his hemoglobin to be 7.7. Patient denied medication, melena, hemoptysis, hematemesis Patient denied bleeding from his decubitus ulcers Iron panel shows iron deficiency with a percent saturation of 8 and total iron level of 11 Patient's reticulocyte percent is 1.4 with reticulocyte hemoglobin equivalent 25.4 Patient does not have a B12, ferritin, we will order today. elevated ESR CRP Patient has adequate white blood cells, platelets. INR within normal limits There is poor bone marrow response to patient's anemia. Likely patient's anemia secondary to iron deficiency anemia along with likely anemia of chronic disease as patient's chronic decubitus ulcers where the past year and was on IV antibiotics for osteomyelitis in May. Recommend consulting GI for to rule out GI bleed. Ordered haptoglobin, spep, serum free light chains, ldh, fecal hemocult. Qualifiers: Anemia type: iron deficiency Iron deficiency anemia type: chronic blood loss Qualified Code(s): D50.0 - Iron deficiency anemia secondary to blood loss (chronic) (2) VALERIANO (acute kidney injury) Status: Acute Assessment and plan: Patient was seen to have elevated creatinine of 1.5 high by rheumatology Patient's baseline serum creatinine 0.7 He developed a slowly rising serum creatinine and microscopic hematuria and proteinuria and there was concern for glomerulonephritis Patient's serum creatinine improved with IV fluids There is concern for IgA vasculitis as stated by black mill operator. Patient has had a negative rheumatology workup outpatient with normal which would factor, and a, ANCA, CCP, hepatitis B/C, complement. Nephrology recommended renal biopsy which patient will undergo today - Data of Consult Patient: new to practice Consult date: 10/24/17 Requesting Physician: Alejandro Melton Primary Care Provider: Shayan Oliva MD - Consult Narrative Reason for consult: Anemia History of present illness: Mr. Klein is a 72 year old male was sent to the emergency room by his black mill operator after finding with worsening renal function on his BMP. Patient has a history of paraplegia secondary to thoracic aortic aneurysm repair, renal artery stenosis. He reports he did not have any symptoms when he was sent to the emergency room. He denied headache, eye pain, blurry vision, ear pain, ear discharge, sore throat, neck pain, fevers, chills, dizziness, shortness of breath, sputum production, chest pain, palpitations, abdominal pain, nausea, vomiting, diarrhea, or new onset of numbness, tingling, weakness. In August patient was diagnosed with C. 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 He is followed by Dr. Cordon and was on prednisone for a vasculitic rash. He reports total urinary and bowel incontinence. Patient straight catheters himself. He denies hematochezia, melena, hemoptysis, hematemesis, easy bruising, mucosal bleeding, ecchymosis. He denies a history of any hematologic disorders. He denies family history of hematologic disorders. Patient has 3 stage III ulcers in his sacral region Past Med Surg Social Fam HX - Past Medical History Medical history: cancer, coronary artery disease, hyperlipidemia, hypertension, other Additional medical history: Paraplegic Psychiatric history: no psych history - Past Surgical History Surgical History: other Additional surgical history: AAA repair - Social History Smoking Status: Former smoker Smokeless Tobacco Status: No Alcohol use: none Drug use: none - Family History Mother Adopted: No Living Status: Hx Family Cardiac Disorders: Yes Hx Family Respiratory Disorders: No Hx Family Cancer: No Hx Family GI Disorders: No Hx Family Endocrine Disorder: Yes Father Adopted: No Living Status: Hx Family Cardiac Disorders: Yes Hx Family Respiratory Disorders: No Hx Family Cancer: No Hx Family GI Disorders: No Hx Family Endocrine Disorder: No Medications and Allergies Aspirin [Lo-Dose Aspirin EC] 81 mg PO DAILY 10/22/17 [History] Multivit-Min/FA/Lycopen/Lutein [A Thru Z Select Men 50+ Tablet] 1 tab PO DAILY 10/22/17 [History] Pravastatin Sodium [Pravachol] 80 mg PO QPM 10/22/17 [History] 3 Allergy/AdvReac Type Severity Reaction Status Date / Time No Known Allergies Allergy Verified 09/07/17 14:06 All systems: reviewed and no additional remarkable complaints except as stated Oncology - Exam - Constitutional Vitals: Temp Pulse Resp BP Pulse Ox 98.3 F 76 16 147/71 95 10/24/17 11:20 10/24/17 11:20 10/24/17 11:20 10/24/17 11:20 10/24/17 11:20 - Additional findings Additional findings: General: Pleasant without distress HEENT: Head atraumatic, normocephalic, EOMI, PERRL, neck nontender to palpation , absent lymphadenopathy, Moist Mucous Membranes, Heart: Regular rate and rhythm with no murmur Lungs: Clear to auscultation bilaterally Abdomen: Soft nontender, nondistended positive bowel sounds. Large scar in the left abdomen secondary to abdominal aortic aneurysm repair surgery Skin: Stage III decubitus ulcers on his sacrum. Extremities: Mild bilateral ankle edema. Neuro: Alert oriented 3. Patient has complete numbness and loss of function below his umbilicus. Upper extremity strength 4 out of 5 bilaterally. Upper extremity sensation intact. Vascular: Pedal and radial pulses 2 out of 4 Oncology - Results Labs: 3 10/24/17 10/24/17 10/24/17 12:07 08:28 05:34 WBC 7.8 RBC 3.91 L Hgb 9.3 L Hct 30.3 L MCV 77.5 L MCH 23.8 L MCHC 30.7 L RDW 21.0 H Plt Count 303 MPV 9.6 Reticulocyte # Immature Gran % Seg Neutrophils % Lymphocytes % Monocytes % Eosinophils % Basophils % Neutrophils # Lymphocytes # Monocytes # Eosinophils # Basophils # Percent Retic Immature Retic Fraction Retic Hgb Equivalent PT 13.8 H INR 1.2 Sodium Potassium Chloride Carbon Dioxide BUN Creatinine Est GFR ( Amer) Est GFR (Non-Af Amer) BUN/Creatinine Ratio Glucose Calculated Osmolality Calcium Phosphorus Iron % Saturation Transferrin Albumin 25-OH Vitamin D Total Folate PTH Intact 20.1 Nasal Screen MRSA (PCR) Stool Occult Blood Blood Type Antibody Screen Crossmatch 3 10/24/17 10/24/17 10/24/17 05:34 05:34 05:34 WBC 7.4 RBC 3.43 L Hgb 8.0 L Hct 26.3 L MCV 76.7 L MCH 23.3 L MCHC 30.4 L RDW 21.4 H Plt Count 304 MPV 8.9 L Reticulocyte # Immature Gran % 1.2 Seg Neutrophils % 72.9 Lymphocytes % 14.5 Monocytes % 7.3 Eosinophils % 3.4 Basophils % 0.7 Neutrophils # 5.4 Lymphocytes # 1.1 Monocytes # 0.5 Eosinophils # 0.3 Basophils # 0.1 Percent Retic Immature Retic Fraction Retic Hgb Equivalent PT INR Sodium 140 Potassium 4.2 Chloride 110 H Carbon Dioxide 24 BUN 21 Creatinine 1.02 Est GFR ( Amer) > 60 Est GFR (Non-Af Amer) > 60 BUN/Creatinine Ratio 21 Glucose 97 Calculated Osmolality 293 Calcium 8.4 L Phosphorus 3.0 Iron % Saturation Transferrin Albumin 2.5 L 25-OH Vitamin D Total 37 Folate PTH Intact Nasal Screen MRSA (PCR) Stool Occult Blood Blood Type Antibody Screen Crossmatch 3 10/23/17 10/23/17 10/23/17 13:38 13:15 10:12 WBC 8.4 RBC 3.84 L Hgb 9.2 L D Hct 30.7 L MCV 79.9 L MCH 24.0 L MCHC 30.0 L RDW 21.2 H Plt Count 340 MPV 9.6 Reticulocyte # Immature Gran % Seg Neutrophils % Lymphocytes % Monocytes % Eosinophils % Basophils % Neutrophils # Lymphocytes # Monocytes # Eosinophils # Basophils # Percent Retic Immature Retic Fraction Retic Hgb Equivalent PT INR Sodium Potassium Chloride Carbon Dioxide BUN Creatinine Est GFR ( Amer) Est GFR (Non-Af Amer) BUN/Creatinine Ratio Glucose Calculated Osmolality Calcium Phosphorus Iron % Saturation Transferrin Albumin 25-OH Vitamin D Total Folate PTH Intact Nasal Screen MRSA (PCR) Negative Stool Occult Blood Negative Blood Type Antibody Screen Crossmatch 3 10/23/17 10/23/17 10/22/17 04:16 04:16 16:28 WBC 7.2 RBC 3.20 L Hgb 7.3 L Hct 24.4 L MCV 76.3 L MCH 22.8 L MCHC 29.9 L RDW 20.9 H Plt Count 322 MPV 9.6 Reticulocyte # 0.04 L Immature Gran % 1.4 Seg Neutrophils % 71.7 Lymphocytes % 15.9 Monocytes % 6.8 Eosinophils % 3.6 Basophils % 0.6 Neutrophils # 5.2 Lymphocytes # 1.1 Monocytes # 0.5 Eosinophils # 0.3 Basophils # 0.0 Percent Retic 1.4 L Immature Retic Fraction 23.9 Retic Hgb Equivalent 25.4 L PT INR Sodium 140 Potassium 4.2 Chloride 111 H Carbon Dioxide 25 BUN 20 Creatinine 1.07 Est GFR ( Amer) > 60 Est GFR (Non-Af Amer) > 60 BUN/Creatinine Ratio 19 Glucose 89 Calculated Osmolality 292 Calcium 8.2 L Phosphorus Iron 11 L % Saturation 8 L Transferrin 102 L 109 L Albumin 25-OH Vitamin D Total Folate PTH Intact Nasal Screen MRSA (PCR) Stool Occult Blood Blood Type Antibody Screen Crossmatch 3 10/22/17 10/22/17 10/22/17 16:28 04:57 04:57 WBC 7.2 RBC 3.30 L Hgb 7.5 L Hct 24.8 L MCV 75.2 L MCH 22.7 L MCHC 30.2 L RDW 20.7 H Plt Count 313 MPV 9.3 L Reticulocyte # Immature Gran % 1.1 Seg Neutrophils % 70.0 Lymphocytes % 16.7 Monocytes % 8.8 Eosinophils % 3.0 Basophils % 0.4 Neutrophils # 5.1 Lymphocytes # 1.2 Monocytes # 0.6 Eosinophils # 0.2 Basophils # 0.0 Percent Retic Immature Retic Fraction Retic Hgb Equivalent PT INR Sodium 139 Potassium 4.3 Chloride 107 Carbon Dioxide 27 BUN 25 H Creatinine 1.09 Est GFR ( Amer) > 60 Est GFR (Non-Af Amer) > 60 BUN/Creatinine Ratio 23 Glucose 105 Calculated Osmolality 293 Calcium 8.4 L Phosphorus Iron % Saturation Transferrin Albumin 25-OH Vitamin D Total Folate 20.2 H PTH Intact Nasal Screen MRSA (PCR) Stool Occult Blood Blood Type Antibody Screen Crossmatch 3 10/22/17 10/21/17 00:36 21:22 WBC RBC Hgb Hct MCV MCH MCHC RDW Plt Count MPV Reticulocyte # Immature Gran % Seg Neutrophils % Lymphocytes % Monocytes % Eosinophils % Basophils % Neutrophils # Lymphocytes # Monocytes # Eosinophils # Basophils # Percent Retic Immature Retic Fraction Retic Hgb Equivalent PT INR Sodium 136 Potassium 3.8 Chloride 105 Carbon Dioxide 26 BUN 25 H Creatinine 1.18 Est GFR ( Amer) > 60 Est GFR (Non-Af Amer) > 60 BUN/Creatinine Ratio 21 Glucose 143 H Calculated Osmolality 289 Calcium 8.4 L Phosphorus Iron % Saturation Transferrin Albumin 25-OH Vitamin D Total Folate PTH Intact Nasal Screen MRSA (PCR) Stool Occult Blood Blood Type O POSITIVE Antibody Screen NEGATIVE Crossmatch See Detail Consult Discharge Plan - Plan Referrals: Shayan Oliva MD [Primary Care Provider] - <Aristides Thomas - Last Filed: 10/24/17 21:24> Date of Encounter: 10/24/17 - Data of Consult Requesting Physician: Alejandro Melton Primary Care Provider: Shayan Oliva MD - Consult Narrative History of present illness: Mr. Klein is a 72 year old male Oncology - Exam - Constitutional Vitals: Temp Pulse Resp BP Pulse Ox 98.8 F 84 14 133/72 95 10/24/17 19:35 10/24/17 19:35 10/24/17 19:35 10/24/17 19:35 10/24/17 19:35 Oncology - Results Labs: 3 10/24/17 10/24/17 10/24/17 12:07 10:34 08:28 WBC 7.8 RBC 3.91 L Hgb 9.3 L Hct 30.3 L MCV 77.5 L MCH 23.8 L MCHC 30.7 L RDW 21.0 H Plt Count 303 MPV 9.6 Reticulocyte # Immature Gran % Seg Neutrophils % Lymphocytes % Monocytes % Eosinophils % Basophils % Neutrophils # Lymphocytes # Monocytes # Eosinophils # Basophils # Percent Retic Immature Retic Fraction Retic Hgb Equivalent PT 13.8 H INR 1.2 Sodium Potassium Chloride Carbon Dioxide BUN Creatinine Est GFR ( Amer) Est GFR (Non-Af Amer) BUN/Creatinine Ratio Glucose Calculated Osmolality Calcium Phosphorus Iron % Saturation Transferrin Albumin 25-OH Vitamin D Total Folate PTH Intact Nasal Screen MRSA (PCR) Negative Stool Occult Blood Blood Type Antibody Screen Crossmatch 3 10/24/17 10/24/17 10/24/17 05:34 05:34 05:34 WBC RBC Hgb Hct MCV MCH MCHC RDW Plt Count MPV Reticulocyte # Immature Gran % Seg Neutrophils % Lymphocytes % Monocytes % Eosinophils % Basophils % Neutrophils # Lymphocytes # Monocytes # Eosinophils # Basophils # Percent Retic Immature Retic Fraction Retic Hgb Equivalent PT INR Sodium 140 Potassium 4.2 Chloride 110 H Carbon Dioxide 24 BUN 21 Creatinine 1.02 Est GFR ( Amer) > 60 Est GFR (Non-Af Amer) > 60 BUN/Creatinine Ratio 21 Glucose 97 Calculated Osmolality 293 Calcium 8.4 L Phosphorus 3.0 Iron % Saturation Transferrin Albumin 2.5 L 25-OH Vitamin D Total 37 Folate PTH Intact 20.1 Nasal Screen MRSA (PCR) Stool Occult Blood Blood Type Antibody Screen Crossmatch 3 10/24/17 10/23/17 10/23/17 05:34 13:38 13:15 WBC 7.4 8.4 RBC 3.43 L 3.84 L Hgb 8.0 L 9.2 L D Hct 26.3 L 30.7 L MCV 76.7 L 79.9 L MCH 23.3 L 24.0 L MCHC 30.4 L 30.0 L RDW 21.4 H 21.2 H Plt Count 304 340 MPV 8.9 L 9.6 Reticulocyte # Immature Gran % 1.2 Seg Neutrophils % 72.9 Lymphocytes % 14.5 Monocytes % 7.3 Eosinophils % 3.4 Basophils % 0.7 Neutrophils # 5.4 Lymphocytes # 1.1 Monocytes # 0.5 Eosinophils # 0.3 Basophils # 0.1 Percent Retic Immature Retic Fraction Retic Hgb Equivalent PT INR Sodium Potassium Chloride Carbon Dioxide BUN Creatinine Est GFR ( Amer) Est GFR (Non-Af Amer) BUN/Creatinine Ratio Glucose Calculated Osmolality Calcium Phosphorus Iron % Saturation Transferrin Albumin 25-OH Vitamin D Total Folate PTH Intact Nasal Screen MRSA (PCR) Stool Occult Blood Negative Blood Type Antibody Screen Crossmatch 3 10/23/17 10/23/17 10/23/17 10:12 04:16 04:16 WBC 7.2 RBC 3.20 L Hgb 7.3 L Hct 24.4 L MCV 76.3 L MCH 22.8 L MCHC 29.9 L RDW 20.9 H Plt Count 322 MPV 9.6 Reticulocyte # 0.04 L Immature Gran % 1.4 Seg Neutrophils % 71.7 Lymphocytes % 15.9 Monocytes % 6.8 Eosinophils % 3.6 Basophils % 0.6 Neutrophils # 5.2 Lymphocytes # 1.1 Monocytes # 0.5 Eosinophils # 0.3 Basophils # 0.0 Percent Retic 1.4 L Immature Retic Fraction 23.9 Retic Hgb Equivalent 25.4 L PT INR Sodium 140 Potassium 4.2 Chloride 111 H Carbon Dioxide 25 BUN 20 Creatinine 1.07 Est GFR ( Amer) > 60 Est GFR (Non-Af Amer) > 60 BUN/Creatinine Ratio 19 Glucose 89 Calculated Osmolality 292 Calcium 8.2 L Phosphorus Iron 11 L % Saturation 8 L Transferrin 102 L Albumin 25-OH Vitamin D Total Folate PTH Intact Nasal Screen MRSA (PCR) Negative Stool Occult Blood Blood Type Antibody Screen Crossmatch 3 10/22/17 10/22/17 10/22/17 16:28 16:28 04:57 WBC RBC Hgb Hct MCV MCH MCHC RDW Plt Count MPV Reticulocyte # Immature Gran % Seg Neutrophils % Lymphocytes % Monocytes % Eosinophils % Basophils % Neutrophils # Lymphocytes # Monocytes # Eosinophils # Basophils # Percent Retic Immature Retic Fraction Retic Hgb Equivalent PT INR Sodium 139 Potassium 4.3 Chloride 107 Carbon Dioxide 27 BUN 25 H Creatinine 1.09 Est GFR ( Amer) > 60 Est GFR (Non-Af Amer) > 60 BUN/Creatinine Ratio 23 Glucose 105 Calculated Osmolality 293 Calcium 8.4 L Phosphorus Iron % Saturation Transferrin 109 L Albumin 25-OH Vitamin D Total Folate 20.2 H PTH Intact Nasal Screen MRSA (PCR) Stool Occult Blood Blood Type Antibody Screen Crossmatch 3 10/22/17 10/22/17 10/21/17 04:57 00:36 21:22 WBC 7.2 RBC 3.30 L Hgb 7.5 L Hct 24.8 L MCV 75.2 L MCH 22.7 L MCHC 30.2 L RDW 20.7 H Plt Count 313 MPV 9.3 L Reticulocyte # Immature Gran % 1.1 Seg Neutrophils % 70.0 Lymphocytes % 16.7 Monocytes % 8.8 Eosinophils % 3.0 Basophils % 0.4 Neutrophils # 5.1 Lymphocytes # 1.2 Monocytes # 0.6 Eosinophils # 0.2 Basophils # 0.0 Percent Retic Immature Retic Fraction Retic Hgb Equivalent PT INR Sodium 136 Potassium 3.8 Chloride 105 Carbon Dioxide 26 BUN 25 H Creatinine 1.18 Est GFR ( Amer) > 60 Est GFR (Non-Af Amer) > 60 BUN/Creatinine Ratio 21 Glucose 143 H Calculated Osmolality 289 Calcium 8.4 L Phosphorus Iron % Saturation Transferrin Albumin 25-OH Vitamin D Total Folate PTH Intact Nasal Screen MRSA (PCR) Stool Occult Blood Blood Type O POSITIVE Antibody Screen NEGATIVE Crossmatch See Detail - Attending Attestation I have seen and examined Mr. Klein and agree with the resident's assessment and plan. He has a chronic anemia dating back about 6 months with microcytic and hypochromic indices. WBC and platelets normal. Contributing factors include iron deficiency with transferrin saturation of 8%. He also has a probable infection involving a decubitus ulcer as well as underlying CKD. Elevated ESR/ CRP concerning for infectin as well as inflammatory disorders. We will administer IV iron today with venofer 400 mg. Received transfusion as well. Workup completed for paraproteinemia, hemolysis and B12 as well. Given chronic issues, he may have slight response to iron but do not expect dramatic improvement in anemia until underlying infflammatory/infectious issues resolved.
[2017-10-24] MEDS ORDERED: 0.9 % Sodium Chloride 500 ML ONE (14:41)
--- NOTE | 2017-10-24 15:18 | IR Procedure Note ---
Date of procedure: 10/24/17 Consent Obtained: Written consent Timeout: Correct patient and procedure verified, Correct site verified, Time out performed, Skin prep completed Indications: renal disease Procedure Performed: renal biopsy Was there an program assistant present: No Site/Technique: left kidney random biopsy Results/Findings: adequate specimen Estimated blood loss (cc): 2 Complications: None; Tolerated procedure well Post Procedure Treatment Plan: dc to floor Specimen: 6 18G cores from left renal cortex
[2017-10-24] MEDS ORDERED: Iron Sucrose Complex 400 MG in 0.9 % Sodium Chloride 250 ML IVPB ONE (18:00)
[2017-10-25 06:42] LABS: Basophils % 0.4 %; Eosinophils # 0.3 K/mcL (0.0-0.6); Hematocrit 30.1 % (37.5-50.1); Hemoglobin 9.2 g/dL (12.9-16.9); Immature Granulocytes % 0.9 % (0-4); Lymphocytes % 10.2 %; Mean Corpuscular HGB Conc 30.6 g/dL (31.6-35.5); Mean Corpuscular Hemoglobin 23.8 pg (28.0-33.3); Mean Platelet Volume 9.1 fL (9.4-12.4); Monocytes # 0.6 K/mcL (0.0-1.3); Monocytes % 6.3 %; Neutrophils # 7.5 K/mcL (1.6-8.9); Platelet Count 304 K/mcL (140-400); Red Blood Count 3.86 M/mcL (4.19-5.50); Red Cell Distribution Width 21.5 % (11.5-14.5); Segmented Neutrophils % 79.2 %
[2017-10-25 07:05] LABS: BUN/Creatinine Ratio 16 (6-26); Blood Urea Nitrogen 19 mg/dL (8-23); Calcium 8.5 mg/dL (8.6-10.3); Carbon Dioxide 22 mEq/L (23-29); Chloride 110 mEq/L (98-107); Glucose 98 mg/dL (70-105); Osmolality,Calculated 292 (280-300); Potassium 4.4 mEq/L (3.5-5.1); Sodium 140 mEq/L (136-145); eGFR For Non-African Americans > 60 (> 60)
[2017-10-25 07:09] VITALS: BP 117/66
[2017-10-25 07:13] LABS: Thyroid Stimulating Hormone 1.538 mcIU/mL (0.340-5.600)
--- NOTE | 2017-10-25 10:05 | Nephrology Progress Note ---
Date of Encounter: 10/25/17 Time of Encounter: 08:30 - Assessment and Plan (1) VALERIANO (acute kidney injury) Current Visit: Yes Status: Acute Improved. Patient's kidney function continues to be marginally elevated from baseline creatinine of 0.8. Currently creatinine is 1.16. Outpatient workup was negative. Renal biopsy completed yesterday, pending results. [facility], who recommends GI consult to r/o active GI bleed. Patient renal status is stable. Spoke with Dr. Delaney, we recommend to discharge with renal diet and follow up outpatient nephrology for pathology report and outpatient GI work-up Patient is agreeable to plan. Thank you for the consult. (2) Anemia Current Visit: Yes Status: Suspected anemia work up demonstrates severe iron deficiency anemia likely secondary to chronic decubitus ulcer and patient was on IV antibiotics for osteomyelitis in May. FOBT negative. Hb stable at 9.2 after receiving 2 units RBC. Patient to follow up with GI outpatient to rule out GI etiology. 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 He is doing well today. He denies any headaches, blurry vision, nausea, vomiting, diarrhea , chest pain, shortness of breath. He is able to tolerate by mouth intake. voiding without difficulty. He denies any recent vomiting, nausea, fevers, chills, hematochezia. Patient is doing well overall. No further acute complaints Objective - Vital Signs Vital signs: Vital Signs Temp Pulse Resp BP Pulse Ox 10/25/17 07:08 98.6 F 82 19 117/66 93 10/25/17 04:39 99.4 F 92 15 119/53 94 10/24/17 23:50 99.2 F 94 16 125/62 94 10/24/17 19:35 98.8 F 84 14 133/72 95 10/24/17 16:04 97.5 F L 79 16 161/72 10/24/17 15:06 96 22 172/79 97 10/24/17 11:20 98.3 F 76 16 147/71 95 10/24/17 10:46 97.5 F L 86 18 134/87 Intake and Output 10/24/17 10/25/17 10/25/17 23:59 07:59 15:59 Intake Total 240 / 240 Output Total 600 / 600 300 / 300 Balance -600 / -600 -300 / -300 240 / 240 Intake: Oral 240 / 240 Output: Straight Cath 600 / 600 300 / 300 Other: Meal Breakfast Percent of Meal Consumed 60% # Urine Diapers 250 Weight 71.6 kg - General Appearance Exam: General appearance: Present: well-developed, well-nourished, appears started age Neck: Present: no JVD, no thyromegaly, no carotid bruit, supple Respiratory: Present: no kyphosis, no scoliosis Cardiology: Present: no murmurs, no rub, no gallops, no edema, regular rate, regular rhythm, normal S1, normal S2 Gastrointestinal: Present: normoactive bowel sounds, no tenderness Integumentary: Present: no rash, warm and dry Neurologic: Present: alert and oriented x3 Additional Comments: paraplegic from waist down. No new focal deficits. Musculoskeletal: Present: no deformities, no erythema, no cyanosis, no clubbing Psychiatric: Present: mood/affect appropriate, cooperative - Lab 10/25/17 06:19 10/25/17 06:19 Most recent lab results Calcium 8.5 mg/dL (8.6-10.3) L 10/25/17 06:19 Phosphorus 3.0 mg/dL (2.7-4.5) 10/24/17 05:34 - VTE Documentation of Mechanical Device: Graduated compression elastic hosiery Consult Discharge Plan - Plan Referrals: Shayan Oliva MD [Primary Care Provider] -
--- NOTE | 2017-10-25 10:55 | Oncology Inp Progress Note ---
Date of Encounter: 10/25/17 Time of Encounter: 10:50 (1) Anemia Current Visit: Yes Status: Acute Assessment and plan: Microcytic hyperchromic anemia Secondary to iron deficiency along with inflammatory process. There is no evidence of hemolytic process. TSH within normal limits, ferritin elevated at 544, LDH within normal limits. B12 449 Fecal occult negative Awaiting SPEP, serum free light chains Continue oral iron outpatient Patient has GI evaluation scheduled outpatient by hospitalist team Follow-up with Dr. Thomas scheduled outpatient Patient is being discharged today. Thank you for consult Qualifiers: Anemia type: iron deficiency Iron deficiency anemia type: chronic blood loss Qualified Code(s): D50.0 - Iron deficiency anemia secondary to blood loss (chronic) (2) VALERIANO (acute kidney injury) Current Visit: Yes Status: Acute Assessment and plan: Improved. Status post renal biopsy Management as per nephrology and primary team. Oncology: Subj Interval history: No acute events overnight. Patient tolerated renal biopsy. He denies abdominal pain. - Constitutional Vitals: Vital Signs Temp Pulse Resp BP Pulse Ox 10/25/17 07:08 98.6 F 82 19 117/66 93 10/25/17 04:39 99.4 F 92 15 119/53 94 10/24/17 23:50 99.2 F 94 16 125/62 94 10/24/17 19:35 98.8 F 84 14 133/72 95 10/24/17 16:04 97.5 F L 79 16 161/72 10/24/17 15:06 96 22 172/79 97 10/24/17 11:20 98.3 F 76 16 147/71 95 Intake and Output 10/24/17 10/25/17 10/25/17 23:59 07:59 15:59 Intake Total 240 / 240 Output Total 600 / 600 300 / 300 Balance -600 / -600 -300 / -300 240 / 240 Intake: Oral 240 / 240 Output: Straight Cath 600 / 600 300 / 300 Other: Meal Breakfast Percent of Meal Consumed 60% # Urine Diapers 250 Weight 71.6 kg - Additional findings Additional findings: General: Pleasant without distress HEENT: Moist mucous membranes Heart: Regular rate and rhythm with no murmur Lungs: Clear to auscultation bilaterally Abdomen: Soft nontender, nondistended positive bowel sounds. Large scar in the left abdomen secondary to abdominal aortic aneurysm repair surgery Skin: Stage III decubitus ulcers on his sacrum. Extremities: Mild bilateral ankle edema. Neuro: Alert oriented 3. Patient has complete numbness and loss of function below his umbilicus. Upper extremity strength 4 out of 5 bilaterally. Upper extremity sensation intact. Vascular: Pedal and radial pulses 2 out of 4 Oncology: Obj Data - Labs CBC & Chem 7: 10/25/17 06:19 10/25/17 06:19 Labs: Laboratory Results - last 24 hr 10/24/17 10/24/17 10/24/17 05:34 10:34 12:07 WBC 7.8 RBC 3.91 L Hgb 9.3 L Hct 30.3 L MCV 77.5 L MCH 23.8 L MCHC 30.7 L RDW 21.0 H Plt Count 303 MPV 9.6 Immature Gran % Seg Neutrophils % Lymphocytes % Monocytes % Eosinophils % Basophils % Neutrophils # Lymphocytes # Monocytes # Eosinophils # Basophils # Sodium Potassium Chloride Carbon Dioxide BUN Creatinine Est GFR ( Amer) Est GFR (Non-Af Amer) BUN/Creatinine Ratio Glucose Calculated Osmolality Calcium Ferritin Lactate Dehydrogenase Vitamin B12 25-OH Vitamin D Total 37 TSH Nasal Screen MRSA (PCR) Negative 10/25/17 10/25/17 10/25/17 06:19 06:19 06:19 WBC 9.4 RBC 3.86 L Hgb 9.2 L Hct 30.1 L MCV 78.0 L MCH 23.8 L MCHC 30.6 L RDW 21.5 H Plt Count 304 MPV 9.1 L Immature Gran % 0.9 Seg Neutrophils % 79.2 Lymphocytes % 10.2 Monocytes % 6.3 Eosinophils % 3.0 Basophils % 0.4 Neutrophils # 7.5 Lymphocytes # 1.0 Monocytes # 0.6 Eosinophils # 0.3 Basophils # 0.0 Sodium 140 Potassium 4.4 Chloride 110 H Carbon Dioxide 22 L BUN 19 Creatinine 1.16 Est GFR ( Amer) > 60 Est GFR (Non-Af Amer) > 60 BUN/Creatinine Ratio 16 Glucose 98 Calculated Osmolality 292 Calcium 8.5 L Ferritin Lactate Dehydrogenase Vitamin B12 449 25-OH Vitamin D Total TSH Nasal Screen MRSA (PCR) 10/25/17 10/25/17 06:19 06:19 WBC RBC Hgb Hct MCV MCH MCHC RDW Plt Count MPV Immature Gran % Seg Neutrophils % Lymphocytes % Monocytes % Eosinophils % Basophils % Neutrophils # Lymphocytes # Monocytes # Eosinophils # Basophils # Sodium Potassium Chloride Carbon Dioxide BUN Creatinine Est GFR ( Amer) Est GFR (Non-Af Amer) BUN/Creatinine Ratio Glucose Calculated Osmolality Calcium Ferritin 544 H Lactate Dehydrogenase 108 L Vitamin B12 25-OH Vitamin D Total TSH 1.538 Nasal Screen MRSA (PCR) - Impressions Impressions Renal Biopsy CT 10/24/17 10:00 IMPRESSION: Successful CT guided core biopsy of the left kidney. D/ / 10/24/2017 15:52:28 Nikkie Douglas MD / [facility] Interpreting Provider: Nikkie Douglas MD - ABG Interpretation ABG results: PT/INR, D-dimer PT 13.8 Seconds (9.4-12.1) H 10/24/17 08:28 Consult Discharge Plan - Plan Referrals: Shayan Oliva MD [Primary Care Provider] -
--- NOTE | 2017-10-25 12:37 | Discharge Summary ---
- NOTES TO OUTPATIENT PROVIDER Notes to Outpatient Provider: Patient needs to follow-up. Hematology for iron deficiency anemia. Gastroenterology for evaluation for colonoscopy due to iron deficiency anemia. Nephrology for follow-up of renal biopsy to rule out glomerulonephritis Orders not resulted at time of discharge: Pending orders 10/21/17 21:22 Type and Screen [BBK] Routine 10/23/17 07:55 Red Blood Cells [BBK] Stat 10/24/17 15:10 Miscellaneous Lab Test Routine 10/25/17 04:00 Stool guiac [Occult Blood,Stool] [BF] AM 0400 10/25/17 06:19 Haptoglobin AM 0400 Protein Electrophoresis AM 0400 Serum Free Light Chain [[place] Lambda Qnt FLC w Ratio] AM 0400 Date of Encounter: 10/25/17 Time of Encounter: 12:34 - Discharge Diagnosis (1) VALERIANO (acute kidney injury) Priority: Primary Status: Acute (2) Hyperkalemia Priority: Secondary Status: Acute (3) Anemia Priority: Secondary Status: Acute Qualifiers: Anemia type: iron deficiency Iron deficiency anemia type: chronic blood loss Qualified Code(s): D50.0 - Iron deficiency anemia secondary to blood loss (chronic) (4) Decubitus ulcer Priority: Secondary Status: Acute Qualifiers: Pressure injury location: lower back Pressure injury stage: unspecified pressure injury stage Laterality: right Qualified Code(s): L89.139 - Pressure ulcer of right lower back, unspecified stage (5) DVT prophylaxis Priority: Secondary Status: Acute Hospital course: Mr. Klein is a 72 year old male sent to the hospital for worsening renal function and anemia. The patient was admitted for further workup. The patient recently had a rash there was concern for IgA vasculitis and was following up with rheumatology, the rash resolved with steroids rapidly. If relative to the patient's hospitalization and was worried about glomerulonephritis, inpatient renal biopsy was performed after transfusion of 2 units of packed red blood cells to maintain a hemoglobin of 9. Fecal occult blood was negative and hematology was consulted for iron deficiency anemia the patient received IV iron and was started on by mouth iron supplementation. The patient's hemoglobin stabilized after iron infusion as well as transfusion of packed red blood cells. The patient stable for discharge on October 2017. The patient will follow up with his scheduled rheumatology appointments. The patient will need to follow-up with gastroenterology for evaluation for colonoscopy due to iron deficiency anemia. The patient will follow up with nephrology for follow- up of renal biopsy. The patient will follow-up with hematology for continued evaluation of anemia. Patient is agreeable to discharge and all questions answered. Discharge discussed with: patient, nurse - Time Spent with Patient Total time spent providing and/or coordinating discharge services: Greater than 30 minutes - Discharge Medications Prescriptions: Ferrous Sulfate 325 mg PO BIDWM 30 Days #60 tablet Home Medications: Aspirin [Lo-Dose Aspirin EC] 81 mg PO DAILY 10/22/17 [History] Multivit-Min/FA/Lycopen/Lutein [A Thru Z Select Men 50+ Tablet] 1 tab PO DAILY 10/22/17 [History] Pravastatin Sodium [Pravachol] 80 mg PO QPM 10/22/17 [History] Ferrous Sulfate 325 mg PO BIDWM 30 Days #60 tablet 10/25/17 [Rx] Allergies/Adverse Reactions: 3 Allergy/AdvReac Type Severity Reaction Status Date / Time No Known Allergies Allergy Verified 09/07/17 14:06 Date of admission: 10/21/17 17:13 Primary care physician: Shayan Oliva MD Consults: 10/21/17 17:47 Consult to Nutrition [CONS] Routine Comment: Consulting Provider: NUTRITION Reason for Dietary Consult: MST Score Consult to Press Tender Smoke Signal [CONS] Routine Reason for SW Consult: [facility] for woundcare. 10/21/17 18:51 Consult to Wound Care [CONS] Routine Reason for Consult: 3 stage 3 ulcers, paitnet of DR. Blankenship. Call Completed: No 10/22/17 13:10 Consult to Nephrology [CONS] Routine Consulting Provider: Kidney Kamla/QUYNH/ADRIANE/FLAVIA Reason for Consult: valeriano with mild hyperkalemia; request of dr martnis Call Completed: Yes 10/23/17 10:58 Consult to Interventional Radiology [CONS] Routine Consulting Provider: Radiology Interventional Cols Reason for Consult: Renal biopsy 10/24/17 Call Completed: Yes 10/24/17 08:08 Consult to Oncology Hematology [CONS] Routine Consulting Provider: Aristides Thomas Reason for Consult: eval for worsening anemia with iron deficiency and low retic Call Completed: No - Constitutional Vitals: Temp Pulse Resp BP Pulse Ox 98.6 F 82 19 117/66 93 10/25/17 07:08 10/25/17 07:08 10/25/17 07:08 10/25/17 07:08 10/25/17 07:08 Exam: Constitutional: No acute distress, Alert, no palor Psych: AAO x 3 Neck: supple, no JVD Cardio: regular rate and rhythm, +s1s2 Resp: clear to ascultation bilaterally Abd: soft, non tender/non distended, positive bowel sounds, left posterior back renal biopsy site with bandage with no blood or erythema Extremities: no clubbing/cyanosis/edema appreciated Neuro: no focal deficits appreciated, patient with chronic loss of sensation and motor strength which is chronic with paraplegia - Patient Status Disposition: Home, Self-Care Condition: Good Functional capacity at discharge: bed bound Overall status at discharge: patient is progressing back to baseline - Discharge Instructions Instructions: Anemia (GEN) Follow Up With: Shayan Oliva MD [Primary Care Provider] - (Call Office for your follow up appointment. ) - Diet and Activity Activity: as per physical therapy, increase activity as tolerated Diet: advance to your usual diet - VTE Documentation of Mechanical Device: Graduated compression elastic hosiery
[2017-10-27 08:43] LABS: Kappa Qnt Free Light Chains 14.1 mg/dL (0.33-1.94); Lambda Qnt Free Light Chains 5.06 mg/dL (0.57-2.63)
[2017-10-28 00:48] LABS: Alpha 2 Globulin (PEP) 0.85 g/dL (0.48-1.05); Beta Globulin (PEP) 0.71 g/dL (0.48-1.10)
[2017-10-28 10:09] LABS: Immunoglobulin A 293 mg/dL (68-408); Immunoglobulin G 1570 mg/dL (768-1632); Immunoglobulin M 28 mg/dL (35-263)
[2017-10-28 10:10] LABS: IFE Reflexed IFE Done
== END 2017-10-25 14:51 | disposition home or self-care (01) ==
LOC: 2ANU 17:13 → INTOOBSV 17:13
PROVIDERS: ADMIT Internal Medicine; ATTEND Internal Medicine

== ENCOUNTER 2020-12-06 15:21 | Inpatient (IN) ==
[2020-12-06 15:47] LABS: Basophils % 0.4 %; Eosinophils # 0.1 K/mcL (0.0-0.6); Hematocrit 38.9 % (37.5-50.1); Immature Granulocytes % 0.9 % (0-4); Lymphocytes # 0.8 K/mcL (0.6-4.6); Lymphocytes % 7.7 %; Mean Corpuscular HGB Conc 30.8 g/dL (31.6-35.5); Mean Corpuscular Hemoglobin 26.6 pg (28.0-33.3); Mean Corpuscular Volume 86.3 fL (83.0-100.0); Mean Platelet Volume 9.1 fL (9.4-12.4); Monocytes # 0.7 K/mcL (0.0-1.3); Monocytes % 6.4 %; Neutrophils # 8.5 K/mcL (1.6-8.9); Platelet Count 305 K/mcL (140-400); Red Blood Count 4.51 M/mcL (4.19-5.50); Red Cell Distribution Width 16.4 % (11.5-14.5); Segmented Neutrophils % 83.6 %; White Blood Count 10.1 K/mcL (4.3-11.1)
[2020-12-06 16:15] LABS: BUN/Creatinine Ratio 21 (6-26); Blood Urea Nitrogen 30 mg/dL (8-23); Calcium 9.2 mg/dL (8.6-10.3); Carbon Dioxide 22 mEq/L (23-29); Chloride 104 mEq/L (98-107); Glucose 138 mg/dL (70-105); Osmolality,Calculated 282 (280-300); Potassium 5.9 mEq/L (3.5-5.1); Sodium 132 mEq/L (136-145); Troponin I < 0.03 ng/mL (< 0.04); eGFR For African Americans 57 (> 60); eGFR For Non-African Americans 47 (> 60)
[2020-12-06 17:34] LABS: INR 1.2; Prothrombin Time 13.5 Seconds (9.4-12.1)
[2020-12-06 17:37] LABS: Activated Partial Thrombo Time 34.3 Seconds (26.0-36.0)
[2020-12-06] MEDS ORDERED: 0.9 % Sodium Chloride 1,000 ML IV ONE (17:48)
[2020-12-06] MEDS ORDERED: Isovue-370 500 ML BOTTLE IVP ONE (17:48)
[2020-12-06] MEDS ORDERED: Nitroglycerin 0.4 MG TAB.SUBL SL PRN (17:49)
[2020-12-06] MEDS ORDERED: Aspirin 325 MG TABLET PO ONE (17:49)
[2020-12-06] MEDS ORDERED: Naloxone 0.4 MG/ML INJ IVP PRN (20:06)
[2020-12-06] MEDS ORDERED: Melatonin 3 MG TABLET PO PRN (20:06)
[2020-12-06 20:54] LABS: Bilirubin,Urine Negative (Negative); Blood,Urine Large (Negative); Clarity,Urine Clear (Clear); Color,Urine Light-Yellow (Yellow); Glucose,Urine (UA) Normal (Normal); Hyaline Casts,Urine Few per lpf (None Seen); Ketones,Urine Negative (Negative); Leukocyte Esterase,Urine Trace (Negative); Mucus,Urine Few per lpf (None-Few); Nitrite,Urine Negative (Negative); PH,Urine 5.5 pH Units (5.0-8.0); Protein,Urine Negative (Neg-Trace); RBC,Urine TNTC per hpf (0-3); Specific Gravity,Urine 1.025 (1.010-1.025); Squamous Epithelial Cell,Urine Few per hpf (None-Few); Urobilinogen,Urine Normal (Normal)
[2020-12-06 21:05] LABS: Influenza A PCR Negative (Negative); Influenza B PCR Negative (Negative); Resp. Syncytial Virus PCR Negative (Negative)
[2020-12-06 21:06] LABS: SARS-CoV-2 by PCR (In House) Negative (Negative)
[2020-12-06] MEDS ORDERED: 0.9 % Sodium Chloride 1,000 ML IVC SCH (23:30)
[2020-12-07 01:18] LABS: Hematocrit 35.1 % (37.5-50.1); Mean Corpuscular HGB Conc 31.3 g/dL (31.6-35.5); Mean Corpuscular Hemoglobin 26.9 pg (28.0-33.3); Mean Corpuscular Volume 85.8 fL (83.0-100.0); Mean Platelet Volume 8.9 fL (9.4-12.4); Platelet Count 273 K/mcL (140-400); Red Blood Count 4.09 M/mcL (4.19-5.50); Red Cell Distribution Width 16.3 % (11.5-14.5); White Blood Count 10.2 K/mcL (4.3-11.1)
[2020-12-07 01:36] LABS: Calcium 8.5 mg/dL (8.6-10.3); Potassium 5.8 mEq/L (3.5-5.1)
[2020-12-07] MEDS: *HR* Heparin 5,000 UNIT/ML VIAL SQ SCH ×2 (05:14→17:15)
[2020-12-07] MEDS ORDERED: Regadenoson 0.4 MG/5 ML SYRINGE IVP ONE (06:23)
[2020-12-07] MEDS ORDERED: 0.9 % Sodium Chloride 1,000 ML IVC SCH (09:15)
[2020-12-07] MEDS: Aspirin 81 MG TAB.CHEW PO SCH (09:38)
[2020-12-07] MEDS: cephALEXin 500 MG CAPSULE PO SCH ×3 (09:38→20:21)
[2020-12-07 11:37] LABS: Chol/HDL Ratio 3.5 (0-4.9)
[2020-12-07 11:39] LABS: Calcium 9.1 mg/dL (8.6-10.3); Potassium 5.7 mEq/L (3.5-5.1)
[2020-12-07] MEDS ORDERED: Insulin Human Regular 10 UNIT in 0.9 % Sodium Chloride 10 ML IV ONE (12:14)
[2020-12-07] MEDS ORDERED: Calcium Gluconate 1gm/50mL 1 GM/50 ML BAG IVPB ONE (12:14)
[2020-12-07 15:07] LABS: Estimated Average Glucose 105 mg/dl; Hemoglobin A1C 5.3 %
[2020-12-07] MEDS ORDERED: NON-FORMULARY MEDICATION 1 EACH EACH (Pravastatin Sodium [Pravachol] 80 MG Tablet) PO SCH (18:00)
[2020-12-07 19:00] LABS: BUN/Creatinine Ratio 18 (6-26); Blood Urea Nitrogen 24 mg/dL (8-23); Calcium 8.8 mg/dL (8.6-10.3); Carbon Dioxide 20 mEq/L (23-29); Chloride 108 mEq/L (98-107); Glucose 181 mg/dL (70-105); Osmolality,Calculated 287 (280-300); Sodium 134 mEq/L (136-145); eGFR For African Americans > 60 (> 60); eGFR For Non-African Americans 51 (> 60)
[2020-12-08] MEDS ORDERED: Albumin 25% 25gram/100mL 25 GM/100 ML IV.SOLN IVPB ONE (00:33)
[2020-12-08] MEDS: *HR* Heparin 5,000 UNIT/ML VIAL SQ SCH (05:55)
[2020-12-08 06:05] LABS: Calcium 8.7 mg/dL (8.6-10.3); Magnesium 1.8 mg/dL (1.6-2.6); Phosphorous 3.2 mg/dL (2.7-4.5)
[2020-12-08 07:24] VITALS: O2SAT 95
[2020-12-08] MEDS: cephALEXin 500 MG CAPSULE PO SCH (08:31)
[2020-12-08] MEDS: Aspirin 81 MG TAB.CHEW PO SCH (08:32)
[2020-12-08] MEDS ORDERED: 0.9 % Sodium Chloride 1,000 ML IVC SCH (09:00)
[2020-12-08 12:26] VITALS: TEMP 98.3
[2020-12-08 14:16] LABS: BUN/Creatinine Ratio 22 (6-26); Blood Urea Nitrogen 30 mg/dL (8-23); Calcium 8.6 mg/dL (8.6-10.3); Carbon Dioxide 21 mEq/L (23-29); Chloride 110 mEq/L (98-107); Glucose 109 mg/dL (70-105); Osmolality,Calculated 291 (280-300); Potassium 4.7 mEq/L (3.5-5.1); Sodium 137 mEq/L (136-145); eGFR For African Americans > 60 (> 60); eGFR For Non-African Americans 52 (> 60)
[2020-12-08 14:22] VITALS: BP 103/48; PULSE 73
== END 2020-12-08 15:30 | disposition home or self-care (01) | DRG 682 ==
LOC: 3BNU 15:21 → EMEROOARM 15:21 → SUATTDRO 20:09 → 3BNU 20:45
PROVIDERS: ADMIT Student in an Organized Health Care Education/Training Program; ATTEND Internal Medicine

== ENCOUNTER 2020-12-18 12:34 | Observation (INO) ==
[2020-12-18] MEDS ORDERED: levoFLOXacin 750 MG/150 ML 750 MG/150 ML BAG IVPB ONE (13:06)
[2020-12-18] MEDS ORDERED: 0.9 % Sodium Chloride 1,000 ML IVC ONE (13:06)
[2020-12-18] MEDS ORDERED: Ondansetron 4 MG/2 ML VIAL IVP ONE (13:10)
[2020-12-18 13:49] LABS: Basophils % 0.3 %; Eosinophils # 0.1 K/mcL (0.0-0.6); Eosinophils % 0.7 %; Hematocrit 36.8 % (37.5-50.1); Hemoglobin 11.2 g/dL (12.9-16.9); Immature Granulocytes % 0.5 % (0-4); Lymphocytes # 0.8 K/mcL (0.6-4.6); Lymphocytes % 8.8 %; Mean Corpuscular HGB Conc 30.4 g/dL (31.6-35.5); Mean Corpuscular Hemoglobin 26.2 pg (28.0-33.3); Mean Platelet Volume 9.8 fL (9.4-12.4); Monocytes # 0.6 K/mcL (0.0-1.3); Monocytes % 6.6 %; Neutrophils # 7.9 K/mcL (1.6-8.9); Platelet Count 222 K/mcL (140-400); Red Blood Count 4.28 M/mcL (4.19-5.50); Red Cell Distribution Width 16.4 % (11.5-14.5); Segmented Neutrophils % 83.1 %; White Blood Count 9.5 K/mcL (4.3-11.1)
[2020-12-18 13:59] LABS: Bilirubin,Urine Negative (Negative); Blood,Urine Moderate (Negative); Clarity,Urine Turbid (Clear); Color,Urine Yellow (Yellow); Glucose,Urine (UA) Normal (Normal); Hyaline Casts,Urine Few per lpf (None Seen); Ketones,Urine Negative (Negative); Leukocyte Esterase,Urine Large (Negative); Mucus,Urine Few per lpf (None-Few); Nitrite,Urine Negative (Negative); PH,Urine 5.5 pH Units (5.0-8.0); Protein,Urine 30 mg/dL (Neg-Trace); RBC,Urine 15-30 per hpf (0-3); Specific Gravity,Urine 1.018 (1.010-1.025); Squamous Epithelial Cell,Urine Few per hpf (None-Few); Urobilinogen,Urine Normal (Normal); WBC,Urine 50-100 per hpf (0-3)
[2020-12-18 14:02] LABS: INR 1.3; Prothrombin Time 14.2 Seconds (9.4-12.1)
[2020-12-18 14:05] LABS: Activated Partial Thrombo Time 34.3 Seconds (26.0-36.0)
[2020-12-18 14:06] LABS: Alanine Aminotransferase 15 Units/L (7-52); Albumin 3.7 g/dL (3.5-5.7); Alkaline Phosphatase 81 Units/L (34-104); Aspartate Amino Transferase 15 Units/L (13-39); BUN/Creatinine Ratio 22 (6-26); Bilirubin,Direct 0.2 mg/dL (0.0-0.2); Bilirubin,Indirect 0.5 mg/dL (0.0-1.0); Bilirubin,Total 0.7 mg/dL (0.3-1.0); Blood Urea Nitrogen 27 mg/dL (8-23); Calcium 9.3 mg/dL (8.6-10.3); Carbon Dioxide 27 mEq/L (23-29); Chloride 103 mEq/L (98-107); Globulin 3.7 g/dL (2.4-3.5); Glucose 99 mg/dL (70-105); Magnesium 1.9 mg/dL (1.6-2.6); Osmolality,Calculated 289 (280-300); Phosphorous 3.2 mg/dL (2.7-4.5); Potassium 4.4 mEq/L (3.5-5.1); Sodium 137 mEq/L (136-145); Total Protein 7.4 g/dL (6.4-8.9); eGFR For African Americans > 60 (> 60); eGFR For Non-African Americans 58 (> 60)
[2020-12-18 14:07] LABS: Troponin I 0.03 ng/mL (< 0.04)
[2020-12-18] MEDS ORDERED: Naloxone 0.4 MG/ML INJ IVP PRN (15:27)
[2020-12-18] MEDS ORDERED: Acetaminophen 325 MG TABLET PO PRN (15:27)
[2020-12-18] MEDS ORDERED: Ondansetron 4 MG/2 ML VIAL IVP PRN (15:27)
[2020-12-18] MEDS: *HR* Heparin 5,000 UNIT/ML VIAL SQ SCH (21:27)
[2020-12-19 03:19] LABS: Basophils % 0.5 %; Eosinophils # 0.2 K/mcL (0.0-0.6); Eosinophils % 2.7 %; Hematocrit 29.8 % (37.5-50.1); Immature Granulocytes % 0.5 % (0-4); Lymphocytes # 0.7 K/mcL (0.6-4.6); Lymphocytes % 11.3 %; Mean Corpuscular HGB Conc 31.9 g/dL (31.6-35.5); Mean Corpuscular Hemoglobin 27.3 pg (28.0-33.3); Mean Corpuscular Volume 85.6 fL (83.0-100.0); Mean Platelet Volume 9.5 fL (9.4-12.4); Monocytes # 0.5 K/mcL (0.0-1.3); Monocytes % 8.1 %; Neutrophils # 4.5 K/mcL (1.6-8.9); Platelet Count 175 K/mcL (140-400); Red Blood Count 3.48 M/mcL (4.19-5.50); Red Cell Distribution Width 16.4 % (11.5-14.5); Segmented Neutrophils % 76.9 %; White Blood Count 5.8 K/mcL (4.3-11.1)
[2020-12-19 03:23] LABS: Hemoglobin 9.5 g/dL (12.9-16.9)
[2020-12-19 03:38] LABS: BUN/Creatinine Ratio 24 (6-26); Blood Urea Nitrogen 27 mg/dL (8-23); Calcium 8.3 mg/dL (8.6-10.3); Carbon Dioxide 23 mEq/L (23-29); Chloride 107 mEq/L (98-107); Glucose 90 mg/dL (70-105); Magnesium 1.8 mg/dL (1.6-2.6); Osmolality,Calculated 289 (280-300); Potassium 4.9 mEq/L (3.5-5.1); Sodium 137 mEq/L (136-145); eGFR For African Americans > 60 (> 60); eGFR For Non-African Americans > 60 (> 60)
[2020-12-19] MEDS: *HR* Heparin 5,000 UNIT/ML VIAL SQ SCH (05:21)
[2020-12-19] MEDS: Aspirin Enteric Coated 81 MG Tablet PO SCH (08:25)
[2020-12-19] MEDS: lisinopriL 5 MG TABLET PO SCH (08:25)
[2020-12-19] MEDS: Multivit/Ca/Min/Fe/FA 1 TAB TABLET PO SCH (08:25)
[2020-12-19] MEDS: levoFLOXacin 750 MG/150 ML 750 MG/150 ML BAG IVPB SCH (08:27)
[2020-12-19] MEDS ORDERED: *HR* Heparin 5,000 UNIT/ML VIAL IVP PRN ×2 (10:29)
[2020-12-19] MEDS ORDERED: *HR* Heparin 5,000 UNIT/ML VIAL IVP ONE (10:29)
[2020-12-19] MEDS ORDERED: Heparin 25,000UNIT/250ML 1/2NS 25,000 UNIT/250 ML IV.SOLN IVC SCH (10:30)
[2020-12-19 11:43] LABS: Hematocrit 33.2 % (37.5-50.1); Hemoglobin 10.4 g/dL (12.9-16.9); Mean Corpuscular HGB Conc 31.3 g/dL (31.6-35.5); Mean Corpuscular Hemoglobin 27.1 pg (28.0-33.3); Mean Corpuscular Volume 86.5 fL (83.0-100.0); Mean Platelet Volume 10.1 fL (9.4-12.4); Platelet Count 195 K/mcL (140-400); Red Blood Count 3.84 M/mcL (4.19-5.50); Red Cell Distribution Width 16.5 % (11.5-14.5); White Blood Count 5.1 K/mcL (4.3-11.1)
[2020-12-19 11:58] LABS: INR 1.4; Prothrombin Time 15.1 Seconds (9.4-12.1)
[2020-12-19] MEDS ORDERED: *HR* Enoxaparin 30 MG/0.3 ML SYRINGE SQ SCH (18:00)
[2020-12-19] MEDS: *HR* Enoxaparin 80 MG/0.8 ML SYRINGE SQ SCH (18:06)
[2020-12-20 06:02] VITALS: O2SAT 96
[2020-12-20] MEDS: *HR* Enoxaparin 80 MG/0.8 ML SYRINGE SQ SCH (06:02)
[2020-12-20 06:21] LABS: Basophils % 0.6 %; Eosinophils # 0.2 K/mcL (0.0-0.6); Eosinophils % 4.7 %; Hematocrit 33.1 % (37.5-50.1); Hemoglobin 9.8 g/dL (12.9-16.9); Immature Granulocytes % 0.4 % (0-4); Lymphocytes # 0.8 K/mcL (0.6-4.6); Lymphocytes % 17.8 %; Mean Corpuscular HGB Conc 29.6 g/dL (31.6-35.5); Mean Corpuscular Hemoglobin 25.8 pg (28.0-33.3); Mean Corpuscular Volume 87.1 fL (83.0-100.0); Mean Platelet Volume 9.7 fL (9.4-12.4); Monocytes # 0.5 K/mcL (0.0-1.3); Monocytes % 9.7 %; Neutrophils # 3.1 K/mcL (1.6-8.9); Platelet Count 202 K/mcL (140-400); Red Cell Distribution Width 16.2 % (11.5-14.5); Segmented Neutrophils % 66.8 %; White Blood Count 4.7 K/mcL (4.3-11.1)
[2020-12-20 06:41] LABS: BUN/Creatinine Ratio 23 (6-26); Blood Urea Nitrogen 26 mg/dL (8-23); Calcium 8.8 mg/dL (8.6-10.3); Carbon Dioxide 25 mEq/L (23-29); Chloride 106 mEq/L (98-107); Glucose 95 mg/dL (70-105); Osmolality,Calculated 289 (280-300); Potassium 4.6 mEq/L (3.5-5.1); Sodium 137 mEq/L (136-145); eGFR For African Americans > 60 (> 60); eGFR For Non-African Americans > 60 (> 60)
[2020-12-20] MEDS: lisinopriL 5 MG TABLET PO SCH (08:02)
[2020-12-20] MEDS: Aspirin Enteric Coated 81 MG Tablet PO SCH (08:02)
[2020-12-20] MEDS: Multivit/Ca/Min/Fe/FA 1 TAB TABLET PO SCH (08:02)
[2020-12-20] MEDS: levoFLOXacin 750 MG/150 ML 750 MG/150 ML BAG IVPB SCH (08:03)
[2020-12-20 10:24] LABS: INR 1.4; Prothrombin Time 15.3 Seconds (9.4-12.1)
[2020-12-20 11:00] VITALS: BP 111/53; PULSE 82; TEMP 97.9
[2020-12-20] MEDS ORDERED: Doxycycline 100 MG CAPSULE PO SCH (11:00)
[2020-12-20] MEDS ORDERED: Warfarin perPT PO PRN (18:00)
[2020-12-20] MEDS ORDERED: *HR* Warfarin 2.5 MG TABLET PO ONE (18:00)
[2020-12-21] MEDS ORDERED: Multivit/Ca/Min/Fe/FA 1 TAB TABLET PO SCH (11:00)
== END 2020-12-20 17:03 | disposition home or self-care (01) ==
LOC: 2NENU 12:34 → EMEROOARM 12:34 → SUATTDRO 15:22 → 2NENU 16:21
PROVIDERS: ADMIT Student in an Organized Health Care Education/Training Program; ATTEND Internal Medicine